=== PATIENT | female | born 1960 | race Caucasian/White ===

== ENCOUNTER → 2016-11-23 | Outpatient (CLI) | payer MEDICARE, OTHER ==
--- NOTE | 2016-11-23 16:55 | XR ---
EXAMINATION TYPE: XR Hip Bilateral Complete DATE OF EXAM: 11/23/2016 4:37 PM CLINICAL HISTORY: Chronic bilateral hip pain TECHNIQUE: AP and frogleg views of the bilateral hips are obtained. COMPARISON: Pelvic and right hip x-ray February 24, 2016. FINDINGS: There is no acute fracture/dislocation evident in either hip. There is advanced joint space loss with joint space sclerosis and geode formation in the right hip. M arginal spurring at head neck junction is redemonstrated. Well-defined ossific formation along superi or lateral acetabulum is again seen. Loss of normal femoral head shape is again identified raising co ncern for avascular necrosis. No significant change from prior study is present. Metallic hardware from left hip arthroplasty is redemonstrated. Lateral screw remains laterally displ aced from bone. Lucency surrounding more medial screws is again seen similar to prior exam. Consider loosening. Femoral shaft component felt within normal limits. Overlying soft tissue shows left-sided pelvic phleboliths similar to prior. 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 Metallic hardware left hip is redemonstrated with lucency along the medial screw sug gesting focal loosening again seen. No significant change from prior study is present.
--- NOTE | 2016-11-24 08:48 | XR ---
EXAMINATION TYPE: XR lumbosacral spine min 4V DATE OF EXAM: 11/23/2016 4:36 PM CLINICAL HISTORY: Low back pain. TECHNIQUE: Frontal, lateral, and oblique images of the lumbar spine are obtained. COMPARISON: CT abdomen pelvis December 04, 2015 FINDINGS: There are 5 lumbar type vertebral bodies identified. The lumbar spine redemonstrated bila teral pars defects L5 level with grade 1 anterolisthesis of L5 on S1. Vertebral body heights are with in normal limits. There is advanced disc space narrowing with endplate sclerosis at L5-S1 level wit h mild to moderate spurring redemonstrated. Remainder disc spaces are maintained. The oblique images appear within normal limits cholecystectomy clips are seen in the overlying soft tissue. There is par tial visualization of bilateral renal calculi redemonstrated. There is partial visualization of surgi frank hardware left hip level. There is mild atherosclerotic change of distal abdominal aorta redemonst rated. IMPRESSION: Bilateral pars defects L5 level with spondylolisthesis and advanced degenerative changes lumbosacral junction redemonstrated.
== END | disposition home or self-care (01) ==
LOC: RADXRMAIN 15:59
PROVIDERS: ATTEND Family Medicine
DX: M43.17 Spondylolisthesis, lumbosacral region (principal); M47.817 Spondylosis without myelopathy or radiculopathy, lumbosacral region; M25.851 Other specified joint disorders, right hip; M25.551 Pain in right hip; M25.552 Pain in left hip
CPT/HCPCS: 72110; 73521

== ENCOUNTER → 2016-12-09 | Outpatient (CLI) | payer MEDICARE, OTHER ==
--- NOTE | 2016-12-09 15:45 | CT ---
EXAMINATION TYPE: CT abdomen pelvis wo con DATE OF EXAM: 12/09/2016 3:31 PM COMPARISON: Previous study dated 12/04/2015. HISTORY: Right-sided abdominal pain. TECHNIQUE: Helical acquisition through the abdomen and pelvis was obtained without oral or intravenou s contrast. The data was reformatted in axial, coronal and sagittal projections. CT DLP: 317.80 mGycm Automated exposure control for dose reduction was used. FINDINGS: There is some dependent atelectasis in the dependent portions of the lungs. There is no ple ural or pericardial fluid. Within the abdomen, the gallbladder has been removed. The liver and spleen appear normal. There is a small hiatal hernia. Both adrenal glands appear normal. There is nephrolithiasis in the lower pole of both kidneys. There is a 9.6 mm calculus on the right a nd 9.1 mm calculus in the left. There is no hydronephrosis. Limited views of the pancreas are unremarkable. The stomach wall appears thickened. CT is notoriously poor assessment of stomach wall thickness. There is no significant retroperitoneal, iliac or inguinal adenopathy. There is minor atheromatous ca lcification of the visualized arterial tree. A left hip prosthesis is causing moderate streak artifact throughout the pelvis. The bladder is unrem arkable. The uterus and ovaries are not visualized. There is no significant diverticular change and there is no radiographic evidence of diverticulitis. The appendix is not visualized. Small bowel loops are normal. There is no free fluid and no free air identified. There is severe degenerative disease at L5-S1. There is a bilateral pars defect at L5 and a grade 1 s pondylolisthesis of L5 on S1. There is hypertrophic spondylosis in the lower dorsal spine. No destruc tive bone lesion is seen. IMPRESSION: 1. SMALL HIATAL HERNIA. 2. BILATERAL NONOBSTRUCTING NEPHROLITHIASIS. 3. QUESTIONABLE THICKENING OF THE STOMACH WALL. 4. DEGENERATIVE CHANGES WITHIN THE SPINE WELL A BILATERAL LYSIS AT L5 AND A GRADE 1 SPONDYLOLIS THESIS OF L5 ON S1.
== END | disposition home or self-care (01) ==
LOC: RADCTMAIN 15:09
PROVIDERS: ATTEND Family Medicine
DX: N20.0 Calculus of kidney (principal); K44.9 Diaphragmatic hernia without obstruction or gangrene
CPT/HCPCS: 74176

== ENCOUNTER 2016-12-10 15:37 | Emergency (ER) | payer MEDICARE, OTHER ==
[2016-12-10 15:43] VITALS: RESP 18
[2016-12-10] MEDS ORDERED: HYDROmorphone 1 MG/ML 1 ML SYRINGE IVP STA ×2 (15:58→17:43)
[2016-12-10] MEDS ORDERED: SODIUM CHLORIDE 0.9% 1,000 ML IV STA ×2 (15:58)
[2016-12-10] MEDS ORDERED: ONDANSETRON 4 MG/2 ML VIAL IVP STA (15:58)
--- NOTE | 2016-12-10 16:03 | ED ---
General Adult HPI - General Chief complaint: Abdominal Pain Stated complaint: hiatal hernia-sent by Time Seen by Provider: 12/10/16 15:45 Source: patient, RN notes reviewed Mode of arrival: ambulatory Limitations: no limitations - History of Present Illness Initial comments: Patient 56-year-old female who presents emergency room today with a chief complaint of abdominal pain on and off over the last 2 weeks. The pains been increasing over the last 4 days. Does admit that she saw her family doctor yesterday was sent here to the hospital for an outpatient CT of the abdomen. States that today she was told by telephone to come back to emergency room for evaluation. She does admit to increased pain in the epigastric area. States she does have increased acid reflux. Patient does admit to feeling nauseated no vomiting. Does admit to diarrhea. Patient denies any other complaints or associated symptoms. Patient denies any recent fever, chills, shortness of breath, chest pain, back pain, numbness or tingling, dysuria or hematuria, constipation or diarrhea, headaches or visual changes, or any other complaints. - Related Data Home Medications Medication Instructions Recorded Confirmed Atorvastatin [Lipitor] 20 mg PO HS 07/29/14 12/10/16 DULoxetine HCL [Cymbalta] 60 mg PO BID 07/29/14 12/10/16 Furosemide [Lasix] 40 mg PO DAILY 07/29/14 12/10/16 LORazepam [Ativan] 1 mg PO TID 07/29/14 12/10/16 Losartan [Cozaar] 50 mg PO DAILY 07/29/14 12/10/16 amLODIPine BESYLATE [Norvasc] 5 mg PO DAILY 07/29/14 12/10/16 Hydrocodone/Acetaminophen [[place] 1 tab PO Q6H PRN 12/04/15 12/10/16 10-325] Omeprazole [PriLOSEC] 20 mg PO AC-BID PRN 12/04/15 12/10/16 Bisacodyl [Dulcolax] 5 mg PO DAILY 07/28/16 12/10/16 Ibuprofen [Motrin] 800 mg PO Q8H PRN 07/28/16 12/10/16 Loratadine 10 mg PO DAILY PRN 07/28/16 12/10/16 [place]-3 Fatty Acids/Fish Oil [Fish 1 cap PO HS 07/28/16 12/10/16 Oil 1,000 mg Softgel] Previous Rx's Medication Instructions Recorded Famotidine [Pepcid] 20 mg PO BID #20 tablet 12/10/16 Ondansetron Odt [Zofran ODT] 4 mg PO Q8HR PRN #15 tab 12/10/16 Allergies Allergy/AdvReac Type Severity Reaction Status Date / Time cyclobenzaprine HCl Allergy Swelling Verified 12/10/16 16:29 [From Flexeril] Iodinated Contrast Media - Allergy Anaphylaxis Verified 12/10/16 16:29 Oral and [Iodinated Contrast Media - IV Dye] lithium [[place]] Allergy Swelling Verified 12/10/16 16:29 Penicillins Allergy Rash/Hives Verified 12/10/16 16:29 morphine AdvReac GETS ANGRY Verified 12/10/16 16:29 Review of Systems ROS Statement: Those systems with pertinent positive or pertinent negative responses have been documented in the HPI. ROS Other: All systems not noted in ROS Statement are negative. Past Medical History Past Medical History: Asthma, Cancer, COPD, CVA/TIA, Fibromyalgia, GERD/Reflux, Hyperlipidemia, Hypertension, Musculoskeletal Disorder, Neurologic Disorder, Osteoarthritis (OA), Skin Disorder, Thyroid Disorder Additional Past Medical History / Comment(s): KIDNEY STONE CURRENT, SEVERE, HX OF SAME. 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 PSORIASIS, cervical Ca.k History of Any Multi-Drug Resistant Organisms: MRSA Date of last positivie culture/infection: 2011 MDRO Source:: Lungs Past Surgical History: Appendectomy, Back Surgery, Cholecystectomy, Hysterectomy , Joint Replacement Additional Past Surgical History / Comment(s): EYE SURG KATERINE; splenectomy, tracheotomy, complete left hip replacement, L4, 5, 6 plates, Past Anesthesia/Blood Transfusion Reactions: No Reported Reaction Past Psychological History: Anxiety, Bipolar, Depression Smoking Status: Current every day smoker Past Alcohol Use History: Occasional Past Drug Use History: Marijuana Additional Drug Use History / Comment(s): IN PAST - Past Family History Sister(s) Family Medical History: COPD, Neurologic Disorder Daughter(s) Family Medical History: Asthma, Cancer Son(s) Family Medical History: Asthma, COPD, Neurologic Disorder Father Family Medical History: No Reported History Additional Family Medical History / Comment(s): Gout, deaf, alcoholism Mother Family Medical History: COPD, Myocardial Infarction (NM) Additional Family Medical History / Comment(s): emphysema General Exam - General Exam Comments Initial Comments: General: The patient is awake and alert, in no distress, and does not appear acutely ill. Eye: Pupils are equal, round and reactive to light, extra-ocular movements are intact. No nystagmus. There is normal conjunctiva bilaterally. No signs of icterus. Ears, nose, mouth and throat: There are moist mucous membranes and no oral lesions. Neck: The neck is supple, there is no tenderness or JVD. Cardiovascular: There is a regular rate and rhythm. No murmur, rub or gallop is appreciated. Respiratory: Lungs are clear to auscultation, respirations are non-labored, breath sounds are equal. No wheezes, stridor, rales, or rhonchi. Gastrointestinal: Normal appearance and. Normal bowel sounds. Abdomen soft on palpation. Patient does have tenderness greatest in epigastric and upper quadrant. No rebound tenderness. No guarding. No CVA tenderness. Musculoskeletal: Normal ROM, no tenderness. Strength 5/5. Sensation intact. Pulses equal bilaterally 2+. Neurological: A&O x 3. CN II-XII intact, There are no obvious motor or sensory deficits. Coordination appears grossly intact. Speech is normal. Skin: Skin is warm and dry and no rashes or lesions are noted. Psychiatric: Cooperative, appropriate mood & affect, normal judgment. Limitations: no limitations Course Vital Signs 12/10/16 15:38 Temperature 97.7 F Pulse Rate 82 Respiratory 18 Rate Blood Pressure 143/82 O2 Sat by Pulse 99 Oximetry Medical Decision Making - Medical Decision Making Case discussed in detail with attending physician Dr. Lopez. Patient's CT does show small renal cortical cyst. No evidence of renal mass or obstruction. Mild gastric wall thickening at the gastric fundus could relate to a hypertrophic gastritis. This is similar to yesterday also older exam of 2013. Mild submental atelectasis of lung base mild atherosclerotic vascular disease. No sign of acute abdomen and pelvis. Patient labs reviewed does show 15,000 white count. Patient's CAT scan from yesterday was also reviewed showing evidence for a hiatal hernia. These results were discussed with the patient. Patient will be discharged home on Pepcid currently taking omeprazole at home. Also given prescription of Zofran. Advised return if any symptoms increase or worsen or for any other concerns. Also advised to follow up with family doctor tomorrow. - Lab Data Result diagrams: 12/10/16 16:13 12/10/16 16:13 Lab Results 12/10/16 12/10/16 12/10/16 Range/Units 16:13 16:13 16:13 WBC 15.3 H (3.8-10.6) k/uL RBC 4.57 (3.80-5.40) m/uL Hgb 14.7 (11.4-16.0) gm/dL Hct 41.8 (34.0-46.0) % MCV 91.6 (80.0-100.0) fL MCH 32.3 (25.0-35.0) pg MCHC 35.3 (31.0-37.0) g/dL RDW 13.4 (11.5-15.5) % Plt Count 490 H (150-450) k/uL Neutrophils % 59 % Lymphocytes % 31 % Monocytes % 5 % Eosinophils % 1 % Basophils % 2 % Neutrophils # 9.1 H (1.3-7.7) k/uL Lymphocytes # 4.8 (1.0-4.8) k/uL Monocytes # 0.8 (0-1.0) k/uL Eosinophils # 0.1 (0-0.7) k/uL Basophils # 0.3 H (0-0.2) k/uL Sodium 143 (137-145) mmol/L Potassium 3.7 (3.5-5.1) mmol/L Chloride 110 H (98-107) mmol/L Carbon Dioxide 22 (22-30) mmol/L Anion Gap 11 mmol/L BUN 13 (7-17) mg/dL Creatinine 0.56 (0.52-1.04) mg/dL Est GFR (MDRD) Af Amer >60 (>60 ml/min/1.73 sqM) Est GFR (MDRD) Non-Af >60 (>60 ml/min/1.73 sqM) Glucose 93 (74-99) mg/dL Plasma Lactic Acid Alvaro 1.5 (0.7-2.0) mmol/L Calcium 9.6 (8.4-10.2) mg/dL Total Bilirubin 0.7 (0.2-1.3) mg/dL AST 13 L (14-36) U/L ALT 21 (9-52) U/L Alkaline Phosphatase 75 (38-126) U/L Total Protein 7.1 (6.3-8.2) g/dL Albumin 4.2 (3.5-5.0) g/dL Amylase 64 (30-110) U/L Lipase 197 (23-300) U/L Urine Color Urine Appearance (Clear) Urine pH (5.0-8.0) Ur Specific [place] (1.001-1.035) Urine Protein (Negative) Urine Glucose (UA) (Negative) Urine Ketones (Negative) Urine Blood (Negative) Urine Nitrate (Negative) Urine Bilirubin (Negative) Urine Urobilinogen (<2.0) mg/dL Ur Leukocyte Esterase (Negative) 12/10/16 Range/Units 16:13 WBC (3.8-10.6) k/uL RBC (3.80-5.40) m/uL Hgb (11.4-16.0) gm/dL Hct (34.0-46.0) % MCV (80.0-100.0) fL MCH (25.0-35.0) pg MCHC (31.0-37.0) g/dL RDW (11.5-15.5) % Plt Count (150-450) k/uL Neutrophils % % Lymphocytes % % Monocytes % % Eosinophils % % Basophils % % Neutrophils # (1.3-7.7) k/uL Lymphocytes # (1.0-4.8) k/uL Monocytes # (0-1.0) k/uL Eosinophils # (0-0.7) k/uL Basophils # (0-0.2) k/uL Sodium (137-145) mmol/L Potassium (3.5-5.1) mmol/L Chloride (98-107) mmol/L Carbon Dioxide (22-30) mmol/L Anion Gap mmol/L BUN (7-17) mg/dL Creatinine (0.52-1.04) mg/dL Est GFR (MDRD) Af Amer (>60 ml/min/1.73 sqM) Est GFR (MDRD) Non-Af (>60 ml/min/1.73 sqM) Glucose (74-99) mg/dL Plasma Lactic Acid Alvaro (0.7-2.0) mmol/L Calcium (8.4-10.2) mg/dL Total Bilirubin (0.2-1.3) mg/dL AST (14-36) U/L ALT (9-52) U/L Alkaline Phosphatase (38-126) U/L Total Protein (6.3-8.2) g/dL Albumin (3.5-5.0) g/dL Amylase (30-110) U/L Lipase (23-300) U/L Urine Color Yellow Urine Appearance Clear (Clear) Urine pH 6.0 (5.0-8.0) Ur Specific [place] 1.010 (1.001-1.035) Urine Protein Negative (Negative) Urine Glucose (UA) Negative (Negative) Urine Ketones Negative (Negative) Urine Blood Negative (Negative) Urine Nitrate Negative (Negative) Urine Bilirubin Negative (Negative) Urine Urobilinogen <2.0 (<2.0) mg/dL Ur Leukocyte Esterase Negative (Negative) Disposition Clinical Impression: Acute gastritis Disposition: HOME SELF-CARE Condition: Good Instructions: Gastritis (ED) Additional Instructions: Please follow with the Family doctor tomorrow. Please continue omeprazole. Please use Pepcid as prescribed and nausea medication as needed. Please return to emergency room if any symptoms increase or worsen or fail concerns. Prescriptions: Famotidine [Pepcid] 20 mg PO BID #20 tablet Ondansetron Odt [Zofran ODT] 4 mg PO Q8HR PRN #15 tab PRN Reason: Nausea Time of Disposition: 18:57
[2016-12-10 16:39] LABS: Appearance,Urine Clear (Clear); Bilirubin,Urine Negative (Negative); Glucose,Urine (UA) Negative (Negative); Ketones,Urine Negative (Negative); Leukocyte Esterase,Urine Negative (Negative); Nitrite,Urine Negative (Negative); Protein,Urine Negative (Negative); UA Billing (MACRO vs. MICRO) CHEM; Urobilinogen,Urine <2.0 mg/dL (<2.0)
[2016-12-10 16:40] LABS: Basophils # (A) 0.3 k/uL (0-0.2); Basophils % (A) 2 %; CH 31.9; Eosinophils # (A) 0.1 k/uL (0-0.7); Eosinophils % (A) 1 %; HCT 41.8 % (34.0-46.0); HDW 2.81; HGB 14.7 gm/dL (11.4-16.0); Luc # (Auto) 0.25; Luc % (Auto) 2; Lymphocytes # (A) 4.8 k/uL (1.0-4.8); Lymphocytes % (A) 31 %; MCH 32.3 pg (25.0-35.0); MCHC 35.3 g/dL (31.0-37.0); MCV 91.6 fL (80.0-100.0); Mean Platelet Volume 7.2; Monocytes # (A) 0.8 k/uL (0-1.0); Monocytes % (A) 5 %; Neutrophils # (A) 9.1 k/uL (1.3-7.7); Neutrophils % (A) 59 %; RBC 4.57 m/uL (3.80-5.40); RDW 13.4 % (11.5-15.5); WBC 15.3 k/uL (3.8-10.6); WBC (Perox) 14.96
[2016-12-10 16:50] LABS: ALT 21 U/L (9-52); AST 13 U/L (14-36); Alkaline Phosphatase 75 U/L (38-126); Amylase 64 U/L (30-110); Anion Gap 11 mmol/L; Blood Urea Nitrogen 13 mg/dL (7-17); Calcium 9.6 mg/dL (8.4-10.2); Carbon Dioxide 22 mmol/L (22-30); Chloride 110 mmol/L (98-107); Glucose 93 mg/dL (74-99); Non-African American GFR(MDRD) >60 (>60 ml/min/1.73 sqM); Potassium 3.7 mmol/L (3.5-5.1); Sodium 143 mmol/L (137-145); Total Bilirubin 0.7 mg/dL (0.2-1.3); Total Protein 7.1 g/dL (6.3-8.2)
--- NOTE | 2016-12-10 16:58 | XR ---
EXAMINATION TYPE: XR KUB DATE OF EXAM: 12/10/2016 4:53 PM CLINICAL HISTORY: Abdominal pain with bilateral flank pain, history of pancreatitis. TECHNIQUE: Single upright KUB image of the abdomen is obtained. COMPARISON: CT abdomen and pelvis from yesterday. FINDINGS: Scattered gas is seen in non-distended small bowel loops. Gas and fecal material is seen in non-distended colon. Cholecystectomy clips are redemonstrated. Bilateral renal calculi are somewha t obscured by bowel but felt redemonstrated lower pole level. Scattered pelvic phleboliths are seen. Lung bases are clear. Tachycardia from left hip arthroplasty is redemonstrated and stable in position . There is advanced joint space loss with subchondral cystic change and moderate to severe spurring r ight hip joint redemonstrated. IMPRESSION: Overall nonobstructive bowel gas pattern. Bilateral nephrolithiasis redemonstrated.
[2016-12-10] MEDS ORDERED: RX INFO: IV CONTRAST WAS GIVEN 1 EACH MISC MISCELLANE PRN (17:55)
[2016-12-10] MEDS ORDERED: FAMOTIDINE 20 MG/2 ML VIAL IV STA (17:55)
[2016-12-10] MEDS ORDERED: diphenhydrAMINE 50 MG/ML 1 ML VIAL IVP STA (17:55)
[2016-12-10] MEDS ORDERED: methylPREDNISolone SOD SUCCI 125 MG/2 ML VIAL IV STA (17:55)
--- NOTE | 2016-12-10 18:40 | CT ---
EXAMINATION TYPE: CT abdomen pelvis w con DATE OF EXAM: 12/10/2016 6:30 PM COMPARISON: Yesterday HISTORY: Bilateral flank pain and generalized abdominal pain. Nausea, vomiting and diarrhea. CT DLP: 530.30 mGycm Automated exposure control for dose reduction was used. TECHNIQUE: Helical acquisition of images was performed from the lung bases through the pelvis. CONTRAST: Performed without Oral Contrast and with IV Contrast, patient injected with 100 mL of Omnipaque 300. FINDINGS: Lung bases are clear of consolidation. There is no pleural effusion there is mild linear density at t he lung bases consistent with mild subsegmental atelectasis. Heart size is normal. There is no pericardial effusion. Liver has normal size and contour. There is a large left lobe of the liver. These Lien is not identif ied. There is no evidence of a pancreatic mass. There are clips from cholecystectomy. Bile ducts are not dilated. The wall of the gastric fundus is prominent without evidence of a discrete mass. There are small right-sided renal cortical cysts that measure up to 1 cm. There is no hydronephrosis. Ureters are not dilated. There is no retroperitoneal adenopathy. There is no ascites. I see no intes tinal wall thickening. There are no dilated loops. Appendix is not seen. There is no sign of appendic itis. I see no bony destructive process. There is L5 spondylolysis with first-degree L5-S1 spondyloli sthesis. IMPRESSION: SMALL RENAL CORTICAL CYSTS. NO EVIDENCE OF RENAL MASS OR OBSTRUCTION. MILD GASTRIC WALL THICKENING AT THE GASTRIC FUNDUS COULD RELATE TO HYPERTROPHIC GASTRITIS. THIS IS SIMILAR TO YESTERDAY AND ALSO THE OLDER EXAM OF 07/29/2014. MILD SUBSEGMENTAL ATELECTASIS AT THE LUNG BASES. MILD ATHEROSCLEROTIC VASC ULAR DISEASE. NO SIGN OF ACUTE ABDOMEN AND PELVIS.
[2016-12-10 19:04] VITALS: BP 140/76; PULSE 85; TEMP 98.3
== END 2016-12-10 19:04 | disposition home or self-care (01) ==
LOC: EC 15:37
DX: K29.00 Acute gastritis without bleeding (principal); K44.9 Diaphragmatic hernia without obstruction or gangrene; I10 Essential (primary) hypertension; E78.5 Hyperlipidemia, unspecified; Z79.899 Other long term (current) drug therapy; F41.9 Anxiety disorder, unspecified; F32.9 Major depressive disorder, single episode, unspecified; F31.9 Bipolar disorder, unspecified; F17.210 Nicotine dependence, cigarettes, uncomplicated; Z91.041 Radiographic dye allergy status; Z86.73 Personal history of transient ischemic attack (TIA), and cerebral infarction without residual deficits; Z87.442 Personal history of urinary calculi; Z86.14 Personal history of Methicillin resistant Staphylococcus aureus infection; Z85.41 Personal history of malignant neoplasm of cervix uteri; Z88.5 Allergy status to narcotic agent; Z88.0 Allergy status to penicillin; Z88.8 Allergy status to other drugs, medicaments and biological substances
CPT/HCPCS: 36415; 80053; 82150; 83605; 83690; 85025; 81003; 74000; 74177; 99284; 96374; 96375; 96376; 96361; J1200; J2930; J2405; J1170; Q9967

== ENCOUNTER 2017-01-24 14:25 | Emergency (ER) | payer MEDICARE, OTHER ==
[2017-01-24 14:30] VITALS: RESP 20
[2017-01-24] MEDS ORDERED: HYDROmorphone 1 MG/ML 1 ML SYRINGE IVP STA ×2 (15:10→16:36)
[2017-01-24] MEDS ORDERED: ONDANSETRON 4 MG/2 ML VIAL IVP STA (15:10)
[2017-01-24] MEDS ORDERED: SODIUM CHLORIDE 0.9% 1,000 ML IV STA (15:10)
--- NOTE | 2017-01-24 15:15 | ED ---
Abdominal Pain HPI - General Chief Complaint: Abdominal Pain Stated Complaint: Abd Pain Time Seen by Provider: 01/24/17 15:06 Source: patient, RN notes reviewed Mode of arrival: wheelchair Limitations: no limitations - History of Present Illness Initial Comments: 56-year-old female presents to the emergency department with a chief complaint of flank pain and hematuria. Patient states that she's been having hematuria since last night and she has developed increased pain starting today. Patient states that her whole abdomen hurts. Patient states that she tried her home with no improvement to her symptoms. Patient states that she has urinated stones that she's been able to see. Patient states she's just in terrible pain. Patient does admit to some nausea without vomiting with this as well. Patient has had multiple abdominal surgeries in the past. Patient denies any fevers or chills with this. Patient states she was concerned due to her continued pain and the blood in the urine so she thought that she should be evaluated. Patient denies any recent fever, chills, shortness of breath, chest pain, back pain, vomiting, numbness or tingling, dysuria,constipation or diarrhea, headaches or visual changes, or any other current symptoms. - Related Data Home Medications Medication Instructions Recorded Confirmed Atorvastatin [Lipitor] 20 mg PO HS 07/29/14 01/24/17 DULoxetine HCL [Cymbalta] 60 mg PO BID 07/29/14 01/24/17 Furosemide [Lasix] 40 mg PO DAILY 07/29/14 01/24/17 Losartan [Cozaar] 50 mg PO DAILY 07/29/14 01/24/17 amLODIPine BESYLATE [Norvasc] 5 mg PO DAILY 07/29/14 01/24/17 Hydrocodone/Acetaminophen [[place] 1 tab PO QID 12/04/15 01/24/17 10-325] Ibuprofen [Motrin] 800 mg PO Q8H 07/28/16 01/24/17 Loratadine 10 mg PO DAILY 07/28/16 01/24/17 [place]-3 Fatty Acids/Fish Oil [Fish 1 cap PO HS 07/28/16 01/24/17 Oil 1,000 mg Softgel] Ondansetron Odt [Zofran ODT] 4 mg PO Q12H PRN 01/24/17 01/24/17 Previous Rx's Medication Instructions Recorded Hydrocodone/Acetaminophen [[place] 1 each PO Q6HR PRN #20 tab 01/24/17 5-325] Ondansetron Odt [Zofran ODT] 4 mg PO Q8HR PRN #20 tab 01/24/17 Tamsulosin [Flomax] 0.4 mg PO DAILY #5 cap 01/24/17 Allergies Allergy/AdvReac Type Severity Reaction Status Date / Time cyclobenzaprine HCl Allergy Swelling Verified 01/24/17 15:24 [From Flexeril] Iodinated Contrast Media - Allergy Anaphylaxis Verified 01/24/17 15:24 Oral and [Iodinated Contrast Media - IV Dye] lithium [[place]] Allergy Swelling Verified 01/24/17 15:24 Penicillins Allergy Rash/Hives Verified 01/24/17 15:24 morphine AdvReac GETS ANGRY Verified 01/24/17 15:24 Review of Systems ROS Statement: Those systems with pertinent positive or pertinent negative responses have been documented in the HPI. ROS Other: All systems not noted in ROS Statement are negative. Past Medical History Past Medical History: Asthma, Cancer, COPD, CVA/TIA, Fibromyalgia, GERD/Reflux, Hyperlipidemia, Hypertension, Musculoskeletal Disorder, Neurologic Disorder, Osteoarthritis (OA), Skin Disorder, Thyroid Disorder Additional Past Medical History / Comment(s): KIDNEY STONE CURRENT, SEVERE, HX OF SAME. 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 PSORIASIS, cervical Ca.k History of Any Multi-Drug Resistant Organisms: MRSA Date of last positivie culture/infection: 2011 MDRO Source:: Lungs Past Surgical History: Appendectomy, Back Surgery, Cholecystectomy, Hysterectomy , Joint Replacement Additional Past Surgical History / Comment(s): EYE SURG KATERINE; splenectomy, tracheotomy, complete left hip replacement, L4, 5, 6 plates, Past Anesthesia/Blood Transfusion Reactions: No Reported Reaction Past Psychological History: Anxiety, Bipolar, Depression Smoking Status: Current every day smoker Past Alcohol Use History: Occasional Past Drug Use History: Marijuana Additional Drug Use History / Comment(s): IN PAST - Past Family History Sister(s) Family Medical History: COPD, Neurologic Disorder Daughter(s) Family Medical History: Asthma, Cancer Son(s) Family Medical History: Asthma, COPD, Neurologic Disorder Father Family Medical History: No Reported History Additional Family Medical History / Comment(s): Gout, deaf, alcoholism Mother Family Medical History: COPD, Myocardial Infarction ([place]) Additional Family Medical History / Comment(s): emphysema General Exam - General Exam Comments Initial Comments: General: The patient is awake and alert, in no distress, and does not appear acutely ill. Eye: Pupils are equal, round. Ears, nose, mouth and throat: There are moist mucous membranes. Neck: The neck is supple, there is no tenderness. Cardiovascular: There is a regular rate and rhythm. No murmur, rub or gallop is appreciated. Respiratory: Lungs are clear to auscultation, respirations are non-labored, breath sounds are equal. No wheezes, stridor, rales, or rhonchi. Gastrointestinal: Soft, non-distended, diffuse tenderness of the abdomen without masses or organomegaly noted. There is no rebound or guarding present. No CVA tenderness. Bowel sounds are unremarkable. Back: There is no tenderness to palpation in the midline. There is no obvious deformity. No rashes noted. Musculoskeletal: Normal ROM, no tenderness, There is no pedal edema. There is no calf tenderness or swelling. Sensation intact. Pulses equal bilaterally 2+. Neurological: CN II-XII intact, There are no obvious motor or sensory deficits. Coordination appears grossly intact. Speech is normal. Skin: Skin is warm and dry and no rashes or lesions are noted. Psychiatric: Cooperative, appropriate mood & affect, normal judgment. Limitations: no limitations Course Vital Signs 01/24/17 14:28 Temperature 98.5 F Pulse Rate 74 Respiratory 20 Rate Blood Pressure 127/79 O2 Sat by Pulse 99 Oximetry - Reevaluation(s) Reevaluation #1: 01/24/17 16:36 Patient states she feeling better at this time. Medical Decision Making - Medical Decision Making 56-year-old female presents emergency department with a chief complaint of abdominal pain with history of stones with hematuria. At this time patient does appear to have a renal calculus that is my a minimally obstructing. This time we did discuss this with the patient. We discussed return was and follow- up. Discussed all the patient's questions. He stated that he understood the plan. Will be discharged home. - Lab Data Result diagrams: 01/24/17 15:32 01/24/17 15:32 Lab Results 01/24/17 01/24/1717 Range/Units 15:32 15:32 15:32 WBC 13.2 H (3.8-10.6) k/uL RBC 4.62 (3.80-5.40) m/uL Hgb 15.2 (11.4-16.0) gm/dL Hct 43.5 (34.0-46.0) % MCV 94.1 (80.0-100.0) fL MCH 32.9 (25.0-35.0) pg MCHC 34.9 (31.0-37.0) g/dL RDW 13.0 (11.5-15.5) % Plt Count 610 H (150-450) k/uL Neutrophils % 48 % Lymphocytes % 40 % Monocytes % 7 % Eosinophils % 1 % Basophils % 1 % Neutrophils # 6.4 (1.3-7.7) k/uL Lymphocytes # 5.3 H (1.0-4.8) k/uL Monocytes # 0.9 (0-1.0) k/uL Eosinophils # 0.2 (0-0.7) k/uL Basophils # 0.1 (0-0.2) k/uL Sodium 142 (137-145) mmol/L Potassium 3.8 (3.5-5.1) mmol/L Chloride 109 H (98-107) mmol/L Carbon Dioxide 20 L (22-30) mmol/L Anion Gap 13 mmol/L BUN 11 (7-17) mg/dL Creatinine 0.60 (0.52-1.04) mg/dL Est GFR (MDRD) Af Amer >60 (>60 ml/min/1.73 sqM) Est GFR (MDRD) Non-Af >60 (>60 ml/min/1.73 sqM) Glucose 100 H (74-99) mg/dL Plasma Lactic Acid Alvaro 1.4 (0.7-2.0) mmol/L Calcium 10.2 (8.4-10.2) mg/dL Total Bilirubin 0.8 (0.2-1.3) mg/dL AST 25 (14-36) U/L ALT 36 (9-52) U/L Alkaline Phosphatase 88 (38-126) U/L Total Protein 7.3 (6.3-8.2) g/dL Albumin 4.5 (3.5-5.0) g/dL Amylase 57 (30-110) U/L Lipase 124 (23-300) U/L Urine Color Urine Appearance (Clear) Urine pH (5.0-8.0) Ur Specific [place] (1.001-1.035) Urine Protein (Negative) Urine Glucose (UA) (Negative) Urine Ketones (Negative) Urine Blood (Negative) Urine Nitrite (Negative) Urine Bilirubin (Negative) Urine Urobilinogen (<2.0) mg/dL Ur Leukocyte Esterase (Negative) Urine RBC (0-5) /hpf Urine WBC (0-5) /hpf Ur Squamous Epith Cells (0-4) /hpf Amorphous Sediment (None) /hpf Hyaline Casts (0-2) /lpf Urine Mucus (None) /hpf 01/24/17 Range/Units 15:32 WBC (3.8-10.6) k/uL RBC (3.80-5.40) m/uL Hgb (11.4-16.0) gm/dL Hct (34.0-46.0) % MCV (80.0-100.0) fL MCH (25.0-35.0) pg MCHC (31.0-37.0) g/dL RDW (11.5-15.5) % Plt Count (150-450) k/uL Neutrophils % % Lymphocytes % % Monocytes % % Eosinophils % % Basophils % % Neutrophils # (1.3-7.7) k/uL Lymphocytes # (1.0-4.8) k/uL Monocytes # (0-1.0) k/uL Eosinophils # (0-0.7) k/uL Basophils # (0-0.2) k/uL Sodium (137-145) mmol/L Potassium (3.5-5.1) mmol/L Chloride (98-107) mmol/L Carbon Dioxide (22-30) mmol/L Anion Gap mmol/L BUN (7-17) mg/dL Creatinine (0.52-1.04) mg/dL Est GFR (MDRD) Af Amer (>60 ml/min/1.73 sqM) Est GFR (MDRD) Non-Af (>60 ml/min/1.73 sqM) Glucose (74-99) mg/dL Plasma Lactic Acid Alvaro (0.7-2.0) mmol/L Calcium (8.4-10.2) mg/dL Total Bilirubin (0.2-1.3) mg/dL AST (14-36) U/L ALT (9-52) U/L Alkaline Phosphatase (38-126) U/L Total Protein (6.3-8.2) g/dL Albumin (3.5-5.0) g/dL Amylase (30-110) U/L Lipase (23-300) U/L Urine Color Yellow Urine Appearance Clear (Clear) Urine pH 6.5 (5.0-8.0) Ur Specific [place] 1.011 (1.001-1.035) Urine Protein 1+ H (Negative) Urine Glucose (UA) Negative (Negative) Urine Ketones Negative (Negative) Urine Blood Large H (Negative) Urine Nitrite Negative (Negative) Urine Bilirubin Negative (Negative) Urine Urobilinogen <2.0 (<2.0) mg/dL Ur Leukocyte Esterase Small H (Negative) Urine RBC >182 H (0-5) /hpf Urine WBC 12 H (0-5) /hpf Ur Squamous Epith Cells 1 (0-4) /hpf Amorphous Sediment Occasional H (None) /hpf Hyaline Casts 14 H (0-2) /lpf Urine Mucus Few H (None) /hpf - Radiology Data Radiology results: report reviewed, image reviewed Disposition Clinical Impression: Nephrolithiasis Disposition: HOME SELF-CARE Condition: Stable Instructions: Kidney Stones (ED) Additional Instructions: Please use medication as discussed. Please follow up with family doctor if symptoms have not improved over the next two days. Please return to the emergency room if your symptoms increase or worsen or for any other concerns. Prescriptions: Hydrocodone/Acetaminophen [[place] 5-325] 1 each PO Q6HR PRN #20 tab PRN Reason: Pain Ondansetron Odt [Zofran ODT] 4 mg PO Q8HR PRN #20 tab PRN Reason: Nausea Tamsulosin [Flomax] 0.4 mg PO DAILY #5 cap Referrals: Torsten Melissa DO [Primary Care Provider] - 1-2 days Daniel Gaming MD [STAFF PHYSICIAN] - 1-2 days Time of Disposition: 16:36
[2017-01-24 15:42] LABS: Basophils # (A) 0.1 k/uL (0-0.2); Basophils % (A) 1 %; CH 32.7; CHCM 34.9; Eosinophils # (A) 0.2 k/uL (0-0.7); Eosinophils % (A) 1 %; HCT 43.5 % (34.0-46.0); HDW 2.94; HGB 15.2 gm/dL (11.4-16.0); Luc # (Auto) 0.33; Luc % (Auto) 3; Lymphocytes # (A) 5.3 k/uL (1.0-4.8); Lymphocytes % (A) 40 %; MCH 32.9 pg (25.0-35.0); MCHC 34.9 g/dL (31.0-37.0); MCV 94.1 fL (80.0-100.0); Mean Platelet Volume 6.8; Monocytes # (A) 0.9 k/uL (0-1.0); Monocytes % (A) 7 %; Neutrophils # (A) 6.4 k/uL (1.3-7.7); Neutrophils % (A) 48 %; RBC 4.62 m/uL (3.80-5.40); WBC 13.2 k/uL (3.8-10.6); WBC (Perox) 13.11
[2017-01-24 15:52] LABS: ALT 36 U/L (9-52); AST 25 U/L (14-36); Alkaline Phosphatase 88 U/L (38-126); Amylase 57 U/L (30-110); Anion Gap 13 mmol/L; Blood Urea Nitrogen 11 mg/dL (7-17); Calcium 10.2 mg/dL (8.4-10.2); Carbon Dioxide 20 mmol/L (22-30); Chloride 109 mmol/L (98-107); Glucose 100 mg/dL (74-99); Non-African American GFR(MDRD) >60 (>60 ml/min/1.73 sqM); Potassium 3.8 mmol/L (3.5-5.1); Sodium 142 mmol/L (137-145); Total Bilirubin 0.8 mg/dL (0.2-1.3); Total Protein 7.3 g/dL (6.3-8.2)
[2017-01-24 15:53] LABS: Amorphous Sediment,Urine Occasional /hpf; Appearance,Urine Clear (Clear); Bilirubin,Urine Negative (Negative); Glucose,Urine (UA) Negative (Negative); Ketones,Urine Negative (Negative); Leukocyte Esterase,Urine Small (Negative); Mucus,Urine Few /hpf; Nitrite,Urine Negative (Negative); PH, Urine 6.5 (5.0-8.0); Particle Count 6586; Protein,Urine 1+ (Negative); RBC,Urine >182 /hpf (0-5); Specific Gravity,Urine 1.011 (1.001-1.035); Squamous Epithelial Cell,Urine 1 /hpf (0-4); UA Billing (MACRO vs. MICRO) MICRO; Urobilinogen,Urine <2.0 mg/dL (<2.0); WBC,Urine 12 /hpf (0-5)
--- NOTE | 2017-01-24 16:23 | CT ---
EXAMINATION TYPE: CT abdomen pelvis wo con DATE OF EXAM: 01/24/2017 3:57 PM COMPARISON: 12/10/2016 INDICATION: Upper Abdomen pain with nausea and hematuria DLP: 1030 mGycm, Automated exposure control for dose reduction was used. CONTRAST: 0 mL of Omnipaque 300. Study performed without Oral Contrast TECHNIQUE: Axial images were obtained from above the diaphragm to the pubic rami in the axial plane a t 5 mm thick sections. Reconstructed images are reviewed on the computer in the coronal plane. FINDINGS: Limited CT sections are obtained the lung bases. Minimal compressive atelectasis at the lung bases b ilaterally.. CT ABDOMEN: Liver: Normal Spleen: Normal Pancreas: Normal Adrenal glands: The adrenal glands are normal. Gallbladder: Normal Kidneys: There is a 0.5 cm transverse dimension stone at the left renal pelvis. Minimal prominence of the left renal collecting system is present. The ureters appear normal bilaterally. There is a 0.6 c m calcification within the inferior pole right kidney.. No hydronephrosis is present. No cysts are present. Delayed images were obtained through the kidneys, which remain unremarkable. Aorta: Normal Inferior vena cava: Normal. CT PELVIS: Loops of bowel without oral contrast appear unremarkable. Some fluid-filled small bowel loops are pre sent. Mild ileus is not excluded. Appendix: Not identified Urinary bladder: Decompressed with limited evaluation. Genitourinary structures: The uterus and ovaries are not identified. No free fluid is within the pelv is. Beam hardening artifact back is present at the low pelvis from a left hip prosthesis. Osseous structures: No suspicious lytic or sclerotic lesions. IMPRESSIONS: 1. Minimally obstructing 0.5 cm renal stone at the left renal pelvis. A nonobstructing right renal s tone is also present.
[2017-01-24 17:08] VITALS: BP 116/78; PULSE 86; TEMP 98.2
== END 2017-01-24 17:07 | disposition home or self-care (01) ==
LOC: EC 14:25
DX: N20.0 Calculus of kidney (principal); E78.5 Hyperlipidemia, unspecified; I10 Essential (primary) hypertension; M79.7 Fibromyalgia; F41.9 Anxiety disorder, unspecified; F32.9 Major depressive disorder, single episode, unspecified; M19.90 Unspecified osteoarthritis, unspecified site; F17.200 Nicotine dependence, unspecified, uncomplicated; Z79.1 Long term (current) use of non-steroidal anti-inflammatories (NSAID); Z79.891 Long term (current) use of opiate analgesic; Z79.899 Other long term (current) drug therapy; Z88.0 Allergy status to penicillin; Z88.5 Allergy status to narcotic agent; Z88.8 Allergy status to other drugs, medicaments and biological substances; Z91.041 Radiographic dye allergy status; Z85.41 Personal history of malignant neoplasm of cervix uteri; Z90.49 Acquired absence of other specified parts of digestive tract; Z90.710 Acquired absence of both cervix and uterus
CPT/HCPCS: 99284; 96374; 96375; 96376; 96361; 36415; 80053; 82150; 83605; 83690; 85025; 81001; 87040; 87086; 74176; J2405; J1170

== ENCOUNTER → 2017-01-29 | Outpatient (CLI) | payer MEDICARE, OTHER | END | disposition home or self-care (01) | LOC: LABWHC1 13:28 | PROVIDERS: ATTEND Urology | DX: N20.0 Calculus of kidney (principal) | CPT/HCPCS: 36415; 93005 ==

== ENCOUNTER 2017-02-01 10:16 | Day surgery (SDC) | payer MEDICARE, OTHER ==
[2017-01-29 11:44] VITALS: BMI 27.3
[~2017-02-01 10:16] MED LIST: LACTATED RINGERS 1,000 ML IV SCH; LIDOCAINE 1% 20 ML VIAL (10MG/ML) FOR IV START INTRADERMA PRN; Pre Op ABX Message 1 EACH MISC MISCELLANE ONE
[2017-02-01 10:34] VITALS: RESP 16; TEMP 97
--- NOTE | 2017-02-01 10:36 | XR ---
EXAMINATION TYPE: XR KUB DATE OF EXAM: 02/01/2017 10:11 AM CLINICAL DATA: 56-year-old female presurgical for left-sided lithotripsy, kidney stone COMPARISON: 12/10/2016 FINDINGS: Nonobstructive bowel gas pattern. Cholecystectomy clips are present. 8 mm ovoid calcification in the right abdomen and 8mm rounded calcification in the left abdomen. Phleboliths in the pelvis. Degenerative changes at L5-S1. Partially visualized left hip total articular plasty. End-stage degene rative change of the right hip. IMPRESSION: Bilateral renal calculus measuring up to 8 mm, larger on the left.
[2017-02-01] MEDS ORDERED: ONDANSETRON 4 MG/2 ML VIAL IVP ONE (10:48)
[2017-02-01] MEDS ORDERED: PROPOFOL 10 MG/ML 20 ML VIAL IV ONE (11:04)
[2017-02-01] MEDS ORDERED: MIDAZOLAM 2 MG/2 ML VIAL ONE (11:04)
[2017-02-01] MEDS ORDERED: fentaNYL (PF) 50 MCG/ML 2 ML AMP ONE (11:04)
--- NOTE | 2017-02-01 11:49 | P.OP ---
Date of Procedure: 02/01/17 Preoperative Diagnosis: Left Renal Calculus Postoperative Diagnosis: Same Procedure(s) Performed: Left Extracorporeal Shockwave Lithotripsy (ESWL) Anesthesia: MAC Surgeon: Daniel Gaming Estimated Blood Loss (ml): 0 IV fluids (ml): 650 Pathology: none sent Condition: stable Disposition: PACU Indications for Procedure: The patient has bilateral flank and abdominal pain and a CT scan showed bilateral renal calculi. There is a 6 mm calculus in a lower pole calyx of the right kidney and a 5 or 6 mm calculus at the left ureteropelvic junction. The calculus in the left kidney is more likely to be causing intermittent obstruction. I discussed ESWL versus ureteroscopy for treatment of each calculi. The patient has done well with ESWL in the past I told her that the calculus at the left ureteropelvic junction could be treated with ESWL. She is currently taking Bactrim for a Provid[place] UTI. The preoperative KUB x-ray showed the left renal calculus located within a lower pole calyx. Operative Findings: The calculus fragmented well. Description of Procedure: The patient was taken to the operating room and placed on the Dornier Compact Delta II lithotripter in the supine position. The calculus was seen on biplanar fluoroscopy. Once the patient was properly positioned and sedated, lithotripsy was performed. The energy level was gradually increased per protocol, to an energy level of 5. After 200 shocks were administered, a 2 minute pause was instituted per protocol. A total of 2500 shocks were given at a rate of 80 shocks per minute. Fluoroscopy was utilized at a minimum to ensure proper positioning and determine the treatment status. The calculus changed in appearance, consistent with fragmentation. The patient tolerated the procedure well was taken to the recovery room in stable condition. Instructions were given to strain the urine, and the patient will follow-up within one week.
[2017-02-01] MEDS ORDERED: HYDROmorphone 1 MG/ML 1 ML SYRINGE IVP ONE ×2 (12:00→13:35)
[2017-02-01] MEDS ORDERED: LACTATED RINGERS 1,000 ML IV ONE (12:29)
[2017-02-01 13:41] VITALS: BP 108/74; PULSE 88
== END 2017-02-01 14:05 | disposition home or self-care (01) ==
LOC: ORWHC2ENDO 10:16
PROVIDERS: ATTEND Urology
DX: N20.0 Calculus of kidney (principal); G89.4 Chronic pain syndrome; I10 Essential (primary) hypertension; M10.9 Gout, unspecified; E78.5 Hyperlipidemia, unspecified; K21.9 Gastro-esophageal reflux disease without esophagitis; K58.9 Irritable bowel syndrome, unspecified; H40.9 Unspecified glaucoma; M19.90 Unspecified osteoarthritis, unspecified site; F41.9 Anxiety disorder, unspecified; F31.9 Bipolar disorder, unspecified; M79.7 Fibromyalgia; G43.909 Migraine, unspecified, not intractable, without status migrainosus; J45.909 Unspecified asthma, uncomplicated; J44.9 Chronic obstructive pulmonary disease, unspecified; E07.9 Disorder of thyroid, unspecified; Z85.41 Personal history of malignant neoplasm of cervix uteri; Z96.642 Presence of left artificial hip joint; Z86.73 Personal history of transient ischemic attack (TIA), and cerebral infarction without residual deficits; Z86.14 Personal history of Methicillin resistant Staphylococcus aureus infection; F17.200 Nicotine dependence, unspecified, uncomplicated; Z79.2 Long term (current) use of antibiotics; Z79.1 Long term (current) use of non-steroidal anti-inflammatories (NSAID); Z79.899 Other long term (current) drug therapy; Z91.030 Bee allergy status; Z88.5 Allergy status to narcotic agent; Z88.0 Allergy status to penicillin; Z88.8 Allergy status to other drugs, medicaments and biological substances; Z91.041 Radiographic dye allergy status
CPT/HCPCS: 74000; 50590; J2250; J2405; J3010; J1170; J2704

== ENCOUNTER → 2017-02-08 | Outpatient (CLI) | payer MEDICARE, OTHER ==
--- NOTE | 2017-02-08 13:19 | XR ---
EXAMINATION TYPE: XR KUB DATE OF EXAM: 02/08/2017 1:03 PM CLINICAL HISTORY: Left-sided renal calculus, recent lithotripsy. TECHNIQUE: 2 supine KUB images of the abdomen are obtained. COMPARISON: Abdominal x-ray February 01, 2017. CT abdomen and pelvis January 24, 2017. FINDINGS: There is persistent 7 mm calculus projecting over left 12th rib on current study may reflec t lower pole calyceal calculus on CT which may have progressed into renal pelvis. The 1 cm calculus a t UPJ on CT is not definitively seen. There is persistent 8 mm calculus lower pole level right kidney . Small renal calculi on CT right kidney lower pole level are less well seen on plain films. There ar e left-sided pelvic phleboliths redemonstrated. Cholecystectomy are redemonstrated. Metallic hardware from left hip surgery is again seen with stable position. There is overall nonobstructive bowel gas pattern. Dystrophic calcifications right lower q uadrant posterior soft tissue are redemonstrated. IMPRESSION: Bilateral nephrolithiasis redemonstrated, the 7 mm calculus lower pole level left kidney is slightly more superior in position on today's radiograph versus most recent prior suggesting may have progress ed into pelvis in the interval.
== END | disposition home or self-care (01) ==
LOC: RADXRMAIN 12:48
PROVIDERS: ATTEND Urology
DX: N20.0 Calculus of kidney (principal)
CPT/HCPCS: 74000

== ENCOUNTER → 2017-02-17 | Outpatient (CLI) | payer MEDICARE, OTHER ==
--- NOTE | 2017-02-17 16:40 | XR ---
EXAMINATION TYPE: XR KUB DATE OF EXAM: 02/17/2017 3:36 PM CLINICAL DATA: 56-year-old female follow-up kidney stones, [facility] COMPARISON: 02/08/2017 FINDINGS: Nonobstructive bowel gas pattern. No significant stool burden. Chronic gaseous bowel loops. Cholecyst ectomy clips. Suggestion of bilateral nephrolithiasis measuring 1 cm on the right and left sides, each. Bowel yang nt does obscure much of the renal shadows. Bilateral pelvic phleboliths are noted. End-stage degenerative change of the right hip. Partially visualized left hip thoracoplasty. IMPRESSION: Redemonstrated bilateral nephrolithiasis measuring up to 1 cm on either side. There is prominent deo l content which obscures much of the renal shadows.
== END ==
LOC: RADXRMAIN 15:24
PROVIDERS: ATTEND Urology
DX: N20.0 Calculus of kidney (principal)
CPT/HCPCS: 74000

== ENCOUNTER → 2017-02-18 | Outpatient (CLI) | payer MEDICARE, OTHER ==
--- NOTE | 2017-02-18 10:00 | CT ---
EXAMINATION TYPE: CT abdomen pelvis wo con DATE OF EXAM: 02/18/2017 8:27 AM COMPARISON: Prior CT abdomen pelvis 24 January 2017 HISTORY: bilateral flank pain, hx of stones CT DLP: 782 mGycm Automated exposure control for dose reduction was used. TECHNIQUE: Helical acquisition of images from the lung bases through the pelvis. FINDINGS: LUNG BASES: Minimal basilar atelectatic changes or scarring noted. There are coronary artery calcific ations. AORTA: No significant abnormality is appreciated. LIVER/GB: Patient is post cholecystectomy. Liver within normal limits for noncontrast exam PANCREAS: No significant abnormality is seen. SPLEEN: Spleen is not seen ADRENALS: No significant abnormality is seen. KIDNEYS: Bilateral kidney stones are again noted, lower pole calcification on the left measures appro ximately 7 mm, lower pole calcification on the right measures approximately 9 mm in greatest dimensio n, smaller calcification at the lower pole calyx measures 4 mm. REPRODUCTIVE ORGANS: Uterus and adnexal structures are not seen URINARY BLADDER: No significant abnormality is seen. BOWEL: No significant abnormality is seen. FREE AIR: No Free Air is visible. ASCITES: None visible. PELVIC ADENOPATHY: None visualized. RETROPERITONEAL ADENOPATHY: No Retroperitoneal Adenopathy visible. OSSEOUS STRUCTURES: Extensive osteoarthritic change noted in the right hip with changes of synovial osteochondromatosis, postop change status post hip arthroplasty in the left hip causes some streak ar tifact. Bilateral spondylolysis at L5. There is an anterolisthesis grade 1. Degenerative disc changes are also noted. IMPRESSION: BILATERAL NEPHROLITHIASIS IS NONOBSTRUCTIVE. NONCONTRAST EXAM. ADDITIONAL FINDINGS ABOVE, POSTOP HIGHTOWER GES. 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 Splenectomy
== END | disposition home or self-care (01) ==
LOC: RADCTMAIN 08:08
PROVIDERS: ATTEND Physician Assistant
DX: N20.0 Calculus of kidney (principal); Z90.81 Acquired absence of spleen
CPT/HCPCS: 74176

== ENCOUNTER → 2017-02-22 | Outpatient (CLI) | payer MEDICARE, OTHER ==
[2017-02-22 10:35] LABS: Anion Gap 13 mmol/L; Blood Urea Nitrogen 15 mg/dL (7-17); Carbon Dioxide 23 mmol/L (22-30); Chloride 108 mmol/L (98-107); Glucose 100 mg/dL (74-99); Non-African American GFR(MDRD) >60 (>60 ml/min/1.73 sqM); Potassium 3.9 mmol/L (3.5-5.1); Sodium 144 mmol/L (137-145)
[2017-02-22 10:44] LABS: CHCM 33.4; HCT 45.2 % (34.0-46.0); HDW 2.74; MCHC 33.2 g/dL (31.0-37.0); MCV 96.3 fL (80.0-100.0); Mean Platelet Volume 6.7; RBC 4.69 m/uL (3.80-5.40); RDW 12.8 % (11.5-15.5); WBC 17.5 k/uL (3.8-10.6); WBC (Perox) 17.21
[2017-02-22 11:45] LABS: Add Differential Manual Differential
[2017-02-22 11:46] LABS: Nucleated Red Blood Cells 0 /100 WBC (0-0); Total Cells Counted 100
[2017-02-22 11:50] LABS: Howell-Jolly Bodies Present
== END | disposition home or self-care (01) ==
LOC: LABPAT 09:53
PROVIDERS: ATTEND Physician Assistant
DX: Z01.818 Encounter for other preprocedural examination (principal); N20.0 Calculus of kidney; E78.5 Hyperlipidemia, unspecified
CPT/HCPCS: 80048; 85025

== ENCOUNTER 2017-03-01 08:33 | Day surgery (SDC) | payer MEDICARE, OTHER ==
[2017-02-26 10:13] VITALS: BMI 27.3
[~2017-03-01 08:33] MED LIST changes: +DEXAMETHASONE SOD PHOSPHATE 10 MG/ML 1 ML VIAL IV ONE; -LIDOCAINE 1% 20 ML VIAL (10MG/ML) FOR IV START INTRADERMA PRN; +ONDANSETRON 4 MG/2 ML VIAL IVP ONE
--- NOTE | 2017-03-01 08:49 | XR ---
EXAMINATION TYPE: XR KUB DATE OF EXAM: 03/01/2017 8:26 AM CLINICAL DATA: 56-year-old female left-sided kidney stones COMPARISON: 02/17/2017 FINDINGS: Cholecystectomy clips. An 8 mm calcification in the right midabdomen and 1 cm calcification in the le ft mid abdomen are redemonstrated. Nonobstructive bowel gas pattern with mild stool burden. Multiple pelvic phleboliths are noted. End-stage degenerative change at the right hip and partially visualized left hip total arthroplasty. Degenerative changes lower lumbar spine. IMPRESSION: Bilateral nephrolithiasis measuring up to 8 mm on the right and 1 cm on the left.
[2017-03-01] MEDS ORDERED: LIDOCAINE 1% 20 ML VIAL (10MG/ML) FOR IV START INTRADERMA ONE (09:45)
[2017-03-01] MEDS ORDERED: fentaNYL (PF) 50 MCG/ML 2 ML AMP IV ONE ×2 (10:55→12:39)
[2017-03-01] MEDS ORDERED: fentaNYL (PF) 50 MCG/ML 2 ML AMP ONE (10:59)
[2017-03-01] MEDS ORDERED: PROPOFOL 10 MG/ML 20 ML VIAL IV ONE (10:59)
[2017-03-01] MEDS ORDERED: KETAMINE 10 MG/ML 20 ML VIAL ONE (10:59)
[2017-03-01] MEDS ORDERED: GLYCOPYRROLATE 0.2 MG/ML 2 ML VIAL ONE (10:59)
[2017-03-01] MEDS ORDERED: MIDAZOLAM 2 MG/2 ML VIAL ONE (10:59)
[2017-03-01] MEDS: HYDROmorphone 1 MG/ML 1 ML SYRINGE IVP PRN ×4 (12:15→12:30)
[2017-03-01 12:24] VITALS: TEMP 97.2
[2017-03-01 12:48] VITALS: RESP 16
[2017-03-01] MEDS ORDERED: ONDANSETRON 4 MG/2 ML VIAL IVP ONE (12:50)
[2017-03-01] MEDS ORDERED: HYDROcodone/APAP 10-325MG 1 EACH TAB PO ONE ×2 (12:57→12:58)
[2017-03-01 13:31] VITALS: BP 100/60; PULSE 68
--- NOTE | 2017-03-02 09:13 | OP ---
DATE OF SERVICE: 03/01/2017 SURGEON: GHAZALA OLIVER MD PREOPERATIVE DIAGNOSIS: Left renal calculus. POSTOPERATIVE DIAGNOSIS: Left renal calculus. OPERATION: Extracorporeal shockwave lithotripsy of left renal calculus. ANESTHESIA: General. Patient is a 56-year-old female with a history of urolithiasis and chronic back pain. The patient recently underwent successful treatment of a 7 or 8 mm calculus in the left renal pelvis or proximal ureter. She continues to have a 4 x 7 mm calculus in the lower pole of the kidney, which was not treated initially. Left ESWL is planned. DESCRIPTION OF PROCEDURE: Patient was taken to the operating suite where intravenous sedation was initially given. Patient was placed in the supine position. The calculus in the lower pole of the left kidney was localized using biplanar fluoroscopy. Unfortunately, the patient could not be kept from moving easily under intravenous sedation and so it was elected to proceed with general anesthesia via LMA. Lithotripsy was performed using a Dornier compact delta unit. Patient received 2500 shocks at level 4 at a rate of 6 per minute. A 2 minute pause occurred after 200 shocks. There appeared to be fragmentation of the calculus. Anesthesia was reversed and the patient was returned to the recovery room, awake and in satisfactory condition. The patient will be seen back on 03/10 at which time a KUB will be obtained. KATIE
== END 2017-03-01 14:10 | disposition home or self-care (01) ==
LOC: ORWHC2ENDO 08:33
PROVIDERS: ATTEND Urology
DX: N20.0 Calculus of kidney (principal); E78.5 Hyperlipidemia, unspecified; I10 Essential (primary) hypertension; M10.9 Gout, unspecified; L40.9 Psoriasis, unspecified; K21.9 Gastro-esophageal reflux disease without esophagitis; K58.9 Irritable bowel syndrome, unspecified; M19.90 Unspecified osteoarthritis, unspecified site; F41.9 Anxiety disorder, unspecified; F31.9 Bipolar disorder, unspecified; G43.909 Migraine, unspecified, not intractable, without status migrainosus; J44.9 Chronic obstructive pulmonary disease, unspecified; G89.4 Chronic pain syndrome; M79.7 Fibromyalgia; Z79.891 Long term (current) use of opiate analgesic; Z79.51 Long term (current) use of inhaled steroids; Z79.899 Other long term (current) drug therapy; Z86.73 Personal history of transient ischemic attack (TIA), and cerebral infarction without residual deficits; Z86.14 Personal history of Methicillin resistant Staphylococcus aureus infection; Z87.11 Personal history of peptic ulcer disease; Z85.41 Personal history of malignant neoplasm of cervix uteri; F17.200 Nicotine dependence, unspecified, uncomplicated; Z91.030 Bee allergy status; Z88.5 Allergy status to narcotic agent; Z88.0 Allergy status to penicillin; Z88.8 Allergy status to other drugs, medicaments and biological substances; Z91.048 Other nonmedicinal substance allergy status
CPT/HCPCS: 74000; 50590; J2250; J2405; J3010; J1170; J2704

== ENCOUNTER → 2017-03-05 | Outpatient (CLI) | payer MEDICARE, OTHER ==
--- NOTE | 2017-03-05 15:39 | US ---
EXAMINATION TYPE: US kidneys/renal and bladder DATE OF EXAM: 03/05/2017 3:28 PM COMPARISON: CT & XRAY CLINICAL HISTORY: R10.9 RT FLANK PAIN,N20.0 CALCULUS OF KIDNEY. lithotripsy on left kidney on 03/01/20 17. EXAM MEASUREMENTS: Right Kidney: 11.5 x 5.0 x 5.6 cm Left Kidney: 11.9 x 5.9 x 6.1 cm Right Kidney: stone with shadowing lower pole measuring 1.1 x 1.0 cm, no hydro seen Left Kidney: No hydronephrosis or masses seen Bladder: wnl Bilateral Jets seen: Yes Posterior shadowing within the right renal stone is evident. IMPRESSION: 1. Right renal stone without obstruction.
== END ==
LOC: RADUSWWP 14:48
PROVIDERS: ATTEND Urology
DX: N20.0 Calculus of kidney (principal)
CPT/HCPCS: 74000; 76770

== ENCOUNTER → 2017-03-05 | Outpatient (CLI) | payer MEDICARE, OTHER ==
--- NOTE | 2017-03-05 14:16 | XR ---
EXAMINATION TYPE: XR abdomen 1V DATE OF EXAM: 03/05/2017 1:39 PM COMPARISON: 03/01/2017 INDICATION: Renal calculus TECHNIQUE: Single view abdomen FINDINGS: There is a normal bowel gas pattern. Psoas margins are normal. No organomegaly is present. There is a 1.0 cm calcification at the inferior pole right kidney. A 0.6 similar calcifications at th e inferior pole left kidney IMPRESSION: 1. Inferior pole renal stones.
== END ==
LOC: RADXRMAIN 13:26
PROVIDERS: ATTEND Urology
DX: N20.0 Calculus of kidney (principal)
CPT/HCPCS: 74000

== ENCOUNTER 2017-06-01 10:16 | Emergency (ER) | payer MEDICARE, OTHER ==
[2017-06-01] MEDS ORDERED: FAMOTIDINE 20 MG/2 ML VIAL IV STA (10:45)
[2017-06-01] MEDS ORDERED: ONDANSETRON 4 MG/2 ML VIAL IVP STA (10:45)
[2017-06-01] MEDS ORDERED: DICYCLOMINE 10 MG/ML 2 ML AMP IM STA (10:45)
[2017-06-01] MEDS ORDERED: SODIUM CHLORIDE 0.9% 1,000 ML IV STA ×2 (10:45→13:53)
--- NOTE | 2017-06-01 10:48 | ED ---
General Adult HPI - General Chief complaint: Nausea/Vomiting/Diarrhea Stated complaint: abdominal pain Time Seen by Provider: 06/01/17 10:41 Source: patient, family, RN notes reviewed Mode of arrival: wheelchair Limitations: no limitations - History of Present Illness Initial comments: 57-year-old female presents to the emergency department with a chief complaint of abdominal pain bloating nausea vomiting diarrhea. Patient states she has been sick since Wednesday. Patient states it has progressively got worse. Patient denies any blood in the vomit or diarrhea. Patient states that she has had her appendix and gallbladder out. Patient denies any eating or drinking fluids. Patient denies any fever or chills. Patient states just seems to be getting worse so she thought that she should be evaluated. Patient states that she is not currently having any other symptoms at this time. Patient denies any recent fever, chills, shortness of breath, chest pain, back pain, numbness or tingling, dysuria or hematuria, constipation, headaches or visual changes, or any other current symptoms. - Related Data Home Medications Medication Instructions Recorded Confirmed Atorvastatin [Lipitor] 20 mg PO DAILY 07/29/14 06/01/17 DULoxetine HCL [Cymbalta] 60 mg PO BID 07/29/14 06/01/17 Furosemide [Lasix] 40 mg PO DAILY 07/29/14 06/01/17 Losartan [Cozaar] 50 mg PO DAILY 07/29/14 06/01/17 amLODIPine BESYLATE [Norvasc] 5 mg PO HS 07/29/14 06/01/17 Ibuprofen [Motrin] 800 mg PO Q8H PRN 07/28/16 06/01/17 Loratadine 10 mg PO DAILY PRN 07/28/16 06/01/17 [place]-3 Fatty Acids/Fish Oil [Fish 1 cap PO HS 07/28/16 06/01/17 Oil 1,000 mg Softgel] Albuterol Nebulized [Ventolin 2.5 mg INHALATION RT-Q4H PRN 01/29/17 06/01/17 Nebulized] Beclomethasone Dipropionate [Qvar 2 puff INHALATION RT-BID PRN 01/29/17 06/01/17 80 mcg] LORazepam [Ativan] 1 mg PO TID PRN 02/01/17 06/01/17 Docusate [Colace] 100 mg PO HS PRN 02/26/17 06/01/17 HYDROcodone/APAP 10-325MG [[place] 1 tab PO Q6H PRN 02/26/17 06/01/17 10-325] Omeprazole [PriLOSEC] 20 mg PO AC-BID 02/26/17 06/01/17 prednisoLONE ACETATE 1% OPHTH 1 drops RIGHT EYE QID 02/26/17 06/01/17 [Pred Forte 1%] Atropine Ophth Soln 1% 5Ml [Isopto 1 drops RIGHT EYE BID 06/01/17 06/01/17 Atropine 1% 5Ml] Previous Rx's Medication Instructions Recorded Ondansetron Odt [Zofran ODT] 4 mg PO Q8HR PRN #20 tab 01/24/17 Ciprofloxacin HCl [Cipro] 500 mg PO Q12HR #14 tablet 06/01/17 Dicyclomine [Bentyl] 10 mg PO TID #20 capsule 06/01/17 Ondansetron Odt [Zofran ODT] 4 mg PO Q8HR PRN #20 tab 06/01/17 metroNIDAZOLE [Flagyl] 500 mg PO TID #21 tab 06/01/17 Allergies Allergy/AdvReac Type Severity Reaction Status Date / Time cyclobenzaprine HCl Allergy Swelling Verified 06/01/17 13:37 [From Flexeril] Iodinated Contrast- Oral and Allergy Anaphylaxis Verified 06/01/17 13:37 IV Dye [Iodinated Contrast Media - IV Dye] lithium [Guion] Allergy Swelling Verified 06/01/17 13:37 Penicillins Allergy Rash/Hives Verified 06/01/17 13:37 bee pollen AdvReac Swelling Verified 06/01/17 13:37 morphine AdvReac GETS ANGRY Verified 06/01/17 13:37 Review of Systems ROS Statement: Those systems with pertinent positive or pertinent negative responses have been documented in the HPI. ROS Other: All systems not noted in ROS Statement are negative. Past Medical History Past Medical History: Asthma, Cancer, COPD, CVA/TIA, Fibromyalgia, GERD/Reflux, Hyperlipidemia, Hypertension, Musculoskeletal Disorder, Neurologic Disorder, Osteoarthritis (OA), Skin Disorder, Thyroid Disorder Additional Past Medical History / Comment(s): KIDNEY STONES, MULT TIA'S, migraines, glaucoma right eye/BLIND, chronic BACK, NECK, LEG pain. PSORIASIS, HX cervical Ca History of Any Multi-Drug Resistant Organisms: MRSA Date of last positivie culture/infection: 2011 MDRO Source:: Lungs Past Surgical History: Appendectomy, Back Surgery, Cholecystectomy, Hysterectomy , Joint Replacement Additional Past Surgical History / Comment(s): EYE SURG KATERINE; splenectomy, tracheotomy, complete left hip replacement, L4, 5, 6 plates, LITHOTRIPSY Past Anesthesia/Blood Transfusion Reactions: No Reported Reaction Past Psychological History: Anxiety, Bipolar, Depression Smoking Status: Current every day smoker Past Alcohol Use History: None Reported Past Drug Use History: Marijuana - Past Family History Sister(s) Family Medical History: COPD, Neurologic Disorder Daughter(s) Family Medical History: Asthma, Cancer Son(s) Family Medical History: Asthma, COPD, Neurologic Disorder Father Family Medical History: No Reported History Additional Family Medical History / Comment(s): Gout, deaf, alcoholism Mother Family Medical History: COPD, Myocardial Infarction (MA) Additional Family Medical History / Comment(s): emphysema General Exam - General Exam Comments Initial Comments: General: The patient is awake and alert, in no distress, and does not appear acutely ill. Ears, nose, mouth and throat: There are moist mucous membranes and no oral lesions. Neck: The neck is supple, there is no tenderness. Cardiovascular: There is a regular rate and rhythm. No murmur, rub or gallop is appreciated. Respiratory: Lungs are clear to auscultation, respirations are non-labored, breath sounds are equal. No wheezes, stridor, rales, or rhonchi. Gastrointestinal: Soft, distended and diffusely tender abdomen without masses or organomegaly noted. There is no rebound or guarding present. No CVA tenderness. Bowel sounds are unremarkable. Back: There is no tenderness to palpation in the midline. There is no obvious deformity. No rashes noted. Musculoskeletal: Normal ROM, no tenderness, There is no pedal edema. There is no calf tenderness or swelling. Sensation intact. Pulses equal bilaterally 2+. Neurological: CN II-XII intact, There are no obvious motor or sensory deficits. Coordination appears grossly intact. Speech is normal. Skin: Skin is warm and dry and no rashes or lesions are noted. Psychiatric: Cooperative, appropriate mood & affect, normal judgment. Limitations: no limitations Course Vital Signs 06/01/17 06/01/17 10:36 15:56 Temperature 98.0 F 98.6 F Pulse Rate 84 74 Respiratory 22 18 Rate Blood Pressure 109/71 136/95 O2 Sat by Pulse 97 97 Oximetry Medical Decision Making - Medical Decision Making 57-year-old female presents emergency Department chief complaint of nausea vomiting and diarrhea. This time patient has been reviewed. Patient's evaluate for occult with a CAT scan showing a colitis. Patient has tolerated a by mouth diet. Flagyl for home for the colitis. We discussed close follow-up with her doctor return parameters. We did hydrate the patient replace her potassium. Patient is negative plan all questions have been answered. She'll be discharged. - Lab Data Result diagrams: 06/01/17 13:50 06/01/17 13:50 Lab Results 06/01/17 06/01/17 06/01/17 Range/Units 12:39 13:50 13:50 WBC 21.2 H (3.8-10.6) k/uL RBC 4.68 (3.80-5.40) m/uL Hgb 15.1 (11.4-16.0) gm/dL Hct 42.5 (34.0-46.0) % MCV 90.9 (80.0-100.0) fL MCH 32.4 (25.0-35.0) pg MCHC 35.6 (31.0-37.0) g/dL RDW 12.9 (11.5-15.5) % Plt Count 412 (150-450) k/uL Neutrophils % (Manual) 82 % Lymphocytes % (Manual) 9 % Monocytes % (Manual) 9 % Neutrophils # (Manual) 17.38 H (1.3-7.7) k/uL Lymphocytes # (Manual) 1.91 (1.0-4.8) k/uL Monocytes # (Manual) 1.91 H (0-1.0) k/uL Nucleated RBCs 0 (0-0) /100 WBC Manual Slide Review Performed Sodium 139 (137-145) mmol/L Potassium 3.1 L (3.5-5.1) mmol/L Chloride 109 H (98-107) mmol/L Carbon Dioxide 20 L (22-30) mmol/L Anion Gap 10 mmol/L BUN 10 (7-17) mg/dL Creatinine 0.50 L (0.52-1.04) mg/dL Est GFR (MDRD) Af Amer >60 (>60 ml/min/1.73 sqM) Est GFR (MDRD) Non-Af >60 (>60 ml/min/1.73 sqM) Glucose 94 (74-99) mg/dL Plasma Lactic Acid Alvaro (0.7-2.0) mmol/L Calcium 9.4 (8.4-10.2) mg/dL Total Bilirubin 0.5 (0.2-1.3) mg/dL AST 29 (14-36) U/L ALT 16 (9-52) U/L Alkaline Phosphatase 97 (38-126) U/L Total Protein 6.2 L (6.3-8.2) g/dL Albumin 3.7 (3.5-5.0) g/dL Amylase <30 L (30-110) U/L Lipase 59 (23-300) U/L Urine Color Yellow Urine Appearance Cloudy H (Clear) Urine pH 6.5 (5.0-8.0) Ur Specific [place] 1.013 (1.001-1.035) Urine Protein 2+ H (Negative) Urine Glucose (UA) Negative (Negative) Urine Ketones Negative (Negative) Urine Blood Negative (Negative) Urine Nitrite Negative (Negative) Urine Bilirubin Negative (Negative) Urine Urobilinogen <2.0 (<2.0) mg/dL Ur Leukocyte Esterase Negative (Negative) Urine RBC 2 (0-5) /hpf Urine WBC 8 H (0-5) /hpf Ur Squamous Epith Cells 17 H (0-4) /hpf Urine Bacteria Rare H (None) /hpf Hyaline Casts 6 H (0-2) /lpf Granular Casts 1 (0) /lpf Urine Mucus Occasional H (None) /hpf C. difficile (EIA) Intrp (Negative) 06/01/17 06/01/17 Range/Units 16:25 16:45 WBC (3.8-10.6) k/uL RBC (3.80-5.40) m/uL Hgb (11.4-16.0) gm/dL Hct (34.0-46.0) % MCV (80.0-100.0) fL MCH (25.0-35.0) pg MCHC (31.0-37.0) g/dL RDW (11.5-15.5) % Plt Count (150-450) k/uL Neutrophils % (Manual) % Lymphocytes % (Manual) % Monocytes % (Manual) % Neutrophils # (Manual) (1.3-7.7) k/uL Lymphocytes # (Manual) (1.0-4.8) k/uL Monocytes # (Manual) (0-1.0) k/uL Nucleated RBCs (0-0) /100 WBC Manual Slide Review Sodium (137-145) mmol/L Potassium (3.5-5.1) mmol/L Chloride (98-107) mmol/L Carbon Dioxide (22-30) mmol/L Anion Gap mmol/L BUN (7-17) mg/dL Creatinine (0.52-1.04) mg/dL Est GFR (MDRD) Af Amer (>60 ml/min/1.73 sqM) Est GFR (MDRD) Non-Af (>60 ml/min/1.73 sqM) Glucose (74-99) mg/dL Plasma Lactic Acid Alvaro 0.9 (0.7-2.0) mmol/L Calcium (8.4-10.2) mg/dL Total Bilirubin (0.2-1.3) mg/dL AST (14-36) U/L ALT (9-52) U/L Alkaline Phosphatase (38-126) U/L Total Protein (6.3-8.2) g/dL Albumin (3.5-5.0) g/dL Amylase (30-110) U/L Lipase (23-300) U/L Urine Color Urine Appearance (Clear) Urine pH (5.0-8.0) Ur Specific [place] (1.001-1.035) Urine Protein (Negative) Urine Glucose (UA) (Negative) Urine Ketones (Negative) Urine Blood (Negative) Urine Nitrite (Negative) Urine Bilirubin (Negative) Urine Urobilinogen (<2.0) mg/dL Ur Leukocyte Esterase (Negative) Urine RBC (0-5) /hpf Urine WBC (0-5) /hpf Ur Squamous Epith Cells (0-4) /hpf Urine Bacteria (None) /hpf Hyaline Casts (0-2) /lpf Granular Casts (0) /lpf Urine Mucus (None) /hpf C. difficile (EIA) Intrp Negative (Negative) - Radiology Data Radiology results: report reviewed, image reviewed Disposition Clinical Impression: Colitis, Hypokalemia, Dehydration Disposition: HOME SELF-CARE Condition: Stable Instructions: Acute Nausea and Vomiting (ED) Additional Instructions: Please use medication as discussed. Please follow up with family doctor if symptoms have not improved over the next two days. Please return to the emergency room if your symptoms increase or worsen or for any other concerns. Prescriptions: Ciprofloxacin HCl [Cipro] 500 mg PO Q12HR #14 tablet Dicyclomine [Bentyl] 10 mg PO TID #20 capsule metroNIDAZOLE [Flagyl] 500 mg PO TID #21 tab Ondansetron Odt [Zofran ODT] 4 mg PO Q8HR PRN #20 tab PRN Reason: Nausea Referrals: Torsten Melissa DO [Primary Care Provider] - 1-2 days Time of Disposition: 18:04
[2017-06-01] MEDS ORDERED: HYDROmorphone 1 MG/ML 1 ML SYRINGE IM STA (11:53)
--- NOTE | 2017-06-01 12:25 | XR ---
EXAMINATION TYPE: XR abdomen 2V DATE OF EXAM: 06/01/2017 HISTORY: Pain. Technique: 2 views of the abdomen are submitted. Comparison: 03/05/2017 Findings: There is no convincing evidence of pneumoperitoneum. Mild distention of the jejunal loops measuring up to 3.5 cm with wall thickening. This may reflect en teritis. Correlate clinically. No sizable air-fluid levels are seen. No mass effects are noted. No renal calcifications are identified. IMPRESSION: 1. Correlate for small bowel enteritis.
[2017-06-01 13:01] LABS: Appearance,Urine Cloudy (Clear); Bacteria,Urine Rare /hpf; Bilirubin,Urine Negative (Negative); Glucose,Urine (UA) Negative (Negative); Granular Casts,Urine 1 /lpf (0); Ketones,Urine Negative (Negative); Leukocyte Esterase,Urine Negative (Negative); Mucus,Urine Occasional /hpf; Nitrite,Urine Negative (Negative); PH, Urine 6.5 (5.0-8.0); Particle Count 10429; Protein,Urine 2+ (Negative); RBC,Urine 2 /hpf (0-5); Specific Gravity,Urine 1.013 (1.001-1.035); Squamous Epithelial Cell,Urine 17 /hpf (0-4); UA Billing (MACRO vs. MICRO) MICRO; Urobilinogen,Urine <2.0 mg/dL (<2.0); WBC,Urine 8 /hpf (0-5)
[2017-06-01] MEDS ORDERED: HYDROmorphone 1 MG/ML 1 ML SYRINGE IVP STA (13:39)
[2017-06-01 14:27] LABS: CH 31.9; CHCM 35.2; HCT 42.5 % (34.0-46.0); HDW 2.81; HGB 15.1 gm/dL (11.4-16.0); MCH 32.4 pg (25.0-35.0); MCHC 35.6 g/dL (31.0-37.0); MCV 90.9 fL (80.0-100.0); Mean Platelet Volume 8.1; RBC 4.68 m/uL (3.80-5.40); RDW 12.9 % (11.5-15.5); WBC 21.2 k/uL (3.8-10.6); WBC (Perox) 21.34
[2017-06-01 14:43] LABS: ALT 16 U/L (9-52); AST 29 U/L (14-36); Alkaline Phosphatase 97 U/L (38-126); Amylase <30 U/L (30-110); Anion Gap 10 mmol/L; Blood Urea Nitrogen 10 mg/dL (7-17); Calcium 9.4 mg/dL (8.4-10.2); Carbon Dioxide 20 mmol/L (22-30); Chloride 109 mmol/L (98-107); Glucose 94 mg/dL (74-99); Non-African American GFR(MDRD) >60 (>60 ml/min/1.73 sqM); Potassium 3.1 mmol/L (3.5-5.1); Sodium 139 mmol/L (137-145); Total Bilirubin 0.5 mg/dL (0.2-1.3); Total Protein 6.2 g/dL (6.3-8.2)
[2017-06-01 15:22] LABS: Add Differential Manual Differential
--- NOTE | 2017-06-01 15:22 | CT ---
EXAMINATION TYPE: CT abdomen pelvis wo con DATE OF EXAM: 06/01/2017 COMPARISON: 02/18/2017 HISTORY: 57-year-old female Right sided pain with nausea CT DLP: 390.8 mGycm. Automated exposure control for dose reduction was used. TECHNIQUE: Contiguous axial scanning of the abdomen and pelvis without IV contrast. Coronal and sagit yaneth reconstructions performed. FINDINGS: The heart is normal size without pericardial effusion. Strandy atelectasis in the lower lungs without pleural effusion. Noncontrast appearance of the liver, adrenal glands, and pancreas show no gross abnormality. Spleen i s absent. Cholecystectomy clips are present. There are 2 nonobstructive calculi in the right kidney measuring up to 5 mm. Punctate 2 mm nonobstructive calculus upper pole left kidney. There is mild bilateral pelvicaliectasis, probably transient, without suspicious calcification seen a long the course of either ureter. No dilated small bowel, free fluid, or free air. There is some fat stranding centered along the ascending colon, for example on axial image 78 possibl e mild wall thickening. Liquid stool is also present in the right hemicolon. The appendix is not discretely visualized. Some mildly prominent fluid-filled small bowel loops in the lower abdomen. Bladder is urine distended. Uterus appears surgically absent. There is streak and beam hardening eboni fact from the patient's left hip total arthroplasty limiting visualization of the pelvic structures. Bones: End-stage degenerative change at the right hip. There are bilateral L5 pars defects with grade 2 anterolisthesis at L5-S1 and associated severe degenerative disc disease. No osseous destructive p rocess. IMPRESSION: 1. Mild inflammation along the ascending colon. There may be some mild colonic wall thickening here. Given liquid stool in the right hemicolon, correlate for a nonspecific colitis. 2. The appendix is not discretely visualized. 3. Nonobstructive nephrolithiasis measuring up to 5 mm on the right. No suspicious calcifications see n along the course of either ureter. 4. End-stage right hip OA and bilateral L5 pars defects with grade 2 anterolisthesis at L5-S1. Associ ated severe disc/endplate degenerative change at this level.
[2017-06-01 15:33] LABS: Manual Review Performed; Nucleated Red Blood Cells 0 /100 WBC (0-0); Total Cells Counted 100
[2017-06-01] MEDS: POTASSIUM CHLORIDE 10 MEQ, LIDOCAINE 2% INJ 10 MG in SODIUM CHLORIDE 0.9% 100 ML IVPB SCH ×2 (15:51→16:56)
[2017-06-01 15:57] VITALS: RESP 18; TEMP 98.6
[2017-06-01] MEDS ORDERED: METOCLOPRAMIDE 5 MG/ML 2 ML VIAL IVP STA (16:45)
[2017-06-01] MEDS ORDERED: KETOROLAC 30 MG/ML 1 ML VIAL IVP STA (16:45)
[2017-06-01] MEDS ORDERED: LORazepam 2 MG/ML SYRINGE IV STA (16:45)
[2017-06-01 18:13] VITALS: BP 137/80; PULSE 81
== END 2017-06-01 18:14 | disposition home or self-care (01) ==
LOC: EC 10:16
DX: K52.9 Noninfective gastroenteritis and colitis, unspecified (principal); E87.6 Hypokalemia; E86.0 Dehydration; J45.909 Unspecified asthma, uncomplicated; M79.7 Fibromyalgia; K21.9 Gastro-esophageal reflux disease without esophagitis; E78.5 Hyperlipidemia, unspecified; I10 Essential (primary) hypertension; F41.9 Anxiety disorder, unspecified; F31.9 Bipolar disorder, unspecified; F17.200 Nicotine dependence, unspecified, uncomplicated; Z86.73 Personal history of transient ischemic attack (TIA), and cerebral infarction without residual deficits; Z86.14 Personal history of Methicillin resistant Staphylococcus aureus infection; Z90.49 Acquired absence of other specified parts of digestive tract; Z79.899 Other long term (current) drug therapy; Z88.0 Allergy status to penicillin; Z88.5 Allergy status to narcotic agent; Z88.8 Allergy status to other drugs, medicaments and biological substances; Z91.030 Bee allergy status; Z91.041 Radiographic dye allergy status
CPT/HCPCS: 36415; 80053; 82150; 83605; 83690; 85025; 81001; 87040; 87324; 87086; 87045; 89055; 87046; 74020; 74176; 99284; 96365; 96366; 96375 ×6; 96361 ×2; 96372 ×2; J2001; J2060; J0500; J2765; J2405; J3480; J1885; J1170

== ENCOUNTER 2017-11-09 10:41 | Emergency (ER) | payer MEDICARE, OTHER ==
[2017-11-09] MEDS ORDERED: KETOROLAC 30 MG/ML 1 ML VIAL IVP STA (11:32)
[2017-11-09] MEDS ORDERED: SODIUM CHLORIDE 0.9% 1,000 ML IV STA ×2 (11:32)
[2017-11-09] MEDS ORDERED: LORazepam 2 MG/ML INJ IV STA (11:34)
[2017-11-09] MEDS ORDERED: IPRATROPIUM-ALBUTEROL 3 ML NEB INHALATION STA (11:35)
[2017-11-09] MEDS ORDERED: PROMETHAZINE INJ 25 MG in SODIUM CHLORIDE 0.9% 50 ML IVPB STA (11:38)
--- NOTE | 2017-11-09 12:01 | ED ---
Abdominal Pain HPI - General Chief Complaint: Abdominal Pain Stated Complaint: Abd.pain Time Seen by Provider: 11/09/17 11:25 Source: patient Mode of arrival: ambulatory Limitations: no limitations - History of Present Illness Initial Comments: This 57-year-old white female presents with a complaint of some abdominal pain. She also states that she has had multiple episodes of nausea and vomiting. She states that the symptoms have been present for approximately one week but worse over the last 1 day. The abdominal pain is diffuse in nature. It seems worse with food or fluid intake. She has had some minimal diarrhea. She denies any fevers or chills. She denies any urinary symptoms. She states that she has had this multiple times previously but is unsure of the cause. She tried her home pain medication this morning without relief. She did not take any of her home nausea medication as of yet. She does relate a chronic cough as well as utilizing tobacco regularly. She does have a history of COPD as well. No other complaints or modifying factors. - Related Data Home Medications Medication Instructions Recorded Confirmed Atorvastatin [Lipitor] 20 mg PO DAILY 07/29/14 11/09/17 DULoxetine HCL [Cymbalta] 60 mg PO BID 07/29/14 11/09/17 Furosemide [Lasix] 40 mg PO DAILY 07/29/14 11/09/17 Losartan [Cozaar] 50 mg PO DAILY 07/29/14 11/09/17 amLODIPine BESYLATE [Norvasc] 5 mg PO HS 07/29/14 11/09/17 Ibuprofen [Motrin] 800 mg PO Q8H PRN 07/28/16 11/09/17 Loratadine 10 mg PO DAILY PRN 07/28/16 11/09/17 [place]-3 Fatty Acids/Fish Oil [Fish 1 cap PO HS 07/28/16 11/09/17 Oil 1,000 mg Softgel] Albuterol Nebulized [Ventolin 2.5 mg INHALATION RT-Q4H PRN 01/29/17 11/09/17 Nebulized] Beclomethasone Dipropionate [Qvar 2 puff INHALATION RT-BID PRN 01/29/17 11/09/17 80 mcg] LORazepam [Ativan] 1 mg PO TID PRN 02/01/17 11/09/17 Docusate [Colace] 100 mg PO HS PRN 02/26/17 11/09/17 HYDROcodone/APAP 10-325MG [[place] 1 tab PO Q6H PRN 02/26/17 11/09/17 10-325] Omeprazole [PriLOSEC] 20 mg PO AC-BID 02/26/17 11/09/17 prednisoLONE ACETATE 1% OPHTH 1 drops RIGHT EYE QID 02/26/17 11/09/17 [Pred Forte 1%] Atropine Ophth Soln 1% 5Ml [Isopto 1 drops RIGHT EYE BID 06/01/17 11/09/17 Atropine 1% 5Ml] Previous Rx's Medication Instructions Recorded Dicyclomine [Bentyl] 20 mg PO QID PRN #20 tablet 11/09/17 Ondansetron [Zofran ODT] 8 mg PO Q8HR PRN #12 tab 11/09/17 Allergies Allergy/AdvReac Type Severity Reaction Status Date / Time cyclobenzaprine HCl Allergy Swelling Verified 11/09/17 11:50 [From Flexeril] Iodinated Contrast- Oral and Allergy Anaphylaxis Verified 11/09/17 11:50 IV Dye [Iodinated Contrast Media - IV Dye] lithium [[place]] Allergy Swelling Verified 11/09/17 11:50 Penicillins Allergy Rash/Hives Verified 11/09/17 11:50 bee pollen AdvReac Swelling Verified 11/09/17 11:50 morphine AdvReac GETS ANGRY Verified 11/09/17 11:50 Review of Systems ROS Statement: Those systems with pertinent positive or pertinent negative responses have been documented in the HPI. ROS Other: All systems not noted in ROS Statement are negative. Past Medical History Past Medical History: Asthma, Cancer, COPD, CVA/TIA, Fibromyalgia, GERD/Reflux, Hyperlipidemia, Hypertension, Musculoskeletal Disorder, Neurologic Disorder, Osteoarthritis (OA), Skin Disorder, Thyroid Disorder Additional Past Medical History / Comment(s): KIDNEY STONES, MULT TIA'S, migraines, glaucoma right eye/BLIND, chronic BACK, NECK, LEG pain. PSORIASIS, HX cervical Ca History of Any Multi-Drug Resistant Organisms: MRSA Date of last positivie culture/infection: 2011 MDRO Source:: Lungs Past Surgical History: Appendectomy, Back Surgery, Cholecystectomy, Hysterectomy , Joint Replacement Additional Past Surgical History / Comment(s): EYE SURG KATERINE; splenectomy, tracheotomy, complete left hip replacement, L4, 5, 6 plates, LITHOTRIPSY Past Anesthesia/Blood Transfusion Reactions: No Reported Reaction Past Psychological History: Anxiety, Bipolar, Depression Smoking Status: Current every day smoker Past Alcohol Use History: None Reported Past Drug Use History: Marijuana - Past Family History Sister(s) Family Medical History: COPD, Neurologic Disorder Daughter(s) Family Medical History: Asthma, Cancer Son(s) Family Medical History: Asthma, COPD, Neurologic Disorder Father Family Medical History: No Reported History Additional Family Medical History / Comment(s): Gout, deaf, alcoholism Mother Family Medical History: COPD, Myocardial Infarction ([place]) Additional Family Medical History / Comment(s): emphysema General Exam - General Exam Comments Initial Comments: GENERAL: The patient is well nourished and well hydrated. VITAL SIGNS: Heart rate, blood pressure, respiratory rate reviewed as recorded in nurse's notes. EYES: Pupils are round and reactive. Extraocular movements are intact. No conjunctival / lid redness or swelling. ENT: No external evidence of injury, swelling, or ecchymosis. Airway is patent. Throat is clear. NECK: Nontender. No swelling or evidence of injury. No subcutaneous emphysema. Trachea is midline. No thyroid mass. HEART: Regular rate and rhythm. Good peripheral pulses. LUNGS/CHEST: There is mild bilateral wheezing noted. No ecchymosis, subcutaneous emphysema, or tenderness. ABDOMEN: There is mild diffuse abdominal pain. No palpable masses or organomegaly. No peritoneal signs. No abdominal wall swelling or ecchymosis. EXTREMITIES: No extremity tenderness. Normal muscle tone and function. No thoracolumbar tenderness. NEUROLOGIC: Sensation is grossly intact. Cranial nerve exam reveals face is symmetrical, tongue is midline, speech is clear. SKIN: No abrasions or ecchymosis is noted. No induration or masses noted. PSYCHIATRIC: Alert and oriented. The patient is hyperventilating on exam and appears anxious. Limitations: no limitations Course Vital Signs 11/09/17 11/09/17 11/09/17 11:06 12:06 12:16 Temperature 98.6 F Pulse Rate 86 72 78 Respiratory 20 Rate Blood Pressure 139/87 O2 Sat by Pulse 97 Oximetry Medical Decision Making - Medical Decision Making The patient was seen and examined. All diagnostics were reviewed. She does receive some IV Toradol, Phenergan, and Ativan. She receives ample fluid hydration. She later receives Dilaudid for pain. The laboratory and urinalysis is unremarkable. The computed tomography scan of the abdomen and pelvis shows evidence of bilateral nonobstructing renal stones. There is no acute process identified. The exact cause of her abdominal pain is not definitively determined. The possibility of a gastroenteritis certainly is possible as is been epidemic recently. Overall, it is felt as though she is stable for discharge. She does receive additional Zofran prior to discharge. - Lab Data Result diagrams: 11/09/17 11:50 11/09/17 11:50 Lab Results 11/09/17 11/09/17 11/09/17 Range/Units 11:50 11:50 11:50 WBC 12.2 H (3.8-10.6) k/uL RBC 5.08 (3.80-5.40) m/uL Hgb 15.8 (11.4-16.0) gm/dL Hct 46.2 H (34.0-46.0) % MCV 91.0 (80.0-100.0) fL MCH 31.1 (25.0-35.0) pg MCHC 34.2 (31.0-37.0) g/dL RDW 12.4 (11.5-15.5) % Plt Count 650 H (150-450) k/uL Neutrophils % Not Reportable Neutrophils % (Manual) 48 % Lymphocytes % Not Reportable Lymphocytes % (Manual) 48 % Monocytes % Not Reportable Monocytes % (Manual) 3 % Eosinophils % Not Reportable Eosinophils % (Manual) 1 % Basophils % Not Reportable Neutrophils # Not Reportable Neutrophils # (Manual) 5.86 (1.3-7.7) k/uL Lymphocytes # Not Reportable Lymphocytes # (Manual) 5.86 H (1.0-4.8) k/uL Monocytes # Not Reportable Monocytes # (Manual) 0.37 (0-1.0) k/uL Eosinophils # Not Reportable Eosinophils # (Manual) 0.12 (0-0.7) k/uL Basophils # Not Reportable Nucleated RBCs 0 (0-0) /100 WBC Manual Slide Review Performed Poikilocytosis (manual Present PT 9.5 (9.0-12.0) sec INR 1.0 (<1.2) APTT 26.2 (22.0-30.0) sec Sodium 143 (137-145) mmol/L Potassium 4.1 (3.5-5.1) mmol/L Chloride 106 (98-107) mmol/L Carbon Dioxide 23 (22-30) mmol/L Anion Gap 14 mmol/L BUN 12 (7-17) mg/dL Creatinine 0.60 (0.52-1.04) mg/dL Est GFR (MDRD) Af Amer >60 (>60 ml/min/1.73 sqM) Est GFR (MDRD) Non-Af >60 (>60 ml/min/1.73 sqM) Glucose 101 H (74-99) mg/dL Calcium 9.9 (8.4-10.2) mg/dL Total Bilirubin 0.5 (0.2-1.3) mg/dL AST 19 (14-36) U/L ALT 35 (9-52) U/L Alkaline Phosphatase 113 (38-126) U/L Total Protein 7.3 (6.3-8.2) g/dL Albumin 4.4 (3.5-5.0) g/dL Amylase 80 (30-110) U/L Lipase 226 (23-300) U/L Urine Color Urine Appearance (Clear) Urine pH (5.0-8.0) Ur Specific [place] (1.001-1.035) Urine Protein (Negative) Urine Glucose (UA) (Negative) Urine Ketones (Negative) Urine Blood (Negative) Urine Nitrite (Negative) Urine Bilirubin (Negative) Urine Urobilinogen (<2.0) mg/dL Ur Leukocyte Esterase (Negative) Influenza Type A RNA (Not Detectd) Influenza Type B (PCR) (Not Detectd) 11/09/17 11/09/17 Range/Units 13:05 13:29 WBC (3.8-10.6) k/uL RBC (3.80-5.40) m/uL Hgb (11.4-16.0) gm/dL Hct (34.0-46.0) % MCV (80.0-100.0) fL MCH (25.0-35.0) pg MCHC (31.0-37.0) g/dL RDW (11.5-15.5) % Plt Count (150-450) k/uL Neutrophils % Neutrophils % (Manual) % Lymphocytes % Lymphocytes % (Manual) % Monocytes % Monocytes % (Manual) % Eosinophils % Eosinophils % (Manual) % Basophils % Neutrophils # Neutrophils # (Manual) (1.3-7.7) k/uL Lymphocytes # Lymphocytes # (Manual) (1.0-4.8) k/uL Monocytes # Monocytes # (Manual) (0-1.0) k/uL Eosinophils # Eosinophils # (Manual) (0-0.7) k/uL Basophils # Nucleated RBCs (0-0) /100 WBC Manual Slide Review Poikilocytosis (manual PT (9.0-12.0) sec INR (<1.2) APTT (22.0-30.0) sec Sodium (137-145) mmol/L Potassium (3.5-5.1) mmol/L Chloride (98-107) mmol/L Carbon Dioxide (22-30) mmol/L Anion Gap mmol/L BUN (7-17) mg/dL Creatinine (0.52-1.04) mg/dL Est GFR (MDRD) Af Amer (>60 ml/min/1.73 sqM) Est GFR (MDRD) Non-Af (>60 ml/min/1.73 sqM) Glucose (74-99) mg/dL Calcium (8.4-10.2) mg/dL Total Bilirubin (0.2-1.3) mg/dL AST (14-36) U/L ALT (9-52) U/L Alkaline Phosphatase (38-126) U/L Total Protein (6.3-8.2) g/dL Albumin (3.5-5.0) g/dL Amylase (30-110) U/L Lipase (23-300) U/L Urine Color Light Yellow Urine Appearance Clear (Clear) Urine pH 6.5 (5.0-8.0) Ur Specific [place] 1.004 (1.001-1.035) Urine Protein Negative (Negative) Urine Glucose (UA) Negative (Negative) Urine Ketones Negative (Negative) Urine Blood Negative (Negative) Urine Nitrite Negative (Negative) Urine Bilirubin Negative (Negative) Urine Urobilinogen <2.0 (<2.0) mg/dL Ur Leukocyte Esterase Negative (Negative) Influenza Type A RNA Not Detected (Not Detectd) Influenza Type B (PCR) Not Detected (Not Detectd) Disposition Clinical Impression: Abdominal pain, Nausea and vomiting, Anxiety, Chronic pain, COPD (chronic obstructive pulmonary disease), Tobacco abuse, Gastroenteritis Disposition: HOME SELF-CARE Condition: Good Instructions: Abdominal Pain (ED), Dehydration (ED), Gastroenteritis (ED), Acute Nausea and Vomiting (ED) Prescriptions: Dicyclomine [Bentyl] 20 mg PO QID PRN #20 tablet PRN Reason: Pain Ondansetron [Zofran ODT] 8 mg PO Q8HR PRN #12 tab PRN Reason: Nausea Referrals: Torsten Melissa DO [Primary Care Provider] - 1-2 days Time of Disposition: 14:39
[2017-11-09 12:04] LABS: HCT 46.2 % (34.0-46.0); HGB 15.8 gm/dL (11.4-16.0); MCH 31.1 pg (25.0-35.0); MCHC 34.2 g/dL (31.0-37.0); Mean Platelet Volume 7.2; Platelet Count 650 k/uL (150-450); RBC 5.08 m/uL (3.80-5.40); RDW 12.4 % (11.5-15.5); WBC 12.2 k/uL (3.8-10.6)
[2017-11-09 12:15] LABS: ALT 35 U/L (9-52); AST 19 U/L (14-36); Albumin 4.4 g/dL (3.5-5.0); Alkaline Phosphatase 113 U/L (38-126); Amylase 80 U/L (30-110); Anion Gap 14 mmol/L; Blood Urea Nitrogen 12 mg/dL (7-17); Calcium 9.9 mg/dL (8.4-10.2); Carbon Dioxide 23 mmol/L (22-30); Chloride 106 mmol/L (98-107); Glucose 101 mg/dL (74-99); Lipase 226 U/L (23-300); Potassium 4.1 mmol/L (3.5-5.1); Sodium 143 mmol/L (137-145); Total Bilirubin 0.5 mg/dL (0.2-1.3); Total Protein 7.3 g/dL (6.3-8.2)
[2017-11-09 12:18] LABS: Partial Thromboplastin Time 26.2 sec (22.0-30.0); Prothrombin Time 9.5 sec (9.0-12.0)
[2017-11-09 12:29] LABS: Lymphocytes # (M) 5.86 k/uL (1.0-4.8); Neutrophils # (M) 5.86 k/uL (1.3-7.7); Neutrophils % (M) 48 %
[2017-11-09 12:30] LABS: Eosinophils # (M) 0.12 k/uL (0-0.7); Monocytes # (M) 0.37 k/uL (0-1.0); Nucleated Red Blood Cells 0 /100 WBC (0-0); Total Cells Counted 100
[2017-11-09 12:31] LABS: Poikilocytosis (M) Present
--- NOTE | 2017-11-09 13:06 | XR ---
EXAMINATION TYPE: XR chest 2V DATE OF EXAM: 11/09/2017 COMPARISON: 07/29/2014 HISTORY: Shortness of breath TECHNIQUE: Frontal and lateral views of the chest are obtained. FINDINGS: Scattered senescent parenchymal changes noted. Hyperinflation compatible with COPD. No evidence for infiltrate. No evidence for atelectasis. Heart size is stable. Mediastinal structures are stable and grossly unremarkable. No evidence for hilar prominence. Degenerative changes dorsal spine. IMPRESSION: 1. No evidence for acute pulmonary disease.
--- NOTE | 2017-11-09 13:14 | CT ---
EXAMINATION TYPE: CT abdomen pelvis wo con DATE OF EXAM: 11/09/2017 COMPARISON: 06/01/2017 HISTORY: Bilateral flank pain CT DLP: 310.8 mGycm Automated exposure control for dose reduction was used. TECHNIQUE: Helical acquisition of images was performed from the lung bases through the pelvis. FINDINGS: Evaluation of both the hollow and solid viscera are limited without the utilization of intr avenous or oral contrast. LUNG BASES: Again there is minimal subsegmental atelectasis. No cardiomegaly. LIVER/GB: The liver is elongated extending into the left upper quadrant. Gallbladder surgically absen t. PANCREAS: No ductal dilatation. SPLEEN: No spinal megaly anterior splenic contour abuts the elongated liver surface. ADRENALS: Unremarkable unenhanced morphology. KIDNEYS: The previously seen 2 right lower pole renal calculi are redemonstrated although the most po sterior is less conspicuous than on the prior exam. The largest again measures up to 5 mm. Mild bilat eral pelvic caliectasis is unchanged from the prior exam with extrarenal pelvises sees. No hydronephr osis. Punctate 1 to 2 mm nonobstructing left lower pole renal calculus is also identified on today's examination on series 3 image 40. No ureteral calculus or obstructive uropathy. FREE AIR: No free air is visualized ADENOPATHY: No greater than 1 cm short axis nodes are seen within the abdomen or pelvis although ev aluation is somewhat limited without contrast. URINARY BLADDER: No significant abnormality is seen. OSSEOUS STRUCTURES: Extensive degenerative changes of the right femoral acetabular joint are redemon strated as well as a left-sided hip arthroplasty creating spray artifact and partially obscuring dire ct surrounding visualization. Grade 2 anterolisthesis of L5 on S1 is again noted, with pars interarti cularis defects bilaterally at L5 multilevel degenerative changes of the thoracolumbar and lumbosacra l spine are redemonstrated. BOWEL: Diverticulum is seen posteriorly from the gastric fundus on series 3 image 20. No evidence of bowel obstruction. The previously seen fat stranding around the ascending colon has resolved in the interim. Again the appendix is not definitely visualized, however no right lower quadrant fat strandi ng is seen. OTHER: Injection granulomas are noted within the right gluteal subcutaneous tissues. IMPRESSION: 1. NO EVIDENCE OF OBSTRUCTIVE UROPATHY OR HYDRONEPHROSIS. 2. NONOBSTRUCTING BILATERAL RENAL CALCULI. EVALUATION FOR PYELONEPHRITIS IN THIS PATIENT WITH BILATER AL FLANK PAIN CANNOT BE PERFORMED WITHOUT INTRAVENOUS CONTRAST. NO PERIRENAL FAT STRANDING OR STRANDI NG FLUID COLLECTION TO SUGGEST ABSCESS IS SEEN. 3. RESOLUTION OF THE PREVIOUSLY SEEN MILD FAT STRANDING AROUND THE ASCENDING COLON IN COMPARISON TO T HE PRIOR EXAM.
[2017-11-09 13:26] LABS: Appearance,Urine Clear (Clear); Bilirubin,Urine Negative (Negative); Blood,Urine Negative (Negative); Color,Urine Light Yellow; Glucose,Urine (UA) Negative (Negative); Ketones,Urine Negative (Negative); Leukocyte Esterase,Urine Negative (Negative); Nitrite,Urine Negative (Negative); PH, Urine 6.5 (5.0-8.0); Protein,Urine Negative (Negative); Specific Gravity,Urine 1.004 (1.001-1.035); Urobilinogen,Urine <2.0 mg/dL (<2.0)
[2017-11-09] MEDS ORDERED: HYDROmorphone 0.5 MG/0.5 ML SYRINGE IVP STA (13:34)
[2017-11-09] MEDS ORDERED: ONDANSETRON 4 MG/2 ML VIAL IVP STA (14:37)
[2017-11-09 14:54] VITALS: BP 136/65; PULSE 82; RESP 16; TEMP 97.7
== END 2017-11-09 14:54 | disposition home or self-care (01) ==
LOC: EC 10:41
DX: K52.9 Noninfective gastroenteritis and colitis, unspecified (principal); J44.9 Chronic obstructive pulmonary disease, unspecified; G89.29 Other chronic pain; F41.9 Anxiety disorder, unspecified; F17.200 Nicotine dependence, unspecified, uncomplicated; K21.9 Gastro-esophageal reflux disease without esophagitis; E78.5 Hyperlipidemia, unspecified; I10 Essential (primary) hypertension; F32.9 Major depressive disorder, single episode, unspecified; Z86.14 Personal history of Methicillin resistant Staphylococcus aureus infection; Z86.73 Personal history of transient ischemic attack (TIA), and cerebral infarction without residual deficits; Z86.69 Personal history of other diseases of the nervous system and sense organs; Z90.49 Acquired absence of other specified parts of digestive tract; Z79.52 Long term (current) use of systemic steroids; Z79.899 Other long term (current) drug therapy; Z88.8 Allergy status to other drugs, medicaments and biological substances; Z91.041 Radiographic dye allergy status; Z88.0 Allergy status to penicillin; Z88.5 Allergy status to narcotic agent; Z91.048 Other nonmedicinal substance allergy status
CPT/HCPCS: 36415; 94640; 80053; 82150; 83690; 85025; 85610; 85730; 81003; 87502; 71046; 74176; 99284; 96365; 96375 ×4; 96361 ×2; J2060; J2550; J2405; J1885; J1170

== ENCOUNTER 2018-04-01 21:02 | Inpatient (IN) | payer MEDICARE, OTHER ==
[2018-04-01] MEDS ORDERED: ONDANSETRON 4 MG/2 ML VIAL IVP STA (21:27)
[2018-04-01] MEDS ORDERED: SODIUM CHLORIDE 0.9% 500 ML IV ONE (21:27)
[2018-04-01] MEDS ORDERED: MORPHINE SULFATE 2 MG/ML SYRINGE IVP STA (21:28)
--- NOTE | 2018-04-01 21:30 | ED ---
General Adult HPI - General Chief complaint: Nausea/Vomiting/Diarrhea Stated complaint: Vomiting Time Seen by Provider: 04/01/18 21:05 Source: patient, RN notes reviewed Mode of arrival: ambulatory Limitations: no limitations - History of Present Illness Initial comments: This is a 57-year-old female who presents emergency Department with multiple abdominal surgeries including a splenectomy and cholecystectomy. Patient comes in today stating her abdomen is becoming more and more distended over the last week and more painful. Patient states the last 3 days or wrist gotten considerably bigger and she is nauseated and vomiting. Patient denies any diarrhea. Patient denies any fever chills. Patient denies any chest pain difficulty breathing shortness of breath. Patient denies any cough. Patient denies being lightheaded or dizzy. Patient states she has not had any history of a bowel obstruction. - Related Data Home Medications Medication Instructions Recorded Confirmed Atorvastatin [Lipitor] 20 mg PO DAILY 07/29/14 11/09/17 DULoxetine HCL [Cymbalta] 60 mg PO BID 07/29/14 11/09/17 Furosemide [Lasix] 40 mg PO DAILY 07/29/14 11/09/17 Losartan [Cozaar] 50 mg PO DAILY 07/29/14 11/09/17 amLODIPine BESYLATE [Norvasc] 5 mg PO HS 07/29/14 11/09/17 Ibuprofen [Motrin] 800 mg PO Q8H PRN 07/28/16 11/09/17 Loratadine 10 mg PO DAILY PRN 07/28/16 11/09/17 [place]-3 Fatty Acids/Fish Oil [Fish 1 cap PO HS 07/28/16 11/09/17 Oil 1,000 mg Softgel] Albuterol Nebulized [Ventolin 2.5 mg INHALATION RT-Q4H PRN 01/29/17 11/09/17 Nebulized] Beclomethasone Dipropionate [Qvar 2 puff INHALATION RT-BID PRN 01/29/17 11/09/17 80 mcg] LORazepam [Ativan] 1 mg PO TID PRN 02/01/17 11/09/17 Docusate [Colace] 100 mg PO HS PRN 02/26/17 11/09/17 HYDROcodone/APAP 10-325MG [[place] 1 tab PO Q6H PRN 02/26/17 11/09/17 10-325] Omeprazole [PriLOSEC] 20 mg PO AC-BID 02/26/17 11/09/17 prednisoLONE ACETATE 1% OPHTH 1 drops RIGHT EYE QID 02/26/17 11/09/17 [Pred Forte 1%] Atropine Ophth Soln 1% 5Ml [Isopto 1 drops RIGHT EYE BID 06/01/17 11/09/17 Atropine 1% 5Ml] Previous Rx's Medication Instructions Recorded Dicyclomine [Bentyl] 20 mg PO QID PRN #20 tablet 11/09/17 Ondansetron [Zofran ODT] 8 mg PO Q8HR PRN #12 tab 11/09/17 Allergies Allergy/AdvReac Type Severity Reaction Status Date / Time cyclobenzaprine HCl Allergy Swelling Verified 04/01/18 21:18 [From Flexeril] Iodinated Contrast- Oral and Allergy Anaphylaxis Verified 04/01/18 21:18 IV Dye [Iodinated Contrast Media - IV Dye] lithium [[place]] Allergy Swelling Verified 04/01/18 21:18 Penicillins Allergy Rash/Hives Verified 04/01/18 21:18 bee pollen AdvReac Swelling Verified 04/01/18 21:18 morphine AdvReac GETS ANGRY Verified 04/01/18 21:18 Review of Systems ROS Statement: Those systems with pertinent positive or pertinent negative responses have been documented in the HPI. ROS Other: All systems not noted in ROS Statement are negative. Past Medical History Past Medical History: Asthma, Cancer, COPD, CVA/TIA, Fibromyalgia, GERD/Reflux, Hyperlipidemia, Hypertension, Musculoskeletal Disorder, Neurologic Disorder, Osteoarthritis (OA), Skin Disorder, Thyroid Disorder Additional Past Medical History / Comment(s): KIDNEY STONES, MULT TIA'S, migraines, glaucoma right eye/BLIND, chronic BACK, NECK, LEG pain. PSORIASIS, HX cervical Ca History of Any Multi-Drug Resistant Organisms: MRSA Date of last positivie culture/infection: 2011 MDRO Source:: Lungs Past Surgical History: Appendectomy, Back Surgery, Cholecystectomy, Hysterectomy , Joint Replacement Additional Past Surgical History / Comment(s): EYE SURG KATERINE; splenectomy, tracheotomy, complete left hip replacement, L4, 5, 6 plates, LITHOTRIPSY Past Anesthesia/Blood Transfusion Reactions: No Reported Reaction Past Psychological History: Anxiety, Bipolar, Depression Smoking Status: Current every day smoker Past Alcohol Use History: None Reported Past Drug Use History: Marijuana - Past Family History Sister(s) Family Medical History: COPD, Neurologic Disorder Daughter(s) Family Medical History: Asthma, Cancer Son(s) Family Medical History: Asthma, COPD, Neurologic Disorder Father Family Medical History: No Reported History Additional Family Medical History / Comment(s): Gout, deaf, alcoholism Mother Family Medical History: COPD, Myocardial Infarction ([place]) Additional Family Medical History / Comment(s): emphysema General Exam - General Exam Comments Initial Comments: GENERAL: Patient is well-developed and well-nourished. Patient is nontoxic and well- hydrated and is in moderate distress. ENT: Neck is soft and supple. No significant lymphadenopathy is noted. Oropharynx is clear. Moist mucous membranes. Neck has full range of motion without eliciting any pain. EYES: The sclera were anicteric and conjunctiva were pink and moist. Extraocular movements were intact and pupils were equal round and reactive to light. Eyelids were unremarkable. PULMONARY: Unlabored respirations. Good breath sounds bilaterally. No audible rales rhonchi or wheezing was noted. CARDIOVASCULAR: There is a regular rate and rhythm without any murmurs gallops or rubs. ABDOMEN: Abdomen is distended diffusely tender and slightly hyperactive bowel sounds. No palpable organomegaly was noted. There is no palpable pulsatile mass. SKIN: Skin is clear with no lesions or rashes and otherwise unremarkable. NEUROLOGIC: Patient is alert and oriented x3. Cranial nerves II through XII are grossly intact. Motor and sensory are also intact. Normal speech, volume and content. Symmetrical smile. MUSCULOSKELETAL: Normal extremities with adequate strength and full range of motion. No lower extremity swelling or edema. No calf tenderness. LYMPHATICS: No significant lymphadenopathy is noted PSYCHIATRIC: Normal psychiatric evaluation. Limitations: no limitations Course Vital Signs 04/01/18 21:15 Temperature 98.3 F Pulse Rate 91 Respiratory 22 Rate Blood Pressure 160/89 O2 Sat by Pulse 96 Oximetry Medical Decision Making - Medical Decision Making Patient's CAT scan showed no obvious cause for the patient's pain. I went back into reevaluate the patient she was still having significant abdominal pain mostly centrally located just above the umbilicus. Patient had a high white count and a splenectomy so started the patient antibiotics prophylactically and I consult to surgery and admitted to Dr. Rivas - Lab Data Result diagrams: 04/01/18 21:37 04/01/18 21:37 Lab Results 04/01/18 04/01/18 04/01/18 Range/Units 21:37 21:37 21:37 WBC 16.8 H (3.8-10.6) k/uL RBC 5.32 (3.80-5.40) m/uL Hgb 15.9 (11.4-16.0) gm/dL Hct 47.5 H (34.0-46.0) % MCV 89.3 (80.0-100.0) fL MCH 29.9 (25.0-35.0) pg MCHC 33.4 (31.0-37.0) g/dL RDW 13.2 (11.5-15.5) % Plt Count 652 H (150-450) k/uL Neutrophils % 42 % Lymphocytes % 45 % Monocytes % 9 % Eosinophils % 2 % Basophils % 1 % Neutrophils # 7.0 (1.3-7.7) k/uL Lymphocytes # 7.6 H (1.0-4.8) k/uL Monocytes # 1.5 H (0-1.0) k/uL Eosinophils # 0.3 (0-0.7) k/uL Basophils # 0.1 (0-0.2) k/uL Manual Slide Review Performed RBC Morphology Normal Sodium 142 (137-145) mmol/L Potassium 4.1 (3.5-5.1) mmol/L Chloride 104 (98-107) mmol/L Carbon Dioxide 22 (22-30) mmol/L Anion Gap 16 mmol/L BUN 23 H (7-17) mg/dL Creatinine 0.60 (0.52-1.04) mg/dL Est GFR (CKD-EPI)AfAm >90 (>60 ml/min/1.73 sqM) Est GFR (CKD-EPI)NonAf >90 (>60 ml/min/1.73 sqM) Glucose 95 (74-99) mg/dL Plasma Lactic Acid Alvaro 1.5 (0.7-2.0) mmol/L Calcium 10.7 H (8.4-10.2) mg/dL Total Bilirubin 0.4 (0.2-1.3) mg/dL AST 22 (14-36) U/L ALT 26 (9-52) U/L Alkaline Phosphatase 100 (38-126) U/L Total Protein 7.8 (6.3-8.2) g/dL Albumin 4.9 (3.5-5.0) g/dL Amylase 87 (30-110) U/L Lipase 227 (23-300) U/L Urine Color Urine Appearance (Clear) Urine pH (5.0-8.0) Ur Specific [place] (1.001-1.035) Urine Protein (Negative) Urine Glucose (UA) (Negative) Urine Ketones (Negative) Urine Blood (Negative) Urine Nitrite (Negative) Urine Bilirubin (Negative) Urine Urobilinogen (<2.0) mg/dL Ur Leukocyte Esterase (Negative) Urine RBC (0-5) /hpf Calcium Oxalate Crystal (None) /hpf Hyaline Casts (0-2) /lpf Urine Mucus (None) /hpf 04/01/18 Range/Units 22:32 WBC (3.8-10.6) k/uL RBC (3.80-5.40) m/uL Hgb (11.4-16.0) gm/dL Hct (34.0-46.0) % MCV (80.0-100.0) fL MCH (25.0-35.0) pg MCHC (31.0-37.0) g/dL RDW (11.5-15.5) % Plt Count (150-450) k/uL Neutrophils % % Lymphocytes % % Monocytes % % Eosinophils % % Basophils % % Neutrophils # (1.3-7.7) k/uL Lymphocytes # (1.0-4.8) k/uL Monocytes # (0-1.0) k/uL Eosinophils # (0-0.7) k/uL Basophils # (0-0.2) k/uL Manual Slide Review RBC Morphology Sodium (137-145) mmol/L Potassium (3.5-5.1) mmol/L Chloride (98-107) mmol/L Carbon Dioxide (22-30) mmol/L Anion Gap mmol/L BUN (7-17) mg/dL Creatinine (0.52-1.04) mg/dL Est GFR (CKD-EPI)AfAm (>60 ml/min/1.73 sqM) Est GFR (CKD-EPI)NonAf (>60 ml/min/1.73 sqM) Glucose (74-99) mg/dL Plasma Lactic Acid Alvaro (0.7-2.0) mmol/L Calcium (8.4-10.2) mg/dL Total Bilirubin (0.2-1.3) mg/dL AST (14-36) U/L ALT (9-52) U/L Alkaline Phosphatase (38-126) U/L Total Protein (6.3-8.2) g/dL Albumin (3.5-5.0) g/dL Amylase (30-110) U/L Lipase (23-300) U/L Urine Color Yellow Urine Appearance Cloudy H (Clear) Urine pH 6.0 (5.0-8.0) Ur Specific [place] 1.013 (1.001-1.035) Urine Protein Trace H (Negative) Urine Glucose (UA) Negative (Negative) Urine Ketones Negative (Negative) Urine Blood Moderate H (Negative) Urine Nitrite Negative (Negative) Urine Bilirubin Negative (Negative) Urine Urobilinogen <2.0 (<2.0) mg/dL Ur Leukocyte Esterase Negative (Negative) Urine RBC 23 H (0-5) /hpf Calcium Oxalate Crystal Few H (None) /hpf Hyaline Casts 3 H (0-2) /lpf Urine Mucus Rare H (None) /hpf Disposition Clinical Impression: Abdominal pain, History of splenectomy Disposition: ADMITTED IP TO THIS HOSP Referrals: Torsten Melissa DO [Primary Care Provider] - 1-2 days Time of Disposition: 23:16
[2018-04-01 21:54] LABS: Basophils # (A) 0.1 k/uL (0-0.2); Basophils % (A) 1 %; Eosinophils # (A) 0.3 k/uL (0-0.7); Eosinophils % (A) 2 %; HCT 47.5 % (34.0-46.0); HGB 15.9 gm/dL (11.4-16.0); Lymphocytes % (A) 45 %; MCH 29.9 pg (25.0-35.0); MCHC 33.4 g/dL (31.0-37.0); MCV 89.3 fL (80.0-100.0); Mean Platelet Volume 6.5; Monocytes # (A) 1.5 k/uL (0-1.0); Monocytes % (A) 9 %; Neutrophils % (A) 42 %; Platelet Count 652 k/uL (150-450); RBC 5.32 m/uL (3.80-5.40); RDW 13.2 % (11.5-15.5); WBC 16.8 k/uL (3.8-10.6)
[2018-04-01 21:57] LABS: Lymphocytes # (A) 7.6 k/uL (1.0-4.8)
[2018-04-01 22:08] LABS: Albumin 4.9 g/dL (3.5-5.0); Amylase 87 U/L (30-110); Anion Gap 16 mmol/L; Calcium 10.7 mg/dL (8.4-10.2); Carbon Dioxide 22 mmol/L (22-30); Chloride 104 mmol/L (98-107); Glucose 95 mg/dL (74-99); Lipase 227 U/L (23-300); Sodium 142 mmol/L (137-145); Total Bilirubin 0.4 mg/dL (0.2-1.3); Total Protein 7.8 g/dL (6.3-8.2)
[2018-04-01 22:16] LABS: Potassium 4.1 mmol/L (3.5-5.1)
[2018-04-01 22:17] LABS: ALT 26 U/L (9-52); AST 22 U/L (14-36); Alkaline Phosphatase 100 U/L (38-126); Blood Urea Nitrogen 23 mg/dL (7-17)
[2018-04-01] MEDS ORDERED: HYDROmorphone 0.5 MG/0.5 ML SYRINGE IVP STA (22:35)
[2018-04-01 22:47] LABS: Appearance,Urine Cloudy (Clear); Bilirubin,Urine Negative (Negative); Blood,Urine Moderate (Negative); Calcium Oxalate Crystals,Urine Few /hpf; Color,Urine Yellow; Glucose,Urine (UA) Negative (Negative); Hyaline Casts,Urine 3 /lpf (0-2); Ketones,Urine Negative (Negative); Leukocyte Esterase,Urine Negative (Negative); Mucus,Urine Rare /hpf; Nitrite,Urine Negative (Negative); Protein,Urine Trace (Negative); RBC,Urine 23 /hpf (0-5); Specific Gravity,Urine 1.013 (1.001-1.035); Urobilinogen,Urine <2.0 mg/dL (<2.0)
--- NOTE | 2018-04-01 23:08 | CT ---
EXAMINATION TYPE: CT abdomen pelvis wo con DATE OF EXAM: 04/01/2018 COMPARISON: 11/09/2017 HISTORY: Right side flank pain and vomiting x1 week CT DLP: 343.5 mGycm Automated exposure control for dose reduction was used. TECHNIQUE: Helical acquisition of images was performed from the lung bases through the pelvis. FINDINGS: Lung bases are clear. There is no pleural effusion. Heart size is normal. Liver spleen pancreas appear normal. There are clips from cholecystectomy. Bile ducts are not dilated . There is no adrenal mass. Kidneys have normal size. There are multiple bilateral renal calcificatio ns that measure up to 7 mm. There is slight fullness of the right ureter but no calculus is identifie d. Abdominal aorta is atheromatous. I see no retroperitoneal adenopathy. There is no ascites. There i s no intestinal wall thickening. There are no dilated loops. There are is no sign of appendicitis. Ap pendix is not definitely seen. There is a first-degree L5-S1 spondylolisthesis. There is L5 spondylol ysis. There is metal artifact from the left hip surgery that obscures the floor the pelvis. Bladder a ppears to distends smoothly. IMPRESSION: LEFT HIP SURGERY. MODERATE SPONDYLOSIS AND DEGENERATIVE CHANGE IN THE LOWER LUMBAR SPINE. FIRST DEGRE E L5-S1 SPONDYLOLISTHESIS. MULTIPLE BILATERAL RENAL CALCULI WITHOUT EVIDENCE OF URETERAL OBSTRUCTION. I DO NOT SEE A RIGHT URETERAL CALCULUS. THERE IS A NEW CALCULUS IN THE LEFT KIDNEY COMPARED TO LAST EXAM..
[2018-04-01] MEDS ORDERED: SODIUM CHLORIDE 0.9% 1,000 ML IV ONE (23:17)
[2018-04-01] MEDS ORDERED: LEVOFLOXACIN 750MG-D5W PMX 750 MG in DEXTROSE/WATER 1 150ML.BAG IVPB STA (23:19)
[2018-04-01] MEDS ORDERED: LORazepam 2 MG/ML INJ IV STA (23:34)
[2018-04-02] MEDS: MORPHINE SULFATE 2 MG/ML SYRINGE IVP PRN ×5 (00:20→20:09)
[2018-04-02] MEDS: LEVOFLOXACIN 750MG-D5W PMX 750 MG in DEXTROSE/WATER 1 150ML.BAG IVPB SCH ×2 (00:51→21:24)
[2018-04-02] MEDS: ONDANSETRON 4 MG/2 ML VIAL IVP PRN ×4 (00:54→18:28)
[2018-04-02] MEDS ORDERED: ALBUTEROL NEBULIZED 2.5 MG/3 ML INHALATION PRN (01:37)
[2018-04-02] MEDS ORDERED: BUDESONIDE 1 MG/2 ML NEBU INHALATION PRN (01:37)
[2018-04-02] MEDS ORDERED: DOCUSATE 100 MG CAP PO PRN (01:37)
[2018-04-02] MEDS: DULoxetine HCL 60 MG CAPSULE.DR PO SCH ×2 (09:15→21:23)
[2018-04-02] MEDS: PANTOPRAZOLE 40 MG TABLET PO SCH ×2 (09:15→17:18)
[2018-04-02] MEDS: FUROSEMIDE 40 MG TAB PO SCH (09:15)
[2018-04-02] MEDS: amLODIPine 5 MG TAB PO SCH (09:15)
[2018-04-02] MEDS: LOSARTAN 50 MG TAB PO SCH (09:15)
[2018-04-02] MEDS: HYDROcodone/APAP 10-325MG 1 EACH TAB PO SCH ×4 (09:15→21:23)
--- NOTE | 2018-04-02 09:45 | P.GSCN ---
History of Present Illness Consult date: 04/02/18 Reason for Consult: Abdominal pain History of present illness: This a 57-year-old female well-known to myself. Patient has history of chronic abdominal pain. Patient states that she developed severe abdominal pain last night. Her son brought her to the emergency room. Patient's had multiple exploratory laparotomies and lysis of adhesions performed the past. The patient was noted to have a elevated white count was 16,000 on admission. Past Medical History Past Medical History: Asthma, Cancer, COPD, CVA/TIA, Fibromyalgia, GERD/Reflux, Hyperlipidemia, Hypertension, Musculoskeletal Disorder, Neurologic Disorder, Osteoarthritis (OA), Skin Disorder, Thyroid Disorder Additional Past Medical History / Comment(s): KIDNEY STONES, MULT TIA'S, migraines, glaucoma right eye/BLIND, chronic BACK, NECK, LEG pain. PSORIASIS, HX cervical Ca History of Any Multi-Drug Resistant Organisms: MRSA Year Discovered:: 2011 MDRO Source:: Lungs Past Surgical History: Appendectomy, Back Surgery, Cholecystectomy, Hysterectomy , Joint Replacement Additional Past Surgical History / Comment(s): EYE SURG KATERINE; splenectomy, tracheotomy, complete left hip replacement, L4, 5, 6 plates, LITHOTRIPSY Past Anesthesia/Blood Transfusion Reactions: No Reported Reaction, Postoperative Nausea & Vomiting (PONV) Past Psychological History: Anxiety, Bipolar, Depression Smoking Status: Current every day smoker Past Alcohol Use History: None Reported Additional Past Alcohol Use History / Comment(s): 1/2 TO 1 PPD SINCE AGE 16 Past Drug Use History: Marijuana Additional Drug Use History / Comment(s): OCCASIONAL USE, INSTRUCTED NOT TO USE 24 HRS PRIOR TO PROCEDURE - Past Family History Sister(s) Family Medical History: COPD, Neurologic Disorder Daughter(s) Family Medical History: Asthma, Cancer Son(s) Family Medical History: Asthma, COPD, Neurologic Disorder Father Family Medical History: No Reported History Additional Family Medical History / Comment(s): Gout, deaf, alcoholism Mother Family Medical History: COPD, Myocardial Infarction ([place]) Additional Family Medical History / Comment(s): emphysema Medications and Allergies Home Medications Medication Instructions Recorded Confirmed Type Atorvastatin [Lipitor] 20 mg PO HS 07/29/14 04/01/18 History DULoxetine HCL [Cymbalta] 60 mg PO BID 07/29/14 04/01/18 History Furosemide [Lasix] 40 mg PO DAILY 07/29/14 04/01/18 History Losartan [Cozaar] 50 mg PO DAILY 07/29/14 04/01/18 History amLODIPine BESYLATE [Norvasc] 5 mg PO DAILY 07/29/14 04/01/18 History Ibuprofen [Motrin] 800 mg PO Q8H PRN 07/28/16 04/01/18 History [place]-3 Fatty Acids/Fish Oil [Fish 1 cap PO HS 07/28/16 04/01/18 History Oil 1,000 mg Softgel] Albuterol Nebulized [Ventolin 2.5 mg INHALATION RT-Q4H PRN 01/29/17 04/01/18 History Nebulized] Beclomethasone Dipropionate [Qvar 2 puff INHALATION RT-BID PRN 01/29/17 History 80 mcg] LORazepam [Ativan] 1 mg PO TID PRN 02/01/17 04/01/18 History Docusate [Colace] 100 mg PO HS PRN 02/26/17 04/01/18 History HYDROcodone/APAP 10-325MG [[place] 1 tab PO QID 02/26/17 04/01/18 History 10-325] Omeprazole [PriLOSEC] 20 mg PO AC-BID 02/26/17 04/01/18 History Ondansetron [Zofran] 4 mg PO Q8HR PRN 04/01/18 04/01/18 History Allergies Allergy/AdvReac Type Severity Reaction Status Date / Time cyclobenzaprine HCl Allergy Swelling Verified 04/01/18 23:32 [From Flexeril] Iodinated Contrast- Oral and Allergy Anaphylaxis Verified 04/01/18 23:32 IV Dye [Iodinated Contrast Media - IV Dye] lithium [[place]] Allergy Swelling Verified 04/01/18 23:32 Penicillins Allergy Rash/Hives Verified 04/01/18 23:32 bee pollen AdvReac Swelling Verified 04/01/18 23:32 morphine AdvReac GETS ANGRY Verified 04/01/18 23:32 Surgical - Exam Vital Signs Temp Pulse Resp BP Pulse Ox 98.3 F 91 22 160/89 96 04/01/18 21:15 04/01/18 21:15 04/01/18 21:15 04/01/18 21:15 04/01/18 21:15 - General well developed, well nourished, no distress - Eyes PERRL - ENT normal pinna - Respiratory normal expansion - Cardiovascular Rhythm: regular - Abdomen I'll epigastric tenderness there is no rebound or guarding. There are several well-healed laparoscopy scars. Abdomen: soft Results - Labs 04/01/18 21:37 04/01/18 21:37 Abnormal Lab Results - Last 24 Hours (Table) 04/01/18 04/01/18 04/01/18 Range/Units 21:37 21:37 22:32 WBC 16.8 H (3.8-10.6) k/uL Hct 47.5 H (34.0-46.0) % Plt Count 652 H (150-450) k/uL Lymphocytes # 7.6 H (1.0-4.8) k/uL Monocytes # 1.5 H (0-1.0) k/uL BUN 23 H (7-17) mg/dL Calcium 10.7 H (8.4-10.2) mg/dL Urine Appearance Cloudy H (Clear) Urine Protein Trace H (Negative) Urine Blood Moderate H (Negative) Urine RBC 23 H (0-5) /hpf Calcium Oxalate Crystal Few H (None) /hpf Hyaline Casts 3 H (0-2) /lpf Urine Mucus Rare H (None) /hpf Diabetes panel 04/01/18 Range/Units 21:37 Sodium 142 (137-145) mmol/L Potassium 4.1 (3.5-5.1) mmol/L Chloride 104 (98-107) mmol/L Carbon Dioxide 22 (22-30) mmol/L BUN 23 H (7-17) mg/dL Creatinine 0.60 (0.52-1.04) mg/dL Glucose 95 (74-99) mg/dL Calcium 10.7 H (8.4-10.2) mg/dL AST 22 (14-36) U/L ALT 26 (9-52) U/L Alkaline Phosphatase 100 (38-126) U/L Total Protein 7.8 (6.3-8.2) g/dL Albumin 4.9 (3.5-5.0) g/dL Calcium panel 04/01/18 Range/Units 21:37 Calcium 10.7 H (8.4-10.2) mg/dL Albumin 4.9 (3.5-5.0) g/dL Pituitary panel 04/01/18 Range/Units 21:37 Sodium 142 (137-145) mmol/L Potassium 4.1 (3.5-5.1) mmol/L Chloride 104 (98-107) mmol/L Carbon Dioxide 22 (22-30) mmol/L BUN 23 H (7-17) mg/dL Creatinine 0.60 (0.52-1.04) mg/dL Glucose 95 (74-99) mg/dL Calcium 10.7 H (8.4-10.2) mg/dL Adrenal panel 04/01/18 Range/Units 21:37 Sodium 142 (137-145) mmol/L Potassium 4.1 (3.5-5.1) mmol/L Chloride 104 (98-107) mmol/L Carbon Dioxide 22 (22-30) mmol/L BUN 23 H (7-17) mg/dL Creatinine 0.60 (0.52-1.04) mg/dL Glucose 95 (74-99) mg/dL Calcium 10.7 H (8.4-10.2) mg/dL Total Bilirubin 0.4 (0.2-1.3) mg/dL AST 22 (14-36) U/L ALT 26 (9-52) U/L Alkaline Phosphatase 100 (38-126) U/L Total Protein 7.8 (6.3-8.2) g/dL Albumin 4.9 (3.5-5.0) g/dL Assessment and Plan Assessment: Chronic abdominal pain Leukocytosis The etiology of her abdominal pain is unclear at this time. Patient received fluid hydration and IV antibiotic. We will follow with you. No surgical intervention is planned at this point.
[2018-04-02] MEDS ORDERED: HYDROmorphone 1 MG/ML 1 ML SYRINGE IVP PRN (09:57)
--- NOTE | 2018-04-02 12:03 | P.HPIM ---
History of Present Illness H&P Date: 04/02/18 Chief Complaint: Vomiting, abdominal pain This is a 57-year-old female patient of Dr. Melissa with a past history of COPD, hypertension, generalized osteoarthritis, bipolar disorder, tobacco use and dependence. Patient presented with complaints of pain that started in her right flank along with abdominal bloating and gas. She thought she was constipated and not taking his medications and this was resolved. She has not had a bowel movement today but did have one yesterday. She states the pain is so bad she doubles over. The last few days she has hardly been eating or drinking anything and has also had nausea and vomiting. She thought it was related to urinary tract infection but is more concern for kidney stones which she has had in the past. She does state that she ate some Jell-O this morning and had emesis after that. She came into [facility] emergency center for evaluation. She has been afebrile. White count is 16.8, hemoglobin 15.9, creatinine 0.60 and BUN 23. Amylase 87 and lipase 227. Urinalysis was cloudy, blood moderate, RBCs 23, no WBCs, calcium oxalate crystals few, hyaline casts 3. Patient was started on Levaquin and IV fluids as well as IV pain medication and Zofran and [facility]. She has been seen in consultation by Dr. Grubbs. Review of Systems All systems: negative Constitutional: Reports anorexia, Reports poor appetite, Denies chills, Denies fever Eyes: denies blurred vision, denies pain Ears, nose, mouth and throat: Denies headache, Denies sore throat, Denies vertigo Cardiovascular: Denies chest pain, Denies decreased exercise tolerance, Denies dyspnea on exertion, Denies leg edema, Denies lightheadedness, Denies shortness of breath, Denies syncope Respiratory: Denies cough, Denies cough with sputum, Denies dyspnea, Denies excessive sputum, Denies hemoptysis, Denies home oxygen, Denies wheezing Gastrointestinal: Reports abdominal pain, Reports bloating, Reports loss of appetite, Reports nausea, Reports vomiting, Denies diarrhea Genitourinary: Reports flank pain, Denies dysuria, Denies hematuria Musculoskeletal: Denies myalgias Integumentary: Denies pruritus, Denies rash Neurological: Denies numbness, Denies weakness Psychiatric: Denies anxiety, Denies depression Endocrine: Denies fatigue, Denies weight change Past Medical History Past Medical History: Asthma, Cancer, COPD, CVA/TIA, Fibromyalgia, GERD/Reflux, Hyperlipidemia, Hypertension, Musculoskeletal Disorder, Neurologic Disorder, Osteoarthritis (OA), Skin Disorder, Thyroid Disorder Additional Past Medical History / Comment(s): KIDNEY STONES, MULT TIA'S, migraines, glaucoma right eye/BLIND, chronic BACK, NECK, LEG pain. PSORIASIS, HX cervical Ca History of Any Multi-Drug Resistant Organisms: MRSA Date of last positivie culture/infection: 2011 MDRO Source:: Lungs Past Surgical History: Appendectomy, Back Surgery, Cholecystectomy, Hysterectomy , Joint Replacement Additional Past Surgical History / Comment(s): EYE SURG KATERINE; splenectomy, tracheotomy, complete left hip replacement, L4, 5, 6 plates, LITHOTRIPSY Past Anesthesia/Blood Transfusion Reactions: No Reported Reaction, Postoperative Nausea & Vomiting (PONV) Past Psychological History: Anxiety, Bipolar, Depression Smoking Status: Current every day smoker Past Alcohol Use History: None Reported Additional Past Alcohol Use History / Comment(s): 1/2 TO 1 PPD SINCE AGE 16 Past Drug Use History: Marijuana Additional Drug Use History / Comment(s): OCCASIONAL USE, INSTRUCTED NOT TO USE 24 HRS PRIOR TO PROCEDURE - Past Family History Sister(s) Family Medical History: COPD Additional Family Medical History / Comment(s): Bipolar disorder Daughter(s) Family Medical History: Asthma, Cancer Additional Family Medical History / Comment(s): Cervical cancer Son(s) Family Medical History: Asthma, COPD Additional Family Medical History / Comment(s): Bipolar disorder Father Family Medical History: No Reported History Additional Family Medical History / Comment(s): Gout, deaf, alcoholism. Kill by a drunk straight truck driver. Mother Family Medical History: COPD, Myocardial Infarction ([place]) Additional Family Medical History / Comment(s): emphysema Medications and Allergies Home Medications Medication Instructions Recorded Confirmed Type Atorvastatin [Lipitor] 20 mg PO HS 07/29/14 04/01/18 History DULoxetine HCL [Cymbalta] 60 mg PO BID 07/29/14 04/01/18 History Furosemide [Lasix] 40 mg PO DAILY 07/29/14 04/01/18 History Losartan [Cozaar] 50 mg PO DAILY 07/29/14 04/01/18 History amLODIPine BESYLATE [Norvasc] 5 mg PO DAILY 07/29/14 04/01/18 History Ibuprofen [Motrin] 800 mg PO Q8H PRN 07/28/16 04/01/18 History [place]-3 Fatty Acids/Fish Oil [Fish 1 cap PO HS 07/28/16 04/01/18 History Oil 1,000 mg Softgel] Albuterol Nebulized [Ventolin 2.5 mg INHALATION RT-Q4H PRN 01/29/17 04/01/18 History Nebulized] Beclomethasone Dipropionate [Qvar 2 puff INHALATION RT-BID PRN 01/29/17 History 80 mcg] LORazepam [Ativan] 1 mg PO TID PRN 02/01/17 04/01/18 History Docusate [Colace] 100 mg PO HS PRN 02/26/17 04/01/18 History HYDROcodone/APAP 10-325MG [[place] 1 tab PO QID 02/26/17 04/01/18 History 10-325] Omeprazole [PriLOSEC] 20 mg PO AC-BID 02/26/17 04/01/18 History Ondansetron [Zofran] 4 mg PO Q8HR PRN 04/01/18 04/01/18 History Ondansetron [Zofran ODT] 8 mg PO Q8HR #60 tab 04/02/18 Rx Allergies Allergy/AdvReac Type Severity Reaction Status Date / Time cyclobenzaprine HCl Allergy Swelling Verified 04/01/18 23:32 [From Flexeril] Iodinated Contrast- Oral and Allergy Anaphylaxis Verified 04/01/18 23:32 IV Dye [Iodinated Contrast Media - IV Dye] lithium [[place]] Allergy Swelling Verified 04/01/18 23:32 Penicillins Allergy Rash/Hives Verified 04/01/18 23:32 bee pollen AdvReac Swelling Verified 04/01/18 23:32 morphine AdvReac GETS ANGRY Verified 04/01/18 23:32 Physical Exam Vitals: Vital Signs Temp Pulse Pulse Resp BP BP Pulse Ox 04/02/18 06:37 98.3 F 84 18 121/56 91 L 04/02/18 00:30 18 04/02/18 00:00 98.1 F 81 18 123/82 95 04/01/18 23:22 77 20 143/82 97 04/01/18 21:15 98.3 F 91 22 160/89 96 Intake and Output 04/01/18 04/02/18 04/02/18 22:59 06:59 14:59 Intake Total 650 Balance 650 Intake: Amount of Fluid Infused ( 650 ml) Oral 0 Other: Voiding Method Toilet # Voids 1 Weight 63.503 kg Gen: This is a 57-year-old female. She is sitting up at the bedside and appears to be quite uncomfortable.. HEENT: Head is atraumatic, normocephalic. Blind in right eye. Sclerae is anicteric. NECK: Supple. No JVD. No lymphadenopathy. No thyromegaly. LUNGS: Clear to auscultation. No wheezes or rhonchi. No intercostal retractions. HEART: Regular rate and rhythm. No murmur. ABDOMEN: Soft. Bowel sounds are present. No masses. +tenderness to the right abdomen and right flank. EXTREMITIES: No pedal edema. No calf tenderness. NEUROLOGICAL: Patient is awake, alert and oriented x3. Cranial nerves 2 through 12 are grossly intact. Results CBC & Chem 7: 04/01/18 21:37 04/01/18 21:37 Labs: Abnormal Lab Results - Last 24 Hours (Table) 04/01/18 04/01/18 04/01/18 Range/Units 21:37 21:37 22:32 WBC 16.8 H (3.8-10.6) k/uL Hct 47.5 H (34.0-46.0) % Plt Count 652 H (150-450) k/uL Lymphocytes # 7.6 H (1.0-4.8) k/uL Monocytes # 1.5 H (0-1.0) k/uL BUN 23 H (7-17) mg/dL Calcium 10.7 H (8.4-10.2) mg/dL Urine Appearance Cloudy H (Clear) Urine Protein Trace H (Negative) Urine Blood Moderate H (Negative) Urine RBC 23 H (0-5) /hpf Calcium Oxalate Crystal Few H (None) /hpf Hyaline Casts 3 H (0-2) /lpf Urine Mucus Rare H (None) /hpf Thrombosis Risk Factor Assmnt - DVT/VTE Prophylaxis DVT/VTE Prophylaxis: Pharmacologic Prophylaxis ordered - Choose All That Apply Any of the Below Risk Factors Present?: Yes Each Factor Represents 1 point: Abnormal pulmonary function (COPD), Age 41-60 years, Obesity (BMI >25), Swollen legs (current) Other Risk Factors: Yes Each Risk Factor Represents 3 Points: Family history of DVT/PE Thrombosis Risk Factor Assessment Total Risk Factor Score: 7 Thrombosis Risk Factor Assessment Level: High Risk Assessment and Plan Plan: 1. Abdominal pain secondary to renal stones. Patient will be continued on IV morphine and [place]. Continue Zofran. Strain urine for stone. Patient is currently on Levaquin. Continue Motrin as well. Patient is on a clear liquid diet. Consult with Dr. Jonatan oviedo. 2. Hypertension. Continue Norvasc 5 mg daily, Lasix 40 mg daily and losartan 50 mg daily. 3. Hyperlipidemia. Atorvastatin 20 mg at bedtime. 4. COPD, stable. Continue albuterol nebulizer as needed, Pulmicort 1 mg twice daily. 5. Generalized anxiety disorder. Continue Ativan 1 mg 3 times daily as needed and Cymbalta 60 mg twice daily. 6. Gastroesophageal reflux disease and GI prophylaxis. Protonix. 7. DVT prophylaxis. Lovenox. 8. Tobacco use and dependence. Patient declines need for nicotine patch Patient will be admitted to the hospital for a minimum of 2 night stay. Discharge plan: Discharge home tomorrow Impression and plan of care have been directed as dictated by the signing physician. Isa Gatica nurse practitioner acting as scribe for signing physician.
[2018-04-02] MEDS: ATORVASTATIN 20 MG TAB PO SCH (21:23)
[2018-04-02] MEDS: LORazepam 1 MG TAB PO PRN (21:23)
[2018-04-02] MEDS: NON-FORMULARY DRUG (Omega-3 Fatty Acids/Fish Oil [Fish Oil 1,000 Mg Softgel] 1 CAP) PO SCH (21:24)
[2018-04-03] MEDS: MORPHINE SULFATE 2 MG/ML SYRINGE IVP PRN ×3 (00:04→08:40)
[2018-04-03] MEDS: ONDANSETRON 4 MG/2 ML VIAL IVP PRN ×4 (00:04→18:31)
[2018-04-03 08:37] LABS: HGB 14.6 gm/dL (11.4-16.0); MCH 31.3 pg (25.0-35.0); MCHC 33.9 g/dL (31.0-37.0); MCV 92.1 fL (80.0-100.0); Mean Platelet Volume 6.1; Platelet Count 546 k/uL (150-450); RBC 4.67 m/uL (3.80-5.40); RDW 13.4 % (11.5-15.5); WBC 7.7 k/uL (3.8-10.6)
[2018-04-03] MEDS: FUROSEMIDE 40 MG TAB PO SCH (08:41)
[2018-04-03] MEDS: HYDROcodone/APAP 10-325MG 1 EACH TAB PO SCH (08:41)
[2018-04-03] MEDS: DULoxetine HCL 60 MG CAPSULE.DR PO SCH ×2 (08:41→21:16)
[2018-04-03] MEDS: amLODIPine 5 MG TAB PO SCH (08:41)
[2018-04-03] MEDS: LOSARTAN 50 MG TAB PO SCH (08:41)
[2018-04-03] MEDS: ENOXAPARIN 40 MG/0.4 ML SYRINGE SQ SCH (08:41)
[2018-04-03] MEDS: PANTOPRAZOLE 40 MG TABLET PO SCH ×2 (08:41→19:34)
[2018-04-03 08:59] LABS: ALT 568 U/L (9-52); AST 719 U/L (14-36); Albumin 3.7 g/dL (3.5-5.0); Alkaline Phosphatase 153 U/L (38-126); Anion Gap 8 mmol/L; Blood Urea Nitrogen 8 mg/dL (7-17); Calcium 9.6 mg/dL (8.4-10.2); Carbon Dioxide 27 mmol/L (22-30); Chloride 109 mmol/L (98-107); Glucose 101 mg/dL (74-99); Sodium 144 mmol/L (137-145); Total Bilirubin 0.8 mg/dL (0.2-1.3); Total Protein 6.1 g/dL (6.3-8.2)
[2018-04-03] MEDS: LORazepam 1 MG TAB PO PRN ×2 (11:08→19:37)
[2018-04-03] MEDS: DOCUSATE 100 MG CAP PO SCH (11:08)
[2018-04-03 11:09] LABS: Acetaminophen <10.0 ug/mL; Salicylate <1.0 mg/dL
--- NOTE | 2018-04-03 12:10 | P.PN ---
Progress Note - Text Progress Note Date: 04/03/18 The patient states she feels better today. She still has some mild epigastric right quadrant pain. It was noted that her LFTs have increased today. On exam her vital signs are stable. Her abdomen soft. She is tolerating clear liquids. Improving abdominal pain. I'm unsure of the etiology of her elevated liver function tests. Patient's had a previous cholecystectomy many years ago. We will have GI consultation Dr. Russell performed. We will keep her on clear liquid diet for now.
--- NOTE | 2018-04-03 12:11 | P.PN ---
Subjective Progress Note Date: 04/03/18 This is a 57-year-old female patient of Dr. Melissa with a past history of COPD, hypertension, generalized osteoarthritis, bipolar disorder, tobacco use and dependence. Patient presented with complaints of pain that started in her right flank along with abdominal bloating and gas. She thought she was constipated and not taking his medications and this was resolved. She has not had a bowel movement today but did have one yesterday. She states the pain is so bad she doubles over. The last few days she has hardly been eating or drinking anything and has also had nausea and vomiting. She thought it was related to urinary tract infection but is more concern for kidney stones which she has had in the past. She does state that she ate some Jell-O this morning and had emesis after that. She came into [facility] emergency center for evaluation. She has been afebrile. White count is 16.8, hemoglobin 15.9, creatinine 0.60 and BUN 23. Amylase 87 and lipase 227. Urinalysis was cloudy, blood moderate, RBCs 23, no WBCs, calcium oxalate crystals few, hyaline casts 3. Patient was started on Levaquin and IV fluids as well as IV pain medication and Zofran and admitted to the [facility] floor. She has been seen in consultation by Dr. Grubbs. 04/03: Platelet count is 546. Liver function tests are elevated with AST 719, ALT 568, alkaline phosphatase 153. In further questioning, patient states that she was taking her [place] and ibuprofen as well as taking 2-3 aspirins in between [place]. We are discontinuing her [place] and placing her on tramadol. Acetaminophen, salicylate level and acute hepatitis panel will be ordered. Patient does complain of nausea. She denies any diarrhea. She states she's not had a bowel movement since arrival. Colace scheduled. Diet will be advanced to full liquids. Dr. Romie Omalley and consults with GI. Objective - Vital Signs Vital signs: Vital Signs Temp 98.5 F 04/03/18 06:20 Pulse 74 04/03/18 06:20 Resp 18 04/03/18 06:20 BP 116/69 04/03/18 06:20 Pulse Ox 95 04/03/18 06:20 Intake & Output 04/02/18 04/03/1804/03/18 18:59 06:59 18:59 Intake Total 1100 240 Output Total 650 2400 Balance -650 -1300 240 Intake: Oral 1100 240 Output: Urine 650 2400 Other: Voiding Method Toilet Toilet - Exam Gen: This is a 57-year-old female. She is sitting up at the bedside and appears to be quite uncomfortable.. HEENT: Head is atraumatic, normocephalic. Blind in right eye. Sclerae is anicteric. NECK: Supple. No JVD. No lymphadenopathy. No thyromegaly. LUNGS: Clear to auscultation. No wheezes or rhonchi. No intercostal retractions. HEART: Regular rate and rhythm. No murmur. ABDOMEN: Soft. Bowel sounds are present. No masses. +tenderness to the right abdomen and right flank. EXTREMITIES: No pedal edema. No calf tenderness. NEUROLOGICAL: Patient is awake, alert and oriented x3. Cranial nerves 2 through 12 are grossly intact. - Labs CBC & Chem 7: 04/03/18 08:22 04/03/18 08:22 Labs: Abnormal Lab Results - Last 24 Hours (Table) 04/03/18 04/03/18 Range/Units 08:22 08:22 Plt Count 546 H (150-450) k/uL Chloride 109 H (98-107) mmol/L Glucose 101 H (74-99) mg/dL AST 719 H (14-36) U/L ALT 568 H (9-52) U/L Alkaline Phosphatase 153 H (38-126) U/L Total Protein 6.1 L (6.3-8.2) g/dL Assessment and Plan Plan: 1. Abdominal pain secondary to renal stones. Patient will be continued on IV morphine and [place]. Continue Zofran. Strain urine for stone. Patient is currently on Levaquin. Continue Motrin as well. Patient is on a clear liquid diet. Consult with Dr. Grubbs appreciated. 2. Elevated liver function tests most likely secondary to Tylenol use. Acetaminophen, salicylate and acute hepatitis panel ordered. GI on consult. 3. Hypertension. Continue Norvasc 5 mg daily, Lasix 40 mg daily and losartan 50 mg daily. 4. Hyperlipidemia. Atorvastatin 20 mg at bedtime. 5. COPD, stable. Continue albuterol nebulizer as needed, Pulmicort 1 mg twice daily. 6. Generalized anxiety disorder. Continue Ativan 1 mg 3 times daily as needed and Cymbalta 60 mg twice daily. 7. Gastroesophageal reflux disease and GI prophylaxis. Protonix. 8. DVT prophylaxis. Lovenox. 9. Tobacco use and dependence. Patient declines need for nicotine patch Discharge plan: home Impression and plan of care have been directed as dictated by the signing physician. Isa Gatica nurse practitioner acting as scribe for signing physician.
[2018-04-03] MEDS: traMADol 50 MG TAB PO PRN ×2 (12:27→18:30)
[2018-04-03] MEDS: IBUPROFEN 800 MG TAB PO PRN (19:37)
[2018-04-03] MEDS: NON-FORMULARY DRUG (Omega-3 Fatty Acids/Fish Oil [Fish Oil 1,000 Mg Softgel] 1 CAP) PO SCH (21:07)
[2018-04-03] MEDS: LEVOFLOXACIN 750MG-D5W PMX 750 MG in DEXTROSE/WATER 1 150ML.BAG IVPB SCH (21:16)
[2018-04-03] MEDS: ATORVASTATIN 20 MG TAB PO SCH (21:16)
[2018-04-04] MEDS: FUROSEMIDE 40 MG TAB PO SCH (08:06)
[2018-04-04] MEDS: PANTOPRAZOLE 40 MG TABLET PO SCH ×2 (08:06→18:14)
[2018-04-04] MEDS: ENOXAPARIN 40 MG/0.4 ML SYRINGE SQ SCH (08:06)
[2018-04-04] MEDS: amLODIPine 5 MG TAB PO SCH (08:06)
[2018-04-04] MEDS: LOSARTAN 50 MG TAB PO SCH (08:06)
[2018-04-04] MEDS: DULoxetine HCL 60 MG CAPSULE.DR PO SCH ×2 (08:06→20:35)
[2018-04-04] MEDS: DOCUSATE 100 MG CAP PO SCH (08:06)
[2018-04-04] MEDS: traMADol 50 MG TAB PO PRN ×3 (08:12→20:34)
[2018-04-04] MEDS: ONDANSETRON 4 MG/2 ML VIAL IVP PRN ×3 (08:31→20:34)
[2018-04-04 09:20] LABS: HCT 43.5 % (34.0-46.0); HGB 14.3 gm/dL (11.4-16.0); MCH 30.4 pg (25.0-35.0); MCHC 32.9 g/dL (31.0-37.0); MCV 92.4 fL (80.0-100.0); Mean Platelet Volume 6.7; Platelet Count 537 k/uL (150-450); RBC 4.71 m/uL (3.80-5.40); RDW 13.6 % (11.5-15.5); WBC 10.4 k/uL (3.8-10.6)
[2018-04-04 09:41] LABS: ALT 319 U/L (9-52); AST 143 U/L (14-36); Albumin 3.7 g/dL (3.5-5.0); Alkaline Phosphatase 155 U/L (38-126); Anion Gap 12 mmol/L; Blood Urea Nitrogen 8 mg/dL (7-17); Calcium 9.5 mg/dL (8.4-10.2); Carbon Dioxide 23 mmol/L (22-30); Chloride 106 mmol/L (98-107); Glucose 153 mg/dL (74-99); Sodium 141 mmol/L (137-145); Total Bilirubin 0.5 mg/dL (0.2-1.3); Total Protein 6.1 g/dL (6.3-8.2)
[2018-04-04] MEDS: IBUPROFEN 800 MG TAB PO PRN (11:34)
--- NOTE | 2018-04-04 12:11 | P.PN ---
<Nubia Vyas - Last Filed: 04/04/18 12:01> Subjective Progress Note Date: 04/04/18 57 show female resting in bed seen and examined at the bedside. Patient reports she continues to have right lower quadrant abdominal pain radiates around the back. States had a small bowel movement this morning and passing gas GI consult pending for eval of elevated liver enzymes. Patient has been seen in the past by urology January 2017 treated for a left renal calculus. Patient states the pain feels similar to that last incident. She gives a history of having a splenectomy appendectomy and a cholecystectomy is a vague on the timing of the procedures Objective - Vital Signs Vital signs: Vital Signs Temp 97.9 F 04/04/18 07:00 Pulse 74 04/04/18 07:00 Resp 18 04/04/18 07:00 BP 129/79 04/04/18 07:00 Pulse Ox 94 L 04/04/18 07:00 Intake & Output 04/03/18 04/04/18 04/04/18 18:59 06:59 18:59 Intake Total 480 850 Output Total 900 2700 900 Balance -420 -1850 -900 Intake: Oral 480 850 Output: Urine 900 2700 900 Other: Voiding Method Toilet Toilet # Voids 3 0 2 # Bowel Movements 0 - Exam Physical exam 57-year-old female lying in the right eye sitting up in bed talkative Lungs adequate air movement bilaterally Heart S1-S2 audible regular Abdomen reports having right lower quadrant abdominal discomfort no stool passing gas bowel tones present nondistended mild tenderness urinating no difficulty Extremities no edema - Labs CBC & Chem 7: 04/04/18 08:35 04/04/18 08:35 Labs: Abnormal Lab Results - Last 24 Hours (Table) 04/04/18 04/04/18 Range/Units 08:35 08:35 Plt Count 537 H (150-450) k/uL Glucose 153 H (74-99) mg/dL AST 143 H (14-36) U/L ALT 319 H (9-52) U/L Alkaline Phosphatase 155 H (38-126) U/L Total Protein 6.1 L (6.3-8.2) g/dL Assessment and Plan Assessment: Impression Present on admission elevated liver enzymes suspect due to [place] Tylenol Present on admission right lower quadrant abdominal pain suspect due to renal stone Tobacco use dependency Esophageal reflux disease Anxiety disorder Plan Await GIs eval pending Did note the liver enzymes today are trending down we'll repeat the labs in the morning No evidence of an acute surgical abdomen Continue clear liquid diet advance as tolerated Will follow with you Progress note dictated for Dr. Hendrickson roundguillermina on behalf of Dr. diaz The above impression and plan of care have been discussed and directed by signing physician. Nubia Vyas nurse practitioner acting as scribe for signing physician. <Cary Hendrickson N - Last Filed: 04/04/18 21:32> Objective - Vital Signs Vital signs: Vital Signs Temp 98.4 F 04/04/18 14:56 Pulse 85 04/04/18 14:56 Resp 20 04/04/18 14:56 BP 136/86 04/04/18 14:56 Pulse Ox 97 04/04/18 14:56 Intake & Output 04/04/18 04/04/18 04/05/18 06:59 18:59 06:59 Intake Total 850 Output Total 2700 1800 Balance -1850 -1800 Intake: Oral 850 Output: Urine 2700 1800 Other: Voiding Method Toilet # Voids 0 2 - Labs CBC & Chem 7: 04/04/18 08:35 04/04/18 08:35 Labs: Abnormal Lab Results - Last 24 Hours (Table) 04/04/18 04/04/18 Range/Units 08:35 08:35 Plt Count 537 H (150-450) k/uL Glucose 153 H (74-99) mg/dL AST 143 H (14-36) U/L ALT 319 H (9-52) U/L Alkaline Phosphatase 155 H (38-126) U/L Total Protein 6.1 L (6.3-8.2) g/dL
--- NOTE | 2018-04-04 13:06 | P.PN ---
Subjective Progress Note Date: 04/04/18 This is a 57-year-old female patient of Dr. Melissa with a past history of COPD, hypertension, generalized osteoarthritis, bipolar disorder, tobacco use and dependence. Patient presented with complaints of pain that started in her right flank along with abdominal bloating and gas. She thought she was constipated and not taking his medications and this was resolved. She has not had a bowel movement today but did have one yesterday. She states the pain is so bad she doubles over. The last few days she has hardly been eating or drinking anything and has also had nausea and vomiting. She thought it was related to urinary tract infection but is more concern for kidney stones which she has had in the past. She does state that she ate some Jell-O this morning and had emesis after that. She came into [facility] emergency center for evaluation. She has been afebrile. White count is 16.8, hemoglobin 15.9, creatinine 0.60 and BUN 23. Amylase 87 and lipase 227. Urinalysis was cloudy, blood moderate, RBCs 23, no WBCs, calcium oxalate crystals few, hyaline casts 3. Patient was started on Levaquin and IV fluids as well as IV pain medication and Zofran and admitted to the [facility] floor. She has been seen in consultation by Dr. Grubbs. 04/03: Platelet count is 546. Liver function tests are elevated with AST 719, ALT 568, alkaline phosphatase 153. In further questioning, patient states that she was taking her [place] and ibuprofen as well as taking 2-3 aspirins in between [place]. We are discontinuing her [place] and placing her on tramadol. Acetaminophen, salicylate level and acute hepatitis panel will be ordered. Patient does complain of nausea. She denies any diarrhea. She states she's not had a bowel movement since arrival. Colace scheduled. Diet will be advanced to full liquids. Dr. Romie Omalley and consults with GI. 04/04: Repeat liver enzymes are improved with AST 143, ALT 319, alkaline phosphatase 155. The salicylate less than 1 and acetaminophen level less than 10. GI consult is still pending. Hepatitis panel is pending. Diet is to be advanced as tolerated. Abdominal pain appears to be improved from yesterday.. Objective - Vital Signs Vital signs: Vital Signs Temp 97.9 F 06/18/18 07:00 Pulse 74 04/04/18 07:00 Resp 18 04/04/18 07:00 BP 129/79 04/04/18 07:00 Pulse Ox 94 L 04/04/18 07:00 Intake & Output 04/03/18 04/04/18 04/04/18 18:59 06:59 18:59 Intake Total 480 850 Output Total 900 2700 900 Balance -420 -1850 -900 Intake: Oral 480 850 Output: Urine 900 2700 900 Other: Voiding Method Toilet Toilet # Voids 3 0 2 # Bowel Movements 0 - Exam Gen: This is a 57-year-old female. She is sitting up at the bedside and appears to be quite uncomfortable.. HEENT: Head is atraumatic, normocephalic. Blind in right eye. Sclerae is anicteric. NECK: Supple. No JVD. No lymphadenopathy. No thyromegaly. LUNGS: Clear to auscultation. No wheezes or rhonchi. No intercostal retractions. HEART: Regular rate and rhythm. No murmur. ABDOMEN: Soft. Bowel sounds are present. No masses. +tenderness minimal, generalized. EXTREMITIES: No pedal edema. No calf tenderness. NEUROLOGICAL: Patient is awake, alert and oriented x3. Cranial nerves 2 through 12 are grossly intact. - Labs CBC & Chem 7: 04/04/18 08:35 04/04/18 08:35 Labs: Abnormal Lab Results - Last 24 Hours (Table) 04/04/18 04/04/18 Range/Units 08:35 08:35 Plt Count 537 H (150-450) k/uL Glucose 153 H (74-99) mg/dL AST 143 H (14-36) U/L ALT 319 H (9-52) U/L Alkaline Phosphatase 155 H (38-126) U/L Total Protein 6.1 L (6.3-8.2) g/dL Assessment and Plan Plan: 1. Abdominal pain secondary to renal stones. Patient will be continued on tramadol. Continue Zofran. Strain urine for stone. Patient is currently on Levaquin. Continue Motrin as well. Patient is on a clear liquid diet. Consult with Dr. Grubbs appreciated. 2. Elevated liver function tests of unclear etiology.. Acetaminophen, salicylate levels normal and acute hepatitis panel pending. GI on consult. 3. Hypertension. Continue Norvasc 5 mg daily, Lasix 40 mg daily and losartan 50 mg daily. 4. Hyperlipidemia. Atorvastatin 20 mg at bedtime. 5. COPD, stable. Continue albuterol nebulizer as needed, Pulmicort 1 mg twice daily. 6. Generalized anxiety disorder. Continue Ativan 1 mg 3 times daily as needed and Cymbalta 60 mg twice daily. 7. Gastroesophageal reflux disease and GI prophylaxis. Protonix. 8. DVT prophylaxis. Lovenox. 9. Tobacco use and dependence. Patient declines need for nicotine patch Discharge plan: home Impression and plan of care have been directed as dictated by the signing physician. Isa Gatica nurse practitioner acting as scribe for signing physician.
[2018-04-04 13:28] LABS: Hepatitis B Core IgM Non-Reactive (Non-Reactive)
[2018-04-04 15:04] LABS: Hepatitis A Antibody IgM Non-Reactive (Non-Reactive)
[2018-04-04] MEDS: ATORVASTATIN 20 MG TAB PO SCH (20:35)
--- NOTE | 2018-04-04 22:21 | P.PN ---
Progress Note - Text Progress Note Date: 04/04/18 Reports abdominal pain has improved. No surgical intervention required at this time.
[2018-04-04] MEDS: NON-FORMULARY DRUG (Omega-3 Fatty Acids/Fish Oil [Fish Oil 1,000 Mg Softgel] 1 CAP) PO SCH (23:53)
[2018-04-05 05:43] VITALS: BP 129/76; PULSE 73; RESP 17; TEMP 98.1
--- NOTE | 2018-04-05 07:41 | P.CONS ---
History of Present Illness - Reason for Consult Consult date: 04/04/18 Abdominal pain and abnormal liver chemistries. - History of Present Illness The patient is a 57-year-old female who was brought by her son to the emergency room because of abdominal pain, abdominal distention, nausea and vomiting of 2- 3 days duration. The patient had left ureter stone in January. She had prior splenectomy and cholecystectomy. CT of the abdomen did not show dilated common bile duct. Her transaminases were initially normal, yesterday her AST 719, AST 568 and alkaline phosphatase 155, today, they are down to 143, 319 and 155 respectively. Her hepatitis serology is negative. The patient was evaluated by surgery and no surgical problem identified or any surgical intervention planned. She has been straining on her urine for possible stones. Review of Systems Constitutional: Denies fever, chills, sweats, weight gain, or loss. HEENT: Negative for migraines, blurred vision or loss, earaches, drainage, tinnitus, oral mucosal lesions, dysphagia, or odynophagia. CARDIAC: Negative for chest pain, arrhythmias, or palpitation. RESPIRATORY: Negative for shortness of breath, hemoptysis, cough, or sputum production. GI: See HPI for pertinent findings. : Negative for hematuria, urgency, frequency, polyuria, or dysuria. GYNc: Negative vaginal discharge. MUSCULOSKELETAL: Negative for muscle aches, swelling, arthritis, and arthralgias. NEUROLOGIC: Negative for stroke or TIA. ENDOCRINE: Negative for thyroid problems. SKIN: Negative for rash or itching. PSYCHIATRIC: Negative history for depression and anxiety Past Medical History Past Medical History: Asthma, Cancer, COPD, CVA/TIA, Fibromyalgia, GERD/Reflux, Hyperlipidemia, Hypertension, Musculoskeletal Disorder, Neurologic Disorder, Osteoarthritis (OA), Skin Disorder, Thyroid Disorder Additional Past Medical History / Comment(s): KIDNEY STONES, MULT TIA'S, migraines, glaucoma right eye/BLIND, chronic BACK, NECK, LEG pain. PSORIASIS, HX cervical Ca History of Any Multi-Drug Resistant Organisms: MRSA Year Discovered:: 2011 MDRO Source:: Lungs Past Surgical History: Appendectomy, Back Surgery, Cholecystectomy, Hysterectomy , Joint Replacement Additional Past Surgical History / Comment(s): EYE SURG KATERINE; splenectomy, tracheotomy, complete left hip replacement, L4, 5, 6 plates, LITHOTRIPSY Past Anesthesia/Blood Transfusion Reactions: No Reported Reaction, Postoperative Nausea & Vomiting (PONV) Past Psychological History: Anxiety, Bipolar, Depression Smoking Status: Current every day smoker Past Alcohol Use History: None Reported Additional Past Alcohol Use History / Comment(s): 1/2 TO 1 PPD SINCE AGE 16 Past Drug Use History: Marijuana Additional Drug Use History / Comment(s): OCCASIONAL USE, INSTRUCTED NOT TO USE 24 HRS PRIOR TO PROCEDURE - Past Family History Sister(s) Family Medical History: COPD Additional Family Medical History / Comment(s): Bipolar disorder Daughter(s) Family Medical History: Asthma, Cancer Additional Family Medical History / Comment(s): Cervical cancer Son(s) Family Medical History: Asthma, COPD Additional Family Medical History / Comment(s): Bipolar disorder Father Family Medical History: No Reported History Additional Family Medical History / Comment(s): Gout, deaf, alcoholism. Kill by a drunk trailer truck driver. Mother Family Medical History: COPD, Myocardial Infarction ([place]) Additional Family Medical History / Comment(s): emphysema Medications and Allergies Home Medications Medication Instructions Recorded Confirmed Type Atorvastatin [Lipitor] 20 mg PO HS 07/29/14 04/01/18 History DULoxetine HCL [Cymbalta] 60 mg PO BID 07/29/14 04/01/18 History Furosemide [Lasix] 40 mg PO DAILY 07/29/14 04/01/18 History Losartan [Cozaar] 50 mg PO DAILY 07/29/14 04/01/18 History amLODIPine BESYLATE [Norvasc] 5 mg PO DAILY 07/29/14 04/01/18 History Ibuprofen [Motrin] 800 mg PO Q8H PRN 07/28/16 04/01/18 History [place]-3 Fatty Acids/Fish Oil [Fish 1 cap PO HS 07/28/16 04/01/18 History Oil 1,000 mg Softgel] Albuterol Nebulized [Ventolin 2.5 mg INHALATION RT-Q4H PRN 01/29/17 04/01/18 History Nebulized] Beclomethasone Dipropionate [Qvar 2 puff INHALATION RT-BID PRN 01/29/17 History 80 mcg] LORazepam [Ativan] 1 mg PO TID PRN 02/01/17 04/01/18 History Docusate [Colace] 100 mg PO HS PRN 02/26/17 04/01/18 History HYDROcodone/APAP 10-325MG [[place] 1 tab PO QID 02/26/17 04/01/18 History 10-325] Omeprazole [PriLOSEC] 20 mg PO AC-BID 02/26/17 04/01/18 History Ondansetron [Zofran] 4 mg PO Q8HR PRN 04/01/18 04/01/18 History Ondansetron [Zofran ODT] 8 mg PO Q8HR #60 tab 04/02/18 Rx Allergies Allergy/AdvReac Type Severity Reaction Status Date / Time cyclobenzaprine HCl Allergy Swelling Verified 04/01/18 23:32 [From Flexeril] Iodinated Contrast- Oral and Allergy Anaphylaxis Verified 04/01/18 23:32 IV Dye [Iodinated Contrast Media - IV Dye] lithium [[place]] Allergy Swelling Verified 04/01/18 23:32 Penicillins Allergy Rash/Hives Verified 04/01/18 23:32 bee pollen AdvReac Swelling Verified 04/01/18 23:32 morphine AdvReac GETS ANGRY Verified 04/01/18 23:32 Physical Exam Vitals: Vital Signs Temp Pulse Resp BP Pulse Ox 04/04/18 07:00 97.9 F 74 18 129/79 94 L 04/03/18 23:00 97.7 F 90 18 156/83 96 04/03/18 14:27 97.8 F 89 16 123/80 96 Intake and Output 04/03/18 04/04/18 04/04/18 22:59 06:59 14:59 Intake Total 600 250 Output Total 3600 900 Balance -3000 250 -900 Intake: Oral 600 250 Output: Urine 3600 900 Other: Voiding Method Toilet # Voids 0 2 General appearance: The patient is alert, oriented, in no acute distress. HET: Head is normocephalic and atraumatic. Pupils are equal and reactive. Oropharynx is clear without lesions. Neck: Supple without lymphadenopathy. Trachea midline. Heart: S1 S2. Regular rate and rhythm. Lungs: No crackles or wheezes are heard. Abdomen: Soft, very mild soreness in the midepigastrium, nondistended with bowel sounds. No peritoneal signs. No palpable organomegaly or masses. Extremities: Normal skin color and turgor. No cyanosis, rash, ulceration, clubbing, or edema. Radial and pedal pulses are 2/4 bilaterally. Neurological: No focal deficits. Strength and sensation are grossly intact. Results CBC & Chem 7: 04/04/18 08:35 04/04/18 08:35 Labs: Abnormal Lab Results - Last 24 Hours (Table) 04/04/18 04/04/18 Range/Units 08:35 08:35 Plt Count 537 H (150-450) k/uL Glucose 153 H (74-99) mg/dL AST 143 H (14-36) U/L ALT 319 H (9-52) U/L Alkaline Phosphatase 155 H (38-126) U/L Total Protein 6.1 L (6.3-8.2) g/dL Assessment and Plan Assessment: Abdominal pain and acute change in her liver chemistries could be on the basis of inflammatory or infectious etiology. I doubt common bile duct stone or cholangitis. If her liver enzymes improve completely in short order of time the possibility of medication effects or transient hypotension should be kept in mind. Plan: Agree with your current management. Will follow her course closely and repeat her liver enzymes. I did not schedule any endoscopic intervention or liver biopsy at this point. I will discuss with you and continue to follow with you with interest.
[2018-04-05] MEDS: traMADol 50 MG TAB PO PRN (08:24)
[2018-04-05] MEDS: amLODIPine 5 MG TAB PO SCH (08:27)
[2018-04-05] MEDS: PANTOPRAZOLE 40 MG TABLET PO SCH (08:27)
[2018-04-05] MEDS: DULoxetine HCL 60 MG CAPSULE.DR PO SCH (08:27)
[2018-04-05] MEDS: DOCUSATE 100 MG CAP PO SCH (08:27)
[2018-04-05] MEDS: FUROSEMIDE 40 MG TAB PO SCH (08:28)
[2018-04-05] MEDS: LOSARTAN 50 MG TAB PO SCH (08:28)
[2018-04-05] MEDS: ENOXAPARIN 40 MG/0.4 ML SYRINGE SQ SCH (08:28)
--- NOTE | 2018-04-05 08:28 | US ---
EXAMINATION TYPE: US abdomen limited DATE OF EXAM: 04/05/2018 COMPARISON: CT abdomen and pelvis 04/01/2018 CLINICAL HISTORY: elevated liver enzymes. RUQ pain EXAM MEASUREMENTS: Liver Length: 12.4 cm Gallbladder Wall: Surgically absent cm CBD: 0.5 cm Right Kidney: 12.1 x 4.8 x 5.3 cm Pancreas: Obscured by bowel gas Liver: Slightly heterogeneous echotexture. No masses visualized Gallbladder: Surgically absent Evidence for sonographic Mcconnell's sign: No CBD: wnl as visualized, distal portions is obscured by bowel gas Right Kidney: No hydronephrosis. Echogenic foci lower pole measuring 0.5 cm IMPRESSION: No worrisome intrahepatic mass or intrahepatic ductal dilatation is seen. Findings correl ate with recent CT. Nonobstructing lower pole right renal calculi redemonstrated.
--- NOTE | 2018-04-05 08:51 | P.PN ---
Subjective Progress Note Date: 04/05/18 Principal diagnosis: Retroperitoneal abdominal pain with elevated liver enzymes Reports right CVA tenderness. No dysuria hematuria. Liver enzymes improving yesterday repeat enzymes this morning are pending. Ultrasound abdomen no worrisome hepatic mass or intrahepatic extra hepatic ductal dilatation. Nonobstructing right renal calculi redemonstrated. Objective - Vital Signs Vital signs: Vital Signs Temp 98.1 F 04/05/18 05:42 Pulse 73 04/05/18 05:42 Resp 17 04/05/18 05:42 BP 129/76 04/05/18 05:42 Pulse Ox 95 04/05/18 05:42 Intake & Output 04/04/18 04/05/18 04/05/18 18:59 06:59 18:59 Output Total 1800 Balance -1800 Output: Urine 1800 Other: # Voids 2 1 1 - Exam General appearance: The patient is alert, oriented, in no acute distress. HET: Head is normocephalic and atraumatic. Pupils are equal and reactive. Oropharynx is clear without lesions. Neck: Supple without lymphadenopathy. Trachea midline. Heart: S1 S2. Regular rate and rhythm. Lungs: No crackles or wheezes are heard. Abdomen: Soft, right CVA tenderness, nondistended with bowel sounds. No peritoneal signs. No palpable organomegaly or masses. Extremities: Normal skin color and turgor. No cyanosis, rash, ulceration, clubbing, or edema. Radial and pedal pulses are 2/4 bilaterally. Neurological: No focal deficits. Strength and sensation are grossly intact. - Labs CBC & Chem 7: 04/04/18 08:35 04/04/18 08:35 Labs: Abnormal Lab Results - Last 24 Hours (Table) 04/04/18 04/04/18 Range/Units 08:35 08:35 Plt Count 537 H (150-450) k/uL Glucose 153 H (74-99) mg/dL AST 143 H (14-36) U/L ALT 319 H (9-52) U/L Alkaline Phosphatase 155 H (38-126) U/L Total Protein 6.1 L (6.3-8.2) g/dL Assessment and Plan (1) Elevated liver enzymes Current Visit: Yes Status: Acute Code(s): R74.8 - ABNORMAL LEVELS OF OTHER SERUM ENZYMES SNOMED Code(s): 302062376 (2) Abdominal pain Current Visit: Yes Status: Acute Code(s): R10.9 - UNSPECIFIED ABDOMINAL PAIN SNOMED Code(s): 76089942 (3) Nephrolithiasis Current Visit: Yes Status: Acute Code(s): N20.0 - CALCULUS OF KIDNEY SNOMED Code(s): 65605766 Plan: 1. Await morning chemistries will review. Will continue to follow. Supportive measures. Assessment and plan of care discussed with Dr. Lee
[2018-04-05] MEDS ORDERED: LEVOFLOXACIN 750MG-D5W PMX 750 MG in DEXTROSE/WATER 1 150ML.BAG IVPB SCH (09:00)
[2018-04-05] MEDS: IBUPROFEN 800 MG TAB PO PRN (09:14)
[2018-04-05] MEDS: ONDANSETRON 4 MG/2 ML VIAL IVP PRN (09:15)
--- NOTE | 2018-04-05 09:44 | CDI ---
Last Revision, September 2017 Documentation Clarification Form Date: 04/05/18 From: Ines Hoyos Admit Date: 04/04/2018 6:22:00 PM Patient Name: Marsha Dorsey Visit Number: [id number] ATTENTION: The Clinical Documentation Specialists (CDI) and [facility] Coding Staff appreciate your assistance in clarifying documentation. Please respond to the clarification below the line at the bottom and electronically sign. The CDI & [facility] Coding staff will review the response and follow-up if needed. Please note: Queries are made part of the Legal Health Record. If you have any questions, please contact the author of this message via ITS. Dr. Bharti Rivas, Documentation of COPD is located in the H&P, and the notes dated 04/01 - 04/04. Patient presented with: Abdominal pain History/Risk Factors:COPD, HTN, OA, bipolar disorder , smoker, asthma, CVA/TIA, fibromyalgia, GERD, hyperlipidemia, Musculoskeletal disorder, skin disorder, thyroid disorder, MRSA, kidney stones, migraines, psoriasis, cervical ca. Significant history of respiratory disorders/disease: COPD, Asthma (also needs clarification) Present smoker Clinical Indicators: Vital Signs/Pulse Oximetry: T 98.3, P 91, R 22, 160/89, 96% RA Lung and Respiratory Assessment: ED, unlabored, good breath sounds, no rhonchi or wheezing Treatment: Nebulizers: Pulmicort, Ventolin Antibiotics: Levofloxacin IVPB In your professional opinion, can you please clarify if the above findings and treatment signify any of the following? Acute Exacerbation of Chronic Obstructive Pulmonary Disease (COPD) Acute on Chronic Obstructive Asthma Acute on chronic bronchitis Other condition, please specify Unable to determine Please continue to document in your progress notes, under the line below and/or in the discharge summary in order to capture severity of illness and risk of mortality. Include clinical findings that support your diagnosis. ____other condition, COPD , no exacerbation, stable, mentioned in note please read carefully MTDD
[2018-04-05 11:36] LABS: Anion Gap 12 mmol/L; Blood Urea Nitrogen 7 mg/dL (7-17); Calcium 9.7 mg/dL (8.4-10.2); Carbon Dioxide 22 mmol/L (22-30); Chloride 107 mmol/L (98-107); Glucose 158 mg/dL (74-99); Potassium 3.9 mmol/L (3.5-5.1); Sodium 141 mmol/L (137-145)
--- NOTE | 2018-04-05 16:18 | P.DS ---
Providers Date of admission: 04/04/18 18:22 Expected date of discharge: 04/05/18 Attending physician: Bharti Rivas MD Consults: 04/01/18 23:17 Consult Physician Urgent Consulting Provider: Uziel Grubbs Consult Reason/Comments: Abdominal pain Do you want consulting provider notified?: Yes 04/03/18 10:25 Consult Physician Routine Consulting Provider: Eduar Lee Consult Reason/Comments: elevated liver enzymes Do you want consulting provider notified?: Yes Primary care physician: Torsten Melissa [facility] Course: This is a 57-year-old female patient of Dr. Melissa with a past history of COPD, hypertension, generalized osteoarthritis, bipolar disorder, tobacco use and dependence. Patient presented with complaints of pain that started in her right flank along with abdominal bloating and gas. She thought she was constipated and not taking his medications and this was resolved. She has not had a bowel movement today but did have one yesterday. She states the pain is so bad she doubles over. The last few days she has hardly been eating or drinking anything and has also had nausea and vomiting. She thought it was related to urinary tract infection but is more concern for kidney stones which she has had in the past. She does state that she ate some Jell-O this morning and had emesis after that. She came into [facility] emergency center for evaluation. She has been afebrile. White count is 16.8, hemoglobin 15.9, creatinine 0.60 and BUN 23. Amylase 87 and lipase 227. Urinalysis was cloudy, blood moderate, RBCs 23, no WBCs, calcium oxalate crystals few, hyaline casts 3. Patient was started on Levaquin and IV fluids as well as IV pain medication and Zofran and admitted to the [facility] floor. She has been seen in consultation by Dr. Grubbs. 04/03: Platelet count is 546. Liver function tests are elevated with AST 719, ALT 568, alkaline phosphatase 153. In further questioning, patient states that she was taking her [place] and ibuprofen as well as taking 2-3 aspirins in between [place]. We are discontinuing her [place] and placing her on tramadol. Acetaminophen, salicylate level and acute hepatitis panel will be ordered. Patient does complain of nausea. She denies any diarrhea. She states she's not had a bowel movement since arrival. Colace scheduled. Diet will be advanced to full liquids. Dr. Romie Omalley and consults with GI. 04/04: Repeat liver enzymes are improved with AST 143, ALT 319, alkaline phosphatase 155. The salicylate less than 1 and acetaminophen level less than 10. GI consult is still pending. Hepatitis panel is pending. Diet is to be advanced as tolerated. Abdominal pain appears to be improved from yesterday.. 04/05: Patient's abdominal pain is improving. She has been seen by GI with thought that this is a possible medication effect or transit hypotension. This could be on the basis of inflammation or infectious etiology. Patient states she is nauseated but denies having any vomiting. Plan is for patient to be discharged home today in follow-up with Dr. Melissa for repeat lab work within the week. Discharge diagnoses: 1. Abdominal pain secondary to renal stones. 2. Elevated liver function tests of unclear etiology. 3. Hypertension. 4. Hyperlipidemia. 5. COPD, stable. --- No exacerbation 6. Generalized anxiety disorder. 7. Gastroesophageal reflux disease 8. Tobacco use and dependence. Discharge plan: home Impression and plan of care have been directed as dictated by the signing physician. Isa Gatica nurse practitioner acting as scribe for signing physician. Patient Condition at Discharge: Good Plan - Discharge Summary New Discharge Prescriptions: New Ondansetron [Zofran ODT] 8 mg PO Q8HR #60 tab Continue Furosemide [Lasix] 40 mg PO DAILY Atorvastatin [Lipitor] 20 mg PO HS amLODIPine BESYLATE [Norvasc] 5 mg PO DAILY Losartan [Cozaar] 50 mg PO DAILY DULoxetine HCL [Cymbalta] 60 mg PO BID [place]-3 Fatty Acids/Fish Oil [Fish Oil 1,000 mg Softgel] 1 cap PO HS Ibuprofen [Motrin] 800 mg PO Q8H PRN PRN Reason: Pain Albuterol Nebulized [Ventolin Nebulized] 2.5 mg INHALATION RT-Q4H PRN PRN Reason: Shortness Of Breath Beclomethasone Dipropionate [Qvar 80 mcg] 2 puff INHALATION RT-BID PRN PRN Reason: Shortness Of Breath LORazepam [Ativan] 1 mg PO TID PRN PRN Reason: Anxiety Omeprazole [PriLOSEC] 20 mg PO AC-BID HYDROcodone/APAP 10-325MG [[place] 10-325] 1 tab PO QID Docusate [Colace] 100 mg PO HS PRN PRN Reason: Constipation Ondansetron [Zofran] 4 mg PO Q8HR PRN PRN Reason: Nausea Discharge Medication List Atorvastatin [Lipitor] 20 mg PO HS 07/29/14 [History] DULoxetine HCL [Cymbalta] 60 mg PO BID 07/29/14 [History] Furosemide [Lasix] 40 mg PO DAILY 07/29/14 [History] Losartan [Cozaar] 50 mg PO DAILY 07/29/14 [History] amLODIPine BESYLATE [Norvasc] 5 mg PO DAILY 07/29/14 [History] Ibuprofen [Motrin] 800 mg PO Q8H PRN 07/28/16 [History] [place]-3 Fatty Acids/Fish Oil [Fish Oil 1,000 mg Softgel] 1 cap PO HS 07/28/16 [ History] Albuterol Nebulized [Ventolin Nebulized] 2.5 mg INHALATION RT-Q4H PRN 01/29/17 [ History] Beclomethasone Dipropionate [Qvar 80 mcg] 2 puff INHALATION RT-BID PRN 01/29/17 [History] LORazepam [Ativan] 1 mg PO TID PRN 02/01/17 [History] Docusate [Colace] 100 mg PO HS PRN 02/26/17 [History] HYDROcodone/APAP 10-325MG [[place] 10-325] 1 tab PO QID 02/26/17 [History] Omeprazole [PriLOSEC] 20 mg PO AC-BID 02/26/17 [History] Ondansetron [Zofran] 4 mg PO Q8HR PRN 04/01/18 [History] Ondansetron [Zofran ODT] 8 mg PO Q8HR #60 tab 04/02/18 [Rx] Follow up Appointment(s)/Referral(s): Torsten Melissa DO [Primary Care Provider] - 1 Week (Repeat lab work with Dr. Melissa. Office unavailable at this time, please call to schedule. ) Uziel Grubbs MD [STAFF PHYSICIAN] - 1 Week Patient Instructions/Handouts: Kidney Stones (DC) Activity/Diet/Wound Care/Special Instructions: [place] pain pill 2-3 pills max per day.No driving while on meds. Regular diet. Drink plenty of water. Activity as toelrated. Discharge Disposition: HOME SELF-CARE
== END 2018-04-05 10:47 | disposition home or self-care (01) | DRG 694 ==
LOC: EC 21:02 → 4MS4W 23:17 → OBSVTOIN 04-04 18:22
PROVIDERS: ADMIT Internal Medicine; ATTEND Internal Medicine
DX: N20.0 Calculus of kidney (principal); I95.9 Hypotension, unspecified; D72.829 Elevated white blood cell count, unspecified; R74.8 Abnormal levels of other serum enzymes; E78.5 Hyperlipidemia, unspecified; J44.9 Chronic obstructive pulmonary disease, unspecified; M79.7 Fibromyalgia; K21.9 Gastro-esophageal reflux disease without esophagitis; I10 Essential (primary) hypertension; M19.91 Primary osteoarthritis, unspecified site; L40.9 Psoriasis, unspecified; G43.909 Migraine, unspecified, not intractable, without status migrainosus; H40.9 Unspecified glaucoma; F31.9 Bipolar disorder, unspecified; F41.1 Generalized anxiety disorder; E07.9 Disorder of thyroid, unspecified; M79.606 Pain in leg, unspecified; H54.61 Unqualified visual loss, right eye, normal vision left eye; G89.29 Other chronic pain; M54.9 Dorsalgia, unspecified; M54.2 Cervicalgia; F17.210 Nicotine dependence, cigarettes, uncomplicated; Z71.6 Tobacco abuse counseling; Z79.891 Long term (current) use of opiate analgesic; Z79.51 Long term (current) use of inhaled steroids; Z79.899 Other long term (current) drug therapy; Z87.442 Personal history of urinary calculi; Z90.81 Acquired absence of spleen; Z90.49 Acquired absence of other specified parts of digestive tract; Z85.41 Personal history of malignant neoplasm of cervix uteri; Z86.14 Personal history of Methicillin resistant Staphylococcus aureus infection; Z96.642 Presence of left artificial hip joint; Z90.710 Acquired absence of both cervix and uterus; Z86.73 Personal history of transient ischemic attack (TIA), and cerebral infarction without residual deficits; Z88.5 Allergy status to narcotic agent; Z88.0 Allergy status to penicillin; Z88.8 Allergy status to other drugs, medicaments and biological substances; Z91.030 Bee allergy status; Z91.041 Radiographic dye allergy status; Z82.5 Family history of asthma and other chronic lower respiratory diseases; Z80.49 Family history of malignant neoplasm of other genital organs; Z82.49 Family history of ischemic heart disease and other diseases of the circulatory system; Z83.49 Family history of other endocrine, nutritional and metabolic diseases; Z82.2 Family history of deafness and hearing loss; Z81.1 Family history of alcohol abuse and dependence
CPT/HCPCS: 36415; 74176; 76705; 80048; 80053; 80074; 81001; 82150; 83520; 83605; 83690; 85025; 85027; 96361; 96365; 96375; 99285

== ENCOUNTER → 2018-11-02 | Outpatient (CLI) | payer MEDICARE, OTHER ==
[2018-11-02 18:15] LABS: HCT 43.3 % (34.0-46.0); HGB 14.2 gm/dL (11.4-16.0); MCH 30.7 pg (25.0-35.0); MCHC 32.7 g/dL (31.0-37.0); MCV 93.8 fL (80.0-100.0); Mean Platelet Volume 7.3; Platelet Count 489 k/uL (150-450); RBC 4.62 m/uL (3.80-5.40); RDW 12.9 % (11.5-15.5); WBC 12.3 k/uL (3.8-10.6)
[2018-11-02 18:19] LABS: Appearance,Urine Clear (Clear); Bilirubin,Urine Negative (Negative); Blood,Urine Negative (Negative); Color,Urine Yellow; Glucose,Urine (UA) Negative (Negative); Ketones,Urine Negative (Negative); Leukocyte Esterase,Urine Negative (Negative); Nitrite,Urine Negative (Negative); Protein,Urine Trace (Negative); Specific Gravity,Urine 1.015 (1.001-1.035)
[2018-11-02 18:24] LABS: INR 0.9 (<1.2); Partial Thromboplastin Time 22.6 sec (22.0-30.0)
[2018-11-02 18:27] LABS: Anion Gap 10 mmol/L; Blood Urea Nitrogen 8 mg/dL (7-17); Carbon Dioxide 27 mmol/L (22-30); Chloride 105 mmol/L (98-107); Potassium 3.1 mmol/L (3.5-5.1); Sodium 142 mmol/L (137-145)
== END ==
LOC: LABPAT 16:06
PROVIDERS: ATTEND Orthopaedic Surgery
DX: Z01.818 Encounter for other preprocedural examination (principal); Z01.812 Encounter for preprocedural laboratory examination
CPT/HCPCS: 36415; 80051; 81003; 82565; 84520; 85027; 85610; 85730; 86850; 86900; 86901; 87070; 93005

== ENCOUNTER 2019-03-19 15:42 | Emergency (ER) | payer MEDICARE, OTHER ==
[2019-03-19 15:49] VITALS: RESP 18
[2019-03-19] MEDS ORDERED: HYDROcodone/APAP 10-325MG 1 EACH TAB PO ONE (16:22)
--- NOTE | 2019-03-19 16:24 | XR ---
EXAMINATION TYPE: XR forearm LT, XR humerus LT DATE OF EXAM: 03/19/2019 CLINICAL HISTORY: Left arm pain after fall 2 days ago TECHNIQUE: Two views of the left humerus and forearm are obtained. 2 views of the left humerus were o btained. COMPARISON: None. FINDINGS: There is no acute fracture or dislocation seen in the left radius or ulna. The left elbow and wrist joints appear within normal limits. The overlying soft tissue appears within normal limit s. Tiny osteophyte projects towards the ulnar styloid on the frontal view from the distal radius. Mil d acromioclavicular arthropathy is seen. No acute fracture of the left humerus is noted IMPRESSION: There is no acute fracture or dislocation seen in the left radius, ulna or humerus.
--- NOTE | 2019-03-19 16:30 | ED ---
Fall HPI - General Chief Complaint: Fall Stated Complaint: Arm injury Time Seen by Provider: 03/19/19 15:50 Source: patient Mode of arrival: ambulatory Limitations: no limitations - History of Present Illness Initial Comments: 58-year-old female presents emergency department chief complaint of left arm pain. Patient states that she tripped and fell on Wednesday. Patient states that she has pain is worse in her left wrist and upper arm region. Patient states it's worse movement better at rest. She did have a small abrasion to her left forearm up-to-date on her tetanus. Patient denies any known fevers or chills denies any URI symptoms denies any other complaints at this time. - Related Data Home Medications Medication Instructions Recorded Confirmed Atorvastatin [Lipitor] 20 mg PO DAILY 07/29/14 11/08/18 DULoxetine HCL [Cymbalta] 60 mg PO BID 07/29/14 11/08/18 Furosemide [Lasix] 40 mg PO DAILY 07/29/14 11/08/18 Losartan [Cozaar] 50 mg PO DAILY 07/29/14 11/08/18 amLODIPine BESYLATE [Norvasc] 5 mg PO HS 07/29/14 11/08/18 Ibuprofen [Motrin] 800 mg PO Q8H PRN 07/28/16 11/08/18 [place]-3 Fatty Acids/Fish Oil [Fish 1 cap PO HS 07/28/16 11/08/18 Oil 1,000 mg Softgel] Albuterol Nebulized [Ventolin 2.5 mg INHALATION RT-Q4H PRN 01/29/17 11/08/18 Nebulized] Beclomethasone Dipropionate [Qvar 2 puff INHALATION RT-BID PRN 01/29/17 11/08/18 80 mcg] LORazepam [Ativan] 1 mg PO TID PRN 02/01/17 11/08/18 Docusate [Colace] 100 mg PO HS PRN 02/26/17 11/08/18 HYDROcodone/APAP 10-325MG [[place] 1 tab PO QID 02/26/17 11/08/18 10-325] Omeprazole [PriLOSEC] 20 mg PO AC-BID 02/26/17 11/08/18 Ondansetron [Zofran] 4 mg PO Q8HR PRN 04/01/18 11/08/18 Albuterol Nebulized [Ventolin 2.5 mg INHALATION RT-DAILY PRN 11/01/18 11/08/18 Nebulized] Atropine Ophth Soln 1% 5Ml [Isopto 1 drops RIGHT EYE BID 11/01/18 11/08/18 Atropine 1% 5Ml] Loratadine [Claritin] 10 mg PO HS 11/01/18 11/08/18 Prednisolone Acetate/Pf 1 drop RIGHT EYE Q6H PRN 11/01/18 11/08/18 [Prednisolone Acet 1% Eye Drop] Ranitidine HCl [Zantac] 150 mg PO BID PRN 11/01/18 11/08/18 Previous Rx's Medication Instructions Recorded Aspirin 325 mg PO BID #60 tab 11/09/18 Doxycycline Hyclate 100 mg PO BID #14 tab 11/09/18 Ferrous Sulfate [Feosol] 325 mg PO DAILY #30 tab 11/09/18 Sennosides [Senokot] 1 tab PO BID #60 tablet 11/09/18 Allergies Allergy/AdvReac Type Severity Reaction Status Date / Time cyclobenzaprine HCl Allergy Swelling Verified 11/08/18 16:08 [From Flexeril] Iodinated Contrast- Oral and Allergy Anaphylaxis Verified 11/08/18 16:08 IV Dye [Iodinated Contrast Media - IV Dye] lithium [[place]] Allergy Swelling Verified 11/08/18 16:08 Penicillins Allergy Rash/Hives Verified 11/08/18 16:08 bee pollen AdvReac Swelling Verified 11/08/18 16:08 morphine AdvReac GETS ANGRY Verified 11/08/18 16:08 Review of Systems ROS Statement: Those systems with pertinent positive or pertinent negative responses have been documented in the HPI. ROS Other: All systems not noted in ROS Statement are negative. Past Medical History Past Medical History: Asthma, Cancer, COPD, CVA/TIA, Fibromyalgia, GERD/Reflux, Hyperlipidemia, Hypertension, Musculoskeletal Disorder, Neurologic Disorder, Osteoarthritis (OA), Skin Disorder, Thyroid Disorder Additional Past Medical History / Comment(s): KIDNEY STONES, MULT TIA'S, migraines, glaucoma right eye/BLIND, chronic BACK, NECK, LEG pain. PSORIASIS, HX cervical Ca, arthritis feet, hand, wrist and ankles, hypoglycemia, hx leaky heart valve History of Any Multi-Drug Resistant Organisms: MRSA Date of last positivie culture/infection: 2012 MDRO Source:: Lungs Past Surgical History: Appendectomy, Back Surgery, Cholecystectomy, Hysterectomy, Joint Replacement Additional Past Surgical History / Comment(s): EYE SURG KATERINE; splenectomy, tracheotomy, complete left hip replacement, L4, 5, 6 plates, LITHOTRIPSY, TRH Past Anesthesia/Blood Transfusion Reactions: Postoperative Nausea & Vomiting (PONV) Additional Past Anesthesia/Blood Transfusion Reaction / Comment(s): after gallbladder surgery had NG tube inserted "belly remained asleep after anesthesia" Past Psychological History: Anxiety, Bipolar, Depression Smoking Status: Current every day smoker Past Alcohol Use History: None Reported Past Drug Use History: Marijuana - Past Family History Sister(s) Family Medical History: COPD Additional Family Medical History / Comment(s): Bipolar disorder Daughter(s) Family Medical History: Asthma, Cancer Additional Family Medical History / Comment(s): Cervical cancer Son(s) Family Medical History: Asthma, COPD Additional Family Medical History / Comment(s): Bipolar disorder Father Family Medical History: No Reported History Additional Family Medical History / Comment(s): Gout, deaf, alcoholism. Killed by a drunk garbage collector driver. Mother Family Medical History: COPD, Myocardial Infarction ([place]) Additional Family Medical History / Comment(s): emphysema General Exam Limitations: no limitations General appearance: alert, in no apparent distress Head exam: Present: atraumatic, normocephalic, normal inspection Eye exam: Present: normal appearance, PERRL, EOMI. Absent: scleral icterus, conjunctival injection, periorbital swelling ENT exam: Present: normal exam, normal oropharynx, mucous membranes moist Respiratory exam: Present: normal lung sounds bilaterally. Absent: respiratory distress, wheezes, rales, rhonchi, stridor Cardiovascular Exam: Present: regular rate, normal rhythm, normal heart sounds. Absent: systolic murmur, diastolic murmur, rubs, gallop, clicks Extremities exam: Present: other (Left arm there is tenderness diffusely of the humerus and forearm. There is an abrasion that is healed over no signs of infection or erythema.) Neurological exam: Present: alert, oriented X3, CN II-XII intact Skin exam: Present: warm, dry, intact, normal color. Absent: rash Course Vital Signs 03/19/19 15:47 Temperature 100.3 F H Pulse Rate 108 H Respiratory 18 Rate Blood Pressure 152/85 O2 Sat by Pulse 98 Oximetry Medical Decision Making - Medical Decision Making 58-year-old female presented for left arm pain after a fall. X-rays obtained no acute fracture. Patient did have a temp of 100.3 though there is no clinical signs of infection and patient has no other complaints. Patient will be discharged at this time. Return parameters were discussed. Disposition Clinical Impression: Fall, Contusion of left arm Disposition: HOME SELF-CARE Condition: Stable Instructions (If sedation given, give patient instructions): Arm Pain (ED) Additional Instructions: Please return to the Emergency Department if symptoms worsen or any other concerns. Is patient prescribed a controlled substance at d/c from ED?: No Referrals: Torsten Melissa DO [Primary Care Provider] - 1-2 days Time of Disposition: 16:30
[2019-03-19 16:51] VITALS: BP 127/80; PULSE 92; TEMP 99
== END 2019-03-19 17:06 | disposition home or self-care (01) ==
LOC: EC 15:42
DX: S40.022A Contusion of left upper arm, initial encounter (principal); J44.9 Chronic obstructive pulmonary disease, unspecified; M79.7 Fibromyalgia; K21.9 Gastro-esophageal reflux disease without esophagitis; E78.5 Hyperlipidemia, unspecified; I10 Essential (primary) hypertension; G43.909 Migraine, unspecified, not intractable, without status migrainosus; H40.9 Unspecified glaucoma; M19.072 Primary osteoarthritis, left ankle and foot; M19.071 Primary osteoarthritis, right ankle and foot; M19.049 Primary osteoarthritis, unspecified hand; M19.039 Primary osteoarthritis, unspecified wrist; F41.9 Anxiety disorder, unspecified; F32.9 Major depressive disorder, single episode, unspecified; F17.200 Nicotine dependence, unspecified, uncomplicated; Z96.642 Presence of left artificial hip joint; Z86.73 Personal history of transient ischemic attack (TIA), and cerebral infarction without residual deficits; Z85.41 Personal history of malignant neoplasm of cervix uteri; Z86.14 Personal history of Methicillin resistant Staphylococcus aureus infection; Z79.891 Long term (current) use of opiate analgesic; Z79.899 Other long term (current) drug therapy; Z88.8 Allergy status to other drugs, medicaments and biological substances; Z91.041 Radiographic dye allergy status; Z88.0 Allergy status to penicillin; Z91.048 Other nonmedicinal substance allergy status; Z88.5 Allergy status to narcotic agent; W01.0XXA Fall on same level from slipping, tripping and stumbling without subsequent striking against object, initial encounter
CPT/HCPCS: 99283

== ENCOUNTER → 2019-04-03 | Outpatient (CLI) | payer MEDICARE, OTHER ==
--- NOTE | 2019-04-03 15:53 | NM ---
EXAMINATION TYPE: NM bone/joint limited DATE OF EXAM: 04/03/2019 COMPARISON: None available HISTORY: 58-year-old female left hip pain. Patient with all in September, October, and January. TECHNIQUE: After the intravenous administration of 25.9 mCi Tc 99m MDP. Images acquired 3.5 hours p ost injection. Multiple views of pelvis are submitted. FINDINGS: Photopenic defects relating to bilateral total hip or blastic disease. The right hip shows focal incr eased uptake about the acetabular cup component and at the femoral stem tip. Bandlike increased uptak e at L5-S1 suggesting disc/endplate degenerative change. On the left, the lateral view shows increased uptake along the femoral stem component. IMPRESSION: 1. Bilateral total hip arthroplasties. 2. Right hip shows increased activity at the femoral stem tip and about the acetabular cup component. Radiographic and clinical correlation to exclude loosening. 3. Left hip shows increased activity along the femoral stem component. Again, radiographic correlatio n to ensure stability and exclude loosening. 4. Disc/endplate degenerative change at L5-S1.
== END | disposition home or self-care (01) ==
LOC: RADNMMAIN 10:06
PROVIDERS: ATTEND Orthopaedic Surgery
DX: R93.7 Abnormal findings on diagnostic imaging of other parts of musculoskeletal system (principal); M25.551 Pain in right hip; M25.552 Pain in left hip; I10 Essential (primary) hypertension; E78.5 Hyperlipidemia, unspecified; F17.210 Nicotine dependence, cigarettes, uncomplicated; Z96.643 Presence of artificial hip joint, bilateral
CPT/HCPCS: 78300; A9503

== ENCOUNTER → 2019-12-05 | Outpatient (CLI) | payer MEDICARE, OTHER ==
--- NOTE | 2019-12-05 16:06 | CT ---
EXAMINATION TYPE: CT brain wo con DATE OF EXAM: 12/05/2019 COMPARISON: Prior head CT 02/01/2014 HISTORY: Short term memory loss CT DLP: 959.6 mGycm Automated exposure control for dose reduction was used. Head CT performed utilizing departmental prot ocol. FINDINGS: There is no hemorrhage or hydrocephalus. Brain density is normal. Calvarium is intact. Paranasal sinu ses and mastoid air cells are well aerated. IMPRESSION: NORMAL NONCONTRAST HEAD CT.
--- NOTE | 2019-12-05 16:21 | US ---
EXAMINATION TYPE: US carotid duplex BILAT DATE OF EXAM: 12/05/2019 COMPARISON: NONE CLINICAL HISTORY: 59-year-old female R41.3 short term memory loss. TIA TECHNIQUE: Carotid duplex ultrasound examination. In direct Doppler criteria was utilized. FINDINGS: EXAM MEASUREMENTS: RIGHT: Peak Systolic Velocity (PSV) cm/sec ----- Right CCA: 73.5 ----- Right ICA: 89.5 ----- Right ECA: 149.0 ICA/CCA ratio: 1.2 RIGHT: End Diastole cm/sec ----- Right CCA: 21.2 ----- Right ICA: 31.4 ----- Right ECA: 24.8 LEFT: Peak Systolic Velocity (PSV) cm/sec ----- Left CCA: 97.7 ----- Left ICA: 89.8 ----- Left ECA: 105.6 ICA/CCA ratio: 0.9 LEFT: End Diastole cm/sec ----- Left CCA: 28.8 ----- Left ICA: 24.8 ----- Left ECA: 22.9 VERTEBRALS (direction of flow): Right Vertebral: Antegrade Left Vertebral: Antegrade Rhythm: Normal Production Tester notes: Bilateral plaque visualized. No significant stenosis seen IMPRESSION: No hemodynamically significant ICA stenosis on either side. Moderate prostatic change at the carotid bifurcations. Criteria for Assigning % of Stenosis / Diameter reduction (Estimation based on the indirect measurements of the internal carotid artery velocities (ICA PSV). 1. Normal (no stenosis)=ICA PSV < 125 cm/s: ratio < 2.0: ICA EDV<40 cm/s. 2. Less than 50% stenosis=ICA PSV < 125 cm/s: ratio < 2.0: ICA EDV<40 cm/s. 3. 50 to 69% stenosis=ICA PSV of 125 to 230 cm/s: ration 2.0 ? 4.0: ICA EDV 40-100 cm/s. 4. Greater than 70% stenosis to near occlusion= ICA PSV > 230 cm/s: ratio > 4.0: ICA EDV > 100 cm/s. 5. Near occlusion= ICA PSV velocities may be low or undetectable: variable ratio and ICA EDV. 6. Total occlusion=unable to detect flow.
== END | disposition home or self-care (01) ==
LOC: RADCTMAIN 14:23
PROVIDERS: ATTEND Family Medicine
DX: R41.3 Other amnesia (principal)
CPT/HCPCS: 70450; 93880

== ENCOUNTER → 2019-12-25 | Outpatient (CLI) | payer MEDICARE, OTHER ==
[2019-12-25 13:24] VITALS: BP 117/74; PULSE 73; RESP 16
--- NOTE | 2019-12-25 14:45 | P.PAINCN ---
History of Present Illness - Reason for Consult Consult date: 12/25/19 - History of Present Illness 51-year-old female who presents to us as a new patient with a chief complaint of occipital headaches. She was referred by her neurologist for bilateral occipital nerve blocks. She has a history of anterior cervical disc fusion from C3 to C6. 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 Patient states she develops headaches in the occipital aspect of her head and radiate to her eyes mostly on the right. Issue occurs multiple times a month. It occurs at random. Otherwise she has complaints of neck pain since her surgery several years ago. Overall she's recovered well having adequate muscle preservation in the upper extremities bilaterally. She does have some left arm weakness. It has improved since her surgery however. She denies any gait abnormalities. VAS ranges from 3-8 out of 10 in severity depending on activity and weather. She describes her pain as a throbbing, aching pain across her posterior aspect of her neck sometimes into her shoulders. Worse with activity and improved with rest. She denies any bowel or bladder incontinence. She has never had epidural injections in the past, she's never been to a chiropractor, she completed multiple sessions of physical therapy with special attention of her left upper and lower extremity weakness that has improved. Review of Systems Constitutional: Denies chills, Denies fever Ears, nose, mouth and throat: Reports dysphagia, Reports headache, Denies sore throat Cardiovascular: Denies chest pain, Denies shortness of breath Respiratory: Denies cough, Denies dyspnea, Denies pain Gastrointestinal: Denies abdominal pain, Denies diarrhea, Denies nausea, Denies vomiting Genitourinary: Denies dysuria, Denies hematuria Musculoskeletal: Reports myalgias, Reports neck pain, Reports neck stiffness, Denies gait dysfunction Integumentary: Denies pruritus, Denies rash Neurological: Reports as per HPI Psychiatric: Reports anxiety, Reports depression Endocrine: Reports fatigue, Denies thyroid mass, Denies weight change Hematologic/Lymphatic: Reports as per HPI, Denies easy bleeding, Denies easy bruising Allergic/Immunologic: Denies allergic rhinitis, Denies anaphylaxis, Denies urticaria Past Medical History Past Medical History: Asthma, Cancer, COPD, CVA/TIA, Fibromyalgia, GERD/Reflux, Hyperlipidemia, Hypertension, Musculoskeletal Disorder, Neurologic Disorder, Osteoarthritis (OA), Skin Disorder, Thyroid Disorder Additional Past Medical History / Comment(s): KIDNEY STONES, MULT TIA'S, migraines, glaucoma right eye/BLIND, chronic BACK, NECK, LEG pain. PSORIASIS, HX cervical Ca, arthritis feet, hand, wrist and ankles, hypoglycemia, hx leaky heart valve, thyroid nodules History of Any Multi-Drug Resistant Organisms: MRSA Year Discovered:: 2011 MDRO Source:: Lungs Past Surgical History: Appendectomy, Back Surgery, Cholecystectomy, Hysterectomy, Joint Replacement Additional Past Surgical History / Comment(s): EYE SURG KATERINE; splenectomy, tracheotomy, complete left hip replacement, L4, 5, 6 plates, LITHOTRIPSY, RT SONNY, PAIN CLINIC PROCEDURES, complete right hip replacement Past Anesthesia/Blood Transfusion Reactions: Postoperative Nausea & Vomiting (PONV) Additional Past Anesthesia/Blood Transfusion Reaction / Comm: after gallbladder surgery had NG tube inserted "belly remained asleep after anesthesia" Past Psychological History: Anxiety, Bipolar, Depression Smoking Status: Current every day smoker Past Alcohol Use History: None Reported Additional Past Alcohol Use History / Comment(s): 1/2 TO 1 PPD SINCE AGE 16 Past Drug Use History: Marijuana Additional Drug Use History / Comment(s): OCCASIONAL USE, INSTRUCTED NOT TO USE 24 HRS PRIOR TO PROCEDURE - Past Family History Sister(s) Family Medical History: COPD Additional Family Medical History / Comment(s): Bipolar disorder Daughter(s) Family Medical History: Asthma, Cancer Additional Family Medical History / Comment(s): Cervical cancer Son(s) Family Medical History: Asthma, COPD Additional Family Medical History / Comment(s): Bipolar disorder Father Family Medical History: No Reported History Additional Family Medical History / Comment(s): Gout, deaf, alcoholism. Killed by a drunk courtesy driver. Mother Family Medical History: COPD, Myocardial Infarction ([place]) Additional Family Medical History / Comment(s): emphysema Medications and Allergies Home Medications Medication Instructions Recorded Confirmed Type Atorvastatin [Lipitor] 20 mg PO DAILY 07/29/14 12/20/19 History DULoxetine HCL [Cymbalta] 60 mg PO BID 07/29/14 12/20/19 History Furosemide [Lasix] 40 mg PO DAILY 07/29/14 12/20/19 History Losartan [Cozaar] 50 mg PO DAILY 07/29/14 12/20/19 History amLODIPine BESYLATE [Norvasc] 5 mg PO HS 07/29/14 12/20/19 History Ibuprofen [Motrin] 800 mg PO Q8H PRN 07/28/16 12/20/19 History [place]-3 Fatty Acids/Fish Oil [Fish 1 cap PO HS 07/28/16 12/20/19 History Oil 1,000 mg Softgel] Albuterol Nebulized [Ventolin 2.5 mg INHALATION RT-Q4H PRN 01/29/17 12/20/19 History Nebulized] Beclomethasone Dipropionate [Qvar 2 puff INHALATION RT-BID PRN 01/29/17 12/20/19 History 80 mcg] Docusate [Colace] 100 mg PO HS PRN 02/26/17 12/20/19 History HYDROcodone/APAP 10-325MG [[place] 1 tab PO QID 02/26/17 12/20/19 History 10-325] Omeprazole [PriLOSEC] 20 mg PO AC-BID 02/26/17 12/20/19 History Ondansetron [Zofran] 4 mg PO Q8HR PRN 04/01/18 12/20/19 History Atropine Ophth Soln 1% 5Ml [Isopto 1 drops RIGHT EYE BID 11/01/18 12/20/19 History Atropine 1% 5Ml] Loratadine [Claritin] 10 mg PO HS 11/01/18 12/20/19 History Prednisolone Acetate/Pf 1 drop RIGHT EYE Q6H PRN 11/01/18 12/20/19 History [Prednisolone Acet 1% Eye Drop] Ranitidine HCl [Zantac] 150 mg PO BID PRN 11/01/18 12/20/19 History Doxycycline Hyclate 100 mg PO BID #14 tab 11/09/18 12/20/19 Rx Aspirin [Adult Low Dose Aspirin EC] 81 mg PO DAILY 12/20/19 12/20/19 History LORazepam [Ativan] 2 mg PO TID 12/20/19 12/20/19 History Allergies Allergy/AdvReac Type Severity Reaction Status Date / Time cyclobenzaprine HCl Allergy Swelling Verified 12/20/19 14:38 [From Flexeril] Iodinated Contrast Media Allergy Anaphylaxis Verified 12/20/19 14:38 [Iodinated Contrast Media - IV Dye] lithium [[place]] Allergy Swelling Verified 12/20/19 14:38 Penicillins Allergy Rash/Hives Verified 12/20/19 14:38 bee pollen AdvReac Swelling Verified 12/20/19 14:38 morphine AdvReac GETS ANGRY Verified 12/20/19 14:38 Physical Exam Vitals: Vital Signs Pulse Resp BP Pulse Ox 12/25/19 13:04 73 16 117/74 95 General: Awake and alert oriented 3 no distress Respiratory exam: No audible wheezing no accessory muscle usage Cardiovascular exam: regular rate, palpable bilateral pulses, no lower extremity edema Integumentary: Tracheostomy site is visible but healed over. Anterior cervical incision looks clean dry and intact. Cervical spine: Normal alignment, Spurling's negative, facet loading + bilateral, Psychologist [employer] strength is 4/5 on left, 4-5 strength in biceps and triceps on left. snow negative Lumbar spine: Loss of lumbar lordosis, normal alignment, tender to palpation over bilateral paraspinal muscles, facet loading is positive on the right. Straight leg raise is negative. Limited range of motion due to pain with flexion, extension and side bending. Sacroiliac joints: Nontender to palpation, [place] is negative, [place] negative Neuro exam: Normal sensation in bilateral upper extremities, deep tendon reflexes are 1 left brachial radialis and biceps in upper extremities. Normal sensation in bilateral lower extremities. Deep tendon reflexes are 2+ in lower extremities, gait unremarkable. Psych exam: Cooperative, appropriate mood Assessment and Plan Assessment: Assessment: 1. Occipital neuralgia 2. Cervical spondylosis 3. Cervical postlaminectomy syndrome Plan: 1. Explanation: Opioid and psychological risk scores were reviewed. Diagnoses, prognoses, and multiple treatment options including but not limited to physical therapy, interventional therapies, adjuvant medical therapies, narcotic medication therapies, and surgery were discussed with the patient and all questions were answered to the patient's satisfaction. 2. Opioid agreement: No opiates prescribed. 3. Counseling: The patient was counseled extensively on SMOKING CESSATION, BODY MASS INDEX, EXERCISE. Specifically, the patient was instructed regarding the importance of smoking cessation, obesity, and exercise in the context of both chronic pain and overall health. 4. Procedures: We'll perform bilateral occipital nerve blocks. 5. Consultations: None 6. Investigations: None 7. Medications: None 8. Disposition: We'll schedule patient for bilateral occipital nerve blocks. The patient does not obtain significant relief we'll consider C2-C3 direct facet joint injections. I discussed the risks and benefits of the procedure which include but are not limited to infection, bleeding/hematoma, rare nerve injury. Time with Patient: Greater than 30 PQRS Measure Charge Sheet PQRS Narrative: Smoking Status Current every day smoker Blood Pressure 117/74 Pain Intensity [Lower Neck] 7 Scale Used Numeric (1 - 10) Hx Alcohol Use (MH) No Home Medications: Ambulatory Orders Atorvastatin [Lipitor] 20 mg PO DAILY 07/29/14 DULoxetine HCL [Cymbalta] 60 mg PO BID 07/29/14 Furosemide [Lasix] 40 mg PO DAILY 07/29/14 Losartan [Cozaar] 50 mg PO DAILY 07/29/14 amLODIPine BESYLATE [Norvasc] 5 mg PO HS 07/29/14 Ibuprofen [Motrin] 800 mg PO Q8H PRN 07/28/16 [place]-3 Fatty Acids/Fish Oil [Fish Oil 1,000 mg Softgel] 1 cap PO HS 07/28/16 Albuterol Nebulized [Ventolin Nebulized] 2.5 mg INHALATION RT-Q4H PRN 01/29/17 Beclomethasone Dipropionate [Qvar 80 mcg] 2 puff INHALATION RT-BID PRN 01/29/17 Docusate [Colace] 100 mg PO HS PRN 02/26/17 HYDROcodone/APAP 10-325MG [[place] 10-325] 1 tab PO QID 02/26/17 Omeprazole [PriLOSEC] 20 mg PO AC-BID 02/26/17 Ondansetron [Zofran] 4 mg PO Q8HR PRN 04/01/18 Atropine Ophth Soln 1% 5Ml [Isopto Atropine 1% 5Ml] 1 drops RIGHT EYE BID 11/01/18 Loratadine [Claritin] 10 mg PO HS 11/01/18 Prednisolone Acetate/Pf [Prednisolone Acet 1% Eye Drop] 1 drop RIGHT EYE Q6H PRN 11/01/18 Ranitidine HCl [Zantac] 150 mg PO BID PRN 11/01/18 Doxycycline Hyclate 100 mg PO BID #14 tab 11/09/18 Aspirin [Adult Low Dose Aspirin EC] 81 mg PO DAILY 12/20/19 LORazepam [Ativan] 2 mg PO TID 12/20/19
== END | disposition home or self-care (01) ==
LOC: PNWHC3 12:50
PROVIDERS: ATTEND Anesthesiology
DX: M47.812 Spondylosis without myelopathy or radiculopathy, cervical region (principal); M96.1 Postlaminectomy syndrome, not elsewhere classified; M54.81 Occipital neuralgia; F31.9 Bipolar disorder, unspecified; E78.5 Hyperlipidemia, unspecified; I10 Essential (primary) hypertension; M19.079 Primary osteoarthritis, unspecified ankle and foot; J44.9 Chronic obstructive pulmonary disease, unspecified; F17.200 Nicotine dependence, unspecified, uncomplicated; Z79.1 Long term (current) use of non-steroidal anti-inflammatories (NSAID); Z79.51 Long term (current) use of inhaled steroids; Z79.891 Long term (current) use of opiate analgesic; Z79.52 Long term (current) use of systemic steroids; Z79.2 Long term (current) use of antibiotics; Z79.82 Long term (current) use of aspirin; Z79.899 Other long term (current) drug therapy; Z91.041 Radiographic dye allergy status; Z88.0 Allergy status to penicillin; Z91.030 Bee allergy status; Z88.5 Allergy status to narcotic agent; Z88.8 Allergy status to other drugs, medicaments and biological substances
CPT/HCPCS: 99211

== ENCOUNTER 2020-02-27 10:46 | Observation (INO) | payer MEDICARE, OTHER ==
[2020-02-27] MEDS ORDERED: SODIUM CHLORIDE 0.9% 1,000 ML IV STA ×3 (11:08→11:09)
[2020-02-27] MEDS ORDERED: MECLIZINE 12.5 MG TAB PO STA (11:41)
[2020-02-27] MEDS ORDERED: LORazepam 1 MG TAB PO STA (11:41)
--- NOTE | 2020-02-27 12:30 | ED ---
Dizziness HPI - General Chief Complaint: Dizziness Stated Complaint: High BP Time Seen by Provider: 02/27/20 10:52 Source: patient, RN notes reviewed, old records reviewed Mode of arrival: ambulatory Limitations: no limitations - History of Present Illness Initial Comments: This Patient is a 59-year-old female who presents emergency department today wit h chief complaint of lightheadedness, near syncope, and elevated blood pressures for the past 2 days also complaining of some intermittent chest discomfort. She also states that she is feeling lightheaded with sitting standing. Patient's blood pressures have been elevated of 200/100 at her at[facility] blood pressure cough. Patient reports that she's had no recent fevers or chills. She denies any cough or hemoptysis. She denies any lower extremity swelling. Patient reports that she is a smoker. She states that she has had some nausea symptoms as well. Patient relates that she has no significant room spinning symptoms, denies any sinus congestion or ear pain. She denies headache at this time. She has appropriate history of chronic pain. - Related Data Home Medications Medication Instructions Recorded Confirmed Atorvastatin [Lipitor] 20 mg PO DAILY 07/29/14 02/27/20 DULoxetine HCL [Cymbalta] 60 mg PO BID 07/29/14 02/27/20 Furosemide [Lasix] 40 mg PO DAILY 07/29/14 02/27/20 Losartan [Cozaar] 50 mg PO DAILY 07/29/14 02/27/20 amLODIPine BESYLATE [Norvasc] 5 mg PO HS 07/29/14 02/27/20 Docusate [Colace] 100 mg PO HS PRN 02/26/17 02/27/20 HYDROcodone/APAP 10-325MG [[place] 1 tab PO QID 02/26/17 02/27/20 10-325] Ondansetron [Zofran] 4 mg PO Q8HR PRN 04/01/18 02/27/20 Atropine Ophth Soln 1% 5Ml [Isopto 1 drops RIGHT EYE BID 11/01/18 02/27/20 Atropine 1% 5Ml] Loratadine [Claritin] 10 mg PO HS 11/01/18 02/27/20 Prednisolone Acetate/Pf 1 drop RIGHT EYE Q6H PRN 11/01/18 02/27/20 [Prednisolone Acet 1% Eye Drop] Aspirin [Adult Low Dose Aspirin EC] 81 mg PO DAILY 12/20/19 02/27/20 LORazepam [Ativan] 2 mg PO TID 12/20/19 02/27/20 Albuterol Sulfate [Ventolin HFA] 2 puff INHALATION RT-QID PRN 02/27/20 02/27/20 Fish Oil 300mg 300 mg PO DAILY 02/27/20 02/27/20 Allergies Allergy/AdvReac Type Severity Reaction Status Date / Time cyclobenzaprine HCl Allergy Swelling Verified 02/27/20 13:59 [From Flexeril] Iodinated Contrast Media Allergy Anaphylaxis Verified 02/27/20 13:59 [Iodinated Contrast Media - IV Dye] lithium [[place]] Allergy Swelling Verified 02/27/20 13:59 Penicillins Allergy Rash/Hives Verified 02/27/20 13:59 bee pollen AdvReac Swelling Verified 02/27/20 13:59 morphine AdvReac GETS ANGRY Verified 02/27/20 13:59 Review of Systems ROS Statement: Those systems with pertinent positive or pertinent negative responses have been documented in the HPI. ROS Other: All systems not noted in ROS Statement are negative. Past Medical History Past Medical History: Asthma, Cancer, COPD, CVA/TIA, Fibromyalgia, GERD/Reflux, Hyperlipidemia, Hypertension, Musculoskeletal Disorder, Neurologic Disorder, Osteoarthritis (OA), Skin Disorder, Thyroid Disorder Additional Past Medical History / Comment(s): KIDNEY STONES, MULT TIA'S, migraines, glaucoma right eye/BLIND, chronic BACK, NECK, LEG pain. PSORIASIS, HX cervical Ca, arthritis feet, hand, wrist and ankles, hypoglycemia, hx leaky heart valve, thyroid nodules History of Any Multi-Drug Resistant Organisms: MRSA Date of last positivie culture/infection: 2011 MDRO Source:: Lungs Past Surgical History: Appendectomy, Back Surgery, Cholecystectomy, H ysterectomy, Joint Replacement Additional Past Surgical History / Comment(s): EYE SURG KATERINE; splenectomy, tracheotomy, complete left hip replacement, L4, 5, 6 plates, LITHOTRIPSY, RT SONNY, PAIN CLINIC PROCEDURES, complete right hip replacement Past Anesthesia/Blood Transfusion Reactions: Postoperative Nausea & Vomiting (PONV) Additional Past Anesthesia/Blood Transfusion Reaction / Comment(s): after gallbladder surgery had NG tube inserted "belly remained asleep after anesthesia" Past Psychological History: Anxiety, Bipolar, Depression Smoking Status: Current every day smoker Past Alcohol Use History: None Reported Past Drug Use History: Marijuana - Past Family History Sister(s) Family Medical History: COPD Additional Family Medical History / Comment(s): Bipolar disorder Daughter(s) Family Medical History: Asthma, Cancer Additional Family Medical History / Comment(s): Cervical cancer Son(s) Family Medical History: Asthma, COPD Additional Family Medical History / Comment(s): Bipolar disorder Father Family Medical History: No Reported History Additional Family Medical History / Comment(s): Gout, deaf, alcoholism. Killed by a drunk warehouse driver. Mother Family Medical History: COPD, Myocardial Infarction ([place]) Additional Family Medical History / Comment(s): emphysema General Exam - General Exam Comments Initial Comments: Alert and oriented [id number] female. Patient is somewhat anxious. Limitations: no limitations General appearance: alert, in no apparent distress Head exam: Present: atraumatic, normocephalic, normal inspection Eye exam: Present: normal appearance, PERRL, EOMI. Absent: scleral icterus, conjunctival injection, periorbital swelling ENT exam: Present: normal exam, mucous membranes moist Neck exam: Present: normal inspection. Absent: tenderness, meningismus, lymphad enopathy Respiratory exam: Present: other (minimal wheezing, hx smoker). Absent: normal lung sounds bilaterally, respiratory distress, wheezes, rales, rhonchi, stridor Cardiovascular Exam: Present: regular rate, normal rhythm, normal heart sounds. Absent: systolic murmur, diastolic murmur, rubs, gallop, clicks GI/Abdominal exam: Present: soft, normal bowel sounds. Absent: distended, tenderness, guarding, rebound, rigid Extremities exam: Present: normal inspection, full ROM, normal capillary refill. Absent: tenderness, pedal edema, joint swelling, calf tenderness Back exam: Present: normal inspection Neurological exam: Present: alert, oriented X3, CN II-XII intact Psychiatric exam: Present: normal affect, normal mood Skin exam: Present: warm, dry, intact, normal color. Absent: rash Course Vital Signs 02/27/20 02/27/20 02/27/20 10:49 12:45 13:00 Temperature 98.1 F Pulse Rate 91 87 Pulse Rate [ 87 Sitting Senior Commissions Analyst] Pulse Rate [ 84 Standing Senior Commissions Analyst ] Pulse Rate [ 86 Supine Senior Commissions Analyst] Respiratory 18 16 Rate Blood Pressure 149/95 132/89 Blood Pressure 140/92 [Left Arm Sitting] Blood Pressure 139/87 [Left Arm Supine] Blood Pressure 134/90 [Standing] O2 Sat by Pulse 98 99 Oximetry 02/27/20 13:54 Temperature Pulse Rate 73 Pulse Rate [ Sitting Senior Commissions Analyst] Pulse Rate [ Standing Senior Commissions Analyst ] Pulse Rate [ Supine Senior Commissions Analyst] Respiratory 18 Rate Blood Pressure 151/93 Blood Pressure [Left Arm Sitting] Blood Pressure [Left Arm Supine] Blood Pressure [Standing] O2 Sat by Pulse 98 Oximetry Medical Decision Making - Medical Decision Making His is a 59-year-old female presents emergency department today for evaluation frequent lightheadedness, some dyspnea on exertion. Platelets of some near syncopal episodes. Patient is a smoker. Patient's initial EKG shows no significant change. Troponin is negative. Symptoms worse over Past few days. She denies description of vertigo like dizziness at this time. No acute headache. She also complained that she's had elevated blood pressures at home high as 200/100. Patient at this time is no acute neurological deficits. Discussed the concern for lightheadedness and dyspnea on exertion and would benefit from cardiology consult. Patient's have a difficult time with starting IVs and a midline was placed by cardiac cath team. Patient is agreeable to admission. - Lab Data Result diagrams: 02/27/20 12:42 02/27/20 12:42 Lab Results 02/27/20 02/27/20 02/27/20 Range/Units 12:25 12:42 12:42 WBC 14.7 H (3.8-10.6) k/uL RBC 5.38 (3.80-5.40) m/uL Hgb 15.7 (11.4-16.0) gm/dL Hct 50.1 H (34.0-46.0) % MCV 93.1 (80.0-100.0) fL MCH 29.1 (25.0-35.0) pg MCHC 31.3 (31.0-37.0) g/dL RDW 15.6 H (11.5-15.5) % Plt Count 504 H (150-450) k/uL Neutrophils % 62 % Lymphocytes % 28 % Monocytes % 7 % Eosinophils % 1 % Basophils % 0 % Neutrophils # 9.2 H (1.3-7.7) k/uL Lymphocytes # 4.1 (1.0-4.8) k/uL Monocytes # 1.1 H (0-1.0) k/uL Eosinophils # 0.1 (0-0.7) k/uL Basophils # 0.0 (0-0.2) k/uL Hypochromasia Slight PT (9.0-12.0) sec INR (<1.2) APTT (22.0-30.0) sec Sodium 139 (137-145) mmol/L Potassium 3.6 (3.5-5.1) mmol/L Chloride 108 H (98-107) mmol/L Carbon Dioxide 23 (22-30) mmol/L Anion Gap 8 mmol/L BUN 11 (7-17) mg/dL Creatinine 0.56 (0.52-1.04) mg/dL Est GFR (CKD-EPI)AfAm >90 (>60 ml/min/1.73 sqM) Est GFR (CKD-EPI)NonAf >90 (>60 ml/min/1.73 sqM) Glucose 100 H (74-99) mg/dL Calcium 9.7 (8.4-10.2) mg/dL Magnesium 1.8 (1.6-2.3) mg/dL Total Bilirubin 0.6 (0.2-1.3) mg/dL AST 23 (14-36) U/L ALT 23 (4-34) U/L Alkaline Phosphatase 92 (38-126) U/L Troponin I (0.000-0.034) ng/mL NT-Pro-B Natriuret Pep pg/mL Total Protein 7.6 (6.3-8.2) g/dL Albumin 4.7 (3.5-5.0) g/dL Lipase 144 (23-300) U/L Urine Color Colorless Urine Appearance Clear (Clear) Urine pH 6.0 (5.0-8.0) Ur Specific [place] 1.001 (1.001-1.035) Urine Protein Negative (Negative) Urine Glucose (UA) Negative (Negative) Urine Ketones Negative (Negative) Urine Blood Negative (Negative) Urine Nitrite Negative (Negative) Urine Bilirubin Negative (Negative) Urine Urobilinogen <2.0 (<2.0) mg/dL Ur Leukocyte Esterase Negative (Negative) 0502/27/20 02/27/20 Range/Units 12:42 12:42 12:42 WBC (3.8-10.6) k/uL RBC (3.80-5.40) m/uL Hgb (11.4-16.0) gm/dL Hct (34.0-46.0) % MCV (80.0-100.0) fL MCH (25.0-35.0) pg MCHC (31.0-37.0) g/dL RDW (11.5-15.5) % Plt Count (150-450) k/uL Neutrophils % % Lymphocytes % % Monocytes % % Eosinophils % % Basophils % % Neutrophils # (1.3-7.7) k/uL Lymphocytes # (1.0-4.8) k/uL Monocytes # (0-1.0) k/uL Eosinophils # (0-0.7) k/uL Basophils # (0-0.2) k/uL Hypochromasia PT 10.1 (9.0-12.0) sec INR 1.0 (<1.2) APTT 21.5 L (22.0-30.0) sec Sodium (137-145) mmol/L Potassium (3.5-5.1) mmol/L Chloride (98-107) mmol/L Carbon Dioxide (22-30) mmol/L Anion Gap mmol/L BUN (7-17) mg/dL Creatinine (0.52-1.04) mg/dL Est GFR (CKD-EPI)AfAm (>60 ml/min/1.73 sqM) Est GFR (CKD-EPI)NonAf (>60 ml/min/1.73 sqM) Glucose (74-99) mg/dL Calcium (8.4-10.2) mg/dL Magnesium (1.6-2.3) mg/dL Total Bilirubin (0.2-1.3) mg/dL AST (14-36) U/L ALT (4-34) U/L Alkaline Phosphatase (38-126) U/L Troponin I <0.012 (0.000-0.034) ng/mL NT-Pro-B Natriuret Pep 38 pg/mL Total Protein (6.3-8.2) g/dL Albumin (3.5-5.0) g/dL Lipase (23-300) U/L Urine Color Urine Appearance (Clear) Urine pH (5.0-8.0) Ur Specific [place] (1.001-1.035) Urine Protein (Negative) Urine Glucose (UA) (Negative) Urine Ketones (Negative) Urine Blood (Negative) Urine Nitrite (Negative) Urine Bilirubin (Negative) Urine Urobilinogen (<2.0) mg/dL Ur Leukocyte Esterase (Negative) 02/27/20 13:38 EKG performed at 1138 shows normal sinus rhythm with possible left atrial enlargement. Borderline EKG. Ventricular rate is 72 bpm. Interval is 140 ms. QRS duration is 84 ms. QT QTc is 400/[address] elevation. - Radiology Data Radiology results: report reviewed Plan increase in appearance of interstitial relatively prior to exam. This could be related to a reduced inspiration vs interstitial pneumonitis correlate clinically. Disposition Clinical Impression: Lightheadedness, Near syncope, Exertional chest pain Disposition: ADMITTED IP TO THIS [facility] Condition: Stable Is patient prescribed a controlled substance at d/c from ED?: No Referrals: Torsten Melissa DO [Primary Care Provider] - 1-2 days Time of Disposition: 14:38
--- NOTE | 2020-02-27 12:30 | XR ---
EXAMINATION TYPE: XR chest 2V DATE OF EXAM: 02/27/2020 COMPARISON: 11/09/2017 TECHNIQUE: PA and lateral views submitted. HISTORY: Pain FINDINGS: The lungs are clear and there is no pneumothorax, pleural effusion, or focal pneumonia. Postsurgical change overlying cervical spine. Arthropathy of the shoulders once diffuse osteopenia. Heart size no rmal. Hypertrophic and degenerative change of the spine. Hyperinflation suggests COPD. Interstitium s lightly increased from prior exam. IMPRESSION: 1. Slight increase in the appearance of the interstitium relative to the prior exam. This could be re lated to reduced inspiration rather than interstitial pneumonitis correlate clinically..
[2020-02-27 12:33] LABS: Appearance,Urine Clear (Clear); Bilirubin,Urine Negative (Negative); Blood,Urine Negative (Negative); Color,Urine Colorless; Glucose,Urine (UA) Negative (Negative); Ketones,Urine Negative (Negative); Leukocyte Esterase,Urine Negative (Negative); Nitrite,Urine Negative (Negative); Protein,Urine Negative (Negative); Specific Gravity,Urine 1.001 (1.001-1.035); Urobilinogen,Urine <2.0 mg/dL (<2.0)
[2020-02-27 13:02] LABS: Basophils % (A) 0 %; Eosinophils # (A) 0.1 k/uL (0-0.7); Eosinophils % (A) 1 %; HCT 50.1 % (34.0-46.0); HGB 15.7 gm/dL (11.4-16.0); Hypochromasia Slight; Lymphocytes # (A) 4.1 k/uL (1.0-4.8); Lymphocytes % (A) 28 %; MCH 29.1 pg (25.0-35.0); MCHC 31.3 g/dL (31.0-37.0); MCV 93.1 fL (80.0-100.0); Mean Platelet Volume 6.9; Monocytes # (A) 1.1 k/uL (0-1.0); Monocytes % (A) 7 %; Neutrophils # (A) 9.2 k/uL (1.3-7.7); Neutrophils % (A) 62 %; Platelet Count 504 k/uL (150-450); RBC 5.38 m/uL (3.80-5.40); RDW 15.6 % (11.5-15.5); WBC 14.7 k/uL (3.8-10.6)
[2020-02-27 13:20] LABS: ALT 23 U/L (4-34); AST 23 U/L (14-36); African American GFR (CKD) >90 (>60 ml/min/1.73 sqM); Albumin 4.7 g/dL (3.5-5.0); Alkaline Phosphatase 92 U/L (38-126); Anion Gap 8 mmol/L; Blood Urea Nitrogen 11 mg/dL (7-17); Calcium 9.7 mg/dL (8.4-10.2); Carbon Dioxide 23 mmol/L (22-30); Chloride 108 mmol/L (98-107); Glucose 100 mg/dL (74-99); Magnesium 1.8 mg/dL (1.6-2.3); Non-African American GFR(CKD) >90 (>60 ml/min/1.73 sqM); Potassium 3.6 mmol/L (3.5-5.1); Sodium 139 mmol/L (137-145); Total Bilirubin 0.6 mg/dL (0.2-1.3); Total Protein 7.6 g/dL (6.3-8.2)
[2020-02-27 13:21] LABS: Prothrombin Time 10.1 sec (9.0-12.0)
[2020-02-27 13:28] LABS: Partial Thromboplastin Time 21.5 sec (22.0-30.0)
[2020-02-27] MEDS ORDERED: ONDANSETRON 4 MG/2 ML VIAL IVP STA (13:41)
[2020-02-27] MEDS ORDERED: HYDROcodone/APAP 5-325MG 1 EACH TAB PO STA (13:42)
[2020-02-27] MEDS ORDERED: NITROGLYCERIN SL TABS 0.4 MG TAB SUBLINGUAL PRN (14:39)
[2020-02-27] MEDS ORDERED: MORPHINE SULFATE 4 MG/ML SYRINGE IV PRN (14:39)
[2020-02-27] MEDS ORDERED: FAMOTIDINE 20 MG/2 ML VIAL IV STA (15:08)
[2020-02-27] MEDS ORDERED: methylPREDNISolone SOD SUCCI 125 MG/2 ML VIAL IV STA (15:08)
[2020-02-27] MEDS ORDERED: diphenhydrAMINE 50 MG/ML 1 ML VIAL IVP STA (15:08)
--- NOTE | 2020-02-27 16:21 | CT ---
EXAMINATION TYPE: CT chest angio for PE DATE OF EXAM: 02/27/2020 COMPARISON: none HISTORY: Shortness of breath CT DLP: 304.4 mGycm CONTRAST: CT chest with contrast and 3D reconstruction with MIP imaging is performed with IV Contrast, patient injected with 100 mL of Isovue 370. Contrast-enhanced CT of the chest was performed through the course of the pulmonary arteries with umang g and mediastinal window settings submitted. 3D reconstruction with MIP imaging was also performed. PULMONARY ARTERIES: The pulmonary arteries and their major tributaries are patent. I do not see dayan dence for sizable filling defect to suggest pulmonary embolic process. LUNGS: The lungs are clear and free of infiltrate. No evidence for atelectasis. No pulmonary nodule or mass is detected. No pleural effusion. MEDIASTINUM: Thoracic aorta is of normal caliber,however, evaluation is limited given timing of the contrast bolus. If there is concern for thoracic aortic pathology consider VIOLETA. Correlate clinicall y . The heart is not enlarged. No evidence for mediastinal mass. No mediastinal lymph nodes greater than 1cm. HILAR STRUCTURES: No evidence for mass. No hilar lymph nodes greater than 1 cm. UPPER ABDOMEN: No significant abnormality is seen. IMPRESSION: 1. No evidence for Pulmonary embolism at this time.
[2020-02-27] MEDS ORDERED: ALBUTEROL NEBULIZED 2.5 MG/3 ML INHALATION PRN (20:32)
[2020-02-27] MEDS: LORazepam 1 MG TAB PO PRN (20:57)
[2020-02-27] MEDS: DULoxetine HCL 60 MG CAPSULE.DR PO SCH (20:57)
[2020-02-27] MEDS ORDERED: prednisoLONE ACETATE 1% OPHTH DROPS 5 ML BTL RIGHT EYE PRN (21:00)
[2020-02-27] MEDS ORDERED: amLODIPine 5 MG TAB PO SCH (21:00)
[2020-02-27] MEDS ORDERED: hydrALAZINE HCL 25 MG TAB PO PRN (21:00)
[2020-02-27] MEDS ORDERED: DOCUSATE 100 MG CAP PO PRN (21:00)
[2020-02-27] MEDS ORDERED: LORATADINE 10 MG TAB PO SCH (21:00)
[2020-02-27] MEDS: ONDANSETRON 4 MG/2 ML VIAL IVP PRN (22:30)
[2020-02-27] MEDS: HYDROcodone/APAP 10-325MG 1 EACH TAB PO PRN (22:31)
[2020-02-28] MEDS: ATROPINE OPHTH SOLN 1% 5ML BTL RIGHT EYE SCH ×2 (00:10→09:18)
[2020-02-28] MEDS: HYDROcodone/APAP 10-325MG 1 EACH TAB PO PRN ×2 (04:59→09:17)
[2020-02-28] MEDS: ONDANSETRON 4 MG/2 ML VIAL IVP PRN (05:00)
[2020-02-28 06:21] LABS: HCT 42.9 % (34.0-46.0); HGB 13.3 gm/dL (11.4-16.0); MCH 28.9 pg (25.0-35.0); MCHC 31.1 g/dL (31.0-37.0); MCV 92.8 fL (80.0-100.0); Mean Platelet Volume 7.7; Platelet Count 468 k/uL (150-450); RBC 4.62 m/uL (3.80-5.40); RDW 15.6 % (11.5-15.5); WBC 10.2 k/uL (3.8-10.6)
[2020-02-28 06:42] LABS: Cholesterol 131 mg/dL (<200); HDL Cholesterol 51 mg/dL (40-60); LDL Cholesterol,Calculated 62 mg/dL (0-99); Triglycerides 91 mg/dL (<150)
[2020-02-28 06:43] LABS: African American GFR (CKD) >90 (>60 ml/min/1.73 sqM); Anion Gap 7 mmol/L; Blood Urea Nitrogen 15 mg/dL (7-17); Calcium 9.2 mg/dL (8.4-10.2); Carbon Dioxide 21 mmol/L (22-30); Chloride 107 mmol/L (98-107); Glucose 110 mg/dL (74-99); Non-African American GFR(CKD) >90 (>60 ml/min/1.73 sqM); Potassium 4.1 mmol/L (3.5-5.1); Sodium 135 mmol/L (137-145)
[2020-02-28] MEDS ORDERED: MECLIZINE 25 MG TAB PO PRN (08:56)
[2020-02-28] MEDS ORDERED: amLODIPine 5 MG TAB PO SCH (08:56)
[2020-02-28] MEDS ORDERED: FUROSEMIDE 40 MG TAB PO SCH (09:00)
[2020-02-28] MEDS ORDERED: ASPIRIN 81 MG PO SCH (09:00)
[2020-02-28] MEDS ORDERED: LOSARTAN 50 MG TAB PO SCH (09:00)
[2020-02-28] MEDS ORDERED: ASPIRIN 325 MG TAB PO SCH (09:00)
[2020-02-28] MEDS ORDERED: ATORVASTATIN 20 MG TAB PO SCH (09:00)
[2020-02-28 09:11] VITALS: BP 137/77; PULSE 78; RESP 18; TEMP 98.1
[2020-02-28] MEDS: DULoxetine HCL 60 MG CAPSULE.DR PO SCH (09:17)
[2020-02-28] MEDS: LORazepam 1 MG TAB PO PRN (09:18)
--- NOTE | 2020-02-28 09:55 | CONS ---
CONSULTATION CHIEF COMPLAINT: Dizziness and uncontrolled blood pressure. Marsha is a 59-year-old lady with history of hypertension, dyslipidemia, COPD, and prior history of dizziness who presented to hospital complaining of dizziness and lightheadedness. She has had these symptoms for about 2 days, also had vague chest tightness. The predominant symptoms was that her blood pressures were elevated and she was feeling lightheaded. When she came to the emergency room, her blood pressures are somewhat elevated. She did not have any orthostatic changes. Her EKG showed sinus rhythm with left atrial enlargement. A CT scan of the chest was negative for pulmonary embolism. She has had 3 sets of troponins that were all negative. Her lipid profile showed an LDL cholesterol of 62. The patient appears comfortable at rest. Her dizziness is improved. Blood pressures are still somewhat poorly controlled this morning. Patient was on Norvasc 5 mg daily on her admission. This will be increased to 10 mg daily, and she will continue rest of her medications. Patient underwent an echocardiogram. I will follow the results and if the echo appears normal, she can be discharged home. She is on Cozaar 50 mg daily. Will increase the dose to 100 mg if necessary. PAST MEDICAL HISTORY: Significant for COPD, hypertension, and dyslipidemia. CURRENT MEDICATIONS: Include Lipitor 20 daily, aspirin, Cozaar 50 daily, Claritin, Ativan, [place], Lasix, Ventolin, Cymbalta, and Colace. Patient is allergic to FLEXERIL, IV DYE, LITHIUM, PENICILLIN, MORPHINE, and POLLEN. FAMILY HISTORY: Negative for premature coronary artery disease. SOCIAL HISTORY: Significant for current smoking. There is no history of EtOH abuse or drug abuse. REVIEW OF SYSTEMS: HEENT: Significant for dizziness. CARDIAC: As described above. RESPIRATORY: Negative. GI: Negative. GENITOURINARY: Negative. ALLERGY: None. SKIN: Negative. MUSCULOSKELETAL: Negative. ENDOCRINE: Negative. ONCOLOGICAL: Negative. DERMATOLOGICAL: Negative. CONSTITUTIONAL: Negative. EVENT MARKETING SPECIALIST: Negative. Rest of the system review is not relevant. PHYSICAL EXAMINATION: On exam, patient is afebrile, O2 saturation is 98% on room air. Heart rate is 81 beats per minute. Blood pressure is 168/77. There is no jugular venous distention. Carotid upstroke is normal. There is no bruit. Chest exam reveals good air entry bilaterally. Heart exam reveals first and second heart sounds and S4 is heard. Abdomen is soft. Exam of the extremities did not reveal any edema. Peripheral pulses are felt. LABS: Show that the hemoglobin is normal. Potassium is 4.1, creatinine is negative. Tropes are negative. EKG does not reveal acute ischemic changes. ASSESSMENT: 1. Uncontrolled hypertension. 2. Dizziness. 3. Dyslipidemia. PLAN: Increase the dose of Norvasc for better blood pressure control. If necessary, will increase the dose of losartan. I will review the echocardiogram. Patient may be discharged home later today with an outpatient followup through my office. She will have an outpatient stress test. The patient had elevated D-dimer and had a CT chest that was negative for pulmonary embolism. MMODL / IJN: [id number] /
--- NOTE | 2020-02-28 11:31 | P.HPIM ---
History of Present Illness H&P Date: 02/28/20 Chief Complaint: Headache dizziness HISTORY AND PHYSICAL AND DISCHARGE SUMMARY: This is a 59-year-old female patient of Dr. Melissa with past medical history of COPD, hypertension, hyperlipidemia, generalized osteoarthritis, bipolar disorder, tobacco use and dependence, multiple TIAs, history of cervical cancer, glaucoma. Also history of chronic pain chronic back and neck pain under the care of Dr. Wolff. Patient states that for about one week she has not been feeling well. She came into the hospital because her blood pressure was high 200/100 and she was experiencing headache and dizziness with fainting sensation. She denies having any loss of consciousness, known him and a tingling. She states when she bends over to put on her shoes she did feel that she was going to fall. She denies any weakness in her arms. When she moves her head she does have some dizziness. She states she had similar symptoms a long time ago when she was initially diagnosed with hypertension. She states she has been taking all of her medications as prescribed. She denies any chest pain, palpitations. She states her heart feels like it's racing sometimes but not recently. She is currently complaining of a headache. No tinnitus. Patient does have slight left lower extremity weakness which she said has been chronic. She has a history of TIAs and follows with Dr. Mack. She is currently smoking 1 pack per day since she was 16 years old and does not plan to quit. At the time of this evaluation, patient continues to have headache but all other symptoms are improved. She states she is much better but not quite 100%. Blood pressure this morning 137/77. Patient came into [facility] ER with the above concerns. Blood pressure 149/95, heart rate 91, afebrile, pulse ox 98% on room air. WBC 14.7, hemoglobin 15.7, platelet count 504. Sodium 139, potassium 3.6, chloride 108, CO2 23, BUN 11, creatinine 0.56, blood sugar 100. Liver function tests, lipase normal. Urinalysis negative for infection. Troponin negative, proBNP 38. EKG was in normal sinus rhythm with left atrial enlargement. Chest x-ray reveals slight increase in the appearance of interstitium relative to prior exam. Could relate to reduced inspiration rather than interstitial pneumonitis. D-dimer 4.04 and CTA of the chest was negative for pulmonary embolism. Patient was placed on the cardiac stepdown unit. She has been seen by cardiology and Cozaar increased to 100 mg if necessary and we have already increased Norvasc from 5 mg to 10 mg. Patient has been cleared by cardiology for discharge home with plan for follow-up in the office for outpatient stress test with Dr Torres. We have also added and meclizine as needed. Echocardiogram reveals Carotid ultrasound reveals no hemodynamically significant stenosis. The patient will be discharged home today in stable condition. Review of Systems Constitutional: Denies anorexia, Denies chills, Denies fatigue, Denies fever, Denies lethargy, Denies malaise, Denies poor appetite, Denies weakness Eyes: denies blurred vision, denies pain Ears: deny: tinnitus Ears, nose, mouth and throat: Reports headache, Reports vertigo, Denies d ysphagia, Denies nasal congestion, Denies nasal discharge Cardiovascular: Reports lightheadedness, Denies chest pain, Denies decreased exercise tolerance, Denies dyspnea on exertion, Denies leg edema, Denies palpitations, Denies shortness of breath, Denies syncope Respiratory: Denies cough, Denies cough with sputum, Denies dyspnea, Denies excessive sputum, Denies hemoptysis, Denies home oxygen, Denies wheezing Gastrointestinal: Denies abdominal pain, Denies BRBPR, Denies diarrhea, Denies loss of appetite, Denies nausea, Denies vomiting Genitourinary: Denies dysuria, Denies hematuria, Denies urgency, Denies urinary frequency Musculoskeletal: Denies frequent falls, Denies gait dysfunction, Denies muscle weakness, Denies myalgias Integumentary: Denies pruritus, Denies rash, Denies wounds Neurological: Reports vertigo, Denies change in mentation, Denies change in speech, Denies numbness, Denies syncope, Denies weakness Psychiatric: Denies anxiety, Denies depression Past Medical History Past Medical History: Asthma, Cancer, COPD, CVA/TIA, Fibromyalgia, GERD/Reflux, Hyperlipidemia, Hypertension, Musculoskeletal Disorder, Neurologic Disorder, Osteoarthritis (OA), Skin Disorder, Thyroid Disorder Additional Past Medical History / Comment(s): KIDNEY STONES, MULT TIA'S, migraines, glaucoma right eye/BLIND, chronic BACK, NECK, LEG pain. PSORIASIS, HX cervical Ca, arthritis feet, hand, wrist and ankles, hypoglycemia, hx leaky heart valve, thyroid nodules History of Any Multi-Drug Resistant Organisms: MRSA Date of last positivie culture/infection: 2011 MDRO Source:: Lungs Past Surgical History: Appendectomy, Back Surgery, Cholecystectomy, Hysterectomy, Joint Replacement Additional Past Surgical History / Comment(s): EYE SURG KATERINE; splenectomy, tracheotomy, complete left hip replacement, L4, 5, 6 plates, LITHOTRIPSY, RT SONNY, PAIN CLINIC PROCEDURES, complete right hip replacement Past Anesthesia/Blood Transfusion Reactions: Postoperative Nausea & Vomiting (PONV) Additional Past Anesthesia/Blood Transfusion Reaction / Comment(s): after gallb ladder surgery had NG tube inserted "belly remained asleep after anesthesia" Past Psychological History: Anxiety, Bipolar, Depression Smoking Status: Current every day smoker Past Alcohol Use History: None Reported Additional Past Alcohol Use History / Comment(s): 1 PPD SINCE AGE 16 Past Drug Use History: Marijuana Additional Drug Use History / Comment(s): OCCASIONAL USE, INSTRUCTED NOT TO USE 24 HRS PRIOR TO PROCEDURE - Past Family History Sister(s) Family Medical History: COPD Additional Family Medical History / Comment(s): Bipolar disorder Daughter(s) Family Medical History: Asthma, Cancer Additional Family Medical History / Comment(s): Cervical cancer Son(s) Family Medical History: Asthma, COPD Additional Family Medical History / Comment(s): Bipolar disorder Father Family Medical History: No Reported History Additional Family Medical History / Comment(s): Gout, deaf, alcoholism. Killed by a drunk minibus driver. Mother Family Medical History: COPD, Myocardial Infarction (HI) Additional Family Medical History / Comment(s): emphysema Medications and Allergies Home Medications Medication Instructions Recorded Confirmed Type Atorvastatin [Lipitor] 20 mg PO DAILY 07/29/14 02/27/20 History DULoxetine HCL [Cymbalta] 60 mg PO BID 07/29/14 02/27/20 History Furosemide [Lasix] 40 mg PO DAILY 07/29/14 02/27/20 History Losartan [Cozaar] 50 mg PO DAILY 07/29/14 02/27/20 History Docusate [Colace] 100 mg PO HS PRN 02/26/17 02/27/20 History HYDROcodone/APAP 10-325MG [[place] 1 tab PO QID 02/26/17 02/27/20 History 10-325] Ondansetron [Zofran] 4 mg PO Q8HR PRN 04/01/18 02/27/20 History Atropine Ophth Soln 1% 5Ml [Isopto 1 drops RIGHT EYE BID 11/01/18 02/27/20 History Atropine 1% 5Ml] Loratadine [Claritin] 10 mg PO HS 11/01/18 02/27/20 History Prednisolone Acetate/Pf 1 drop RIGHT EYE Q6H PRN 11/01/18 02/27/20 History [Prednisolone Acet 1% Eye Drop] Aspirin [Adult Low Dose Aspirin EC] 81 mg PO DAILY 12/20/19 02/27/20 History LORazepam [Ativan] 2 mg PO TID 12/20/19 02/27/20 History Albuterol Sulfate [Ventolin HFA] 2 puff INHALATION RT-QID PRN 02/27/20 02/27/20 History Fish Oil 300mg 300 mg PO DAILY 02/27/20 02/27/20 History Meclizine [Antivert] 25 mg PO TID PRN #60 tab 02/28/20 Rx amLODIPine [Norvasc] 10 mg PO HS #30 tablet 02/28/20 Rx Allergies Allergy/AdvReac Type Severity Reaction Status Date / Time cyclobenzaprine HCl Allergy Swelling Verified 02/27/20 13:59 [From Flexeril] Iodinated Contrast Media Allergy Anaphylaxis Verified 02/27/20 13:59 [Iodinated Contrast Media - IV Dye] lithium [Triplett] Allergy Swelling Verified 02/27/20 13:59 Penicillins Allergy Rash/Hives Verified 02/27/20 13:59 bee pollen AdvReac Swelling Verified 02/27/20 13:59 morphine AdvReac GETS ANGRY Verified 02/27/20 13:59 Physical Exam Vitals: Vital Signs Temp Pulse Pulse Pulse Pulse Pulse Resp 02/28/20 04:00 81 16 02/28/20 00:00 98.5 F 84 16 02/27/20 20:00 98.5 F 83 17 02/27/20 19:29 98.7 F 81 16 02/27/20 17:08 98.7 F 81 16 02/27/20 15:25 73 16 02/27/20 13:54 73 18 02/27/20 13:00 87 16 02/27/20 12:45 87 84 86 02/27/20 10:49 98.1 F 91 18 BP BP BP BP BP Pulse Ox 02/28/20 04:00 168/77 98 02/28/20 00:00 150/79 98 02/27/20 20:00 169/87 98 02/27/20 19:29 134/73 99 02/27/20 17:08 134/73 99 02/27/20 15:25 157/93 98 02/27/20 13:54 151/93 98 02/27/20 13:00 132/89 99 02/27/20 12:45 140/92 139/87 134/90 02/27/20 10:49 149/95 98 Intake and Output 02/27/20 02/28/20 02/28/20 22:59 06:59 14:59 Other: # Voids 1 Weight 68.039 kg 67.9 kg Gen: This is a 59-year-old female. She is sitting up at the bedside and appears to be in no acute distress.. HEENT: Head is atraumatic, normocephalic. Blind in right eye. Sclerae is anicteric. NECK: Supple. No JVD. No lymphadenopathy. No thyromegaly. LUNGS: Clear to auscultation. No wheezes or rhonchi. No intercostal retractions. HEART: Regular rate and rhythm. No murmur. ABDOMEN: Soft. Bowel sounds are present. No masses. No tenderness. EXTREMITIES: No pedal edema. No calf tenderness. Dorsalis pedis +2 bilaterally NEUROLOGICAL: Patient is awake, alert and oriented x3. Cranial nerves 2 through 12 are grossly intact. Sensation equal bilaterally. Slight weakness of the left lower extremity which is been chronic. Results CBC & Chem 7: 02/28/20 05:18 02/28/20 05:18 Labs: Abnormal Lab Results - Last 24 Hours (Table) 02/27/20 02/27/20 02/27/20 Range/Units 12:42 12:42 12:42 WBC 14.7 H (3.8-10.6) k/uL Hct 50.1 H (34.0-46.0) % RDW 15.6 H (11.5-15.5) % Plt Count 504 H (150-450) k/uL Neutrophils # 9.2 H (1.3-7.7) k/uL Monocytes # 1.1 H (0-1.0) k/uL APTT 21.5 L (22.0-30.0) sec D-Dimer (<0.60) mg/L FEU Sodium (137-145) mmol/L Chloride 108 H (98-107) mmol/L Carbon Dioxide (22-30) mmol/L Glucose 100 H (74-99) mg/dL 02/27/20 02/28/20 02/28/20 Range/Units 12:42 05:18 05:18 WBC (3.8-10.6) k/uL Hct (34.0-46.0) % RDW 15.6 H (11.5-15.5) % Plt Count 468 H (150-450) k/uL Neutrophils # (1.3-7.7) k/uL Monocytes # (0-1.0) k/uL APTT (22.0-30.0) sec D-Dimer 4.04 H (<0.60) mg/L FEU Sodium 135 L (137-145) mmol/L Chloride (98-107) mmol/L Carbon Dioxide 21 L (22-30) mmol/L Glucose 110 H (74-99) mg/dL Thrombosis Risk Factor Assmnt - Choose All That Apply Any of the Below Risk Factors Present?: Yes Each Factor Represents 1 point: Abnormal pulmonary function (COPD), Age 41-60 years Other Risk Factors: No Other congenital or acquired thrombophilia - If yes, enter type in comment: No Thrombosis Risk Factor Assessment Total Risk Factor Score: 2 Thrombosis Risk Factor Assessment Level: Low Risk Assessment and Plan Plan: 1. Hypertensive urgency. Amlodipine increased to 10 mg daily. Continue losartan 50 mg daily. Cardiology consult appreciated. 2. Dizziness, headache secondary to hypertension. 3. Dizziness with history of TIAs. Follow-up with Dr. Mack. 4. Hyperlipidemia. Atorvastatin 20 mg at bedtime. 5. COPD, stable. Continue albuterol inhaler. 6. Generalized anxiety disorder. Continue home medication. 7. Tobacco use and dependence. Patient declines smoking cessation 8. Chronic pain under the management of Dr. Wolff. Continue home pain medications. 9. Covid 19 infection not present. Patient placed in observation status. Discharge plan: home. Discharge Medication List Atorvastatin [Lipitor] 20 mg PO DAILY 07/29/14 [History] DULoxetine HCL [Cymbalta] 60 mg PO BID 07/29/14 [History] Furosemide [Lasix] 40 mg PO DAILY 07/29/14 [History] Losartan [Cozaar] 50 mg PO DAILY 07/29/14 [History] Docusate [Colace] 100 mg PO HS PRN 02/26/17 [History] HYDROcodone/APAP 10-325MG [[place] 10-325] 1 tab PO QID 02/26/17 [History] Ondansetron [Zofran] 4 mg PO Q8HR PRN 04/01/18 [History] Atropine Ophth Soln 1% 5Ml [Isopto Atropine 1% 5Ml] 1 drops RIGHT EYE BID 11/01/18 [History] Loratadine [Claritin] 10 mg PO HS 11/01/18 [History] Prednisolone Acetate/Pf [Prednisolone Acet 1% Eye Drop] 1 drop RIGHT EYE Q6H PRN 11/01/18 [History] Aspirin [Adult Low Dose Aspirin EC] 81 mg PO DAILY 12/20/19 [History] LORazepam [Ativan] 2 mg PO TID 12/20/19 [History] Albuterol Sulfate [Ventolin HFA] 2 puff INHALATION RT-QID PRN 02/27/20 [History] Fish Oil 300mg 300 mg PO DAILY 02/27/20 [History] Meclizine [Antivert] 25 mg PO TID PRN #60 tab 02/28/20 [Rx] amLODIPine [Norvasc] 10 mg PO HS #30 tablet 02/28/20 [Rx] Impression and plan of care have been directed as dictated by the signing physician. Isa Gatica nurse practitioner acting as scribe for signing physician.
--- NOTE | 2020-02-28 11:45 | US ---
EXAMINATION TYPE: US carotid duplex BILAT DATE OF EXAM: 02/28/2020 COMPARISON: CLINICAL HISTORY: dizziness. hx tia. HTN yesterday. EXAM MEASUREMENTS: RIGHT: Peak Systolic Velocity (PSV) cm/sec ----- Right CCA: 80.1 ----- Right ICA: 73.5 ----- Right ECA: 137.7 ICA/CCA ratio: 0.9 RIGHT: End Diastole cm/sec ----- Right CCA: 16.4 ----- Right ICA: 23.0 ----- Right ECA: 15.6 LEFT: Peak Systolic Velocity (PSV) cm/sec ----- Left CCA: 93.5 ----- Left ICA: 72.3 ----- Left ECA: 85.4 ICA/CCA ratio: 0.8 LEFT: End Diastole cm/sec ----- Left CCA: 17.6 ----- Left ICA: 19.3 ----- Left ECA: 11.1 VERTEBRALS (direction of flow): Right Vertebral: Antegrade Left Vertebral: Antegrade Rhythm: Normal IMPRESSION: Bilateral plaque seen. Right elevated ECA velocities. Wall thickening. No significant stenosis. Criteria for Assigning % of Stenosis / Diameter reduction (Estimation based on the indirect measurements of the internal carotid artery velocities (ICA PSV). 1. Normal (no stenosis)=ICA PSV < 125 cm/s: ratio < 2.0: ICA EDV<40 cm/s. 2. Less than 50% stenosis=ICA PSV < 125 cm/s: ratio < 2.0: ICA EDV<40 cm/s. 3. 50 to 69% stenosis=ICA PSV of 125 to 230 cm/s: ration 2.0 ? 4.0: ICA EDV 40-100 cm/s. 4. Greater than 70% stenosis to near occlusion= ICA PSV > 230 cm/s: ratio > 4.0: ICA EDV > 100 cm/s. 5. Near occlusion= ICA PSV velocities may be low or undetectable: variable ratio and ICA EDV. 6. Total occlusion=unable to detect flow.
[2020-02-28] MEDS ORDERED: amLODIPine 10 MG TAB PO SCH (21:00)
--- NOTE | 2020-03-01 10:56 | ECHOF ---
Referral Reason:dizziness MEASUREMENTS -------- HEIGHT: 152.4 cm WEIGHT: 68.0 kg BP: RVIDd: 2.4 cm (< 3.3) IVSd: 1.1 cm (0.6 - 1.1) LVIDd: 4.1 cm (3.9 - 5.3) LVPWd: 1.1 cm (0.6 - 1.1) IVSs: 1.8 cm LVIDs: 1.6 cm LVPWs: 1.9 cm LAESV Index (A-L): 22.81 ml/m Ao Diam: 3.2 cm (2.0 - 3.7) AV Cusp: 2.0 cm (1.5 - 2.6) LA Diam: 2.7 cm (2.7 - 3.8) MV EXCURSION: 13.189 mm (> 18.000) MV EF SLOPE: 141 mm/s (70 - 150) EPSS: 1.1 cm MV E Vinicio: 0.85 m/s MV DecT: 170 ms MV A Vinicio: 0.89 m/s MV E/A Ratio: 0.96 RAP: 5.00 mmHg RVSP: 22.92 mmHg FINDINGS -------- Sinus rhythm. This was a technically good study. The left ventricular size is normal. Left ventricular wall thickness is normal. Overall left vent ricular systolic function is normal with, an EF between 55 - 60 %. The diastolic filling pattern is normal for the age of the patient 10.80. The right ventricle is normal in size. The left atrial size is normal. Normal LA size by volume 22+/-6 ml/m2. The right atrial size is normal. Interatrial and interventricular septum intact. The aortic valve is trileaflet and appears structurally normal. The mitral valve is normal. There is trace mitral regurgitation. The tricuspid valve appears structurally normal. Trace tricuspid regurgitation present. Right yaneth tricular systolic pressure is normal at < 35 mmHg. There is no pulmonic regurgitation present. The aortic root size is normal. Normal inferior vena cava with normal inspiratory collapse consistent with estimated right atrial pre ssure of 5 mmHg. There is no pericardial effusion. CONCLUSIONS -------- 1. Sinus rhythm. 2. This was a technically good study. 3. The left ventricular size is normal. 4. Left ventricular wall thickness is normal. 5. Overall left ventricular systolic function is normal with, an EF between 55 - 60 %. 6. The diastolic filling pattern is normal for the age of the patient 10.80 7. The right ventricle is normal in size. 8. The left atrial size is normal. 9. Normal LA size by volume 22+/-6 ml/m2. 10. The right atrial size is normal. 11. Interatrial and interventricular septum intact. 12. The aortic valve is trileaflet and appears structurally normal. 13. The mitral valve is normal. 14. There is trace mitral regurgitation. 15. The tricuspid valve appears structurally normal. 16. Trace tricuspid regurgitation present. 17. Right ventricular systolic pressure is normal at < 35 mmHg. 18. There is no pulmonic regurgitation present. 19. The aortic root size is normal. 20. Normal inferior vena cava with normal inspiratory collapse consistent with estimated right atrial pressure of 5 mmHg. 21. There is no pericardial effusion. RESEARCH INSTRUCTOR: Belkis Rodriguez RDCS
== END 2020-02-28 11:36 | disposition home or self-care (01) ==
LOC: EC 10:46 → 3SCARD 17:35
PROVIDERS: ADMIT Internal Medicine; ATTEND Internal Medicine
DX: I16.0 Hypertensive urgency (principal); I11.9 Hypertensive heart disease without heart failure; E78.5 Hyperlipidemia, unspecified; J44.9 Chronic obstructive pulmonary disease, unspecified; F41.1 Generalized anxiety disorder; R53.1 Weakness; M79.7 Fibromyalgia; K21.9 Gastro-esophageal reflux disease without esophagitis; E04.1 Nontoxic single thyroid nodule; G43.909 Migraine, unspecified, not intractable, without status migrainosus; H40.9 Unspecified glaucoma; H54.61 Unqualified visual loss, right eye, normal vision left eye; G89.29 Other chronic pain; M54.9 Dorsalgia, unspecified; M54.2 Cervicalgia; M79.606 Pain in leg, unspecified; L40.9 Psoriasis, unspecified; M19.072 Primary osteoarthritis, left ankle and foot; M19.071 Primary osteoarthritis, right ankle and foot; M19.049 Primary osteoarthritis, unspecified hand; M19.039 Primary osteoarthritis, unspecified wrist; I38 Endocarditis, valve unspecified; F41.9 Anxiety disorder, unspecified; F17.210 Nicotine dependence, cigarettes, uncomplicated; F31.9 Bipolar disorder, unspecified; Z11.59 Encounter for screening for other viral diseases; Z79.899 Other long term (current) drug therapy; Z79.891 Long term (current) use of opiate analgesic; Z79.52 Long term (current) use of systemic steroids; Z79.82 Long term (current) use of aspirin; Z88.8 Allergy status to other drugs, medicaments and biological substances; Z91.041 Radiographic dye allergy status; Z88.0 Allergy status to penicillin; Z91.030 Bee allergy status; Z88.5 Allergy status to narcotic agent; Z91.09 Other allergy status, other than to drugs and biological substances; Z85.41 Personal history of malignant neoplasm of cervix uteri; Z86.73 Personal history of transient ischemic attack (TIA), and cerebral infarction without residual deficits; Z86.69 Personal history of other diseases of the nervous system and sense organs; Z87.442 Personal history of urinary calculi; Z86.14 Personal history of Methicillin resistant Staphylococcus aureus infection; Z90.49 Acquired absence of other specified parts of digestive tract; Z98.890 Other specified postprocedural states; Z90.710 Acquired absence of both cervix and uterus; Z96.643 Presence of artificial hip joint, bilateral; Z90.81 Acquired absence of spleen; Z98.1 Arthrodesis status; Z91.89 Other specified personal risk factors, not elsewhere classified; Z82.5 Family history of asthma and other chronic lower respiratory diseases; Z81.8 Family history of other mental and behavioral disorders; Z80.49 Family history of malignant neoplasm of other genital organs; Z82.69 Family history of other diseases of the musculoskeletal system and connective tissue; Z82.2 Family history of deafness and hearing loss; Z81.1 Family history of alcohol abuse and dependence; Z82.49 Family history of ischemic heart disease and other diseases of the circulatory system
CPT/HCPCS: 96376 ×2; 93005 ×2; 96361; 96374; 96375; 99285; 36415; 93306; 36410; 76937; 85379; 83880; 80061; 80053; 80048; 83690; 83735; 84484 ×2; 85025; 85027; 85610; 85730; 81003; 87635; 71046; 93880; 71275; G0378 ×2; J2270; J1200; J2930; J2405 ×2; Q9967

== ENCOUNTER → 2020-07-01 | Outpatient (CLI) | payer MEDICARE, OTHER ==
--- NOTE | 2020-07-02 07:54 | XR ---
EXAMINATION TYPE: XR chest 2V DATE OF EXAM: 07/01/2020 COMPARISON: 02/27/2020 HISTORY: 60 year-old female chronic bronchitis TECHNIQUE: Frontal and lateral views FINDINGS: Heart normal size. Aorta and pulmonary vasculature are within normal limits. Mild prominence is uncha nged. ACDF hardware. No consolidation or pleural effusion. Small focal density projecting at the righ t upper lung may correspond to prominent second anterior rib end but is more pronounced from prior. IMPRESSION: 1. Nodular density projecting at the right upper lung could be summation artifact. Recommend contrast -enhanced CT chest in order to compare to the patient's 02/27/2020 exam and to exclude a new pulmonary nodule/early lung cancer. 2. Similar diffuse interstitial density suggesting bronchitis or chronic asthma. Otherwise, no acute process seen.
== END | disposition home or self-care (01) ==
LOC: RAD 15:50
PROVIDERS: ATTEND Family Medicine
DX: R91.1 Solitary pulmonary nodule (principal); J42 Unspecified chronic bronchitis
CPT/HCPCS: 71046

== ENCOUNTER → 2020-07-03 | Outpatient (CLI) | payer MEDICARE, OTHER | END | disposition home or self-care (01) | LOC: LABWHC1 10:02 | PROVIDERS: ATTEND Family Medicine | DX: Z03.818 Encounter for observation for suspected exposure to other biological agents ruled out (principal) | CPT/HCPCS: U0003; C9803 ==

== ENCOUNTER → 2020-08-06 | Outpatient (CLI) | payer MEDICARE, OTHER ==
--- NOTE | 2020-08-06 14:04 | CT ---
EXAMINATION TYPE: CT chest wo con DATE OF EXAM: 08/06/2020 COMPARISON: Chest x-ray July 01, 2020. CTA chest February 27, 2020. HISTORY: Cough, bronchitis CT DLP: 242.2 mGycm. Automated Exposure Control for Dose Reduction was Utilized. TECHNIQUE: CT scan of the thorax is performed without IV contrast. FINDINGS: LUNGS: Mild underlying emphysematous change. Improved breath-hold on current study. Suspicious 10 x 8 mm right upper lobe nodule image 13 in retrospect increased in size from prior study. No new suspici ous consolidation. No pleural effusion or pneumothorax. MEDIASTINUM: Lack of IV contrast is noted to limit evaluation for mediastinal and especially hilar ad enopathy. There there is no suspicious right paratracheal lymph node measuring 2.3 x 1.4 cm axial norm ge 17. Prominent 1.5 x 1.2 cm right tracheobronchial lymph node on image 21. No cardiomegaly or jaky cardial effusion is seen. Moderate coronary artery calcification redemonstrated. OTHER: Cholecystectomy clips noted. Moderate multilevel spurring in the mid to lower thoracic spine. Anterior fusion plate lower cervical spine partially imaged. IMPRESSION: Mild emphysematous change without acute pulmonary process. Enlarging 10 x 8 mm right uppe r lobe nodule with new thoracic adenopathy. Underlying neoplasm suspected. Follow-up advised. PET/CT recommended. A Yellow level critical message alert has been initiated for Torsten Melissa DO via the [employer] Critical Results System on 08/06/2020 2:01 PM. This message alert has been sent to Torsten salcedo DO via the preferences provided by the clinician for the receipt of Radiology Critical Findings . Message ID [id number].
== END | disposition home or self-care (01) ==
LOC: RADCTMAIN 07-24 13:29
PROVIDERS: ATTEND Family Medicine
DX: J43.9 Emphysema, unspecified (principal); R59.0 Localized enlarged lymph nodes; R91.1 Solitary pulmonary nodule; J20.9 Acute bronchitis, unspecified
CPT/HCPCS: 71250

== ENCOUNTER 2020-08-08 09:23 | Day surgery (SDC) | payer MEDICARE, OTHER ==
[2020-06-25 17:06] VITALS: BMI 29.2
[~2020-08-08 09:23] MED LIST changes: -DEXAMETHASONE SOD PHOSPHATE 10 MG/ML 1 ML VIAL IV ONE; -ONDANSETRON 4 MG/2 ML VIAL IVP ONE; -Pre Op ABX Message 1 EACH MISC MISCELLANE ONE
[2020-08-08] MEDS ORDERED: ONDANSETRON 4 MG/2 ML VIAL ONE (10:27)
[2020-08-08 10:29] VITALS: RESP 16; TEMP 97.6
[2020-08-08] MEDS ORDERED: ONDANSETRON 4 MG/2 ML VIAL IVP ONE ×2 (10:32)
[2020-08-08 10:38] LABS: Glucose,Whole Blood 108 mg/dL (75-99)
[2020-08-08] MEDS ORDERED: MIDAZOLAM 2 MG/2 ML VIAL IV ONE (10:40)
[2020-08-08] MEDS ORDERED: LIDOCAINE 1% INJ 10MG/ML (20 ML MDV) ONE (10:57)
[2020-08-08] MEDS ORDERED: PROPOFOL 10 MG/ML 50 ML VIAL IV ONE (10:57)
--- NOTE | 2020-08-08 11:00 | P.GSHP ---
History of Present Illness H&P Date: 08/08/20 Chief Complaint: GI bleed, GERD This a 60-year-old female who is today for EGD and colonoscopy. She this GERD GI bleed. Past Medical History Past Medical History: Asthma, Cancer, Chest Pain / Angina, COPD, CVA/TIA, Fibromyalgia, GERD/Reflux, Hyperlipidemia, Hypertension, Osteoarthritis (OA), Pneumonia, Skin Disorder, Thyroid Disorder Additional Past Medical History / Comment(s): KIDNEY STONES, MULT TIA'S, migraines, glaucoma right eye/BLIND, chronic BACK, NECK, LEG pain. PSORIASTIC arthritis, HX cervical Ca, hypoglycemia, hx leaky heart valve, thyroid nodules, recently finished Rx for pneumonia-resolved, hx ulcer, IBS, bloatiing. diarrhea/constipation/ gas, nausea and vomiting, hx pancreatitis, hx gout, frequent UTI's, takes daily low dose aspirin for "thick blood". States pnemonia resolved. History of Any Multi-Drug Resistant Organisms: MRSA Date of last positivie culture/infection: 2011 MDRO Source:: Lungs Past Surgical History: Appendectomy, Back Surgery, Cholecystectomy, Heart Catheterization, Hysterectomy, Joint Replacement Additional Past Surgical History / Comment(s): cryotherapy, splenectomy, tracheotomy, juan alberto hip replacement, cervical fustion(3-4-5-6) /titanium jareth , LITHOTRIPSY, PAIN CLINIC PROCEDURES, laser sugery rt eye for glaucoma, left cataract surgery Past Anesthesia/Blood Transfusion Reactions: Previous Problems w/ Anesthesia, Motion Sickness, Postoperative Nausea & Vomiting (PONV) Additional Past Anesthesia/Blood Transfusion Reaction / Comment(s): after gallbladder surgery had NG tube inserted "belly remained asleep after anesthesia" Smoking Status: Current every day smoker - Past Family History Sister(s) Family Medical History: COPD Additional Family Medical History / Comment(s): Bipolar disorder Daughter(s) Family Medical History: Cancer Additional Family Medical History / Comment(s): Cervical cancer Son(s) Family Medical History: Asthma, COPD Additional Family Medical History / Comment(s): Bipolar disorder Father Family Medical History: No Reported History Additional Family Medical History / Comment(s): Gout, deaf, alcoholism. Killed by a drunk motorcoach driver. Mother Family Medical History: COPD, Myocardial Infarction ([place]) Additional Family Medical History / Comment(s): emphysema Medications and Allergies Home Medications Medication Instructions Recorded Confirmed Type Atorvastatin [Lipitor] 20 mg PO HS 07/29/14 08/08/20 History DULoxetine HCL [Cymbalta] 60 mg PO BID 07/29/14 08/08/20 History Furosemide [Lasix] 40 mg PO DAILY 07/29/14 08/08/20 History Docusate [Colace] 100 mg PO HS PRN 02/26/17 08/08/20 History HYDROcodone/APAP 10-325MG [[place] 1 tab PO QID 02/26/17 08/08/20 History 10-325] Ondansetron [Zofran] 4 mg PO Q8HR PRN 04/01/18 08/08/20 History Atropine Ophth Soln 1% 5Ml [Isopto 1 drops RIGHT EYE BID 11/01/18 08/08/20 History Atropine 1% 5Ml] Loratadine [Claritin] 10 mg PO DIRECTED PRN 11/01/18 08/08/20 History Aspirin [Adult Low Dose Aspirin EC] 81 mg PO DAILY 12/20/19 08/08/20 History LORazepam [Ativan] 2 mg PO TID PRN 12/20/19 08/08/20 History Albuterol Sulfate [Ventolin HFA] 2 puff INHALATION RT-QID PRN 02/27/20 08/08/20 History Meclizine [Antivert] 25 mg PO TID PRN #60 tab 02/28/20 08/08/20 Rx Losartan Potassium 100 mg PO QAM 06/25/20 08/08/20 History [place]-3 Fatty Acids [[place]-3] 1,000 mg PO HS 06/25/20 08/08/20 History Omeprazole [PriLOSEC] 20 mg PO AC-BID 06/25/20 08/08/20 History Prednisone Acelate Ophthalmic 1 drop RIGHT EYE BID 06/25/20 08/08/20 History amLODIPine BESYLATE 5 mg PO HS 06/25/20 08/08/20 History Ibuprofen [Motrin] 400 mg PO Q8HR PRN 07/17/20 08/08/20 History Allergies Allergy/AdvReac Type Severity Reaction Status Date / Time cyclobenzaprine HCl Allergy Swelling Verified 08/06/20 14:48 [From Flexeril] Iodinated Contrast Media Allergy Anaphylaxis Verified 08/06/20 14:48 [Iodinated Contrast Media - IV Dye] lithium [[place]] Allergy Swelling Verified 08/06/20 14:48 Penicillins Allergy Rash/Hives Verified 08/06/20 14:48 adhesive tape AdvReac Rash/Hives Verified 08/06/20 14:48 bee pollen AdvReac Swelling Verified 08/06/20 14:48 morphine AdvReac GETS ANGRY Verified 08/06/20 14:48 Surgical - Exam Vital Signs Temp Pulse Resp BP Pulse Ox 97.6 F 89 16 156/92 97 08/08/20 10:24 08/08/20 10:24 08/08/20 10:24 08/08/20 10:24 08/08/20 10:24 - General well developed, well nourished, no distress - Eyes PERRL - ENT normal pinna - Neck no masses - Respiratory normal expansion - Cardiovascular Rhythm: regular - Abdomen Abdomen: soft, non tender Results - Labs Abnormal Lab Results - Last 24 Hours (Table) 08/08/20 Range/Units 10:36 POC Glucose (mg/dL) 108 H (75-99) mg/dL Assessment and Plan Assessment: GERD, GI bleed. Will perform EGD and colonoscopy
--- NOTE | 2020-08-08 11:23 | P.OP ---
Date of Procedure: 08/08/20 Preoperative Diagnosis: GERD GI bleed Postoperative Diagnosis: Antral gastritis Esophagitis Internal hemorrhoids Procedure(s) Performed: EGD Colonoscopy Anesthesia: MAC Surgeon: Uziel Grubbs Pathology: other (Antrum, esophagus) Condition: stable Disposition: PACU Description of Procedure: The patient's placed on the endoscopy table in the lateral position. She received IV sedation. The gastroscope placed oropharynx and passed in the esophagus and the stomach. Scope was then placed through the pylorus. The first and second portion of the duodenum appeared normal. Scope was then brought back the antrum and this appeared mildly inflamed. A biopsies performed. Scope was retroflexed and remainder of the stomach appeared normal. There was no significant hiatal hernia. The GE junction was at 40 cm the distal esophagus appeared inflamed and a biopsies performed. The proximal esophagus appeared normal. Scope was withdrawn for patient. Next digital rectal exam was performed which revealed no abnormalities. The flexible colonoscope was then placed patient anus passed with the colon. The colon was very tortuous. The colon colonoscope was then withdrawn. The ascending colon transverse colon descending colon appeared normal. There a few scattered diverticula. Descending and sigmoid colon was quite tortuous. Scope was withdrawn back the rectum this appeared normal. Scope withdrawn for patient. There were a few internal hemorrhoids noted. There is no unsteady GI bleed. His resume the patient may have had rectal bleeding from internal hemorrhoids.
[2020-08-08 11:49] VITALS: BP 138/86; PULSE 79
== END 2020-08-08 12:29 | disposition home or self-care (01) ==
LOC: ORWHC2ENDO 09:23
PROVIDERS: ATTEND Surgery
DX: K29.50 Unspecified chronic gastritis without bleeding (principal); K21.00 Gastro-esophageal reflux disease with esophagitis, without bleeding; K64.8 Other hemorrhoids; Q43.8 Other specified congenital malformations of intestine; K92.2 Gastrointestinal hemorrhage, unspecified; I10 Essential (primary) hypertension; E78.5 Hyperlipidemia, unspecified; J44.9 Chronic obstructive pulmonary disease, unspecified; Z86.73 Personal history of transient ischemic attack (TIA), and cerebral infarction without residual deficits; M79.7 Fibromyalgia; M19.90 Unspecified osteoarthritis, unspecified site; Z87.01 Personal history of pneumonia (recurrent); Z87.442 Personal history of urinary calculi; G43.909 Migraine, unspecified, not intractable, without status migrainosus; H40.9 Unspecified glaucoma; H54.61 Unqualified visual loss, right eye, normal vision left eye; G89.29 Other chronic pain; M54.9 Dorsalgia, unspecified; M54.2 Cervicalgia; M79.606 Pain in leg, unspecified; L40.50 Arthropathic psoriasis, unspecified; Z85.41 Personal history of malignant neoplasm of cervix uteri; E04.1 Nontoxic single thyroid nodule; E16.2 Hypoglycemia, unspecified; I38 Endocarditis, valve unspecified; K58.9 Irritable bowel syndrome, unspecified; Z87.19 Personal history of other diseases of the digestive system; Z87.39 Personal history of other diseases of the musculoskeletal system and connective tissue; Z87.440 Personal history of urinary (tract) infections; Z79.82 Long term (current) use of aspirin; Z86.14 Personal history of Methicillin resistant Staphylococcus aureus infection; Z90.49 Acquired absence of other specified parts of digestive tract; Z90.710 Acquired absence of both cervix and uterus; Z98.890 Other specified postprocedural states; Z90.81 Acquired absence of spleen; Z96.643 Presence of artificial hip joint, bilateral; Z98.42 Cataract extraction status, left eye; Z82.5 Family history of asthma and other chronic lower respiratory diseases; Z81.8 Family history of other mental and behavioral disorders; Z82.69 Family history of other diseases of the musculoskeletal system and connective tissue; Z83.52 Family history of ear disorders; Z81.1 Family history of alcohol abuse and dependence; Z82.49 Family history of ischemic heart disease and other diseases of the circulatory system; Z79.1 Long term (current) use of non-steroidal anti-inflammatories (NSAID); Z79.891 Long term (current) use of opiate analgesic; Z79.899 Other long term (current) drug therapy; Z91.030 Bee allergy status; Z91.041 Radiographic dye allergy status; Z88.5 Allergy status to narcotic agent; Z88.0 Allergy status to penicillin; Z88.8 Allergy status to other drugs, medicaments and biological substances; Z91.09 Other allergy status, other than to drugs and biological substances; F17.210 Nicotine dependence, cigarettes, uncomplicated
CPT/HCPCS: 36410; 76937; 88305; 45378; 43239; J2250; J2405; J2001; J2704

== ENCOUNTER → 2020-08-09 | Outpatient (CLI) | payer MEDICARE, OTHER ==
--- NOTE | 2020-08-13 11:06 | PE ---
EXAMINATION TYPE: PET CT fusion skull to thigh DATE OF EXAM: 08/09/2020 COMPARISON: CT chest 08/06/2020 Prior PET/CT: None HISTORY: History of cervical cancer. Solitary pulmonary nodule. TECHNIQUE: Following the intravenous administration of 10.63 mCi of F-18 FDG, whole body images are performed from the skull base to the midthigh. Images are reviewed on the computer in the coronal, a xial, and sagittal planes. Reconstructed rotating images are created on independent workstation and reviewed on the computer. A localization and attenuation correction CT is performed in conjunction with the PET scan. SCAN: Initial Scan Blood glucose: 120 mg/dL FINDINGS: NECK: No hypermetabolic activity. THORAX: The 1.0 cm right upper lobe pulmonary nodule demonstrates marked hypermetabolic activity (norm ge 22). There is mediastinal adenopathy demonstrating marked hypermetabolic activity, measuring up to 1.9 x 2.4 cm pretracheal (series 3 image 75), 1.5 x 1.2 cm right precarinal (series 3 image 79), and 1.6 x 1.7 cm (series 3 image 84). There is no hilar or axillary hypermetabolic lymphadenopathy bilat erally. ABDOMEN/PELVIS: No hypermetabolic activity. OSSEOUS STRUCTURES: No hypermetabolic activity. LOCALIZATION CT: Calcified coronary artery disease. No pericardial or pleural effusion. Status post c holecystectomy. There are bilateral nonobstructing renal calculi, largest measuring up to 7 mm bilate rally. No hydronephrosis. The pelvis and lower abdomen is obscured by streak artifact from the bilate ral hip prostheses. There is colonic diverticulosis. No ascites is seen. No abdominopelvic lymphadeno daisy. Mild infrarenal abdominal aortic ectasia measures up to 1.9 cm. Cervical spine fixation hardwa re. Degenerative changes of the spine. No aggressive osseous destructive lesions. IMPRESSION: 1. 1.0 cm right upper lobe pulmonary nodule demonstrates marked hypermetabolic activity most likely r epresenting malignancy, either of lung primary or metastatic disease. 2. Markedly hypermetabolic mediastinal lymphadenopathy most likely represents metastatic disease. 3. No evidence of metastatic disease within the neck, abdomen, or pelvis.
== END | disposition home or self-care (01) ==
LOC: RADPETMAIN 07:46
PROVIDERS: ATTEND Family Medicine
DX: R91.1 Solitary pulmonary nodule (principal); R59.0 Localized enlarged lymph nodes
CPT/HCPCS: 78815; A9552

== ENCOUNTER 2020-08-22 10:42 | Day surgery (SDC) | payer MEDICARE, OTHER ==
[2020-08-20 15:24] VITALS: BMI 28.7
[~2020-08-22 10:42] MED LIST changes: +ALBUTEROL NEB (CONC) 2.5 MG/0.5 ML INHALATION ONE; +LIDOCAINE 1% (10MG/ML) FOR IV START INTRADERMA PRN; +LIDOCAINE 2% (PF) 20 MG/ML 5 ML VIAL INHALATION ONE; +LIDOCAINE VISCOUS 300 MG/15 ML CUP MUCOUS MEM ONE; +SODIUM CHLORIDE 0.9% 1,000 ML IV SCH
[2020-08-22] MEDS: ONDANSETRON 4 MG/2 ML VIAL ONE ×2 (11:50→14:21)
[2020-08-22] MEDS ORDERED: SUCCINYLCHOLINE CHLORIDE 100 MG/5 ML SYR IV ONE (12:39)
[2020-08-22] MEDS ORDERED: LIDOCAINE 1% INJ 10MG/ML (20 ML MDV) ONE (12:39)
[2020-08-22] MEDS ORDERED: PROPOFOL 10 MG/ML 20 ML VIAL IV ONE (12:39)
[2020-08-22 13:53] VITALS: TEMP 97
--- NOTE | 2020-08-22 14:25 | XR ---
EXAMINATION TYPE: XR chest 1V DATE OF EXAM: 08/22/2020 COMPARISON: Prior chest x-ray 07/01/2020 HISTORY: Status post bronchoscopy TECHNIQUE: Single frontal view of the chest is obtained. FINDINGS: Right upper lobe nodule is only vaguely seen. There is no focal air space opacity, pleural effusion, or pneumothorax seen. Strand-like densities are present at the lung bases possibly reflect ing subsegmental atelectatic change or scarring. The cardiac silhouette size is within normal limits. The osseous structures are intact. IMPRESSION: No evident comp occasions status post bronchoscopy.
[2020-08-22 14:46] VITALS: RESP 20
[2020-08-22 15:00] VITALS: BP 127/79; PULSE 79
--- NOTE | 2020-08-22 17:32 | P.PCN ---
Date of Procedure: 08/22/20 Preoperative Diagnosis: mediastinal lymphadenopathy Postoperative Diagnosis: mediastinal lymphadenopathy Procedure(s) Performed: rhonchi auscultated, transbronchial needle aspirate of the mediastinal lymph node Anesthesia: MARIA ELENAA Surgeon: Dewayne Krishnamurthy Estimated Blood Loss (ml): 5 Pathology: other Condition: stable Disposition: same day Operative Findings: the patient was brought in the endoscopy suite. the procedure including the potential complications with [place] the patient at length in the office. A timeout was done. Following that, I was informed that the procedure had to be done under general anesthesia was the patient being intubated due to concerns of coronavirus covenant infection. As such, the patient was inducedand then the patient was intubated by the anesthesia team and a #8 orotracheal tube was inserted to secure the airway. The procedure was done as the patient was being adequately oxygenated a mechanical ventilated.a adapter wasn't tested orotracheal tube and following that the flexible bronchoscope was inserted into the lower trachea and examination tracheal bronchus he was on. There was loose respiratory secretions encountered throughout the patient's airway. Secretions were suctioned out. The visualized airways including the distal trachea, bilateral mainstem bronchi, right upper lobe bronchus, right middle lobe bronchus and right lower lobe bronchus in addition to the left upper lobe bronchus and left lower bronchus. I also visualized the various segments and subsegments. There was a component of tracheal bronchomalacia throughout the patient's airways. No foreign bodies. No blood. No polyps. No lesions. At this point, chest needle aspirate of the anterior tracheal lymph node was done using a 19-gauge on the needle and a 21-gauge ALTAMIRANO needle. Both cytologic samples and histologic samples were obtained as several passes was done using various needles. No bleeding was encountered and the patient tolerated the procedure well. Following extubation, patient remained a bit restless and anxious and she did thrash for a few minutes and subsequently she did calm down and became more cooperative. Breath sounds are equal and bilateral. Patient was transferred to recovery in stable condition. Chest x-rays to follow. The patient was discharged home once cleared by anesthesia to be followed up with me in the office.
== END 2020-08-22 15:25 | disposition home or self-care (01) ==
LOC: ORWHC2ENDO 10:42
PROVIDERS: ATTEND Internal Medicine Critical Care Medicine
DX: C77.1 Secondary and unspecified malignant neoplasm of intrathoracic lymph nodes (principal); R91.1 Solitary pulmonary nodule; J98.09 Other diseases of bronchus, not elsewhere classified; H40.9 Unspecified glaucoma; K21.9 Gastro-esophageal reflux disease without esophagitis; I10 Essential (primary) hypertension; F41.9 Anxiety disorder, unspecified; F31.9 Bipolar disorder, unspecified; J43.9 Emphysema, unspecified; F17.210 Nicotine dependence, cigarettes, uncomplicated; K08.89 Other specified disorders of teeth and supporting structures; E78.5 Hyperlipidemia, unspecified; Z88.8 Allergy status to other drugs, medicaments and biological substances; Z88.5 Allergy status to narcotic agent; Z88.0 Allergy status to penicillin; Z91.041 Radiographic dye allergy status; Z79.899 Other long term (current) drug therapy; Z79.82 Long term (current) use of aspirin; Z79.891 Long term (current) use of opiate analgesic; Z79.52 Long term (current) use of systemic steroids; Z90.710 Acquired absence of both cervix and uterus; Z90.81 Acquired absence of spleen; Z90.49 Acquired absence of other specified parts of digestive tract; Z98.890 Other specified postprocedural states; Z92.89 Personal history of other medical treatment; Z31.9 Encounter for procreative management, unspecified; Z85.41 Personal history of malignant neoplasm of cervix uteri; Z82.5 Family history of asthma and other chronic lower respiratory diseases
CPT/HCPCS: 88305; 88173; 88342; 88341; 71045; 31629; J2405; J2001; J0330; J2704

== ENCOUNTER → 2020-08-27 | Outpatient (CLI) | payer MEDICARE, OTHER ==
--- NOTE | 2020-08-27 15:05 | MR ---
MR brain without contrast HISTORY: Lung carcinoma, C 34.91 Multiplanar multisequence imaging through the brain Correlation to CT brain dated 12/05/2019 Technologist was unable to obtain intravenous access. Scattered hyperintensities are present on inversion recovery T2-weighted sequences within the subcort ical, periventricular white matter, there are approximately 20 lesions present. There is no hemorrhag e or hydrocephalus. There is asymmetric signal within the globes. There are normal vascular flow void s. There is no restricted diffusion. Corpus callosum, pituitary, cervical measuring junction, cerebellop ontine angles are unremarkable, there is a partially empty sella. IMPRESSION: Nonspecific white matter demyelination. Lack of intravenous contrast could compromise sen sitivity to evaluate for metastasis, no metastasis evident however. Contrast-enhanced study could be performed if intravenous access can be obtained. Asymmetric globe signal.
== END | disposition home or self-care (01) ==
LOC: RADMRIMAIN 13:29
PROVIDERS: ATTEND Internal Medicine Hematology & Oncology
DX: G37.8 Other specified demyelinating diseases of central nervous system (principal); C34.91 Malignant neoplasm of unspecified part of right bronchus or lung
CPT/HCPCS: 70551

== ENCOUNTER 2020-09-02 06:02 | Day surgery (SDC) | payer MEDICARE, OTHER ==
[2020-08-30 10:07] VITALS: BMI 28.9
[~2020-09-02 06:02] MED LIST changes: -ALBUTEROL NEB (CONC) 2.5 MG/0.5 ML INHALATION ONE; +DEXAMETHASONE SOD PHOSPHATE 4 MG/ML 1 ML VIAL IV ONE; +HEPARIN SODIUM,PORCINE 5,000 UNIT/ML 1 ML VIAL SQ ONE; +HYDROmorphone 0.5 MG/0.5 ML SYRINGE IVP PRN; -LIDOCAINE 2% (PF) 20 MG/ML 5 ML VIAL INHALATION ONE; -LIDOCAINE VISCOUS 300 MG/15 ML CUP MUCOUS MEM ONE; +ONDANSETRON 4 MG/2 ML VIAL IVP ONE; +Pre Op ABX Message 1 EACH MISC MISCELLANE ONE; -SODIUM CHLORIDE 0.9% 1,000 ML IV SCH
[2020-09-02 06:39] VITALS: RESP 18; TEMP 97.5
[2020-09-02 06:43] LABS: Glucose,Whole Blood 112 mg/dL (75-99)
[2020-09-02] MEDS ORDERED: ACETAMINOPHEN TAB 500 MG TAB ONE (06:46)
[2020-09-02] MEDS ORDERED: MIDAZOLAM 2 MG/2 ML VIAL IVP ONE (07:08)
[2020-09-02] MEDS ORDERED: MIDAZOLAM 2 MG/2 ML VIAL ONE ×2 (07:40)
[2020-09-02] MEDS ORDERED: fentaNYL (PF) 50 MCG/ML 2 ML AMP ONE (07:40)
[2020-09-02] MEDS ORDERED: PROPOFOL 10 MG/ML 20 ML VIAL IV ONE (07:40)
[2020-09-02] MEDS ORDERED: LIDOCAINE 1%-EPI 1:100,000 20 ML VIAL SQ ONE ×2 (07:59)
--- NOTE | 2020-09-02 08:24 | P.GSHP ---
History of Present Illness H&P Date: 09/02/20 Chief Complaint: History of lung cancer This 60-year-old female recently diagnosed with lung cancer. Patient is presents today for Port-A-Cath insertion. Past Medical History Past Medical History: Asthma, Cancer, Chest Pain / Angina, COPD, CVA/TIA, Fibromyalgia, GERD/Reflux, Hyperlipidemia, Hypertension, Osteoarthritis (OA), Pneumonia, Skin Disorder, Thyroid Disorder Additional Past Medical History / Comment(s): KIDNEY STONES, MULT TIA'S, migraines, glaucoma right eye/BLIND, chronic BACK, NECK, LEG pain. PSORIASTIC arthritis, HX cervical Ca, hypoglycemia, hx leaky heart valve, thyroid nodules, hx ulcer, IBS, bloatiing. diarrhea/constipation/ gas, nausea and vomiting, hx pancreatitis, hx gout, frequent UTI's, takes daikly low dose aspirin for "thick blood" NEW DX OF LUNG CANCER, sob and dry cough History of Any Multi-Drug Resistant Organisms: MRSA Date of last positivie culture/infection: 2011 MDRO Source:: Lungs Past Surgical History: Appendectomy, Back Surgery, Cholecystectomy, Heart Catheterization, Hysterectomy, Joint Replacement Additional Past Surgical History / Comment(s): cryotherapy, splenectomy, tracheotomy, juan alberto hip replacement, cervical fustion(3-4-5-6) /titanium jareth , LITHOTRIPSY, PAIN CLINIC PROCEDURES, laser sugery rt eye for glaucoma, left cataract surgery, COLONOSCOPY/EGD, bronchoscopy 08/22/20 Past Anesthesia/Blood Transfusion Reactions: Previous Problems w/ Anesthesia, Motion Sickness, Postoperative Nausea & Vomiting (PONV) Additional Past Anesthesia/Blood Transfusion Reaction / Comment(s): after gallbladder surgery had NG tube inserted "belly remained asleep after anesthesia". diff IV starts Smoking Status: Current every day smoker - Past Family History Daughter(s) Family Medical History: Cancer Additional Family Medical History / Comment(s): Cervical cancer Son(s) Family Medical History: Asthma, COPD Additional Family Medical History / Comment(s): Bipolar disorder Medications and Allergies Home Medications Medication Instructions Recorded Confirmed Type Atorvastatin [Lipitor] 20 mg PO HS 07/29/14 09/02/20 History DULoxetine HCL [Cymbalta] 60 mg PO BID 07/29/14 09/02/20 History Furosemide [Lasix] 40 mg PO DAILY 07/29/14 09/02/20 History Docusate [Colace] 100 mg PO HS PRN 02/26/17 09/02/20 History HYDROcodone/APAP 10-325MG [[place] 1 tab PO QID 02/26/17 09/02/20 History 10-325] Ondansetron [Zofran] 4 mg PO Q8HR PRN 04/01/18 09/02/20 History Atropine Ophth Soln 1% 5Ml [Isopto 1 drops RIGHT EYE BID 11/01/18 09/02/20 History Atropine 1% 5Ml] Loratadine [Claritin] 10 mg PO DIRECTED PRN 11/01/18 09/02/20 History Aspirin [Adult Low Dose Aspirin EC] 81 mg PO DAILY 12/20/19 09/02/20 History LORazepam [Ativan] 2 mg PO TID PRN 12/20/19 09/02/20 History Albuterol Sulfate [Ventolin HFA] 2 puff INHALATION TID 02/27/20 09/02/20 History Meclizine [Antivert] 25 mg PO TID PRN #60 tab 02/28/20 09/02/20 Rx Losartan Potassium 50 mg PO QAM 06/25/20 09/02/20 History [place]-3 Fatty Acids [[place]-3] 1,000 mg PO HS 06/25/20 09/02/20 History Omeprazole [PriLOSEC] 20 mg PO AC-BID 06/25/20 09/02/20 History Prednisone Acelate Ophthalmic 1 drop RIGHT EYE BID 06/25/20 09/02/20 History amLODIPine BESYLATE 5 mg PO HS 06/25/20 09/02/20 History Ibuprofen [Motrin] 400 mg PO Q8HR PRN 07/17/20 09/02/20 History Albuterol Nebulized [Ventolin 2.5 mg INHALATION TID 08/30/20 09/02/20 History Nebulized] Allergies Allergy/AdvReac Type Severity Reaction Status Date / Time cyclobenzaprine HCl Allergy Swelling Verified 09/02/20 06:23 [From Flexeril] Iodinated Contrast Media Allergy Anaphylaxis Verified 09/02/20 06:23 [Iodinated Contrast Media - IV Dye] lithium [[place]] Allergy Swelling Verified 09/02/20 06:23 Penicillins Allergy Rash/Hives Verified 09/02/20 06:23 adhesive tape AdvReac Rash/Hives Verified 09/02/20 06:23 bee pollen AdvReac Swelling Verified 09/02/20 06:23 morphine AdvReac GETS ANGRY Verified 09/02/20 06:23 Surgical - Exam Vital Signs Temp Pulse Resp BP Pulse Ox 97.5 F L 69 18 136/71 93 L 09/02/20 06:23 09/02/20 06:23 09/02/20 06:23 09/02/20 06:23 09/02/20 06:23 - General well developed, well nourished, no distress - Eyes PERRL - ENT normal pinna - Neck no masses - Respiratory normal expansion - Cardiovascular Rhythm: regular - Abdomen Abdomen: soft, non tender Results - Labs Abnormal Lab Results - Last 24 Hours (Table) 09/02/20 Range/Units 06:36 POC Glucose (mg/dL) 112 H (75-99) mg/dL Assessment and Plan Assessment: History of lung cancer. We'll perform Port-A-Cath insertion.
--- NOTE | 2020-09-02 08:25 | P.OP ---
Date of Procedure: 09/02/20 Preoperative Diagnosis: Lung cancer Postoperative Diagnosis: Lung cancer Procedure(s) Performed: Insertion of right subclavian Port-A-Cath Anesthesia: MAC Surgeon: Uziel Grubbs Estimated Blood Loss (ml): 10 Pathology: none sent Condition: stable Disposition: PACU Description of Procedure: MyPROCEDURE: The patient was placed on the operating table in the supine position. She received MAC anesthetic. The right chest was prepped and draped in the usual sterile fashion. The skin underneath the right clavicle was anesthetized with 1% Xylocaine and using Seldinger technique, the right subclavian vein was cannulized. The wire was placed through the needle and positioned under fluoroscopy. Next, the needle was removed and the port site was anesthetized with 1% Xylocaine. Skin was incised with #15 blade and port pocket was made using blunt and sharp dissection. Following this the catheter was attached to the sport and the port was flushed. The port was positioned into the pocket site and was secured with 3-0 Vicryl suture. The catheter was then brought out through the wire site and then the dilator sheath was placed over the wire and the dilator and the wire were removed. The catheter was placed through the sheath and the sheath was removed. The port was flushed with hep-lock solution. Skin was closed with interrupted 3-0 Vicryl sutures. Steri- Strips were applied. The patient tolerated the procedure well. The patient was sent to recovery room for chest x-ray after the procedure.
--- NOTE | 2020-09-02 08:28 | FL ---
EXAMINATION TYPE: FL guided central line placemt HISTORY: Fluoroscopy time Impression: 1. Fluoroscopy support of 4 seconds provided to the referring physician.
[2020-09-02 08:44] VITALS: BP 139/82; PULSE 94
--- NOTE | 2020-09-02 08:48 | XR ---
EXAMINATION TYPE: XR chest 1V portable DATE OF EXAM: 09/02/2020 COMPARISON: 08/22/2020 HISTORY: Mediport placement TECHNIQUE: Single frontal view of the chest is obtained. FINDINGS: Postsurgical change overlying the cervical spine are submitted for with the tip of the cat heter overlying the SVC. No sizable pneumothorax. No consolidation. Subsegmental linear changes at th e left lung base most typical of atelectasis nodule in the right upper lobe is not as well-seen on to day's exam. Hyperinflation suggests COPD. Sclerotic change involving the right humeral head could be associated with bone infarct. IMPRESSION: Mediport catheter seen with the tip overlying the SVC. No pneumothorax.
== END 2020-09-02 09:11 | disposition home or self-care (01) ==
LOC: OR 06:02
PROVIDERS: ATTEND Surgery
DX: C34.91 Malignant neoplasm of unspecified part of right bronchus or lung (principal); D72.829 Elevated white blood cell count, unspecified; D47.3 Essential (hemorrhagic) thrombocythemia; J43.9 Emphysema, unspecified; I10 Essential (primary) hypertension; E78.2 Mixed hyperlipidemia; J45.909 Unspecified asthma, uncomplicated; M51.9 Unspecified thoracic, thoracolumbar and lumbosacral intervertebral disc disorder; K21.9 Gastro-esophageal reflux disease without esophagitis; E04.1 Nontoxic single thyroid nodule; H26.221 Cataract secondary to ocular disorders (degenerative) (inflammatory), right eye; F32.9 Major depressive disorder, single episode, unspecified; Z79.82 Long term (current) use of aspirin; Z79.899 Other long term (current) drug therapy; Z90.81 Acquired absence of spleen; Z91.041 Radiographic dye allergy status; Z91.030 Bee allergy status; Z88.0 Allergy status to penicillin; Z88.8 Allergy status to other drugs, medicaments and biological substances; Z90.49 Acquired absence of other specified parts of digestive tract; Z96.643 Presence of artificial hip joint, bilateral; Z86.73 Personal history of transient ischemic attack (TIA), and cerebral infarction without residual deficits; M79.7 Fibromyalgia; M19.90 Unspecified osteoarthritis, unspecified site; K58.9 Irritable bowel syndrome, unspecified; M10.9 Gout, unspecified; Z87.01 Personal history of pneumonia (recurrent); E07.9 Disorder of thyroid, unspecified; G43.909 Migraine, unspecified, not intractable, without status migrainosus; H40.9 Unspecified glaucoma; L40.50 Arthropathic psoriasis, unspecified; Z85.41 Personal history of malignant neoplasm of cervix uteri; Z86.14 Personal history of Methicillin resistant Staphylococcus aureus infection; Z90.710 Acquired absence of both cervix and uterus; Z98.1 Arthrodesis status; Z98.42 Cataract extraction status, left eye; F17.200 Nicotine dependence, unspecified, uncomplicated; H54.61 Unqualified visual loss, right eye, normal vision left eye; G89.29 Other chronic pain; M54.9 Dorsalgia, unspecified; Z80.49 Family history of malignant neoplasm of other genital organs; Z82.5 Family history of asthma and other chronic lower respiratory diseases; Z88.5 Allergy status to narcotic agent; Z91.048 Other nonmedicinal substance allergy status; Z79.1 Long term (current) use of non-steroidal anti-inflammatories (NSAID)
CPT/HCPCS: 77001; 71045; 36561; C1788; J2250; J1644; J1100; J2405; J0690; J3010; J1642; J2704

== ENCOUNTER → 2020-12-03 | Outpatient (CLI) | payer MEDICARE, OTHER ==
--- NOTE | 2020-12-03 13:58 | CT ---
EXAMINATION TYPE: CT chest wo con DATE OF EXAM: 12/03/2020 COMPARISON: 08/06/2020, 08/09/2020 HISTORY: Follow up lung cancer CT DLP: 252.5 mGycm. Automated Exposure Control for Dose Reduction was Utilized. TECHNIQUE: CT scan of the thorax is performed without IV contrast. FINDINGS: LUNGS: Diffuse hyperinflation and emphysematous changes compatible with COPD. The previously noted 1 cm nodule the right upper lobe which are 0.3 cm. No new nodules. Groundglass changes at the lung base s-compatible with the atelectasis. No pleural effusion or pneumothorax.. MEDIASTINUM: Lack of IV contrast is noted to limit evaluation for mediastinal and especially hilar ad enopathy. There are no definitive greater than 1 cm hilar or mediastinal lymph nodes. Heart size is s table. Suggestion of coronary artery calcification. OTHER: Hypertrophic and degenerative change of the spine. Previous surgery involving the cervical spi ne noted. Mediport catheter noted. Surgical clips in the gallbladder fossa compatible with previous c holecystectomy. There is a 5 mm rounded lucency involving the left lateral margin of the L1 vertebral body stable from the prior exam. This is too small to characterize. Early metastases would not be ex cluded. IMPRESSION: 1. Interval near complete resolution of the right upper lobe 1 cm pulmonary nodule now measuring 0.3 cm and previously measuring 1 cm. 2. Interval marked improvement in appearance of the mediastinum with no nodule seen by noncontrast te [place] measuring short axis greater than 1 cm. Correlate for response to therapy. 3. There is a too small to characterize tiny intraosseous lesion L1 stable from prior exam and retro spectively stable dating back to the CT scan of 06/01/2017 suggesting the finding is most likely maikolig n.
== END | disposition home or self-care (01) ==
LOC: RADCTMAIN 12:32
PROVIDERS: ATTEND Internal Medicine Hematology & Oncology
DX: C34.91 Malignant neoplasm of unspecified part of right bronchus or lung (principal); R91.1 Solitary pulmonary nodule; Z88.0 Allergy status to penicillin; Z88.8 Allergy status to other drugs, medicaments and biological substances; Z91.048 Other nonmedicinal substance allergy status
CPT/HCPCS: 71250

== ENCOUNTER → 2020-12-24 | Outpatient (CLI) | payer MEDICARE, OTHER ==
--- NOTE | 2020-12-24 12:55 | MR ---
EXAMINATION TYPE: MR brain wo/w con DATE OF EXAM: 12/24/2020 COMPARISON: Prior MRI brain August 27, 2020. HISTORY: Lung cancer TECHNIQUE: Multiplanar, multisequence images of the brain and brainstem is performed without and with IV contras t, utilizing 7 mL intravenous Gadavist . FINDINGS: Diffusion weighted images demonstrate no evidence of a recent infarct or other diffusion ab normality. There is no worrisome extra-axial fluid collection. The ventricular system and cisternal spaces are normal in size and appearance. The brain volume is age appropriate. Some scattered foci T2 hyperintensity are redemonstrated throughout the white matter bilaterally. Approximately 15-20 sma ll scattered lesions are present. Lesions are nonspecific in appearance and distribution. Midline structures demonstrate normal morphology. The craniocervical junction appears within normal limits. Post contrast images demonstrate no abnormal enhancement. The dural venous sinuses appear pa tent. The visualized sinuses are clear and the globes are intact. IMPRESSION: No suspicious enhancing masses to suggest metastatic disease to the brain.
== END ==
LOC: RADMRIMAIN 11:17
PROVIDERS: ATTEND Radiology Radiation Oncology
DX: C34.90 Malignant neoplasm of unspecified part of unspecified bronchus or lung (principal)
CPT/HCPCS: 70553; J1642; A9585

== ENCOUNTER → 2021-02-17 | Outpatient (CLI) | payer MEDICARE, OTHER ==
--- NOTE | 2021-02-17 14:48 | CT ---
EXAMINATION TYPE: CT ChestAbdPelvis wo con DATE OF EXAM: 02/17/2021 COMPARISON: Prior PET/CT August 09, 2020 and older CTs HISTORY: Lung CA CT DLP: 619.70 mGycm. Automated Exposure Control for Dose Reduction was Utilized. TECHNIQUE: CT scan of the thorax, abdomen and pelvis is performed with oral but without IV contrast. FINDINGS: LUNGS: Mild to moderate underlying emphysematous change is redemonstrated. Improved breath-hold on cu rrent study. Stable 3 mm right upper lobe nodule axial image [address] study. Possible n ew 4 mm anterior right upper lobe subpleural nodule on study axial image 14 this can be followed. No definitive new greater than 5 mm pulmonary nodules No new suspicious consolidation. No pleural effusi on or pneumothorax. MEDIASTINUM: Lack of IV contrast is noted to limit evaluation for mediastinal and especially hilar ad enopathy. There is no recurrent greater than 1 cm thoracic adenopathy with particular attention to th e peritracheal and subcarinal regions. No cardiomegaly. Tiny Pericardial effusion is new from prior studies. Moderate coronary artery calcification redemonstrated. OTHER: Stable right subclavian Mediport catheter. LIVER/GB: Cholecystectomy clips are redemonstrated. PANCREAS: No significant abnormality is seen. SPLEEN: No significant abnormality is seen. ADRENALS: No significant abnormality is seen. KIDNEYS: Bilateral nonobstructing renal calculi for reference there is 3 mm lower pole right renal ca lculus coronal image 59 and 7 mm lower pole left renal calculus image 58. There is also 2 to 3 mm lef t renal calculus upper midpole level coronal image 62. No hydronephrosis seen bilaterally BOWEL: Oral contrast reaches level of rectum. No suspicious small or large bowel dilatation GENITAL ORGANS: Uterus is surgically absent or markedly atrophic. LYMPH NODES: No greater than 1cm abdominal or pelvic lymph nodes are appreciated. OSSEOUS STRUCTURES: Metallic hardware from bilateral hip arthroplasty causes streak artifact limiting evaluation of pelvic structures. There a bilateral pars defect L5 level with grade 2 anterolisthesis L5 on S1, advanced disc space narrowing and endplate sclerosis at this level is present. Anterior fu malia plate lower cervical spine is partially imaged . OTHER: [id number] calcified plaque and slightly ectatic abdominal aorta. No greater than 3.0 cm aneurysm.. IMPRESSION: No new or enlarging masses or nodules to suggest active neoplastic progression. Improved right upper lung nodularity and thoracic adenopathy from most recent PET/CT.
[2021-02-18 00:43] LABS: HCT 39.3 % (34.0-46.0); HGB 12.7 gm/dL (11.4-16.0); Hypochromasia Marked; MCH 33.2 pg (25.0-35.0); MCHC 32.4 g/dL (31.0-37.0); MCV 102.6 fL (80.0-100.0); Macrocytosis Slight; Mean Platelet Volume 8.2; Platelet Count 404 k/uL (150-450); RBC 3.83 m/uL (3.80-5.40); WBC 7.6 k/uL (3.8-10.6)
[2021-02-18 01:00] LABS: African American GFR (CKD) >90 (>60 ml/min/1.73 sqM); Anion Gap 10 mmol/L; Blood Urea Nitrogen 12 mg/dL (7-17); Calcium 9.5 mg/dL (8.4-10.2); Carbon Dioxide 23 mmol/L (22-30); Chloride 106 mmol/L (98-107); Glucose 94 mg/dL (74-99); Non-African American GFR(CKD) >90 (>60 ml/min/1.73 sqM); Potassium 4.6 mmol/L (3.5-5.1); Sodium 139 mmol/L (137-145)
== END | disposition home or self-care (01) ==
LOC: RADCTMAIN 12:53
PROVIDERS: ATTEND Internal Medicine Hematology & Oncology
DX: C34.90 Malignant neoplasm of unspecified part of unspecified bronchus or lung (principal)
CPT/HCPCS: 71250; 74176; 80048; 85027

== ENCOUNTER → 2021-03-20 | Outpatient (CLI) | payer MEDICARE, OTHER ==
--- NOTE | 2021-03-20 12:15 | MR ---
EXAMINATION TYPE: MR brain wo/w con DATE OF EXAM: 03/20/2021 COMPARISON: Prior MRI brain January 03, 2021 HISTORY: Lung CA history, dizziness follow up scan. TECHNIQUE: Multiplanar, multisequence images of the brain and brainstem is performed without and with IV contras t, utilizing 7 mL intravenous Gadavist . FINDINGS: Diffusion weighted images demonstrate no evidence of a recent infarct or other diffusion ab normality. Some small scattered punctate T2 white matter bilaterally are redemonstrated. Approximatel y 20-30 scattered lesions again seen. Brain volume age-appropriate. No hydrocephalus. Midline structures redemonstrate normal morphology. The craniocervical junction appears within modesto l limits. Post contrast images demonstrate no abnormal enhancement or new enhancing masses. The dura l venous sinuses appear patent. The visualized sinuses are clear and the globes are intact. IMPRESSION: No new enhancing masses to suggest metastatic disease to the brain. No significant change from prior.
== END | disposition home or self-care (01) ==
LOC: RADMRIMAIN 10:33
PROVIDERS: ATTEND Radiology Radiation Oncology
DX: C34.11 Malignant neoplasm of upper lobe, right bronchus or lung (principal); C77.0 Secondary and unspecified malignant neoplasm of lymph nodes of head, face and neck; J44.9 Chronic obstructive pulmonary disease, unspecified
CPT/HCPCS: 70553; J1642; A9585

== ENCOUNTER → 2021-05-12 | Outpatient (CLI) | payer MEDICARE, OTHER ==
--- NOTE | 2021-05-14 16:08 | CT ---
EXAMINATION TYPE: CT ChestAbdPelvis wo con DATE OF EXAM: 05/12/2021 INDICATION: f/u lung ca COMPARISON: 02/17/2021 CT DLP: 506.4 mGycm CONTRAST: Performed with Oral Contrast TECHNIQUE: Axial images at 5 mm thick sections. Reconstructed images in the coronal plane. Delayed images through the kidneys. FINDINGS: CT CHEST: Portion of the thyroid visualized is normal. There is a minimal infiltrate within the periphery of the left lung. Series 4 image 33. Lung stroud o therwise appear clear. No enlarged mediastinal or hilar adenopathy is evident. The ascending aorta diameter at the level of the main pulmonary artery is 3.3 cm. The main pulmonary artery diameter at the bifurcation is 2.3 cm. Mild coronary artery calcification is present. CT ABDOMEN: Liver: Normal Spleen: Not evident. Pancreas: Normal Adrenal glands: The adrenal glands are normal. Gallbladder: Surgically absent. Kidneys: No masses are evident. No hydronephrosis is present. No cysts are present. There is a 0.7 cm nonobstructing renal stone at the inferior pole of the left kidney. Aorta: Vascular calcification is within the aorta. Inferior vena cava: Normal. CT PELVIS: Bilateral hip prosthesis cause beam hardening artifact over the inferior pelvis limiting e valuation. Loops of bowel within the abdomen and pelvis are normal. There are loops of bowel which are incom pletely distended or lack oral contrast limiting their evaluation. Appendix: Not identified. No dilated tubular structure or inflammatory changes are evident. Urinary bladder: Not visualized due to beam hardening artifact from bilateral hip prostheses. Genitourinary structures: Uterus and ovaries are not identified. Osseous structures: No suspicious lytic or sclerotic lesions. Bilateral hip prostheses are present. S pondylolysis of L5 is present. Anterior cervical fusion at the edge of the field of view within the c ervical spine. IMPRESSIONS: 1. No suspicious abnormalities to suggest recurrent or metastatic neoplasm. 2. Small groundglass opacity within the periphery of the left mid lung is a change. Recommend short-t erm follow-up CT chest in 6 months to reevaluate. 3 nonobstructing inferior pole left renal stone
== END | disposition home or self-care (01) ==
LOC: RADCTMAIN 17:21
PROVIDERS: ATTEND Internal Medicine Hematology & Oncology
DX: Z03.89 Encounter for observation for other suspected diseases and conditions ruled out (principal); C34.91 Malignant neoplasm of unspecified part of right bronchus or lung; N20.0 Calculus of kidney; Z88.0 Allergy status to penicillin; Z88.8 Allergy status to other drugs, medicaments and biological substances; Z91.041 Radiographic dye allergy status
CPT/HCPCS: 71250; 74176

== ENCOUNTER → 2021-06-18 | Outpatient (CLI) | payer MEDICARE, OTHER ==
--- NOTE | 2021-06-19 04:52 | MR ---
EXAMINATION TYPE: MR brain wo/w con DATE OF EXAM: 06/18/2021 COMPARISON: 03/20/2021 HISTORY: Lung cancer, Secondary lymph nodes of head, face and neck CONTRAST: Standard multiplanar, multisequence MRI departmental protocol utilizing 7 ml mL intravenous Gadavist gadolinium contrast. Ventricles have normal size. There is no mass effect nor midline shift. The diffusion images show no evidence of an acute infarct. The T2 and FLAIR images show scattered white matter high signal foci at the platt-white matter junction both cerebral hemispheres. Total number is approximately 20 and the l argest measures 5 mm. Brainstem is intact. Corpus callosum is intact. Sella turcica appears normal. T here is no evidence of orbital mass. Optic chiasm appears normal. Pituitary stalk is in the midline. There is no pathologic enhancement. There is normal enhancement of the venous sinuses. IMPRESSION: Numerous small white matter high signal foci on the T2 and FLAIR images likely related to microvascul ar ischemia. Demyelinating disease also possible. No evidence of cortical infarct. No evidence of met astatic disease.
== END | disposition home or self-care (01) ==
LOC: RADMRIMAIN 15:04
PROVIDERS: ATTEND Radiology Radiation Oncology
DX: C34.11 Malignant neoplasm of upper lobe, right bronchus or lung (principal); J44.9 Chronic obstructive pulmonary disease, unspecified; C77.0 Secondary and unspecified malignant neoplasm of lymph nodes of head, face and neck
CPT/HCPCS: 70553; J1642; A9585

== ENCOUNTER → 2021-07-15 | Outpatient (CLI) | payer MEDICARE, OTHER ==
--- NOTE | 2021-07-15 11:34 | XR ---
EXAMINATION TYPE: XR wrist complete LT DATE OF EXAM: 07/15/2021 COMPARISON: NONE HISTORY: 61-year-old female M25.532 TECHNIQUE: 4 views FINDINGS: Mild degenerative change first CMC joint. Mild degenerative spurring at the distal radioulnar joint. Radiocarpal and distal radioulnar joint as well as the midcarpal compartment appear intact. Incidenta l carpal boss along the dorsum of the carpus. Mild generalized soft tissue swelling of the wrist. No acute fracture, subluxation, or dislocation seen. IMPRESSION: Mild OA at the base of the thumb. Mild degenerative spurring distal radioulnar joint. Mild soft tissu e swelling at the wrist. No acute osseous abnormality seen.
== END | disposition home or self-care (01) ==
LOC: RADXRMAIN 10:41
PROVIDERS: ATTEND Family Medicine
DX: M19.032 Primary osteoarthritis, left wrist (principal)

== ENCOUNTER → 2021-08-11 | Outpatient (CLI) | payer MEDICARE, OTHER ==
--- NOTE | 2021-08-12 06:55 | NM ---
EXAMINATION TYPE: NM bone scan whole body DATE OF EXAM: 08/11/2021 COMPARISON: Same day whole body CT HISTORY: Lung cancer. Pain over whole body per patient. Osteoporosis per order. Delayed whole-body scanning was performed following the injection of 23.1 mCi Tc 99m MDP. Images acq uired 3 hours post injection. Whole body images in anterior and posterior projection along with addit ional spot images of the thorax abdomen and pelvis in several projections. FINDINGS: There is lucency from prosthesis at level of the bilateral hips. No abnormal radiotracer uptake ident ified to suggest metastatic disease to the bone or other significant abnormality. No significant foca l uptake to suggest occult acute fracture. Mild uptake bilateral knee joints consistent with product of degenerative change. IMPRESSION: As above.
== END | disposition home or self-care (01) ==
LOC: RADNMMAIN 11:07
PROVIDERS: ATTEND Family Medicine
DX: M81.8 Other osteoporosis without current pathological fracture (principal)
CPT/HCPCS: 78306; A9503

== ENCOUNTER → 2021-08-11 | Outpatient (CLI) | payer MEDICARE, OTHER ==
--- NOTE | 2021-08-11 22:43 | CT ---
EXAMINATION TYPE: CT ChestAbdPelvis wo con DATE OF EXAM: 08/11/2021 INDICATION: Lung cancer. COMPARISON: 05/12/2021 CT DLP: 531.2 mGycm CONTRAST: Performed with Oral Contrast. No intravenous contrast. TECHNIQUE: Axial images at 5 mm thick sections. Reconstructed images in the coronal plane. Delayed images through the kidneys. FINDINGS: CT CHEST: Portion of the thyroid visualized is normal. No suspicious lung nodules or focal infiltrates are present. Previous area of pneumonitis within the left peripheral lung is not present currently. No enlarged mediastinal or hilar adenopathy is evident. The ascending aorta diameter at the level of the main pulmonary artery is 3.6 cm. The main pulmonary artery diameter at the bifurcation is 2.5 cm. Coronary artery calcification is present. CT ABDOMEN: Liver: Normal Spleen: Normal Pancreas: Normal Adrenal glands: The adrenal glands are normal. Gallbladder: Surgically absent Kidneys: No masses are evident. No hydronephrosis is present. No cysts are present. There is a 0.7 cm nonobstructing inferior pole left renal stone Aorta: There is fusiform prominence of the mid abdominal aorta with an AP diameter of 2.7 cm. Inferior vena cava: Normal. CT PELVIS: Lower pelvis has very limited to nondiagnostic information due to bilateral hip prosthesis beam hardening artifact Loops of bowel within the abdomen and pelvis are normal. There are loops of bowel which are incom pletely distended or lack oral contrast limiting their evaluation. Appendix: Not identified. No suspicious dilated tubular structures or inflammatory changes are eviden t. Urinary bladder: Not visualized Genitourinary structures: Uterus and ovaries are not identified Osseous structures: No suspicious lytic or sclerotic lesions. Spondylolysis of L5 is present. There i s a grade 1 to grade 2 spondylolisthesis of L5 anteriorly on S1. IMPRESSIONS: 1. No suspicious changes to suggest recurrent or metastatic colon cancer. 2. Nonobstructing inferior pole left renal stone. 3. Grade 1-2 spondylolisthesis of L5 anteriorly on S1. Spondylolysis of L5 is noted.
== END | disposition home or self-care (01) ==
LOC: RADPROMAIN 11:10
PROVIDERS: ATTEND Internal Medicine Hematology & Oncology
DX: Z03.89 Encounter for observation for other suspected diseases and conditions ruled out (principal); C34.91 Malignant neoplasm of unspecified part of right bronchus or lung
CPT/HCPCS: 71250; 74176; J1642

== ENCOUNTER → 2021-11-06 | Outpatient (CLI) | payer MEDICARE, OTHER ==
--- NOTE | 2021-11-06 16:19 | MR ---
EXAMINATION TYPE: MR brain wo/w con DATE OF EXAM: 11/06/2021 COMPARISON: Prior MRI of brain June 18, 2021 HISTORY: Malignant neoplasm of upper lobe, right bronchus Stage III. Secondary and unspecified malign ant neoplasm of lymph nodes of head, face and neck TECHNIQUE: Multiplanar, multisequence images of the brain and brainstem is performed without and with IV contras t, utilizing 6.5 mL intravenous Gadavist . FINDINGS: Diffusion weighted images demonstrate no evidence of a recent infarct or other diffusion ab normality. Some small scattered punctate T2 hyperintense white matter lesions bilaterally are redemon strated. Approximately 20 scattered lesions again seen. Brain volume age-appropriate. No hydrocephalu s. Midline structures redemonstrate normal morphology. The craniocervical junction remains within modesto l limits. Post contrast images are suboptimal versus prior study with less visualized contrast or platt-white ma tter differentiation. No obvious new enhancing mass to suggest metastatic disease. The dural venous s inuses remaining patent. The visualized sinuses are clear and the globes are intact. IMPRESSION: Suboptimal study with more artifact and less contrast detail on postcontrast images but n o new enhancing masses to suggest metastatic disease to the brain. No significant change from prior.
== END | disposition home or self-care (01) ==
LOC: RADMRIMAIN 14:43
PROVIDERS: ATTEND Radiology Radiation Oncology
DX: C34.11 Malignant neoplasm of upper lobe, right bronchus or lung (principal)
CPT/HCPCS: 70553; J1642; A9585

== ENCOUNTER → 2021-11-10 | Outpatient (CLI) | payer MEDICARE, OTHER ==
--- NOTE | 2021-11-11 08:01 | CT ---
EXAMINATION TYPE: CT ChestAbdPelvis wo con DATE OF EXAM: 11/10/2021 COMPARISON: 08/11/2021 HISTORY: h/o small cell lung CA, obs for mets CT DLP: 569.4mGycm Unenhanced CT of the Chest, Abdomen and Pelvis Unenhanced CT of the chest ,abdomen and pelvis is performed. The lack of intravenous contrast limits evaluation of the solid and hollow viscera. Oral contrast: Yes CT Chest: LUNGS: The lungs are clear and free of infiltrate or atelectasis. No pulmonary nodule or mass is det ected. No pleural effusion or CT evidence of interstitial lung disease. MEDIASTINUM: Thoracic aorta is of normal caliber. The heart is not enlarged. No evidence for media stinal mass or adenopathy. HILAR STRUCTURES: No evidence for mass. No hilar adenopathy is appreciated. OTHER: No significant abnormality. CONTRAST CT ABDOMEN AND PELVIS: LIVER/GB: The gallbladder is surgically absent. No space occupying hepatic lesion. Biliary tree is of normal caliber. PANCREAS: No inflammation. No distinct mass. SPLEEN: No splenic enlargement. No lesion seen. ADRENALS: No nodule. No thickening. KIDNEYS/BLADDER: No hydronephrosis. Stable nonobstructing calculus lower pole left kidney. No discti nct renal mass. BOWEL: Normal appendix. Normal bowel caliber. No inflammation. GENITAL ORGANS: No gross abnormality. LYMPH NODES: No greater than 1cm abdominal or pelvic lymph nodes are appreciated. AORTA: No significant abnormality. OSSEOUS STRUCTURES: Bilateral hip prostheses noted. Grade 2 anterolisthesis L5 on S1. OTHER: No significant additional abnormality is seen. IMPRESSION: 1. No evidence for recurrent lung cancer or metastatic evidence for metastatic disease.
== END | disposition home or self-care (01) ==
LOC: RADCTMAIN 16:58
PROVIDERS: ATTEND Internal Medicine Hematology & Oncology
DX: C34.91 Malignant neoplasm of unspecified part of right bronchus or lung (principal)
CPT/HCPCS: 71250; 74176

== ENCOUNTER → 2022-02-16 | Outpatient (CLI) | payer MEDICARE, OTHER ==
--- NOTE | 2022-02-16 13:13 | CT ---
EXAMINATION TYPE: CT ChestAbdPelvis w con DATE OF EXAM: 02/16/2022 COMPARISON: CT 11/10/2021 HISTORY: Lung cancer, observe for METS CT DLP: 1276 mGycm Automated exposure control for dose reduction was used. CONTRAST: CT scan of the chest, abdomen and pelvis is performed with Oral Contrast and with IV Contrast, patien t injected with 100 mL of Isovue 300. FINDINGS: LUNGS: The lungs show the right upper lobe coronal image #36, axial image #15 a small groundglass are a which is somewhat more conspicuous than on prior exam measuring 1 cm, underlying emphysematous dumont ges are present, there is no concerning parenchymal mass or nodule identified. There is no pleural effusion or pneumothorax seen. The tracheobronchial tree is patent. MEDIASTINUM: There are no greater than 1 cm hilar or mediastinal lymph nodes. No pericardial effusi on is seen. There is coronary artery calcification present, a port is present in the right pectoral r egion courses via a subclavian approach with the tip in the superior vena cava AORTA: No significant abnormality is seen. OTHER: Low dense right-sided thyroid nodules noted.. LIVER/GB: Patient is post cholecystectomy, subcentimeter cystic foci present within the liver statist ically are likely to represent cysts. PANCREAS: No significant abnormality is seen. SPLEEN: Not seen ADRENALS: No significant abnormality is seen. KIDNEYS: Cortical cysts are associated with the kidneys, the lower pole on the left kidney shows a no nobstructive calculus similar to prior exam, measuring approximately 8 mm REPRODUCTIVE ORGANS: Not seen BOWEL: No significant abnormality is seen. Thickening of the stomach is indeterminate, could be due to lack of distention. FREE AIR: No Free Air visible. ASCITES: None seen. RETROPERITONEAL ADENOPATHY: No retroperitoneal adenopathy is seen. LYMPH NODES: No greater than 1 cm abdominal or pelvic lymph nodes are appreciated. Predominantly obscured No significant abnormality is seen. PELVIC ADENOPATHY: None visualized. OSSEOUS STRUCTURES: Streak artifact due to patient's bilateral hip arthroplasties could limit evalua tion. Bilateral spondylolysis present at L5, there is an anterolisthesis grade 1-2 L5-S1. Degenerativ e disc changes are present with vacuum phenomenon present at L3-4, postop changes are noted to the ce rvical spine IMPRESSION: No evident recurrence
== END | disposition home or self-care (01) ==
LOC: RADPROMAIN 11:02
PROVIDERS: ATTEND Internal Medicine Hematology & Oncology
DX: Z03.89 Encounter for observation for other suspected diseases and conditions ruled out (principal); C34.91 Malignant neoplasm of unspecified part of right bronchus or lung
CPT/HCPCS: 71260; 74177; J1642; Q9967

== ENCOUNTER → 2022-03-23 | Outpatient (CLI) | payer MEDICARE, OTHER ==
--- NOTE | 2022-03-24 05:56 | MR ---
EXAMINATION TYPE: MR brain wo/w con DATE OF EXAM: 03/23/2022 COMPARISON: 11/06/2021 HISTORY: Lung cancer CONTRAST: Standard multiplanar, multisequence MRI departmental protocol images were obtained without contrast a nd with 7 mL intravenous Gadavist gadolinium contrast. Diffusion images show no evidence of an acute infarct. There is some mild cerebral atrophy. On the T2 and FLAIR images there are scattered peripheral white matter high signal foci measuring up to 5mm in both cerebral hemispheres. Total numbers approximately 15. Brainstem is intact. Cerebellum is intact . Corpus callosum is intact. There is no evidence of a sellar mass. No evidence of orbital mass. Contrast images show no pathologic enhancement. There is normal enhancement of the venous sinuses. IMPRESSION: Scattered white matter high signal foci likely related to microvascular ischemia no significant change compared to old exam. No evidence of intracranial metastatic disease.
== END | disposition home or self-care (01) ==
LOC: RADMRIMAIN 14:38
PROVIDERS: ATTEND Radiology Radiation Oncology
DX: C34.11 Malignant neoplasm of upper lobe, right bronchus or lung (principal); C77.0 Secondary and unspecified malignant neoplasm of lymph nodes of head, face and neck; J44.9 Chronic obstructive pulmonary disease, unspecified
CPT/HCPCS: 70553; J1642; A9585

== ENCOUNTER → 2022-06-01 | Outpatient (CLI) | payer MEDICARE, OTHER ==
[2022-06-01 14:21] LABS: African American GFR (CKD) >90 (>60 ml/min/1.73 sqM); Blood Urea Nitrogen 18 mg/dL (7-17); Non-African American GFR(CKD) >90 (>60 ml/min/1.73 sqM)
--- NOTE | 2022-06-01 15:03 | CT ---
EXAMINATION TYPE: CT ChestAbdPelvis w con DATE OF EXAM: 06/01/2022 COMPARISON: CT dated 02/16/2022 HISTORY: Follow up for lung cancer. CT DLP: 817.7 mGycm Automated exposure control for dose reduction was used. CONTRAST: CT scan of the chest, abdomen and pelvis is performed with Oral Contrast and with IV Contrast, patien t injected with 100ml mL of Isovue 300. FINDINGS: LUNGS: Interval regression of the previously seen irregular groundglass opacity in the right lung ape x, being linear today. This could represent fibrotic changes or postradiation changes. Newly seen 15 mm pleural-based thickening demonstrated along the right posterolateral aspect of the upper trachea, best appreciated in image #16, series 4, attention on follow-up. Mild pulmonary emphysematous changes . No other new suspicious or progressive lung lesion. Patent trachea and main bronchi. No pleural eff usion. MEDIASTINUM: No cardiomegaly. Scattered arterial atherosclerotic calcifications. Unchanged position o f the Port-A-Cath. No pathologically enlarged or progressive lymph nodes in the chest. No sizable per icardial effusion. OTHER: Thyroid hypodensities, possibly representing thyroid cysts/nodules, appreciated previously. R ecommend correlation with thyroid ultrasound results. Stable sclerotic changes in the right humeral h ead. Unchanged bones with no gross aggressive bone lesion. LIVER/GB: Stable scattered millimetric hepatic hypodensities likely representing hepatic cysts. No ne w hepatic focal lesion. Previous cholecystectomy. PANCREAS: Slightly atrophic. SPLEEN: None visualized. ADRENALS: No significant abnormality is seen. KIDNEYS: Stable right renal cysts. 11 mm nonobstructing stone at the lower pole of the left kidney. BOWEL: No evidence of bowel obstruction. Fecal loading of the colon. REPRODUCTIVE ORGANS: Suboptimally visualized. LYMPH NODES: No pathologically enlarged or progressive lymph nodes in the abdomen or the pelvis. OSSEOUS STRUCTURES: Persistent grade 1 anterolisthesis of L5 over S1 and severe degenerative changes at L3-4 level. No gross aggressive bone lesion. Bilateral total hip arthroplasty. OTHER: Scattered arterial atherosclerotic calcification. Severe stenosis of the origin of the celiac trunk yet patent distally. No sizable ascites. Infrarenal abdominal aortic ectasia measuring up to 2. 3 cm. IMPRESSION: 1. Interval regression of the groundglass opacity in the right lung apex yet with newly seen focal pl eural-based thickening along the right posterolateral aspect of the upper trachea as described above, attention on follow-up. 2. Otherwise grossly stable condition in the chest, abdomen and the pelvis as described above.
== END | disposition home or self-care (01) ==
LOC: RADPROMAIN 13:19
PROVIDERS: ATTEND Internal Medicine Hematology & Oncology
DX: C34.91 Malignant neoplasm of unspecified part of right bronchus or lung (principal); Z03.89 Encounter for observation for other suspected diseases and conditions ruled out
CPT/HCPCS: 82565; 84520; 71260; 74177; 36415; J1642; Q9967

== ENCOUNTER → 2022-07-01 | Outpatient (CLI) | payer MEDICARE, OTHER ==
--- NOTE | 2022-07-01 12:38 | XR ---
EXAMINATION TYPE: XR lumbosacral spine min 4V DATE OF EXAM: 07/01/2022 11:50 AM INDICATION: Patient age:Female; 62 years old; Reason for study: M54.5 Low Back pain; COMPARISON: CT chest abdomen pelvis 06/01/2022 TECHNIQUE: Frontal, lateral , bilateral oblique and coned in L5-S1 lateral views of the spine. FINDINGS: Multilevel disc degeneration changes with osteophyte formation disc space narrowing most pr oximal L3-L4. There is grade 2 anterolisthesis of L5 on S1. Bilateral spondylolysis is noted at this level. Facet joint arthropathy seen throughout the spine worse at L5-S1 Atherosclerosis of the arterial vasculature. Left renal calculus measuring up to 12 mm in the lower p ole. IMPRESSION: 1. Moderate Multilevel disc degeneration changes which are better characterized on CT chest abdomen pelvis 06/01/2022 2. Grade 2 anterolisthesis of L5 on S1 with spondylolysis bilaterally.
== END | disposition home or self-care (01) ==
LOC: RADXRMAIN 11:02
PROVIDERS: ATTEND Family Medicine
DX: M54.50 Low back pain, unspecified (principal)
CPT/HCPCS: 72110

== ENCOUNTER 2022-07-21 12:55 | Emergency (ER) | payer MEDICARE, OTHER ==
[2022-07-21 13:00] VITALS: TEMP 98.3
[2022-07-21] MEDS ORDERED: ONDANSETRON 4 MG/2 ML VIAL IVP STA (13:50)
[2022-07-21] MEDS ORDERED: HYDROmorphone 0.5 MG/0.5 ML SYRINGE IVP STA ×2 (13:51→15:07)
--- NOTE | 2022-07-21 13:54 | ED ---
General Adult HPI - General Chief complaint: Dizziness Stated complaint: dizziness Time Seen by Provider: 07/21/22 13:15 Source: patient Mode of arrival: wheelchair Limitations: no limitations - History of Present Illness Initial comments: This patient is 62-year-old woman presenting with constellation of symptoms that includes congestion, ear fullness, aches and pains, possible fever or chills. Onset/Timin -: days(s) Location: head, back Radiation: non-radiation Quality: aching Consistency: constant Improves with: none Worsens with: none Associated Symptoms: cough, fever/chills Treatments Prior to Arrival: none - Related Data Home Medications Medication Instructions Recorded Confirmed Atorvastatin [Lipitor] 20 mg PO HS 07/29/14 09/02/20 DULoxetine HCL [Cymbalta] 60 mg PO BID 07/29/14 09/02/20 Furosemide [Lasix] 40 mg PO DAILY 07/29/14 09/02/20 Docusate [Colace] 100 mg PO HS PRN 02/26/17 09/02/20 HYDROcodone/APAP 10-325MG [[place] 1 tab PO QID 02/26/17 09/02/20 10-325] Ondansetron [Zofran] 4 mg PO Q8HR PRN 04/01/18 09/02/20 Atropine Ophth Soln 1% 5Ml [Isopto 1 drops RIGHT EYE BID 11/01/18 09/02/20 Atropine 1% 5Ml] Loratadine [Claritin] 10 mg PO DIRECTED PRN 11/01/18 09/02/20 Aspirin [Adult Low Dose Aspirin EC] 81 mg PO DAILY 12/20/19 09/02/20 LORazepam [Ativan] 2 mg PO TID PRN 12/20/19 09/02/20 Albuterol Sulfate [Ventolin HFA] 2 puff INHALATION TID 02/27/20 09/02/20 Losartan Potassium 50 mg PO QAM 06/25/20 09/02/20 [place]-3 Fatty Acids [[place]-3] 1,000 mg PO HS 06/25/20 09/02/20 Omeprazole [PriLOSEC] 20 mg PO AC-BID 06/25/20 09/02/20 Prednisone Acelate Ophthalmic 1 drop RIGHT EYE BID 09/08/20 11/16/20 amLODIPine BESYLATE 5 mg PO HS 06/25/20 09/02/20 Ibuprofen [Motrin] 400 mg PO Q8HR PRN 07/17/20 09/02/20 Albuterol Nebulized [Ventolin 2.5 mg INHALATION TID 08/30/20 09/02/20 Nebulized] Previous Rx's Medication Instructions Recorded Meclizine [Antivert] 25 mg PO TID PRN #60 tab 02/28/20 Allergies Allergy/AdvReac Type Severity Reaction Status Date / Time cyclobenzaprine HCl Allergy Swelling Verified 07/21/22 13:00 [From Flexeril] Iodinated Contrast Media Allergy Anaphylaxis Verified 07/21/22 13:00 [Iodinated Contrast Media - IV Dye] lithium [[place]] Allergy Swelling Verified 07/21/22 13:00 Penicillins Allergy Rash/Hives Verified 07/21/22 13:00 adhesive tape AdvReac Rash/Hives Verified 07/21/22 13:00 bee pollen AdvReac Swelling Verified 07/21/22 13:00 morphine AdvReac GETS ANGRY Verified 07/21/22 13:00 Review of Systems ROS Statement: Those systems with pertinent positive or pertinent negative responses have been documented in the HPI. ROS Other: All systems not noted in ROS Statement are negative. Constitutional: Reports: fever, chills. Denies: weakness ENT: Reports: ear pain, congestion Respiratory: Reports: cough. Denies: dyspnea Cardiovascular: Denies: chest pain, orthopnea Gastrointestinal: Denies: abdominal pain, vomiting, diarrhea Genitourinary: Denies: dysuria, hematuria Musculoskeletal: Reports: back pain, myalgia Skin: Denies: rash Neurological: Reports: headache. Denies: weakness, numbness Past Medical History Past Medical History: Asthma, Cancer, Chest Pain / Angina, COPD, CVA/TIA, Fibromyalgia, GERD/Reflux, Hyperlipidemia, Hypertension, Osteoarthritis (OA), Pneumonia, Skin Disorder, Thyroid Disorder Additional Past Medical History / Comment(s): KIDNEY STONES, MULT TIA'S, migraines, glaucoma right eye/BLIND, chronic BACK, NECK, LEG pain. PSORIASTIC arthritis, HX cervical Ca, hypoglycemia, hx leaky heart valve, thyroid nodules, hx ulcer, IBS, bloatiing. diarrhea/constipation/ gas, nausea and vomiting, hx pancreatitis, hx gout, frequent UTI's, takes daikly low dose aspirin for "thick blood" NEW DX OF LUNG CANCER, sob and dry cough History of Any Multi-Drug Resistant Organisms: MRSA Date of last positivie culture/infection: 2011 MDRO Source:: Lungs Past Surgical History: Appendectomy, Back Surgery, Cholecystectomy, Heart Catheterization, Hysterectomy, Joint Replacement Additional Past Surgical History / Comment(s): cryotherapy, splenectomy, tr acheotomy, juan alberto hip replacement, cervical fustion(3-4-5-6) /titanium jareth , LITHOTRIPSY, PAIN CLINIC PROCEDURES, laser sugery rt eye for glaucoma, left cataract surgery, COLONOSCOPY/EGD, bronchoscopy 08/22/20 Past Anesthesia/Blood Transfusion Reactions: Previous Problems w/ Anesthesia, Motion Sickness, Postoperative Nausea & Vomiting (PONV) Additional Past Anesthesia/Blood Transfusion Reaction / Comment(s): after gallbladder surgery had NG tube inserted "belly remained asleep after anesthesia". diff IV starts Past Psychological History: Anxiety, Bipolar, Depression, Schizophrenia Smoking Status: Current every day smoker Past Alcohol Use History: None Reported Past Drug Use History: Marijuana - Past Family History Daughter(s) Family Medical History: Cancer Additional Family Medical History / Comment(s): Cervical cancer Son(s) Family Medical History: Asthma, COPD Additional Family Medical History / Comment(s): Bipolar disorder General Exam Limitations: no limitations General appearance: alert, in no apparent distress Head exam: Present: atraumatic, normocephalic Eye exam: Present: normal appearance Respiratory exam: Present: normal lung sounds bilaterally. Absent: respiratory distress, wheezes, rales, rhonchi, stridor Cardiovascular Exam: Present: regular rate, normal rhythm, normal heart sounds. Absent: systolic murmur, diastolic murmur, rubs, gallop GI/Abdominal exam: Present: soft. Absent: distended, tenderness, guarding, rebound, rigid, mass Extremities exam: Present: normal inspection, normal capillary refill. Absent: pedal edema, calf tenderness Neurological exam: Present: alert Skin exam: Present: warm, dry, intact, normal color. Absent: rash Course Vital Signs 07/21/22 07/21/22 07/21/22 12:58 14:23 14:41 Temperature 98.3 F Pulse Rate 110 H 105 H 108 H Respiratory 20 22 20 Rate Blood Pressure 128/80 126/91 O2 Sat by Pulse 97 99 97 Oximetry 07/21/22 07/21/22 15:17 15:40 Temperature Pulse Rate 107 H 103 H Respiratory 18 20 Rate Blood Pressure 125/75 136/79 O2 Sat by Pulse 97 97 Oximetry EKG Findings - EKG Results: EKG: interpreted by ERMD, sinus rhythm, normal axis, normal QRS EKG shows: tachycardia (Rate 109 bpm) - Blocks, [place], Hypertrophy, ST Abn: Repolarization changes or abnormalities: nonspecific abnormality, ST segment, and/or T wave Medical Decision Making - Lab Data Result diagrams: 07/21/22 14:08 07/21/22 14:08 Lab Results 07/21/22 07/21/22 07/21/22 Range/Units 14:08 14:08 14:08 WBC 14.5 H (3.8-10.6) k/uL RBC 4.58 (3.80-5.40) m/uL Hgb 13.6 (11.4-16.0) gm/dL Hct 41.2 (34.0-46.0) % MCV 89.9 (80.0-100.0) fL MCH 29.7 (25.0-35.0) pg MCHC 33.0 (31.0-37.0) g/dL RDW 13.7 (11.5-15.5) % Plt Count 445 (150-450) k/uL MPV 7.1 Neutrophils % 80 % Lymphocytes % 2 % Monocytes % 13 % Eosinophils % 1 % Basophils % 2 % Neutrophils # 11.6 H (1.3-7.7) k/uL Lymphocytes # 0.3 L (1.0-4.8) k/uL Monocytes # 1.9 H (0-1.0) k/uL Eosinophils # 0.1 (0-0.7) k/uL Basophils # 0.3 H (0-0.2) k/uL Sodium 133 L (137-145) mmol/L Potassium 3.7 (3.5-5.1) mmol/L Chloride 96 L (98-107) mmol/L Carbon Dioxide 23 (22-30) mmol/L Anion Gap 14 mmol/L BUN 10 (7-17) mg/dL Creatinine 0.57 (0.52-1.04) mg/dL Est GFR (CKD-EPI)AfAm >90 (>60 ml/min/1.73 sqM) Est GFR (CKD-EPI)NonAf >90 (>60 ml/min/1.73 sqM) Glucose 99 (74-99) mg/dL Plasma Lactic Acid Alvaro (0.7-2.0) mmol/L Calcium 9.4 (8.4-10.2) mg/dL Total Bilirubin 0.3 (0.2-1.3) mg/dL AST 24 (14-36) U/L ALT 24 (4-34) U/L Alkaline Phosphatase 79 (38-126) U/L Troponin I (0.000-0.034) ng/mL C-Reactive Protein 1.5 H (<1.0) mg/dL Total Protein 6.8 (6.3-8.2) g/dL Albumin 4.6 (3.5-5.0) g/dL Amylase 51 (30-110) U/L Lipase 88 (23-300) U/L Urine Color Colorless Urine Appearance Clear (Clear) Urine pH 5.0 (5.0-8.0) Ur Specific [place] 1.006 (1.001-1.035) Urine Protein Negative (Negative) Urine Glucose (UA) Negative (Negative) Urine Ketones Negative (Negative) Urine Blood Negative (Negative) Urine Nitrite Negative (Negative) Urine Bilirubin Negative (Negative) Urine Urobilinogen <2.0 (<2.0) mg/dL Ur Leukocyte Esterase Negative (Negative) Coronavirus (PCR) (Not Detectd) 07/21/22 07/21/22 07/21/22 Range/Units 14:08 14:08 14:08 WBC (3.8-10.6) k/uL RBC (3.80-5.40) m/uL Hgb (11.4-16.0) gm/dL Hct (34.0-46.0) % MCV (80.0-100.0) fL MCH (25.0-35.0) pg MCHC (31.0-37.0) g/dL RDW (11.5-15.5) % Plt Count (150-450) k/uL MPV Neutrophils % % Lymphocytes % % Monocytes % % Eosinophils % % Basophils % % Neutrophils # (1.3-7.7) k/uL Lymphocytes # (1.0-4.8) k/uL Monocytes # (0-1.0) k/uL Eosinophils # (0-0.7) k/uL Basophils # (0-0.2) k/uL Sodium (137-145) mmol/L Potassium (3.5-5.1) mmol/L Chloride (98-107) mmol/L Carbon Dioxide (22-30) mmol/L Anion Gap mmol/L BUN (7-17) mg/dL Creatinine (0.52-1.04) mg/dL Est GFR (CKD-EPI)AfAm (>60 ml/min/1.73 sqM) Est GFR (CKD-EPI)NonAf (>60 ml/min/1.73 sqM) Glucose (74-99) mg/dL Plasma Lactic Acid Alvaro 1.7 (0.7-2.0) mmol/L Calcium (8.4-10.2) mg/dL Total Bilirubin (0.2-1.3) mg/dL AST (14-36) U/L ALT (4-34) U/L Alkaline Phosphatase (38-126) U/L Troponin I <0.012 (0.000-0.034) ng/mL C-Reactive Protein (<1.0) mg/dL Total Protein (6.3-8.2) g/dL Albumin (3.5-5.0) g/dL Amylase (30-110) U/L Lipase (23-300) U/L Urine Color Urine Appearance (Clear) Urine pH (5.0-8.0) Ur Specific [place] (1.001-1.035) Urine Protein (Negative) Urine Glucose (UA) (Negative) Urine Ketones (Negative) Urine Blood (Negative) Urine Nitrite (Negative) Urine Bilirubin (Negative) Urine Urobilinogen (<2.0) mg/dL Ur Leukocyte Esterase (Negative) Coronavirus (PCR) Detected A (Not Detectd) Disposition Clinical Impression: COVID-19 Disposition: HOME SELF-CARE Condition: Good Instructions (If sedation given, give patient instructions): COVID-19 (Coronavirus Disease 2019) (ED) Is patient prescribed a controlled substance at d/c from ED?: No Referrals: Torsten Melissa DO [Primary Care Provider] - 1-2 days
[2022-07-21 14:29] LABS: Appearance,Urine Clear (Clear); Bilirubin,Urine Negative (Negative); Blood,Urine Negative (Negative); Color,Urine Colorless; Glucose,Urine (UA) Negative (Negative); Ketones,Urine Negative (Negative); Leukocyte Esterase,Urine Negative (Negative); Nitrite,Urine Negative (Negative); Protein,Urine Negative (Negative); Specific Gravity,Urine 1.006 (1.001-1.035); Urobilinogen,Urine <2.0 mg/dL (<2.0)
[2022-07-21 14:37] LABS: Basophils # (A) 0.3 k/uL (0-0.2); Basophils % (A) 2 %; Eosinophils # (A) 0.1 k/uL (0-0.7); Eosinophils % (A) 1 %; HCT 41.2 % (34.0-46.0); HGB 13.6 gm/dL (11.4-16.0); Lymphocytes # (A) 0.3 k/uL (1.0-4.8); Lymphocytes % (A) 2 %; MCH 29.7 pg (25.0-35.0); MCV 89.9 fL (80.0-100.0); Mean Platelet Volume 7.1; Monocytes # (A) 1.9 k/uL (0-1.0); Monocytes % (A) 13 %; Neutrophils # (A) 11.6 k/uL (1.3-7.7); Neutrophils % (A) 80 %; Platelet Count 445 k/uL (150-450); RBC 4.58 m/uL (3.80-5.40); RDW 13.7 % (11.5-15.5); WBC 14.5 k/uL (3.8-10.6)
[2022-07-21 14:49] LABS: ALT 24 U/L (4-34); AST 24 U/L (14-36); African American GFR (CKD) >90 (>60 ml/min/1.73 sqM); Albumin 4.6 g/dL (3.5-5.0); Alkaline Phosphatase 79 U/L (38-126); Amylase 51 U/L (30-110); Anion Gap 14 mmol/L; Blood Urea Nitrogen 10 mg/dL (7-17); C Reactive Protein 1.5 mg/dL (<1.0); Calcium 9.4 mg/dL (8.4-10.2); Carbon Dioxide 23 mmol/L (22-30); Chloride 96 mmol/L (98-107); Glucose 99 mg/dL (74-99); Lipase 88 U/L (23-300); Non-African American GFR(CKD) >90 (>60 ml/min/1.73 sqM); Potassium 3.7 mmol/L (3.5-5.1); Sodium 133 mmol/L (137-145); Total Bilirubin 0.3 mg/dL (0.2-1.3); Total Protein 6.8 g/dL (6.3-8.2)
--- NOTE | 2022-07-21 15:08 | CT ---
EXAMINATION TYPE: CT brain wo con CT DLP: 1129.4 mGycm, Automated exposure control for dose reduction was used. DATE OF EXAM: 07/21/2022 3:01 PM COMPARISON: MRI brain 03/23/2022 CT brain 12/05/2019. CLINICAL INDICATION:Female, 62 years old with history of headache/dizziness TECHNIQUE: Brain: Multiple axial CT images of the brain were obtained without IV contrast. Coronal and sagittal reformats reviewed. FINDINGS: Brain: Extra-axial spaces: No abnormal extra-axial fluid collections. Ventricular system: Within normal limits Cerebral parenchyma: No acute intraparenchymal hemorrhage or mass effect. The platt-white junction is well differentiated. Scattered hypoattenuating areas are seen within the white matter. Cerebellum: Unremarkable. Mass effect: No evidence of midline shift. Intracranial vasculature: Atherosclerotic calcifications of the intracranial vessels. Soft tissues: Normal. Calvarium/osseous structures: No depressed skull fracture. Paranasal sinuses and mastoid air cells: Clear Visualized orbits: Bilateral aphakia IMPRESSION: 1. No acute intracranial process. 2. Nonspecific white matter changes, likely secondary to chronic small vessel ischemic disease.
--- NOTE | 2022-07-21 15:09 | XR ---
EXAMINATION TYPE: XR KUB DATE OF EXAM: 07/21/2022 3:04 PM CLINICAL HISTORY: Generalized abdominal and lower back pain. History of right-sided kidney stones. TECHNIQUE: Two Upright KUB images of the abdomen are obtained. COMPARISON: Whole body CT June 01, 2022. FINDINGS: Gas seen in nondistended stomach. Scattered gas is seen in non-distended small bowel loops. Gas and fecal material is seen in non-distended colon. Cholecystectomy clips are redemonstrated. Jose g bases remain clear. Stable approximate 12 mm calculus lower pole left kidney. Scoliotic curvature w ith disc space narrowing and endplate sclerosis greatest right L3-L4 level redemonstrated. Metallic a rtifact from bilateral hip surgery partially imaged. No free air. IMPRESSION: Overall nonobstructive bowel gas pattern.
[2022-07-21 15:44] VITALS: BP 136/79; PULSE 103; RESP 20
== END 2022-07-21 15:44 | disposition home or self-care (01) ==
LOC: EC 12:55
DX: U07.1 COVID-19 (principal); J44.9 Chronic obstructive pulmonary disease, unspecified; Z86.73 Personal history of transient ischemic attack (TIA), and cerebral infarction without residual deficits; K21.9 Gastro-esophageal reflux disease without esophagitis; E78.5 Hyperlipidemia, unspecified; I10 Essential (primary) hypertension; M19.90 Unspecified osteoarthritis, unspecified site; E07.9 Disorder of thyroid, unspecified; F41.9 Anxiety disorder, unspecified; F31.9 Bipolar disorder, unspecified; F17.200 Nicotine dependence, unspecified, uncomplicated; F12.90 Cannabis use, unspecified, uncomplicated; Z88.2 Allergy status to sulfonamides; Z91.041 Radiographic dye allergy status; Z91.048 Other nonmedicinal substance allergy status; Z88.0 Allergy status to penicillin; Z88.8 Allergy status to other drugs, medicaments and biological substances; Z91.030 Bee allergy status; Z79.82 Long term (current) use of aspirin; Z79.51 Long term (current) use of inhaled steroids; Z79.899 Other long term (current) drug therapy
CPT/HCPCS: 36415; 93005; 80053; 82150; 83605; 83690; 84484; 85025; 86140; 81003; 87635; 74018; 70450; 99284; 96374; 96375; 96376; J2405; J1170

== ENCOUNTER → 2022-07-30 | Outpatient (CLI) | payer MEDICARE, OTHER ==
--- NOTE | 2022-07-30 19:28 | BD ---
EXAMINATION TYPE: Axial Bone Density DATE OF EXAM: 07/30/2022 CLINICAL HISTORY: 62 year old Female. ICD-10 CODE: OA M19.90 Height: 60 Weight: 145.5 FRAX RISK QUESTIONS: Alcohol (3 or more units per day): no Family History (Parent hip fracture): no Glucocorticoids (More than 3mos): no (Ex: prednisone, prednisolone, methylprednisolone, dexamethasone, and hydrocortisone). History of Fracture in Adulthood: yes Secondary Osteoporosis: 1. Type 1 Diabetes: no 2. Hyperthyroidism: no 3. Menopause before 45: no 4. Malnutrition: no 5. Chronic liver disease: no Rheumatoid Arthritis: yes Current Tobacco Use: yes RISK FACTORS HISTORY OF: Surgery to Spine/Hip(right/left)/Wrist (right/left): BILATERAL HIPS When: Family History of Osteoporosis: yes Active: no Diet low in dairy products/other sources of calcium: yes Postmenopausal woman: yes Lost more than 2 inches in height since high school: yes Poor Health: yes MEDICATIONS: pt has had lung cancer Additional History: EXAM MEASUREMENTS: Bone mineral densitometry was performed using the [employer] System. Bone mineral density as measured about the Lumbar spine is: ----- L1-L4(G/cm2): 1.449 T Score Values are as follows: ----- L1: 0.5 ----- L2: 0.2 ----- L3: 3.2 ----- L4: 4.5 ----- L1-L4: 2.2 Bone mineral density has: increased 18.9 % since study of: 01.14.2011 Bone mineral density about the L Wrist (g/cm2): 0.491 T Score values are as follows: -----Dist. R+U: -3.8 -----Prox. R+U: -2.2 -----Radius total: -3.0 Bone mineral density : baseline IMPRESSION: Osteopenia (T Score between -2.5 and -1) based on Radius 33% measurement. There is slightly increased risk of fracture and the patient may be considered for treatment. Re-Screen 2-5 years. NOTE: T-SCORE=SD OF THE YOUNG ADULT MEAN.
== END | disposition home or self-care (01) ==
LOC: RADBDWWP 10:57
PROVIDERS: ATTEND Family Medicine
DX: M19.90 Unspecified osteoarthritis, unspecified site (principal)
CPT/HCPCS: 77080

== ENCOUNTER → 2022-09-03 | Outpatient (CLI) | payer MEDICARE, OTHER ==
--- NOTE | 2022-09-04 18:34 | MR ---
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 The patient was then given intravenous contrast and multi planar, T1 fat-saturation images wer e obtained. IV Contrast: 7 cc Gadavist FINDINGS: The platt-white junctions, ventricular system, basal cisterns appear unremarkable. Diffusion-weighted imaging shows no evidence of restricted diffusion to suggest acute/subacute infarct. Intracranial art erial flow voids are maintained. Midline structures show no abnormality. Scattered foci of high T2 si gnal intensity are seen within the periventricular white matter. The susceptibility weighted images d o not reveal any evidence for micro-hemorrhage. After administration of gadolinium, no abnormal enhan cement is seen. The bone marrow signal is within normal limits. The paranasal sinuses are unremarkable. Bilateral ap hakia. IMPRESSION: 1. No evidence of intracranial mass, acute/subacute infarct, or abnormal enhancement. No evidence of metastatic disease to the brain. 2. Nonspecific white matter changes, likely related to small vessel ischemic disease
== END | disposition home or self-care (01) ==
LOC: RADMRIMAIN 11:35
PROVIDERS: ATTEND Radiology Radiation Oncology
DX: C34.11 Malignant neoplasm of upper lobe, right bronchus or lung (principal); C77.0 Secondary and unspecified malignant neoplasm of lymph nodes of head, face and neck; J44.9 Chronic obstructive pulmonary disease, unspecified; R90.82 White matter disease, unspecified
CPT/HCPCS: 70553; J1642; A9585

== ENCOUNTER → 2022-10-05 | Outpatient (CLI) | payer MEDICARE, OTHER ==
--- NOTE | 2022-10-05 16:26 | CT ---
EXAMINATION TYPE: CT ChestAbdPelvis w con DATE OF EXAM: 10/05/2022 INDICATION: LUNG CA COMPARISON: 06/01/2022 CT DLP: 784.2 mGycm CONTRAST: Performed with Oral Contrast and with IV Contrast, patient injected with 70ML mL of Isovue 300. TECHNIQUE: Axial images at 5 mm thick sections. Reconstructed images in the coronal plane. Delayed images through the kidneys. FINDINGS: CT CHEST: Portion of the thyroid visualized is normal. Some minimal infiltrate may be at the left lung base, consider atelectasis. No suspicious masses or m etastatic disease radiographically evident. Pericardial recess contains some fluid, stable from prior . No enlarged mediastinal or hilar adenopathy is evident. The ascending aorta diameter at the level of the main pulmonary artery is 3.2 cm. The main pulmonary artery diameter at the bifurcation is 2.6 cm. Coronary artery calcification is present. CT ABDOMEN: Liver: Normal Spleen: Normal Pancreas: Normal Adrenal glands: The adrenal glands are normal. Gallbladder: Surgically absent Kidneys: No masses are evident. No hydronephrosis is present. No cysts are present. There is a 0.8 cm calcification inferior pole left kidney. Couple of punctate calcifications without obstruction or in the mid posterior left kidney. Aorta: Vascular calcification is within the aorta. Inferior vena cava: Normal. CT PELVIS: Loops of bowel within the abdomen and pelvis are normal. There are loops of bowel which are incom pletely distended or lack oral contrast limiting their evaluation. Appendix: Identified. No dilated tubular structure or inflammatory changes are evident. Urinary bladder: Nondiagnostic due to beam hardening artifact bilateral hip prostheses. Genitourinary structures: Uterus and ovaries are not identified. Osseous structures: No suspicious lytic or sclerotic lesions. Spondylolysis of L5 is present. IMPRESSIONS: 1. No suspicious abnormality to suggest recurrent lung cancer.
== END | disposition home or self-care (01) ==
LOC: RADPROMAIN 14:23
PROVIDERS: ATTEND Internal Medicine Hematology & Oncology
DX: C34.91 Malignant neoplasm of unspecified part of right bronchus or lung (principal); Z03.89 Encounter for observation for other suspected diseases and conditions ruled out
CPT/HCPCS: 71260; 74177; J1642; Q9967

== ENCOUNTER 2022-10-11 14:52 | Emergency (ER) | payer MEDICARE, OTHER ==
[2022-10-11] MEDS ORDERED: IPRATROPIUM-ALBUTEROL 3 ML NEB INHALATION STA (15:22)
--- NOTE | 2022-10-11 15:35 | ED ---
General Adult HPI - General Chief complaint: Shortness of Breath Stated complaint: IZA,Cough Time Seen by Provider: 10/11/22 15:14 Source: patient, RN notes reviewed Mode of arrival: ambulatory Limitations: no limitations - History of Present Illness Initial comments: 62 year old female with past medical history of COPD and lung CA presents to the Emergency Department complaining of shortness of breath. She has had worsening symptoms of cough and SOB x 1 week. She notes when she woke up this morning her SOB was worse even at rest. - Related Data Home Medications Medication Instructions Recorded Confirmed Atorvastatin [Lipitor] 20 mg PO HS 07/29/14 09/02/20 DULoxetine HCL [Cymbalta] 60 mg PO BID 07/29/14 09/02/20 Furosemide [Lasix] 40 mg PO DAILY 07/29/14 09/02/20 Docusate [Colace] 100 mg PO HS PRN 02/26/17 09/02/20 HYDROcodone/APAP 10-325MG [[place] 1 tab PO QID 02/26/17 09/02/20 10-325] Ondansetron [Zofran] 4 mg PO Q8HR PRN 04/01/18 09/02/20 Atropine Ophth Soln 1% 5Ml [Isopto 1 drops RIGHT EYE BID 11/01/18 09/02/20 Atropine 1% 5Ml] Loratadine [Claritin] 10 mg PO DIRECTED PRN 11/01/18 09/02/20 Aspirin [Adult Low Dose Aspirin EC] 81 mg PO DAILY 12/20/19 09/02/20 LORazepam [Ativan] 2 mg PO TID PRN 12/20/19 09/02/20 Albuterol Sulfate [Ventolin HFA] 2 puff INHALATION TID 02/27/20 09/02/20 Losartan Potassium 50 mg PO QAM 06/25/20 09/02/20 Welcome-3 Fatty Acids [Welcome-3] 1,000 mg PO HS 06/25/20 09/02/20 Omeprazole [PriLOSEC] 20 mg PO AC-BID 06/25/20 09/02/20 Prednisone Acelate Ophthalmic 1 drop RIGHT EYE BID 06/25/20 09/02/20 amLODIPine BESYLATE 5 mg PO HS 06/25/20 09/02/20 Ibuprofen [Motrin] 400 mg PO Q8HR PRN 07/17/20 09/02/20 Albuterol Nebulized [Ventolin 2.5 mg INHALATION TID 08/30/20 09/02/20 Nebulized] Previous Rx's Medication Instructions Recorded Meclizine [Antivert] 25 mg PO TID PRN #60 tab 02/28/20 Allergies Allergy/AdvReac Type Severity Reaction Status Date / Time cyclobenzaprine HCl Allergy Swelling Verified 10/11/22 15:05 [From Flexeril] Iodinated Contrast Media Allergy Anaphylaxis Verified 10/11/22 15:05 [Iodinated Contrast Media - IV Dye] lithium [[place]] Allergy Swelling Verified 10/11/22 15:05 Penicillins Allergy Rash/Hives Verified 10/11/22 15:05 adhesive tape AdvReac Rash/Hives Verified 10/11/22 15:05 bee pollen AdvReac Swelling Verified 10/11/22 15:05 morphine AdvReac GETS ANGRY Verified 10/11/22 15:05 Review of Systems ROS Statement: Those systems with pertinent positive or pertinent negative responses have been documented in the HPI. ROS Other: All systems not noted in ROS Statement are negative. Past Medical History Past Medical History: Asthma, Cancer, Chest Pain / Angina, COPD, CVA/TIA, Fib romyalgia, GERD/Reflux, Hyperlipidemia, Hypertension, Osteoarthritis (OA), Pneumonia, Skin Disorder, Thyroid Disorder Additional Past Medical History / Comment(s): KIDNEY STONES, MULT TIA'S, migraines, glaucoma right eye/BLIND, chronic BACK, NECK, LEG pain. PSORIASTIC arthritis, HX cervical Ca, hypoglycemia, hx leaky heart valve, thyroid nodules, hx ulcer, IBS, bloatiing. diarrhea/constipation/ gas, nausea and vomiting, hx pancreatitis, hx gout, frequent UTI's, takes daikly low dose aspirin for "thick blood" NEW DX OF LUNG CANCER, sob and dry cough History of Any Multi-Drug Resistant Organisms: MRSA Date of last positivie culture/infection: 2011 MDRO Source:: Lungs Past Surgical History: Appendectomy, Back Surgery, Cholecystectomy, Heart Catheterization, Hysterectomy, Joint Replacement Additional Past Surgical History / Comment(s): cryotherapy, splenectomy, tracheotomy, juan alberto hip replacement, cervical fustion(3-4-5-6) /titanium jareth , L ITHOTRIPSY, PAIN CLINIC PROCEDURES, laser sugery rt eye for glaucoma, left cataract surgery, COLONOSCOPY/EGD, bronchoscopy 08/22/20 Past Anesthesia/Blood Transfusion Reactions: Previous Problems w/ Anesthesia, Motion Sickness, Postoperative Nausea & Vomiting (PONV) Additional Past Anesthesia/Blood Transfusion Reaction / Comment(s): after gallbladder surgery had NG tube inserted "belly remained asleep after anesthesia". diff IV starts Past Psychological History: Anxiety, Bipolar, Depression, Schizophrenia Smoking Status: Current every day smoker Past Alcohol Use History: None Reported Past Drug Use History: Marijuana - Past Family History Daughter(s) Family Medical History: Cancer Additional Family Medical History / Comment(s): Cervical cancer Son(s) Family Medical History: Asthma, COPD Additional Family Medical History / Comment(s): Bipolar disorder General Exam Limitations: no limitations Course Vital Signs 10/11/22 10/11/22 10/11/22 15:01 15:04 15:50 Temperature 98.9 F Pulse Rate 104 H 86 Respiratory 26 H 20 Rate Blood Pressure 105/65 O2 Sat by Pulse 92 L Oximetry 10/11/22 10/11/22 15:58 17:29 Temperature 98.7 F Pulse Rate 90 90 Respiratory 20 Rate Blood Pressure 122/90 O2 Sat by Pulse 92 L Oximetry EKG Findings - EKG Comments: EKG Findings:: I interpreted the following: EKG performed at 15:27. rate 89bpm, IL interval 136, QRS duration 85, QT/QTc 381/427 Medical Decision Making - Medical Decision Making This is 62 a year old female presenting to the emergency department for worsening cough and shortness of breath. Patient was seen and evaluated, physical exam essentially unremarkable. Lab Work and imaging ordered during the course in the ED. I interpreted the following: Lab work essentially unremarkable. Influenza A positiv . Chest x-ray negative for any acute pleural process or evidence of effusion. I discussed the results in detail with the patient and return precautions were discussed. Patient verbalized understanding and is agreeable with plan for discharge. I discussed the case with KAILASH Giang who agrees with plan for discharge - Lab Data Result diagrams: 10/11/22 15:38 10/11/22 15:38 Lab Results 10/11/22 10/11/22 10/11/22 Range/Units 15:38 15:38 15:38 WBC 11.7 H (3.8-10.6) k/uL RBC 4.62 (3.80-5.40) m/uL Hgb 14.1 (11.4-16.0) gm/dL Hct 42.0 (34.0-46.0) % MCV 90.9 (80.0-100.0) fL MCH 30.6 (25.0-35.0) pg MCHC 33.6 (31.0-37.0) g/dL RDW 13.9 (11.5-15.5) % Plt Count 477 H (150-450) k/uL MPV 7.5 Neutrophils % 66 % Lymphocytes % 12 % Monocytes % 15 % Eosinophils % 1 % Basophils % 3 % Neutrophils # 7.7 (1.3-7.7) k/uL Lymphocytes # 1.4 (1.0-4.8) k/uL Monocytes # 1.7 H (0-1.0) k/uL Eosinophils # 0.2 (0-0.7) k/uL Basophils # 0.3 H (0-0.2) k/uL D-Dimer 0.22 (<0.60) mg/L FEU Sodium 137 (137-145) mmol/L Potassium 3.3 L (3.5-5.1) mmol/L Chloride 104 (98-107) mmol/L Carbon Dioxide 26 (22-30) mmol/L Anion Gap 7 mmol/L BUN 16 (7-17) mg/dL Creatinine 0.66 (0.52-1.04) mg/dL Est GFR (CKD-EPI)AfAm >90 (>60 ml/min/1.73 sqM) Est GFR (CKD-EPI)NonAf >90 (>60 ml/min/1.73 sqM) Glucose 108 H (74-99) mg/dL Calcium 8.9 (8.4-10.2) mg/dL Total Bilirubin 0.2 (0.2-1.3) mg/dL AST 23 (14-36) U/L ALT 24 (4-34) U/L Alkaline Phosphatase 79 (38-126) U/L Troponin I (0.000-0.034) ng/mL Total Protein 6.3 (6.3-8.2) g/dL Albumin 4.0 (3.5-5.0) g/dL Influenza Type A (PCR) (Not Detectd) Influenza Type B (PCR) (Not Detectd) RSV (PCR) (Not Detectd) SARS-CoV-2 (PCR) (Not Detectd) 10/11/22 10/11/22 Range/Units 15:38 15:38 WBC (3.8-10.6) k/uL RBC (3.80-5.40) m/uL Hgb (11.4-16.0) gm/dL Hct (34.0-46.0) % MCV (80.0-100.0) fL MCH (25.0-35.0) pg MCHC (31.0-37.0) g/dL RDW (11.5-15.5) % Plt Count (150-450) k/uL MPV Neutrophils % % Lymphocytes % % Monocytes % % Eosinophils % % Basophils % % Neutrophils # (1.3-7.7) k/uL Lymphocytes # (1.0-4.8) k/uL Monocytes # (0-1.0) k/uL Eosinophils # (0-0.7) k/uL Basophils # (0-0.2) k/uL D-Dimer (<0.60) mg/L FEU Sodium (137-145) mmol/L Potassium (3.5-5.1) mmol/L Chloride (98-107) mmol/L Carbon Dioxide (22-30) mmol/L Anion Gap mmol/L BUN (7-17) mg/dL Creatinine (0.52-1.04) mg/dL Est GFR (CKD-EPI)AfAm (>60 ml/min/1.73 sqM) Est GFR (CKD-EPI)NonAf (>60 ml/min/1.73 sqM) Glucose (74-99) mg/dL Calcium (8.4-10.2) mg/dL Total Bilirubin (0.2-1.3) mg/dL AST (14-36) U/L ALT (4-34) U/L Alkaline Phosphatase (38-126) U/L Troponin I <0.012 (0.000-0.034) ng/mL Total Protein (6.3-8.2) g/dL Albumin (3.5-5.0) g/dL Influenza Type A (PCR) Detected A (Not Detectd) Influenza Type B (PCR) Not Detected (Not Detectd) RSV (PCR) Not Detected (Not Detectd) SARS-CoV-2 (PCR) Not Detected (Not Detectd) Disposition Clinical Impression: Influenza A Disposition: HOME SELF-CARE Condition: Stable Instructions (If sedation given, give patient instructions): Upper Respiratory Infection (ED) Additional Instructions: Please return to the nearest ED if worsening symptoms of cough or shortness of breath Is patient prescribed a controlled substance at d/c from ED?: No Referrals: Torsten Melissa DO [Primary Care Provider] - 1-2 days Time of Disposition: 17:08
[2022-10-11 15:52] LABS: Basophils # (A) 0.3 k/uL (0-0.2); Basophils % (A) 3 %; Eosinophils # (A) 0.2 k/uL (0-0.7); Eosinophils % (A) 1 %; HGB 14.1 gm/dL (11.4-16.0); Lymphocytes # (A) 1.4 k/uL (1.0-4.8); Lymphocytes % (A) 12 %; MCH 30.6 pg (25.0-35.0); MCHC 33.6 g/dL (31.0-37.0); MCV 90.9 fL (80.0-100.0); Mean Platelet Volume 7.5; Monocytes # (A) 1.7 k/uL (0-1.0); Monocytes % (A) 15 %; Neutrophils # (A) 7.7 k/uL (1.3-7.7); Neutrophils % (A) 66 %; Platelet Count 477 k/uL (150-450); RBC 4.62 m/uL (3.80-5.40); RDW 13.9 % (11.5-15.5); WBC 11.7 k/uL (3.8-10.6)
--- NOTE | 2022-10-11 15:54 | XR ---
EXAMINATION TYPE: XR chest 2V DATE OF EXAM: 10/11/2022 COMPARISON: 01/20/2022 HISTORY: Cough TECHNIQUE: FINDINGS: Heart is normal. Lungs are clear. Diaphragm is normal. Bony thorax is intact. There is cerv ical spine fusion surgery. There is right central venous catheter with tip in the superior vena cava. IMPRESSION: No active cardiopulmonary disease. No adverse change.
[2022-10-11 16:00] VITALS: PULSE 90
[2022-10-11 16:00] LABS: ALT 24 U/L (4-34); AST 23 U/L (14-36); African American GFR (CKD) >90 (>60 ml/min/1.73 sqM); Alkaline Phosphatase 79 U/L (38-126); Anion Gap 7 mmol/L; Blood Urea Nitrogen 16 mg/dL (7-17); Calcium 8.9 mg/dL (8.4-10.2); Carbon Dioxide 26 mmol/L (22-30); Chloride 104 mmol/L (98-107); Glucose 108 mg/dL (74-99); Non-African American GFR(CKD) >90 (>60 ml/min/1.73 sqM); Potassium 3.3 mmol/L (3.5-5.1); Sodium 137 mmol/L (137-145); Total Bilirubin 0.2 mg/dL (0.2-1.3); Total Protein 6.3 g/dL (6.3-8.2)
[2022-10-11 17:30] VITALS: BP 122/90; RESP 20; TEMP 98.7
== END 2022-10-11 17:30 | disposition home or self-care (01) ==
LOC: EC 14:52
DX: J10.1 Influenza due to other identified influenza virus with other respiratory manifestations (principal); J44.9 Chronic obstructive pulmonary disease, unspecified; Z86.73 Personal history of transient ischemic attack (TIA), and cerebral infarction without residual deficits; K21.9 Gastro-esophageal reflux disease without esophagitis; E78.5 Hyperlipidemia, unspecified; I10 Essential (primary) hypertension; M19.90 Unspecified osteoarthritis, unspecified site; E07.9 Disorder of thyroid, unspecified; F41.9 Anxiety disorder, unspecified; F31.9 Bipolar disorder, unspecified; F17.200 Nicotine dependence, unspecified, uncomplicated; F12.90 Cannabis use, unspecified, uncomplicated; Z88.8 Allergy status to other drugs, medicaments and biological substances; Z88.0 Allergy status to penicillin; Z91.048 Other nonmedicinal substance allergy status; Z91.030 Bee allergy status; Z88.6 Allergy status to analgesic agent; Z79.82 Long term (current) use of aspirin; Z79.899 Other long term (current) drug therapy; Z20.822 Contact with and (suspected) exposure to COVID-19
CPT/HCPCS: 36415; 71046; 80053; 84484; 85025; 85379; 87636; 93005; 94640; 99285

== ENCOUNTER → 2023-02-09 | Outpatient (CLI) | payer MEDICARE, OTHER ==
--- NOTE | 2023-02-09 13:01 | CT ---
EXAMINATION TYPE: CT ChestAbdPelvis w con DATE OF EXAM: 02/09/2023 COMPARISON: 10/05/2022, 06/01/2022 HISTORY: 62-year-old female C34.91, f/u lung ca TECHNIQUE: Contiguous axial scanning of the chest, abdomen, and pelvis performed with IV Contrast, pa tient injected with 100 mL of Isovue 300. Delayed images through the kidneys were obtained. Coronal/s agittal reconstructions performed. CT DLP: 865.1 mGycm Automated exposure control for dose reduction was used. FINDINGS: CHEST: Right anterior chest wall injection port with catheter tip at the mid to lower SVC. Heart normal size with slight increased trace anterior pericardial fluid measuring 4 mm thick. LAD co ronary artery calcifications are present. Aorta normal caliber with mild atherosclerotic arch calcifications. Conventional vessel branching emily marely. A couple lower left pretracheal nodes remain enlarged but have increased now 5 mm compared to p rior exam. No thoracic lymphadenopathy by CT size criteria. Some increasing right perihilar peribronchovascular soft tissue density, axial image 22 to be reasses sed at short interval follow-up. Otherwise, there are new scattered reticular, tree-in-bud, and groundglass changes bilaterally. Mild to moderate bronchial wall thickening mid and lower lungs. No pleural effusion. ABDOMEN: Breathing motion artifact limiting evaluation. No focal liver lesion is apparent. Portal venous syste m is patent. No biliary ductal dilatation. Cholecystectomy clips. Adrenal glands and atrophic pancrea s show no gross abnormality. Spleen not visualized. A few scattered benign renal cortical cysts measuring up to 1.5 cm. Bilateral extra renal pelves are redemonstrated. Nonobstructive 8 mm left renal calculus. No dilated small bowel, free fluid, or free air. No mesenteric or retroperitoneal lymphadenopathy. Oral contrast progressed to the rectum. There is mild overall stool burden. No pericolonic inflammato ry change. PELVIS: Extensive streak and beam hardening artifact related to the patient's bilateral total hip arthroplast ies limits detailed visualization of pelvic structures. Latter partially distended. Numerous pelvic p hleboliths. BONES: Bilateral feet bilateral L5 pars defects with grade 2 anterolisthesis at L5-S1 and associated severe degenerative disc disease. Moderate to severe degenerative disc disease also present at L3-L4 and mil d to moderate degenerative change mid thoracic spine. C5-C7 ACDF partially visualized. No osseous alli tructive process. IMPRESSION: 1. Some increasing right perihilar soft tissue density may reflect progressive scarring from posttre atment change. Short interval follow-up recommended to exclude early recurrence here. 2. New multifocal bilateral groundglass, reticular, and tree-in-bud opacities. Correlate for atypica l/COVID pneumonia, HAT BLOCK BENCH HAND, or aspiration. 3. Incidental: Nonobstructive 8 mm left renal calculus. Bilateral L5 pars defects with grade 2 anter olisthesis L5-S1.
== END | disposition home or self-care (01) ==
LOC: RADPROMAIN 11:05
PROVIDERS: ATTEND Internal Medicine Hematology & Oncology
DX: C34.91 Malignant neoplasm of unspecified part of right bronchus or lung (principal); J43.9 Emphysema, unspecified; I67.89 Other cerebrovascular disease; I10 Essential (primary) hypertension; N20.0 Calculus of kidney; M43.17 Spondylolisthesis, lumbosacral region; R91.8 Other nonspecific abnormal finding of lung field; J98.4 Other disorders of lung
CPT/HCPCS: 71260; 74177; J1642; Q9967

== ENCOUNTER → 2023-04-16 | Outpatient (CLI) | payer MEDICARE, OTHER ==
--- NOTE | 2023-04-16 14:57 | PE ---
EXAMINATION TYPE: PET CT fusion skull to thigh DATE OF EXAM: 04/16/2023 COMPARISON: Most recent CT February 09, 2023 and older studies. HISTORY: Lung cancer progress study. 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 Images are reviewed on the computer in the coronal, axi al, and sagittal planes. Reconstructed rotating images are created on independent workstation and re viewed on the computer. A localization and attenuation correction CT is performed in conjunction wi th the PET scan. Blood glucose level equals 108 SCAN: Subsequent Scan FINDINGS: SKULL BASE AND NECK: No areas of abnormal hypermetabolic uptake CHEST, MEDIASTINUM, AND HILAR REGION: Mild emphysematous change redemonstrated. No new areas of abnor mal hypermetabolic uptake. ABDOMEN AND PELVIS: No hypermetabolic adrenal masses. Normal excretion. No areas of abnormal hypermet abolic uptake. OSSEOUS STRUCTURES: No areas of abnormal hypermetabolic uptake. OTHER CT: Stable right sided subclavian Mediport catheter. Moderate calcified plaque right greater th an left bilateral carotid bulbs is present. Coronary artery calcification again seen. Cholecystectomy clips are redemonstrated. There is a 10 mm calculus lower pole left kidney axial imag e 151. Metallic hardware from bilateral hip arthroplasty is noted. S-shaped scoliosis is seen. Grade 1 anterolisthesis L5 on S1 with advanced disc space narrowing. Advanced disc space narrowing L3-L4 le onelia. IMPRESSION: No areas of abnormal hypermetabolic uptake to suggest recurrent or new neoplasm.
== END | disposition home or self-care (01) ==
LOC: RADPETMAIN 12:27
PROVIDERS: ATTEND Family Medicine
DX: R91.1 Solitary pulmonary nodule (principal)
CPT/HCPCS: 78815; A9552

== ENCOUNTER → 2023-06-08 | Outpatient (CLI) | payer MEDICARE, OTHER ==
--- NOTE | 2023-06-08 13:49 | MR ---
EXAMINATION TYPE: MR brain wo/w con DATE OF EXAM: 06/08/2023 12:49 PM COMPARISON: 09/03/2022 HISTORY: Follow up scan, METS from lung cancer CONTRAST: Patient received 7.5 mL intravenous Gadavist gadolinium contrast. Multiplanar and multispin-echo imaging of the brain was performed . Pre and post contrast enhanced i mages are obtained. The ventricles, basal cisterns and sulci overlying the cerebral convexities are mildly enlarged. There is evidence of mild periventricular white matter ischemic demyelination. Remote deep white matter insults are also noted. No acute edema is seen on diffusion weighted imaging. There is no evidence for midline shift or mass effect. Acute intracranial hemorrhage or extra-axial collection is not evident. No enhancing lesions are seen. The paranasal sinuses and mastoid air cells are well-aerated. IMPRESSION: Age-related atrophic and chronic small vessel ischemic change. No acute intracranial process at this time. No enhancing lesions are seen.
== END | disposition home or self-care (01) ==
LOC: RADMRIMAIN 11:21
PROVIDERS: ATTEND Internal Medicine Hematology & Oncology
DX: C79.31 Secondary malignant neoplasm of brain (principal); C34.91 Malignant neoplasm of unspecified part of right bronchus or lung; I67.82 Cerebral ischemia; G31.9 Degenerative disease of nervous system, unspecified; J43.9 Emphysema, unspecified; I10 Essential (primary) hypertension; Z71.3 Dietary counseling and surveillance
CPT/HCPCS: 70553; J1642; A9585

== ENCOUNTER → 2023-06-08 | Outpatient (CLI) | payer MEDICARE, OTHER ==
--- NOTE | 2023-06-09 13:44 | MM ---
Reason for Exam: Screening (asymptomatic). Last mammogram was performed 8 year(s) and 6 month(s) ago. Patient History: Menarche at age 13. First Full-Term at age 18. Left ovary removed at age 41. Right ovary removed at age 41. Hysterectomy at age 35. Postmenopausal. Patient has history of breast feeding. Endometrial cancer. Previous chest radiation therapy at age 60. Previous chemotherapy at age 60. Estrogen for 4 years, 6 months. Core Biopsy on the Left side. 08/16/2003, Benign Stereotactic Core Biopsy on the left side. Maternal aunt had breast cancer. Maternal cousin had breast cancer, age 45. Maternal cousin had breast cancer, age 50. Risk Values: Brina 5 year model risk: 1.7%. NCI Lifetime model risk: 7.5%. Prior Study Comparison: 10/08/2004 Bilateral Diagnostic Mammogram, [facility]. 03/31/2006 Bilateral Screening Mammogram, [facility]. 11/21/2014 Bilateral Screening Mammogram, [facility]. Tissue Density: There are scattered fibroglandular densities. Findings: Analyzed By CAD. There is no suspicious group of microcalcifications or new suspicious mass in either breast. Overall Assessment: Benign, BI-RAD 2 Management: Screening Mammogram of both breasts in 1 year. . Patient should continue monthly self-breast exams. A clinical breast exam by your physician is recommended on an annual basis. This exam should not preclude additional follow-up of suspicious palpable abnormalities. Note on Brina scores and lifetime risk: 1. A Brina score greater than 3% is considered moderate risk. If this is the case, consider specialist referral to assess eligibility for a risk reducing agent. 2. If overall lifetime risk for the development of breast cancer is 20% or higher, the patient may qualify for future screening with alternating mammogram and breast MRI. Electronically signed and approved by: Que Payan M.D. Radiologis
== END | disposition home or self-care (01) ==
LOC: RADMAMWWP 15:59
PROVIDERS: ATTEND Internal Medicine Hematology & Oncology
DX: Z12.31 Encounter for screening mammogram for malignant neoplasm of breast (principal); C34.91 Malignant neoplasm of unspecified part of right bronchus or lung; I10 Essential (primary) hypertension; J43.9 Emphysema, unspecified; I67.89 Other cerebrovascular disease; Z80.3 Family history of malignant neoplasm of breast; Z71.3 Dietary counseling and surveillance; Z78.0 Asymptomatic menopausal state
CPT/HCPCS: 77063; 77067

== ENCOUNTER → 2024-02-10 | Outpatient (CLI) | payer MEDICARE, OTHER ==
--- NOTE | 2024-02-10 14:10 | MR ---
EXAMINATION TYPE: MR brain wo/w con DATE OF EXAM: 02/10/2024 1:39 PM COMPARISON: 06/08/2023 HISTORY: Lung cancer Rt lung and lymph nodes , Bilat hearing loss, numbness and weakness CONTRAST: Patient received 7.5 mL intravenous Gadavist gadolinium contrast. Multiplanar and multispin-echo imaging of the brain was performed . Pre and post contrast enhanced i mages are obtained. The ventricles, basal cisterns and sulci overlying the cerebral convexities are mildly enlarged. There is evidence of mild periventricular white matter ischemic demyelination. Remote deep white matter insults are also noted. No acute edema is seen on diffusion weighted imaging. There is no evidence for midline shift or mass effect. Acute intracranial hemorrhage or extra-axial collection is not evident. No enhancing lesions are seen. The paranasal sinuses and mastoid air cells are well-aerated. IMPRESSION: Age-related atrophic and chronic small vessel ischemic change. No acute intracranial process at this time. No enhancing lesions are seen.
== END | disposition home or self-care (01) ==
LOC: RADMRIMAIN 11:07
PROVIDERS: ATTEND Internal Medicine Hematology & Oncology
DX: I67.82 Cerebral ischemia (principal); G31.1 Senile degeneration of brain, not elsewhere classified; C34.91 Malignant neoplasm of unspecified part of right bronchus or lung; H91.93 Unspecified hearing loss, bilateral; R53.1 Weakness
CPT/HCPCS: 70553; A9585

== ENCOUNTER 2024-02-25 08:53 | Outpatient (CLI) | payer MEDICARE, OTHER ==
[2024-02-25 14:10] LABS: African American GFR (CKD) >90 (>60 ml/min/1.73 sqM); Blood Urea Nitrogen 12 mg/dL (7-17); Non-African American GFR(CKD) >90 (>60 ml/min/1.73 sqM)
--- NOTE | 2024-02-25 15:14 | CT ---
EXAMINATION TYPE: CT ChestAbdPelvis w con DATE OF EXAM: 02/25/2024 COMPARISON: 02/09/2023 HISTORY: f/u lung ca CT DLP: 1329 mGycm Automated exposure control for dose reduction was used. CONTRAST: CT scan of the chest, abdomen and pelvis is performed with Oral Contrast and with IV Contrast, patien t injected with 100 mL of Isovue 300. FINDINGS: CT chest: In the right lung apex there is a focal area of interstitial density without nodular or masslike dens ity. The findings might reflect changes related to treatment of prior lung cancer. There is no new or suspicious lung mass or nodule. There is a Mediport catheter in the right. There is no abnormal airspace/consolidative density or abnormal interstitial density. There is no pleural effusion, pleural thickening or pneumothorax. The great vessels and chest are normal there is no mediastinal, hilar or axillary adenopathy. There i s anterior lower cervical fusion but no focal osseous lesions are identified. CT abdomen and pelvis: There is surgical absence of the gallbladder. There is no biliary ductal dilatation. There is no focal mass or organomegaly involving the liver, pancreas, spleen or adrenal glands.. There is no solid renal mass or hydronephrosis. There are multiple stable small renal cysts. There is no retroperitoneal adenopathy or hemorrhage in the caliber of the abdominal aorta is normal. The bowel loops are normal in caliber and there is no dilatation or obstruction. No inflammatory dumont ges identified in the bowel wall and mesentery. There is no free intracranial air or fluid. There is no pelvic mass or adenopathy. There is no free fluid within the pelvis. There is surgical ab sence of uterus. No focal osseous lesions are seen. Soft tissue the abdomen and pelvis are normal. IMPRESSION: 1. Focal area of interstitial density in the right lung apex likely indicating posttreatment intersti tial scarring or fibrosis. 2. No definite recurrent or metastatic disease within the chest, abdomen or pelvis.
== END 2024-02-25 14:48 | disposition home or self-care (01) ==
LOC: RADPROMAIN 08:53
PROVIDERS: ATTEND Internal Medicine Hematology & Oncology
DX: J98.4 Other disorders of lung (principal); C34.91 Malignant neoplasm of unspecified part of right bronchus or lung; I67.89 Other cerebrovascular disease; J43.9 Emphysema, unspecified; I10 Essential (primary) hypertension; Z90.49 Acquired absence of other specified parts of digestive tract
CPT/HCPCS: 82565; 84520; 71260; 74177; 36415; J1642 ×2; Q9967

== ENCOUNTER → 2024-04-28 | Outpatient (CLI) | payer MEDICARE, OTHER ==
--- NOTE | 2024-04-29 10:34 | XR ---
EXAMINATION TYPE: XR abdomen 1V DATE OF EXAM: 04/28/2024 COMPARISON: 07/21/2022 INDICATION: Bilateral kidney pain and history of kidney stones TECHNIQUE: Single view abdomen FINDINGS: Air-fluid levels are within the hepatic flexure. Nonspecific small bowel gas is present distal small bowel. Air is present within the transverse colon within the pelvis. Psoas margins are normal. No organomegaly is present. There is a 1.1 cm calcification inferior pole left kidney. A punctate adjacent calcification may be p resent. IMPRESSION: 1. Left renal stone. 2. Nonspecific bowel gas pattern.
== END | disposition home or self-care (01) ==
LOC: RADXRMAIN 11:30
PROVIDERS: ATTEND Family Medicine
DX: N20.0 Calculus of kidney (principal)
CPT/HCPCS: 74018

== ENCOUNTER 2024-04-30 12:58 | Emergency (ER) | payer MEDICARE, OTHER ==
[2024-04-30] MEDS: SODIUM CHLORIDE 0.9% 1,000 ML IV STA ×2 (13:24→13:25)
[2024-04-30] MEDS: KETOROLAC 15 MG/ML 1 ML VIAL IVP STA (13:29)
[2024-04-30] MEDS: ONDANSETRON 4 MG/2 ML VIAL IVP STA (13:30)
[2024-04-30] MEDS: HYDROmorphone 1 MG/ML 1 ML SYRINGE IVP STA (13:31)
[2024-04-30] MEDS: PANTOPRAZOLE 40 MG/10 ML VIAL IVP STA (13:34)
--- NOTE | 2024-04-30 13:36 | ED ---
Abdominal Pain HPI - General Chief Complaint: Urogenital Stated Complaint: Kidney Stones Time Seen by Provider: 04/30/24 13:12 Source: patient, RN notes reviewed, old records reviewed Mode of arrival: ambulatory Limitations: no limitations - History of Present Illness Initial Comments: This is a 64-year-old female to the ER for evaluation of abdominal pain with history of kidney stones feels similar to prior kidney stone complaints. Pain is severe with nausea no vomiting no fevers no issues with bowels MD Complaint: abdominal pain -: days(s) Location: L flank, R flank, bilateral flank Radiation: suprapubic Migration to: L flank, R flank, bilateral flank Severity: moderate Severity scale (1-10): 6 Quality: sharp Consistency: constant Improves With: nothing Worsens With: nothing Treatments Prior to Arrival: other (0) - Related Data Home Medications Medication Instructions Recorded Confirmed Atorvastatin [Lipitor] 20 mg PO HS 07/29/14 05/05/24 DULoxetine HCL [Cymbalta] 60 mg PO BID 07/29/14 05/05/24 Furosemide [Lasix] 40 mg PO DAILY 07/29/14 05/05/24 Docusate [Colace] 100 mg PO HS PRN 02/26/17 05/05/24 HYDROcodone/APAP 10-325MG [[place] 1 tab PO QID 02/26/17 05/05/24 10-325] Ondansetron [Zofran] 4 mg PO Q8HR PRN 04/01/18 05/05/24 Atropine Ophth Soln 1% 5Ml [Isopto 1 drops RIGHT EYE BID 11/01/18 05/05/24 Atropine 1% 5Ml] Loratadine [Claritin] 10 mg PO DIRECTED PRN 11/01/18 05/05/24 Aspirin [Adult Low Dose Aspirin EC] 81 mg PO DAILY 12/20/19 05/05/24 LORazepam [Ativan] 1 mg PO TID PRN 12/20/19 05/05/24 Albuterol Sulfate [Ventolin HFA] 2 puff INHALATION TID 02/27/20 05/05/24 Losartan Potassium 50 mg PO QAM 06/25/20 05/05/24 Omeprazole [PriLOSEC] 20 mg PO AC-BID 06/25/20 05/05/24 Prednisone Acelate Ophthalmic 1 drop RIGHT EYE BID 06/25/20 05/05/24 amLODIPine BESYLATE 5 mg PO HS 06/25/20 05/05/24 Ibuprofen [Motrin] 400 mg PO Q8HR PRN 07/17/20 05/05/24 Albuterol Nebulized [Ventolin 2.5 mg INHALATION TID 08/30/20 05/05/24 Nebulized] Previous Rx's Medication Instructions Recorded Meclizine [Antivert] 25 mg PO TID PRN #60 tab 02/28/20 Allergies Allergy/AdvReac Type Severity Reaction Status Date / Time cyclobenzaprine HCl Allergy Swelling Verified 05/05/24 10:31 [From Flexeril] Iodinated Contrast Media Allergy Anaphylaxis Verified 05/05/24 10:31 [Iodinated Contrast Media - IV Dye] lithium [[place]] Allergy Swelling Verified 05/05/24 10:31 Penicillins Allergy Rash/Hives Verified 05/05/24 10:31 adhesive tape AdvReac Rash/Hives Verified 05/05/24 10:31 bee pollen AdvReac Swelling Verified 05/05/24 10:31 morphine AdvReac GETS ANGRY Verified 05/05/24 10:31 Review of Systems ROS Statement: Those systems with pertinent positive or pertinent negative responses have been documented in the HPI. ROS Other: All systems not noted in ROS Statement are negative. Past Medical History Past Medical History: Asthma, Cancer, Chest Pain / Angina, COPD, CVA/TIA, Fibromyalgia, GERD/Reflux, Hyperlipidemia, Hypertension, Osteoarthritis (OA), Pneumonia, Skin Disorder, Thyroid Disorder Additional Past Medical History / Comment(s): KIDNEY STONES, MULT TIA'S, migraines, glaucoma right eye/BLIND, chronic BACK, NECK, LEG pain. PSORIASTIC arthritis, HX cervical Ca, hypoglycemia, hx leaky heart valve, thyroid nodules, hx ulcer, IBS, bloatiing. diarrhea/constipation/ gas, nausea and vomiting, hx pancreatitis, hx gout, frequent UTI's, takes daikly low dose aspirin for "thick blood" NEW DX OF LUNG CANCER, sob and dry cough History of Any Multi-Drug Resistant Organisms: MRSA Date of last positivie culture/infection: 2011 MDRO Source:: Lungs Past Surgical History: Appendectomy, Back Surgery, Cholecystectomy, Heart Catheterization, Hysterectomy, Joint Replacement Additional Past Surgical History / Comment(s): cryotherapy, splenectomy, tracheotomy, juan alberto hip replacement, cervical fustion(3-4-5-6) /titanium jareth , LITHOTRIPSY, PAIN CLINIC PROCEDURES, laser sugery rt eye for glaucoma, left cataract surgery, COLONOSCOPY/EGD, bronchoscopy 08/22/20 Past Anesthesia/Blood Transfusion Reactions: Previous Problems w/ Anesthesia, Motion Sickness, Postoperative Nausea & Vomiting (PONV) Additional Past Anesthesia/Blood Transfusion Reaction / Comment(s): after gallbladder surgery had NG tube inserted "belly remained asleep after anesthesia". diff IV starts Past Psychological History: Anxiety, Bipolar, Depression, Schizophrenia Past Alcohol Use History: Occasional - Past Family History Daughter(s) Family Medical History: Cancer Additional Family Medical History / Comment(s): Cervical cancer Son(s) Family Medical History: Asthma, COPD Additional Family Medical History / Comment(s): Bipolar disorder General Exam Limitations: no limitations General appearance: alert, in no apparent distress, anxious Head exam: Present: atraumatic, normocephalic, normal inspection Eye exam: Present: normal appearance, PERRL, EOMI. Absent: scleral icterus, conjunctival injection, periorbital swelling ENT exam: Present: normal exam, mucous membranes moist Neck exam: Present: normal inspection. Absent: tenderness, meningismus, lymphadenopathy Respiratory exam: Present: normal lung sounds bilaterally. Absent: respiratory distress, wheezes, rales, rhonchi, stridor Cardiovascular Exam: Present: normal rhythm, tachycardia, normal heart sounds. Absent: systolic murmur, diastolic murmur, rubs, gallop, clicks GI/Abdominal exam: Present: soft, normal bowel sounds. Absent: distended, tenderness, guarding, rebound, rigid Extremities exam: Present: normal inspection, full ROM, normal capillary refill. Absent: tenderness, pedal edema, joint swelling, calf tenderness Back exam: Present: normal inspection Neurological exam: Present: alert, oriented X3, CN II-XII intact Psychiatric exam: Present: normal affect, normal mood Skin exam: Present: warm, dry, intact, normal color. Absent: rash Course Vital Signs 04/30/24 04/30/24 13:04 16:00 Temperature 98 F 98.8 F Pulse Rate 102 H 80 Respiratory 20 16 Rate Blood Pressure 131/77 144/83 O2 Sat by Pulse 98 98 Oximetry - Reevaluation(s) Reevaluation #1: 04/30/24 13:36 Medical records reviewed Reevaluation #2: Patient symptoms are improved here in the ER Reevaluation #3: Patient informed of results and questions answered Reevaluation #4: 04/30/24 13:36 Was pt. sent in by a medical professional or institution ([facility]I Farah, OVEN EQUIPMENT REPAIRER, urgent care, hospital, or [facility]...) When possible be specific @ -no Did you speak to anyone other than the patient for history (EMS, parent, family, police, friend...)? What history was obtained from this source @ -no Did you review nursing and triage notes (agree or disagree)? Why? @ -agree Are old charts reviewed (outside hosp., previous admission, EMS record, old EKG, old radiological studies, urgent care reports/EKG's, [facility] records)? Report findings @ -yes Differential Diagnosis (chest pain, altered mental status, abdominal pain women, abdominal pain men, vaginal bleeding, weakness, fever, dyspnea, syncope, headache, dizziness, GI bleed, back pain, seizure, CVA, palpatations, mental health, musculoskeletal)? @ -prior EKG interpreted by me (3pts min.). @ -yes X-rays interpreted by me (1pt min.). @ -no CT interpreted by me (1pt min.). @ -yes is positive for bilateral hydronephrosis U/S interpreted by me (1pt. min.). @ -no What testing was considered but not performed or refused? (CT, X-rays, U/S, labs)? Why? @ -none What meds were considered but not given or refused? Why? @ -none Did you discuss the management of the patient with other professionals (professionals i.e. EL[facility] Farah, OVEN EQUIPMENT REPAIRER, lab, RT, psych nurse, social service liaison, alligator hunter, teacher, correction officer penitentiary, disease case manager)? Give summary @ -no Was smoking cessation discussed for >3mins.? @ -no Was critical care preformed (if so, how long)? @ -no Were there social determinants of health that impacted care today? How? (Homelessness, low income, unemployed, alcoholism, drug addiction, transportation, low edu. Level, literacy, decrease access to med. care, custodial, rehab)? @ -none Was there de-escalation of care discussed even if they declined (Discuss DNR or withdrawal of care, Hospice)? DNR status @ -no What co-morbidities impacted this encounter? (DM, HTN, Smoking, COPD, CAD, Cancer, CVA, ARF, Chemo, Hep., AIDS, mental health diagnosis, sleep apnea, morbid obesity)? @ -none Was patient admitted / discharged? Hospital course, mention meds given and route, prescriptions, significant lab abnormalities, going to OR and other pertinent info. @ - 63 female with bilateral hydronephrosis and no acute cause found patient's pain is controlled feels well can be discharged home Discharge abdominal pain flank pain Undiagnosed new problem with uncertain prognosis? @ -no Drug Therapy requiring intensive monitoring for toxicity (Heparin, Nitro, Insulin, Cardizem)? @ -no Were any procedures done? @ -no Diagnosis/symptom? @ - Acute, or Chronic, or Acute on Chronic? @ -Acute Uncomplicated (without systemic symptoms) or Complicated (systemic symptoms)? @ -Complicated Side effects of treatment? @ -no Exacerbation, Progression, or Severe Exacerbation? @ -exacerbation Poses a threat to life or bodily function? How? (Chest pain, [place], [place], pneumonia, PE, COPD, DKA, ARF, appy, cholecystitis, CVA, Diverticulitis, Homicidal, Suicidal, threat to staff... and all critical care pts) @ -no Reevaluation #5: Differential Abdominal Pain Women: Appendicitis, Cholecystitis, diverticulosis, ischemic bowel, pancreatitis, hepatitis, UTI, gastroenteritis, AAA, incarcerated hernia, bowel obstruction, constipation, inflammatory bowel, hepatitis, peptic ulcer disease, splenic infarction, perforated viscus, vulvitis, ovarian torsion, PID, kidney stone, placenta abruption, this is not meant to be an all-inclusive list Medical Decision Making - Medical Decision Making 63 female with bilateral hydronephrosis and no acute cause found patient's pain is controlled feels well can be discharged home - Lab Data Result diagrams: 04/30/24 13:23 04/30/24 13:23 Lab Results 04/30/24 04/30/24 04/30/24 Range/Units 13:23 13:23 13:23 WBC 11.8 H (3.8-10.6) k/uL RBC 5.11 (3.80-5.40) m/uL Hgb 14.0 (11.4-16.0) gm/dL Hct 45.3 (34.0-46.0) % MCV 88.6 (80.0-100.0) fL MCH 27.4 (25.0-35.0) pg MCHC 31.0 (31.0-37.0) g/dL RDW 15.7 H (11.5-15.5) % Plt Count 603 H (150-450) k/uL MPV 7.3 Neutrophils % 59 % Lymphocytes % 25 % Monocytes % 11 % Eosinophils % 2 % Basophils % 1 % Neutrophils # 6.9 (1.3-7.7) k/uL Lymphocytes # 3.0 (1.0-4.8) k/uL Monocytes # 1.4 H (0-1.0) k/uL Eosinophils # 0.2 (0-0.7) k/uL Basophils # 0.1 (0-0.2) k/uL Hypochromasia Slight Sodium 140 (137-145) mmol/L Potassium 4.1 (3.5-5.1) mmol/L Chloride 110 H (98-107) mmol/L Carbon Dioxide 20 L (22-30) mmol/L Anion Gap 10 mmol/L BUN 9 (7-17) mg/dL Creatinine 0.63 (0.52-1.04) mg/dL Est GFR (CKD-EPI)AfAm >90 (>60 ml/min/1.73 sqM) Est GFR (CKD-EPI)NonAf >90 (>60 ml/min/1.73 sqM) Glucose 100 H (74-99) mg/dL Calcium 10.0 (8.4-10.2) mg/dL Phosphorus 3.8 (2.5-4.5) mg/dL Magnesium 1.8 (1.6-2.3) mg/dL Total Bilirubin 0.4 (0.2-1.3) mg/dL AST 25 (14-36) U/L ALT 19 (4-34) U/L Alkaline Phosphatase 92 (38-126) U/L Total Protein 7.4 (6.3-8.2) g/dL Albumin 4.7 (3.5-5.0) g/dL Amylase 53 (30-110) U/L Lipase 120 (23-300) U/L Urine Color Colorless Urine Appearance Clear (Clear) Urine pH 5.0 (5.0-8.0) Ur Specific [place] 1.004 (1.001-1.035) Urine Protein Negative (Negative) Urine Glucose (UA) Negative (Negative) Urine Ketones Negative (Negative) Urine Blood Negative (Negative) Urine Nitrite Negative (Negative) Urine Bilirubin Negative (Negative) Urine Urobilinogen <2.0 (<2.0) mg/dL Ur Leukocyte Esterase Negative (Negative) - Radiology Data Radiology results: report reviewed (CT abdomen pelvis showed show bilateral hydronephrosis), image reviewed Disposition Clinical Impression: Bilateral hydronephrosis Disposition: HOME SELF-CARE Condition: Good Instructions (If sedation given, give patient instructions): Hydronephrosis (ED) Is patient prescribed a controlled substance at d/c from ED?: No Referrals: Torsten Melissa DO [Primary Care Provider] - 1-2 days Time of Disposition: 15:40
[2024-04-30] MEDS: SODIUM CHLORIDE 0.9% 500 ML 500 ML IV STA (13:40)
[2024-04-30 13:49] LABS: Appearance,Urine Clear (Clear); Bilirubin,Urine Negative (Negative); Blood,Urine Negative (Negative); Color,Urine Colorless; Glucose,Urine (UA) Negative (Negative); Ketones,Urine Negative (Negative); Leukocyte Esterase,Urine Negative (Negative); Nitrite,Urine Negative (Negative); Protein,Urine Negative (Negative); Specific Gravity,Urine 1.004 (1.001-1.035); Urobilinogen,Urine <2.0 mg/dL (<2.0)
[2024-04-30 13:50] LABS: Basophils # (A) 0.1 k/uL (0-0.2); Basophils % (A) 1 %; Eosinophils # (A) 0.2 k/uL (0-0.7); Eosinophils % (A) 2 %; HCT 45.3 % (34.0-46.0); Hypochromasia Slight; Lymphocytes % (A) 25 %; MCH 27.4 pg (25.0-35.0); MCV 88.6 fL (80.0-100.0); Mean Platelet Volume 7.3; Monocytes # (A) 1.4 k/uL (0-1.0); Monocytes % (A) 11 %; Neutrophils # (A) 6.9 k/uL (1.3-7.7); Neutrophils % (A) 59 %; Platelet Count 603 k/uL (150-450); RBC 5.11 m/uL (3.80-5.40); RDW 15.7 % (11.5-15.5); WBC 11.8 k/uL (3.8-10.6)
[2024-04-30 13:55] LABS: ALT 19 U/L (4-34); AST 25 U/L (14-36); African American GFR (CKD) >90 (>60 ml/min/1.73 sqM); Albumin 4.7 g/dL (3.5-5.0); Alkaline Phosphatase 92 U/L (38-126); Amylase 53 U/L (30-110); Anion Gap 10 mmol/L; Blood Urea Nitrogen 9 mg/dL (7-17); Carbon Dioxide 20 mmol/L (22-30); Chloride 110 mmol/L (98-107); Glucose 100 mg/dL (74-99); Lipase 120 U/L (23-300); Magnesium 1.8 mg/dL (1.6-2.3); Non-African American GFR(CKD) >90 (>60 ml/min/1.73 sqM); Phosphorus 3.8 mg/dL (2.5-4.5); Potassium 4.1 mmol/L (3.5-5.1); Sodium 140 mmol/L (137-145); Total Bilirubin 0.4 mg/dL (0.2-1.3); Total Protein 7.4 g/dL (6.3-8.2)
--- NOTE | 2024-04-30 14:59 | CT ---
EXAMINATION TYPE: CT abdomen pelvis wo con CT DLP: 622.6 mGycm, Automated exposure control for dose reduction was used. DATE OF EXAM: 04/30/2024 2:29 PM COMPARISON: 02/25/2024, PET/CT 04/06/2023. CLINICAL INDICATION:Female, 63 years old with history of abdominal pain; BILATERAL FLANK PAIN TECHNIQUE: Axial CT abdomen pelvis wo con;Sagittal and coronal reformats were created on a separate workstation. Contrast used: mL of , (none if empty) Oral contrast used: without Oral Contrast (none if empty) FINDINGS: LOWER CHEST: Unremarkable ABDOMEN LIVER: Unremarkable GALLBLADDER AND BILE DUCTS: The gallbladder surgically absent. PANCREAS: Unremarkable. SPLEEN: Unremarkable. ADRENAL GLANDS: Unremarkable. KIDNEYS AND URETERS: Dilation of the bilateral renal collecting systems without evidence for obstruct ing calculus in the visualized ureters. The distal ureters are not visualized due to streak artifact. PELVIS Streak artifact limits evaluation the pelvis. BLADDER: Unremarkable REPRODUCTIVE: Unremarkable. ABDOMEN & PELVIS STOMACH AND BOWEL: No evidence of bowel obstruction. Scattered colonic diverticula.r PERITONEUM/RETROPERITONEUM: No evidence of pneumoperitoneum or free fluid. VASCULATURE: Infrarenal abdominal aorta dilation up to 2.4 cm similar to prior. MUSCULOSKELETAL: No acute osseous abnormalities. Moderate disc degeneration changes are present throu ghout the thoracolumbar spine. Grade 2 anterolisthesis of L5 on S1 with bilateral spondylolysis and m oderate severe bilateral neural foraminal stenosis. LYMPH NODES: No gross evidence for lymphadenopathy. SOFT TISSUE/ABDOMINAL WALL: Unremarkable IMPRESSION: 1. Mild bilateral hydronephrosis with poor visualization of the distal ureters due to streak artifac t. The bladder is distended and this may be secondary to large amount of volume in the bladder. Consi amalia Cortez catheterization and reassess patient's symptoms. Findings could be secondary to spinal jeremy l stenosis at L5-S1. 2. Grade 2 anterolisthesis of L5 on S1 with bilateral spondylolysis and moderate severe bilateral ne ural foraminal stenosis. 3. Left nonobstructing calculus. 4. Colonic diverticulosis. 5. Infrarenal abdominal aortic aneurysm measuring up to 2.4 cm. Similar to 02/25/2024.
[2024-04-30 16:14] VITALS: BP 144/83; PULSE 80; RESP 16; TEMP 98.8
== END 2024-04-30 16:14 | disposition home or self-care (01) ==
LOC: EC 12:58
DX: N13.2 Hydronephrosis with renal and ureteral calculous obstruction (principal); Z88.0 Allergy status to penicillin; Z88.5 Allergy status to narcotic agent; Z91.030 Bee allergy status; Z91.041 Radiographic dye allergy status; Z88.8 Allergy status to other drugs, medicaments and biological substances; Z90.49 Acquired absence of other specified parts of digestive tract; Z86.73 Personal history of transient ischemic attack (TIA), and cerebral infarction without residual deficits
CPT/HCPCS: 99284; 96374; 96375 ×3; 96361 ×3; 36415; 80053; 82150; 83690; 83735; 84100; 85025; 81003; 74176; J2405; J1170; J1885; J2470

== ENCOUNTER → 2024-05-09 | Day surgery (SDC) | payer MEDICARE, OTHER ==
[~2024-05-09] MED LIST changes: -DEXAMETHASONE SOD PHOSPHATE 4 MG/ML 1 ML VIAL IV ONE; +GLYCOPYRROLATE 0.2 MG/ML 2 ML VIAL ONE; -HEPARIN SODIUM,PORCINE 5,000 UNIT/ML 1 ML VIAL SQ ONE; -HYDROmorphone 0.5 MG/0.5 ML SYRINGE IVP PRN; +KETAMINE HCL IN 0.9 % NACL 50 MG/5 ML SYRINGE ONE; -LACTATED RINGERS 1,000 ML IV SCH; +LIDOCAINE 1% INJ 10MG/ML (20 ML MDV) ONE; +MIDAZOLAM 2 MG/2 ML VIAL ONE; +NEOSTIGMINE 1 MG/ML 10 ML VIAL ONE; -ONDANSETRON 4 MG/2 ML VIAL IVP ONE; +PHENYLEPHRINE-0.9% NACL SYG 1,000 MCG/10 ML SYRINGE ONE; +PROPOFOL 10 MG/ML 20 ML VIAL IV ONE; -Pre Op ABX Message 1 EACH MISC MISCELLANE ONE; +ROCURONIUM 10 MG/ML (5 ML VIAL) IV ONE; +SUCCINYLCHOLINE CHLORIDE 200 MG/10 ML VIAL IV ONE; +fentaNYL (PF) 50 MCG/ML 2 ML AMP ONE
--- NOTE | 2024-05-09 09:33 | P.HPIHPCON ---
History of Present Illness H&P Date: 05/09/24 Chief Complaint: Bilateral hydronephrosis, left-sided renal stone This is a 63-year-old female with history of recurrent kidney stones, is having bilateral flank pain. Underwent a CT abdomen and pelvis that showed mild bilateral hydronephrosis, and evidence of a 8 mm left-sided lower pole renal stone. Of note the distal ureter could not be evaluated due to streak artifact from hip replacements. Discussed with her given the hydronephrosis and her symptoms I do recommend proceeding with bilateral retrograde pyelogram to evaluate the ureter. I discussed if there is evidence of stones then we will proceed with holmium laser lithotripsy and stone removal. Discussed I will attempt to remove her left-sided renal stone at the same setting, but given the lower pole location is potential I may not be able to access the stone. Discussed with her the risk of surgery which include but not limited to bleeding, infection, injury to the ureter. Consent for Procedure: I have explained the operation/procedure to the patient, including the risks, benefits, side effects, alternative therapies (including not receiving the proposed treatment or service), the likelihood of the patient achieving his/her goals, and potential recuperation problems for the procedure/sedation/analgesia, as well as any blood products, if indicated. I also explained to the patient the risks, benefits and side effects of the alternatives, as well as the risks related to not receiving the proposed procedure, care, treatment, or services. Past Medical History Past Medical History: Asthma, Cancer, Chest Pain / Angina, COPD, CVA/TIA, Fibromyalgia, GERD/Reflux, Hyperlipidemia, Hypertension, Osteoarthritis (OA), Pneumonia, Skin Disorder, Thyroid Disorder Additional Past Medical History / Comment(s): KIDNEY STONES, MULT TIA'S, migraines, glaucoma right eye/BLIND, chronic BACK, NECK, LEG shoulder,pain. PSORIASTIC arthritis, HX cervical Ca, hypoglycemia, hx leaky heart valve, thyroid nodules, hx ulcer, IBS, bloatiing. diarrhea/constipation/ gas, nausea and vomiting, hx pancreatitis, hx gout, frequent UTI's, takes daikly low dose aspirin for "thick blood" DX OF LUNG CANCER, sob and dry cough doing chemo and radiation 4313-1283 History of Any Multi-Drug Resistant Organisms: MRSA Date of last positivie culture/infection: 2011 MDRO Source:: Lungs Past Surgical History: Appendectomy, Back Surgery, Cholecystectomy, Heart Catheterization, Hysterectomy, Joint Replacement Additional Past Surgical History / Comment(s): cryotherapy, splenectomy, tracheotomy, juan alberto hip replacement, cervical fustion(3-4-5-6) /titanium jareth , LITHOTRIPSY, PAIN CLINIC PROCEDURES, laser sugery rt eye for glaucoma, left cataract surgery, COLONOSCOPY/EGD, bronchoscopy 08/22/20 Past Anesthesia/Blood Transfusion Reactions: Previous Problems w/ Anesthesia, Motion Sickness, Postoperative Nausea & Vomiting (PONV) Additional Past Anesthesia/Blood Transfusion Reaction / Comment(s): after gallbladder surgery had NG tube inserted "belly remained asleep after anesthesia". diff IV starts Smoking Status: Current every day smoker - Past Family History Daughter(s) Family Medical History: Cancer Additional Family Medical History / Comment(s): Cervical cancer Son(s) Family Medical History: Asthma, COPD Additional Family Medical History / Comment(s): Bipolar disorder Medications and Allergies Home Medications Medication Instructions Recorded Confirmed Type Atorvastatin [Lipitor] 20 mg PO HS 07/29/14 05/05/24 History DULoxetine HCL [Cymbalta] 60 mg PO BID 07/29/14 05/05/24 History Furosemide [Lasix] 40 mg PO DAILY 07/29/14 05/05/24 History Docusate [Colace] 100 mg PO HS PRN 02/26/17 05/05/24 History HYDROcodone/APAP 10-325MG [[place] 1 tab PO QID 02/26/17 05/05/24 History 10-325] Ondansetron [Zofran] 4 mg PO Q8HR PRN 04/01/18 05/05/24 History Atropine Ophth Soln 1% 5Ml [Isopto 1 drops RIGHT EYE BID 11/01/18 05/05/24 History Atropine 1% 5Ml] Loratadine [Claritin] 10 mg PO DIRECTED PRN 11/01/18 05/05/24 History Aspirin [Adult Low Dose Aspirin EC] 81 mg PO DAILY 12/20/19 05/05/24 History LORazepam [Ativan] 1 mg PO TID PRN 12/20/19 05/05/24 History Albuterol Sulfate [Ventolin HFA] 2 puff INHALATION TID 02/27/20 05/05/24 History Meclizine [Antivert] 25 mg PO TID PRN #60 tab 02/28/20 05/05/24 Rx Losartan Potassium 50 mg PO QAM 06/25/20 05/05/24 History Omeprazole [PriLOSEC] 20 mg PO AC-BID 06/25/20 05/05/24 History Prednisone Acelate Ophthalmic 1 drop RIGHT EYE BID 06/25/20 05/05/24 History amLODIPine BESYLATE 5 mg PO HS 06/25/20 05/05/24 History Ibuprofen [Motrin] 400 mg PO Q8HR PRN 07/17/20 05/05/24 History Albuterol Nebulized [Ventolin 2.5 mg INHALATION TID 08/30/20 05/05/24 History Nebulized] Allergies Allergy/AdvReac Type Severity Reaction Status Date / Time cyclobenzaprine HCl Allergy Swelling Verified 05/05/24 10:31 [From Flexeril] Iodinated Contrast Media Allergy Anaphylaxis Verified 05/05/24 10:31 [Iodinated Contrast Media - IV Dye] lithium [[place]] Allergy Swelling Verified 05/05/24 10:31 Penicillins Allergy Rash/Hives Verified 05/05/24 10:31 adhesive tape AdvReac Rash/Hives Verified 05/05/24 10:31 bee pollen AdvReac Swelling Verified 05/05/24 10:31 morphine AdvReac GETS ANGRY Verified 05/05/24 10:31 Surgical - Exam - General no distress, moderate pain - Eyes normal ocular movement, no pale - Respiratory normal expansion, normal respiratory effort - Abdomen Abdomen: soft, non tender - Psychiatric oriented to time, oriented to person, oriented to place Assessment and Plan Assessment: OR for cystoscopy, bilateral retrograde pyelogram bilateral ureteroscopy, possible laser lithotripsy, stone basketing and stent insertion
--- NOTE | 2024-05-09 13:41 | XR ---
EXAMINATION TYPE: XR KUB DATE OF EXAM: 05/09/2024 HISTORY: Pain Comparison: None.Single KUB is submitted for interpretation. Findings: Right renal calculi: None Visualized. Right ureteral calculi: None Visualized. Left renal calculi: 1.2 cm calculus lower pole left kidney with additional smaller adjacent calculi seen. Left ureteral calculi: None Visualized. Pelvic calcifications: None Visualized. Bowel gas pattern is unremarkable. No free air. No mass effects. IMPRESSION: 1. As above
[2024-05-09] MEDS: IV FLUID CONTINUATION 1,000 ML IV ONE ×2 (14:06→18:15)
[2024-05-09 14:15] LABS: Glucose,Whole Blood 94 mg/dL (70-110)
[2024-05-09] MEDS: LACTATED RINGERS 1,000 ML IV SCH (14:16)
[2024-05-09] MEDS: ONDANSETRON 4 MG/2 ML VIAL IVP ONE (14:16)
[2024-05-09] MEDS: DEXAMETHASONE SOD PHOSPHATE 4 MG/ML 1 ML VIAL IVP STA (14:18)
[2024-05-09] MEDS: CIPROFLOXACIN/DEXTROSE PMX 400 MG in DEXTROSE/WATER 1 200ML.BAG IVPB PRN (16:14)
[2024-05-09] MEDS: IOPAMIDOL-370 100ML BTL MISCELLANE ONE (16:50)
[2024-05-09 17:49] VITALS: TEMP 97.1
--- NOTE | 2024-05-09 17:57 | FL ---
Fluoroscopy History: KATERINE URETERAL STONE LT RENAL CALCULUS. 96 SECS FL. 1.02 DAP.
[2024-05-09] MEDS: fentaNYL (PF) 50 MCG/ML 2 ML AMP IV PRN (17:59)
[2024-05-09] MEDS: KETOROLAC 15 MG/ML 1 ML VIAL IVP STA (18:21)
[2024-05-09 18:33] VITALS: RESP 16
[2024-05-09 18:53] VITALS: BP 137/71; PULSE 98
--- NOTE | 2024-05-10 11:19 | P.OP ---
Date of Procedure: 05/10/24 Preoperative Diagnosis: Bilateral hydronephrosis, left renal stone Postoperative Diagnosis: Same Procedure(s) Performed: Cystoscopy, bilateral retrograde pyelogram, left ureteroscopy, holmium laser lithotripsy, stone basketing and stent insertion Implants: 6 Bhutanese by 24 cm stent in the left ureter Anesthesia: SUNITA Surgeon: Ash Balbuena Estimated Blood Loss (ml): 5 Pathology: other (left renal stone) Condition: stable Disposition: PACU Indications for Procedure: This is a 63-year-old female with history of recurrent kidney stones, is having bilateral flank pain. Underwent a CT abdomen and pelvis that showed mild bilateral hydronephrosis, and evidence of a 8 mm left-sided lower pole renal stone. Of note the distal ureter could not be evaluated due to streak artifact from hip replacements. Discussed with her given the hydronephrosis and her symptoms I do recommend proceeding with bilateral retrograde pyelogram to evaluate the ureter. I discussed if there is evidence of stones then we will proceed with holmium laser lithotripsy and stone removal. Discussed I will attempt to remove her left-sided renal stone at the same setting, but given the lower pole location is potential I may not be able to access the stone. Discussed with her the risk of surgery which include but not limited to bleeding, infection, injury to the ureter. Operative Findings: No hydronephrosis bilaterally, large left-sided lower pole stone Description of Procedure: Patient brought the operating room, general anesthesia was induced. He was prepped and draped in sterile fashion placed in dorsolithotomy position. Cystoscopy with a 21 Bhutanese sheath was inserted per urethra, cystoscopy was performed showed no abnormality within the bladder. Attention was then carried to the right ureteral orifice which was intubated with an open-ended catheter retrograde pyelogram was performed on that side which showed no evidence of any filling defect or hydronephrosis, delayed images were obtained which showed e xcellent drainage of contrast. Attention was then carried to the left side which was also intubated with an open-ended catheter, retrograde pyelogram was performed on that side which showed no filling defect along the course of the ureter or hydronephrosis, there was a filling defect seen at the lower pole at the level of the known kidney stone. At this time a sensor wire was advanced through the catheter and the catheter was removed with the wire in place. Next under fluoroscopy 1113 Bhutanese access sheath was passed over the wire and into the proximal ureter. The flexible ureteroscope was inserted through the access sheath, renoscopy was performed showed a large stone in the lower pole. Using the holmium laser the stone was fragmented, any sizable stone fragments were removed using the stone basket. Repeat renoscopy showed no sizable stone fragments or injury to the kidney, on fluoroscopy there was no radiopaque density seen. At this time pullback ureteroscopy was performed showed no injury to the ureter or any ureteral stones, as ureteroscope was withdrawn a sensor wire was advanced through. Next a ureteral stent was passed over the wire, the proximal curl was visualized on fluoroscopy and the distal curl visualized using the cystoscope. The bladder was emptied at the end of the case. Patient tolerated procedure well was taken to recovery in stable condition
== END ==
LOC: OR 13:21
PROVIDERS: ATTEND Urology
DX: N20.0 Calculus of kidney (principal); J44.9 Chronic obstructive pulmonary disease, unspecified; K21.9 Gastro-esophageal reflux disease without esophagitis; E78.5 Hyperlipidemia, unspecified; I10 Essential (primary) hypertension; E03.9 Hypothyroidism, unspecified; Z86.14 Personal history of Methicillin resistant Staphylococcus aureus infection; F17.200 Nicotine dependence, unspecified, uncomplicated; Z88.0 Allergy status to penicillin; Z88.5 Allergy status to narcotic agent; Z88.8 Allergy status to other drugs, medicaments and biological substances; Z91.030 Bee allergy status; Z91.041 Radiographic dye allergy status; Z91.09 Other allergy status, other than to drugs and biological substances; Z79.82 Long term (current) use of aspirin; Z79.899 Other long term (current) drug therapy
CPT/HCPCS: 82365; 74018; 52356; C2625; C1758; C1769; J2250; J0330; J1100; J2710; J2405; J2001; J3010; J0744; J1885; J2704; Q9967; J2371; J1596

== ENCOUNTER → 2024-08-02 | Outpatient (CLI) | payer MEDICARE, OTHER ==
--- NOTE | 2024-08-02 17:52 | XR ---
EXAMINATION TYPE: XR Hip Complete LT, XR femur LT DATE OF EXAM: 08/02/2024 4:50 PM CLINICAL INDICATION: Female, 64 years old with history of HIP PAIN; PHH COMPARISON: None. TECHNIQUE: XR Hip Complete LT, XR femur LT; hip was examined in the frontal and lateral projections a nd a AP pelvis. Femur was evaluated in frontal and lateral views. FINDINGS: Left hip arthroplasty appears intact. No evidence for fracture. Atherosclerosis of the meño rial vasculature. Mild degeneration changes with joint space tearing ossified formation of the left k nee. No evidence for acute process, joint dislocation or significant soft tissue swelling. IMPRESSION: 1. No acute process. 2. Left hip arthroplasty is intact. 3. Mild left knee osteoarthrosis. [facility], , 08/02/2024 5:50 PM
== END ==
LOC: RADXRMAIN 16:08
PROVIDERS: ATTEND Family Medicine
CPT/HCPCS: 73502

== ENCOUNTER 2024-08-13 12:32 | Emergency (ER) | payer MEDICARE, OTHER ==
[2024-08-13 12:36] VITALS: TEMP 98.2
--- NOTE | 2024-08-13 13:05 | ED ---
General Adult HPI - General Chief complaint: Extremity Injury, Upper Stated complaint: R Arm Pain Time Seen by Provider: 08/13/24 13:00 Source: patient Mode of arrival: ambulatory Limitations: no limitations - History of Present Illness Initial comments: This is a pleasant 64-year-old female presents the ER today for evaluation of redness and pain in the right upper extremity. No fevers or chills. Patient is not on anticoagulation. - Related Data Home Medications Medication Instructions Recorded Confirmed Atorvastatin [Lipitor] 20 mg PO HS 07/29/14 05/09/24 DULoxetine HCL [Cymbalta] 60 mg PO BID 07/29/14 05/09/24 Furosemide [Lasix] 40 mg PO DAILY 07/29/14 05/09/24 Docusate [Colace] 100 mg PO HS PRN 02/26/17 05/09/24 HYDROcodone/APAP 10-325MG [[place] 1 tab PO QID 02/26/17 05/09/24 10-325] Ondansetron [Zofran] 4 mg PO Q8HR PRN 04/01/18 05/09/24 Atropine Ophth Soln 1% 5Ml [Isopto 1 drops RIGHT EYE BID 11/01/18 05/09/24 Atropine 1% 5Ml] Loratadine [Claritin] 10 mg PO DIRECTED PRN 11/01/18 05/09/24 Aspirin [Adult Low Dose Aspirin EC] 81 mg PO DAILY 12/20/19 05/09/24 LORazepam [Ativan] 1 mg PO TID PRN 12/20/19 05/09/24 Albuterol Sulfate [Ventolin HFA] 2 puff INHALATION TID 02/27/20 05/09/24 Losartan Potassium 50 mg PO QAM 06/25/20 05/09/24 Omeprazole [PriLOSEC] 20 mg PO AC-BID 06/25/20 05/09/24 Prednisone Acelate Ophthalmic 1 drop RIGHT EYE BID 06/25/20 05/09/24 amLODIPine BESYLATE 5 mg PO HS 06/25/20 05/09/24 Ibuprofen [Motrin] 400 mg PO Q8HR PRN 07/17/20 05/09/24 Albuterol Nebulized [Ventolin 2.5 mg INHALATION TID 08/30/20 05/09/24 Nebulized] Previous Rx's Medication Instructions Recorded Meclizine [Antivert] 25 mg PO TID PRN #60 tab 02/28/20 Ciprofloxacin HCl [Cipro] 250 mg PO Q12HR 1 Days #6 tab 05/09/24 Ketorolac [Toradol] 10 mg PO Q6HR PRN #15 tab 05/09/24 Allergies Allergy/AdvReac Type Severity Reaction Status Date / Time cyclobenzaprine HCl Allergy Swelling Verified 08/13/24 12:36 [From Flexeril] Iodinated Contrast Media Allergy Anaphylaxis Verified 08/13/24 12:36 [Iodinated Contrast Media - IV Dye] lithium [El Veintiseis] Allergy Swelling Verified 08/13/24 12:36 Penicillins Allergy Rash/Hives Verified 08/13/24 12:36 adhesive tape AdvReac Rash/Hives Verified 08/13/24 12:36 bee pollen AdvReac Swelling Verified 08/13/24 12:36 morphine AdvReac GETS ANGRY Verified 08/13/24 12:36 Review of Systems ROS Statement: Those systems with pertinent positive or pertinent negative responses have been documented in the HPI. ROS Other: All systems not noted in ROS Statement are negative. Past Medical History Past Medical History: Asthma, Cancer, Chest Pain / Angina, COPD, CVA/TIA, Fibromyalgia, GERD/Reflux, Hyperlipidemia, Hypertension, Osteoarthritis (OA), Pneumonia, Skin Disorder, Thyroid Disorder Additional Past Medical History / Comment(s): KIDNEY STONES, MULT TIA'S, migraines, glaucoma right eye/BLIND, chronic BACK, NECK, LEG shoulder,pain. PSORIASTIC arthritis, HX cervical Ca, hypoglycemia, hx leaky heart valve, thyroid nodules, hx ulcer, IBS, bloatiing. diarrhea/constipation/ gas, nausea and vomiting, hx pancreatitis, hx gout, frequent UTI's, takes daikly low dose aspirin for "thick blood" DX OF LUNG CANCER, sob and dry cough doing chemo and radiation [id number] History of Any Multi-Drug Resistant Organisms: MRSA Date of last positivie culture/infection: 2011 MDRO Source:: Lungs Past Surgical History: Appendectomy, Back Surgery, Cholecystectomy, Heart Catheterization, Hysterectomy, Joint Replacement Additional Past Surgical History / Comment(s): cryotherapy, splenectomy, tracheotomy, juan alberto hip replacement, cervical fustion(3-4-5-6) /titanium jareth , LITHOTRIPSY, PAIN CLINIC PROCEDURES, laser sugery rt eye for glaucoma, left cataract surgery, COLONOSCOPY/EGD, bronchoscopy 08/22/20 Past Anesthesia/Blood Transfusion Reactions: Previous Problems w/ Anesthesia, Motion Sickness, Postoperative Nausea & Vomiting (PONV) Additional Past Anesthesia/Blood Transfusion Reaction / Comment(s): after gallbladder surgery had NG tube inserted "belly remained asleep after anesthesia". diff IV starts Past Psychological History: Anxiety, Bipolar, Depression, Schizophrenia Smoking Status: Current every day smoker Past Alcohol Use History: None Reported Past Drug Use History: None Reported - Past Family History Daughter(s) Family Medical History: Cancer Additional Family Medical History / Comment(s): Cervical cancer Son(s) Family Medical History: Asthma, COPD Additional Family Medical History / Comment(s): Bipolar disorder General Exam - General Exam Comments Initial Comments: Physical Exam GENERAL: Patient is well-developed and well-nourished. Patient is nontoxic and well-hydrated and is in no distress. HENT: Normocephalic, Atraumatic. EYES: PERRL, EOMI PULMONARY: Unlabored respirations. CARDIOVASCULAR: RRR Warm and well perfused extremities ABDOMEN: Non-distended SKIN: Right upper extremity with mild erythema, no abscess : Deferred NEUROLOGIC: Alert and oriented Normal speech Normal gait MUSCULOSKELETAL: Moving all extremities with no apparent injury PSYCHIATRIC: No SI/HI Limitations: no limitations Course Vital Signs 08/13/24 08/13/24 12:34 16:38 Temperature 98.2 F Pulse Rate 101 H 92 Respiratory 20 16 Rate Blood Pressure 157/100 163/85 O2 Sat by Pulse 98 98 Oximetry Medical Decision Making - Medical Decision Making Was pt. sent in by a medical professional or institution (, PA, YEAST MAKER, urgent care, hospital, or retirement...) When possible be specific @ -No Did you speak to anyone other than the patient for history (EMS, parent, family, police, friend...)? What history was obtained from this source @ -No Did you review nursing and triage notes (agree or disagree)? Why? @ -I reviewed and agree with nursing and triage notes Were old charts reviewed (outside hosp., previous admission, EMS record, old EKG, old radiological studies, urgent care reports/EKG's, retirement records)? Report findings @ -No old charts were reviewed Differential Diagnosis (chest pain, altered mental status, abdominal pain women, abdominal pain men, vaginal bleeding, weakness, fever, dyspnea, syncope, headache, dizziness, GI bleed, back pain, seizure, CVA, palpatations, mental health)? @ -Differential includes cellulitis, abscess DVT EKG interpreted by me (3pts min.). @ -As above X-rays interpreted by me (1pt min.). @ -None done CT interpreted by me (1pt min.). @ -None done U/S interpreted by me (1pt. min.). @ -No obvious DVT What testing was considered but not performed or refused? (CT, X-rays, U/S, lab s)? Why? @ -None What meds were considered but not given or refused? Why? @ -None Did you discuss the management of the patient with other professionals (professionals i.e. , PA, YEAST MAKER, lab, RT, psych nurse, social media designer, ice cream truck driver, teacher, labor relations officer, insurance case manager)? Give summary @ -No Was smoking cessation discussed for >3mins.? @ -No Was critical care preformed (if so, how long)? @ -No Were there social determinants of health that impacted care today? How? (Homelessness, low income, unemployed, alcoholism, drug addiction, transportation, low edu. Level, literacy, decrease access to med. care, assisted, rehab)? @ -No Was there de-escalation of care discussed even if they declined (Discuss DNR or withdrawal of care, Hospice)? DNR status @ -No What co-morbidities impacted this encounter? (DM, HTN, Smoking, COPD, CAD, Cancer, CVA, ARF, Chemo, Hep., AIDS, mental health diagnosis, sleep apnea, morbid obesity)? @ -None Was patient admitted / discharged? Hospital course, mention meds given and route, prescriptions, significant lab abnormalities, going to OR and other pertinent info. @ -Discharged home Undiagnosed new problem with uncertain prognosis? @ -No Drug Therapy requiring intensive monitoring for toxicity (Heparin, Nitro, Insulin, Cardizem)? @ -No Were any procedures done? @ -No Diagnosis/symptom? @ -Cellulitis Acute, or Chronic, or Acute on Chronic? @ -Default Uncomplicated (without systemic symptoms) or Complicated (systemic symptoms)? @ -Default Side effects of treatment? @ -No Exacerbation, Progression, or Severe Exacerbation? @ -No Poses a threat to life or bodily function? How? (Chest pain, [place], [place], pneumonia, PE, COPD, DKA, ARF, appy, cholecystitis, CVA, Diverticulitis, Homicidal, Suicidal, threat to staff... and all critical care pts) @ -No - Lab Data Result diagrams: 08/13/24 14:13 08/13/24 14:13 Lab Results 08/13/24 08/13/24 Range/Units 14:13 14:13 WBC 11.9 H (3.8-10.6) k/uL RBC 4.86 (3.80-5.40) m/uL Hgb 13.1 (11.4-16.0) gm/dL Hct 41.7 (34.0-46.0) % MCV 85.9 (80.0-100.0) fL MCH 26.9 (25.0-35.0) pg MCHC 31.3 (31.0-37.0) g/dL RDW 16.5 H (11.5-15.5) % Plt Count 526 H (150-450) k/uL MPV 6.7 Neutrophils % 56 % Lymphocytes % 27 % Monocytes % 13 % Eosinophils % 2 % Basophils % 0 % Neutrophils # 6.7 (1.3-7.7) k/uL Lymphocytes # 3.2 (1.0-4.8) k/uL Monocytes # 1.5 H (0-1.0) k/uL Eosinophils # 0.2 (0-0.7) k/uL Basophils # 0.0 (0-0.2) k/uL Hypochromasia Slight Anisocytosis Slight Sodium 138 (137-145) mmol/L Potassium 3.9 (3.5-5.1) mmol/L Chloride 111 H (98-107) mmol/L Carbon Dioxide 23 (22-30) mmol/L Anion Gap 4 mmol/L BUN 9 (7-17) mg/dL Creatinine 0.51 L (0.52-1.04) mg/dL Est GFR (CKD-EPI)AfAm >90 (>60 ml/min/1.73 sqM) Est GFR (CKD-EPI)NonAf >90 (>60 ml/min/1.73 sqM) Glucose 95 (74-99) mg/dL Calcium 9.2 (8.4-10.2) mg/dL Total Bilirubin 0.6 (0.2-1.3) mg/dL AST 26 (14-36) U/L ALT 19 (4-34) U/L Alkaline Phosphatase 90 (38-126) U/L C-Reactive Protein <0.5 (<1.0) mg/dL Total Protein 6.5 (6.3-8.2) g/dL Albumin 4.1 (3.5-5.0) g/dL Disposition Clinical Impression: Injury of musculoskeletal system Disposition: HOME SELF-CARE Condition: Stable Additional Instructions: That you may have injured the tendon, sometimes antibiotics such as Levaquin which she recently took for the tarry tach infection you are suffering from can cause inflammation and damage to the tendons. Is patient prescribed a controlled substance at d/c from ED?: No Referrals: Torsten Melissa DO [Primary Care Provider] - 1-2 days
[2024-08-13] MEDS: KETOROLAC 15 MG/ML 1 ML VIAL IM STA (14:19)
[2024-08-13 14:21] LABS: Anisocytosis Slight; Basophils % (A) 0 %; Eosinophils # (A) 0.2 k/uL (0-0.7); Eosinophils % (A) 2 %; HCT 41.7 % (34.0-46.0); HGB 13.1 gm/dL (11.4-16.0); Hypochromasia Slight; Lymphocytes # (A) 3.2 k/uL (1.0-4.8); Lymphocytes % (A) 27 %; MCH 26.9 pg (25.0-35.0); MCHC 31.3 g/dL (31.0-37.0); MCV 85.9 fL (80.0-100.0); Mean Platelet Volume 6.7; Monocytes # (A) 1.5 k/uL (0-1.0); Monocytes % (A) 13 %; Neutrophils # (A) 6.7 k/uL (1.3-7.7); Neutrophils % (A) 56 %; Platelet Count 526 k/uL (150-450); RBC 4.86 m/uL (3.80-5.40); RDW 16.5 % (11.5-15.5); WBC 11.9 k/uL (3.8-10.6)
[2024-08-13 14:36] LABS: ALT 19 U/L (4-34); African American GFR (CKD) >90 (>60 ml/min/1.73 sqM); Albumin 4.1 g/dL (3.5-5.0); Anion Gap 4 mmol/L; Blood Urea Nitrogen 9 mg/dL (7-17); C Reactive Protein <0.5 mg/dL (<1.0); Calcium 9.2 mg/dL (8.4-10.2); Carbon Dioxide 23 mmol/L (22-30); Chloride 111 mmol/L (98-107); Glucose 95 mg/dL (74-99); Non-African American GFR(CKD) >90 (>60 ml/min/1.73 sqM); Sodium 138 mmol/L (137-145); Total Bilirubin 0.6 mg/dL (0.2-1.3); Total Protein 6.5 g/dL (6.3-8.2)
[2024-08-13 15:01] LABS: AST 26 U/L (14-36); Potassium 3.9 mmol/L (3.5-5.1)
[2024-08-13 15:02] LABS: Alkaline Phosphatase 90 U/L (38-126)
--- NOTE | 2024-08-13 15:35 | US ---
EXAMINATION TYPE: US venous doppler duplex UE RT DATE OF EXAM: 08/13/2024 COMPARISON: NONE CLINICAL INDICATION: Female, 64 years old with history of edema; Patient states she pulled a muscle i n her right arm. Right arm is now bruised TECHNIQUE: Grayscale, color Doppler and spectral Doppler imaging of the upper extremity. SIDE PERFORMED: Right FINDINGS: Right Arm: Negative for DVT Grayscale, color doppler, spectral doppler imaging performed of the deep veins of the upper extremiti es. IMPRESSION: No evidence for deep vein thrombosis. [facility], Workstation: Hidden [id number], 08/13/2024 3:32 PM
[2024-08-13 16:40] VITALS: BP 163/85; PULSE 92; RESP 16
== END 2024-08-13 16:40 | disposition home or self-care (01) ==
LOC: EC 12:32
DX: S49.91XA Unspecified injury of right shoulder and upper arm, initial encounter (principal); L03.113 Cellulitis of right upper limb; F17.200 Nicotine dependence, unspecified, uncomplicated; Z88.0 Allergy status to penicillin; Z88.5 Allergy status to narcotic agent; Z91.030 Bee allergy status; Z91.041 Radiographic dye allergy status; Z86.73 Personal history of transient ischemic attack (TIA), and cerebral infarction without residual deficits; X58.XXXA Exposure to other specified factors, initial encounter
CPT/HCPCS: 36415; 80053; 85025; 86140; 93971; 99284; 96372; J1885

== ENCOUNTER → 2024-08-31 | Outpatient (CLI) | payer MEDICARE, OTHER ==
--- NOTE | 2024-08-31 17:00 | CT ---
EXAMINATION TYPE: CT ChestAbdPelvis wo con CT DLP: 609.5 mGycm, Automated exposure control for dose reduction was used. DATE OF EXAM: 08/31/2024 12:59 PM COMPARISON: CT abdomen and pelvis 04/30/2024, CT chest abdomen pelvis 02/25/2024, 02/09/2023, 10/05/2022 , PET/CT 04/16/2023 CLINICAL INDICATION:Female, 64 years old with history of C34.91 lung ca; PHH, f/u lung ca, c/o abdomi nal pain Technique: Multiple axial images of the chest, abdomen, and pelvis were obtained without the administ ration of intravenous or oral contrast which limits evaluation. Two-dimensional coronal and sagittal reconstructions were obtained. Findings: CHEST: LUNGS/ PLEURA: No pleural effusion or pneumothorax. Mild centrilobular emphysematous changes. Similar post treatment changes within the right upper lung with scarring demonstrated. No new suspicious pu lmonary nodule or mass. AIRWAY: Patent and unremarkable.. HEART: Size within normal limits.Trace pericardial effusion. Mild coronary arterial calcifications. MEDIASTINUM: No gross evidence of adenopathy. Mild hydrostatic calcification of the aorta and its bra nches. VASCULATURE: No aortic aneurysm. Right chest wall subclavian approach Mediport catheter with distal tip terminating in the mid SVC. MUSCULOSKELETAL: No acute osseous abnormalities. Degenerative changes of the right humeral head. Part ial visualization of anterior cervical fusion hardware. No aggressive osseous lesion. Multilevel dege nerative disc disease. SOFT TISSUES/LYMPH NODES: Unremarkable. LOWER NECK: No significant findings. ABDOMEN: ABDOMEN LIVER: No focal lesion within the limitations of a noncontrast exam. GALLBLADDER AND BILE DUCTS: The gallbladder is surgically absent. No biliary duct dilatation. PANCREAS: Unremarkable noncontrast appearance. SPLEEN: Unremarkable noncontrast appearance. ADRENAL GLANDS: Unremarkable noncontrast appearance. KIDNEYS AND URETERS: No evidence of hydronephrosis and no right renal calculi. Nonobstructive left re nal calculi with largest measuring up to 4 mm. PELVIS BLADDER: Poorly visualized due to streak artifact from hip prosthesis. REPRODUCTIVE: Poorly visualized due to streak artifact from hip prosthesis. ABDOMEN & PELVIS STOMACH AND BOWEL: Stomach and duodenum are unremarkable. No focal bowel wall thickening or surroundi ng inflammatory changes. Scattered colonic diverticulosis without evidence for acute diverticulitis. No evidence of bowel obstruction. PERITONEUM: No evidence of pneumoperitoneum or free fluid. VASCULATURE: Mild atherosclerotic calcifications are present throughout the abdominal aorta and its b ranches. No abdominal aortic aneurysm. MUSCULOSKELETAL: No acute osseous abnormalities. Postsurgical changes from bilateral total hip arthro plasty. No aggressive osseous lesion. Grade 2 anterolisthesis of L5 on S1 with bilateral pars defects . Multilevel degenerative disc disease most pronounced at L3-L4 and L5-S1. LYMPH NODES: No gross evidence for lymphadenopathy. SOFT TISSUE/ABDOMINAL WALL: Few scattered calcified granulomas within the soft tissues. IMPRESSION: 1. Stable posttreatment changes of the right upper lung without evidence recurrence or metastatic di sease. 2. Nonobstructive left renal calculi. 3. Colonic diverticulosis without evidence for acute diverticulitis. 4. Redemonstration of grade 2 anterolisthesis of L5 and S1 bilateral pars defects. [facility], , 08/31/2024 4:58 PM
== END | disposition home or self-care (01) ==
LOC: RADCTMAIN 12:28
PROVIDERS: ATTEND Internal Medicine Hematology & Oncology
DX: C34.91 Malignant neoplasm of unspecified part of right bronchus or lung (principal); N20.0 Calculus of kidney; K57.30 Diverticulosis of large intestine without perforation or abscess without bleeding; M43.17 Spondylolisthesis, lumbosacral region; I10 Essential (primary) hypertension; I67.89 Other cerebrovascular disease; J43.9 Emphysema, unspecified; I70.0 Atherosclerosis of aorta; I31.39 Other pericardial effusion (noninflammatory)
CPT/HCPCS: 71250; 74018; 74176

== ENCOUNTER → 2024-09-22 | Outpatient (CLI) | payer MEDICARE, OTHER ==
--- NOTE | 2024-09-23 20:08 | MR ---
EXAMINATION TYPE: MR brain wo/w con DATE OF EXAM: 09/22/2024 1:24 PM COMPARISON: 02/10/2024 CLINICAL INDICATION: Female, 64 years old with history of C34.91, Small cell lung cancer. IV Contrast: 7 cc Gadobutrol (None if empty) TECHNIQUE: Multiplanar, multisequence images of the brain and brainstem were acquired before and aft er administration of 7 mL IV Gadobutrol. Diffusion weighted imaging is performed. FINDINGS: No evidence for acute infarction, hemorrhage, mass, mass effect, midline shift, herniation, effacemen t of basal cisterns, or extra-axial fluid collection. The ventricles and sulci are age-appropriate. Major intracranial flow voids are intact. Dominant left vertebral artery. T2/FLAIR weighted sequences show moderate scattered bright signal foci in the subcortical and deep wh ite matter regions of both cerebral hemispheres, unchanged. Midline structures demonstrate normal morphology. The craniocervical junction is normal. Post contrast images demonstrate no evidence of pathologic enhancement. Dural venous sinuses are pat ent. The visualized sinuses are clear. There is redemonstrated signal abnormality with V-shaped linear sig nal within the right globe. IMPRESSION: 1. No acute intracranial abnormality seen. No enhancing lesions to suggest brain metastases. 2. Stable scattered moderate burden of chronic small vessel symmetric disease 3. Redemonstrated signal abnormality right globe. Query any known retinal detachment. Ophthalmology e valuation recommended. [facility], Workstation: [id number], 09/23/2024 8:06 PM
== END | disposition home or self-care (01) ==
LOC: RADMRIMAIN 11:19
PROVIDERS: ATTEND Internal Medicine Hematology & Oncology
DX: C34.91 Malignant neoplasm of unspecified part of right bronchus or lung (principal); H33.21 Serous retinal detachment, right eye
CPT/HCPCS: 70553; J1642; A9585

== ENCOUNTER 2025-05-09 12:53 | Emergency (ER) | payer MEDICARE, OTHER ==
[2025-05-09 12:58] VITALS: TEMP 98
--- NOTE | 2025-05-09 14:32 | ED ---
Back Pain HPI - General Chief Complaint: Back Pain/Injury Stated Complaint: Back/Left Side Pain Time Seen by Provider: 05/09/25 13:24 Source: patient, RN notes reviewed Mode of arrival: ambulatory Limitations: no limitations - History of Present Illness Initial Comments: This is a 64-year-old female who presents to the emergency department for back pain. States that over the last 3 days she has had pain in the left lower back that started to radiate down her leg. Denies any new injuries. Denies any loss of bowel/bladder control or saddle anesthesia. She initially thought this was related to her hip bursitis. She has tried taking her typical pain medication which consists of ibuprofen and Wells, however this has not been helping her pain. States that this is making it difficult for her to walk and get around. MD Complaint: back pain - Related Data Home Medications Medication Instructions Recorded Confirmed RX: Atorvastatin [Lipitor] 20 mg PO HS 07/29/14 05/09/24 RX: DULoxetine HCL [Cymbalta] 60 mg PO BID 07/29/14 05/09/24 RX: Furosemide [Lasix] 40 mg PO DAILY 07/29/14 05/09/24 RX: Docusate [Colace] 100 mg PO HS PRN 02/26/17 05/09/24 RX: HYDROcodone/APAP 10-325MG 1 tab PO QID 02/26/17 05/09/24 [Wells 10-325] RX: Ondansetron [Zofran] 4 mg PO Q8HR PRN 04/01/18 05/09/24 RX: Atropine Ophth Soln 1% 5Ml 1 drops RIGHT EYE BID 11/01/18 05/09/24 [Isopto Atropine 1% 5Ml] RX: Loratadine [Claritin] 10 mg PO DIRECTED PRN 11/01/18 05/09/24 RX: Aspirin [Adult Low Dose 81 mg PO DAILY 12/20/19 05/09/24 Aspirin EC] RX: LORazepam [Ativan] 1 mg PO TID PRN 12/20/19 05/09/24 RX: Albuterol Sulfate [Ventolin 2 puff INHALATION TID 02/27/20 05/09/24 HFA] Omeprazole [PriLOSEC] 20 mg PO AC-BID 06/25/20 05/09/24 Prednisone Acelate Ophthalmic 1 drop RIGHT EYE BID 06/25/20 05/09/24 RX: Losartan Potassium 50 mg PO QAM 06/25/20 05/09/24 RX: amLODIPine BESYLATE 5 mg PO HS 06/25/20 05/09/24 Ibuprofen [Motrin] 400 mg PO Q8HR PRN 07/17/20 05/09/24 Albuterol Nebulized [Ventolin 2.5 mg INHALATION TID 08/30/20 05/09/24 Nebulized] Previous Rx's Medication Instructions Recorded RX: Meclizine [Antivert] 25 mg PO TID PRN #60 tab 02/28/20 Ciprofloxacin HCl [Cipro] 250 mg PO Q12HR 1 Days #6 tab 05/09/24 Ketorolac [Toradol] 10 mg PO Q6HR PRN #15 tab 05/09/24 Ketorolac [Toradol] 10 mg PO Q6HR PRN #15 tab 05/09/25 Lidocaine 5% Patch [Lidoderm] 1 patch TOPICAL DAILY PRN #30 patch 05/09/25 RX: predniSONE 50 mg PO DAILY 5 Days #5 tab 05/09/25 methocarbamoL [Robaxin-750] 1,500 mg PO TID PRN #30 tab 05/09/25 Allergies Allergy/AdvReac Type Severity Reaction Status Date / Time cyclobenzaprine HCl Allergy Swelling Verified 05/09/25 12:58 [From Flexeril] Iodinated Contrast Media Allergy Anaphylaxis Verified 05/09/25 12:58 [Iodinated Contrast Media - IV Dye] lithium [[place]] Allergy Swelling Verified 05/09/25 12:58 Penicillins Allergy Rash/Hives Verified 05/09/25 12:58 adhesive tape AdvReac Rash/Hives Verified 05/09/25 12:58 bee pollen AdvReac Swelling Verified 05/09/25 12:58 morphine AdvReac GETS ANGRY Verified 05/09/25 12:58 Review of Systems ROS Statement: Those systems with pertinent positive or pertinent negative responses have been documented in the HPI. ROS Other: All systems not noted in ROS Statement are negative. Past Medical History Past Medical History: Asthma, Cancer, Chest Pain / Angina, COPD, CVA/TIA, Fibromyalgia, GERD/Reflux, Hyperlipidemia, Hypertension, Osteoarthritis (OA), Pneumonia, Skin Disorder, Thyroid Disorder Additional Past Medical History / Comment(s): KIDNEY STONES, MULT TIA'S, migraines, glaucoma right eye/BLIND, chronic BACK, NECK, LEG shoulder,pain. PSORIASTIC arthritis, HX cervical Ca, hypoglycemia, hx leaky heart valve, thyroid nodules, hx ulcer, IBS, bloatiing. diarrhea/constipation/ gas, nausea and vomiting, hx pancreatitis, hx gout, frequent UTI's, takes daikly low dose aspirin for "thick blood" DX OF LUNG CANCER, sob and dry cough doing chemo and radiation [id number] History of Any Multi-Drug Resistant Organisms: MRSA Date of last positivie culture/infection: 2011 MDRO Source:: Lungs Past Surgical History: Appendectomy, Back Surgery, Cholecystectomy, Heart Catheterization, Hysterectomy, Joint Replacement Additional Past Surgical History / Comment(s): cryotherapy, splenectomy, tracheotomy, juan alberto hip replacement, cervical fustion(3-4-5-6) /titanium jareth , LITHOTRIPSY, PAIN CLINIC PROCEDURES, laser sugery rt eye for glaucoma, left cataract surgery, COLONOSCOPY/EGD, bronchoscopy 08/22/20 Past Anesthesia/Blood Transfusion Reactions: Previous Problems w/ Anesthesia, Motion Sickness, Postoperative Nausea & Vomiting (PONV) Additional Past Anesthesia/Blood Transfusion Reaction / Comment(s): after gallbladder surgery had NG tube inserted "belly remained asleep after anesthesia". diff IV starts Past Psychological History: Anxiety, Bipolar, Depression, Schizophrenia Smoking Status: Current every day smoker Past Alcohol Use History: None Reported Past Drug Use History: None Reported - Past Family History Daughter(s) Family Medical History: Cancer Additional Family Medical History / Comment(s): Cervical cancer Son(s) Family Medical History: Asthma, COPD Additional Family Medical History / Comment(s): Bipolar disorder General Exam Limitations: no limitations General appearance: alert, in no apparent distress Head exam: Present: atraumatic, normocephalic, normal inspection Respiratory exam: Present: normal lung sounds bilaterally. Absent: respiratory distress, wheezes, rales, rhonchi, stridor Cardiovascular Exam: Present: regular rate, normal rhythm Back exam: Present: other (Tenderness to palpation over the left lower back. Range of motion of the left lower extremity is limited by pain. 2+ DP and PT pulses) Neurological exam: Present: alert, oriented X3, CN II-XII intact Psychiatric exam: Present: normal affect, normal mood Skin exam: Present: warm, dry, intact, normal color. Absent: rash Course Vital Signs 05/09/25 05/09/25 05/09/25 12:55 13:24 15:00 Temperature 98.0 F Pulse Rate 99 95 90 Respiratory 15 20 16 Rate Blood Pressure 121/78 133/61 159/94 O2 Sat by Pulse 97 97 96 Oximetry 05/09/25 05/09/25 15:56 17:27 Temperature Pulse Rate 98 95 Respiratory 18 16 Rate Blood Pressure 117/70 142/76 O2 Sat by Pulse 95 95 Oximetry Medical Decision Making - Medical Decision Making This is a 64-year-old female who presents to the emergency department for back pain. Was pt. sent in by a medical professional or institution? @ -No Did you speak to anyone other than the patient for history? @ -No Did you review nursing and triage notes? @ -Yes, and I agree, it is accurate with regards to the patient's symptoms. Were old charts reviewed? @ -No Differential Diagnosis? @ -Differential Back Pain: Strain, zoster, cauda equina syndrome, epidural abscess, vertebral osteomyelitis, discitis, fracture, subluxation, disc herniation, DJD, spinal stenosis, dissection, AAA, pancreatitis, peptic ulcer disease, pyelonephritis, kidney stone, this is not meant to be an all-inclusive list. EKG interpreted by me (3pts min.)? @ -Not obtained X-rays interpreted by me (1pt min.)? @ -Not obtained CT interpreted by me (1pt min.)? @ -CT scan of the lumbar spine obtained. My interpretation identifies no acute fractures. U/S interpreted by me (1pt. min.)? @ -Not obtained What testing was considered but not performed? (CT, X-rays, U/S, labs)? Why? @ -None What meds were considered but not given? Why? @ -None Did you discuss the management of the patient with other professionals? @ -No Did you reconcile home meds? @ -No Was smoking cessation discussed for >3mins.? @ -No Was critical care preformed (if so, how long)? @ -No Were there social determinants of health that impacted care today? How? (Homelessness, low income, unemployed, alcoholism, drug addiction, transportation, low edu. Level, literacy, decrease access to med. care, assisted, rehab)? @ -No Was there de-escalation of care discussed even if they declined? (Discuss DNR or withdrawal of care, Hospice)? @ -No What co-morbidities impacted this encounter? (DM, HTN, Smoking, COPD, CAD, Cancer, CVA, Hep., AIDS, mental health diagnosis, sleep apnea, morbid obesity)? @ -Osteoarthritis, fibromyalgia Was patient admitted / discharged? @ -Discharged. CT scan of the lumbar spine obtained revealing multiple degenerative changes including severe bilateral neural foraminal stenosis and disc bulging. Findings reviewed with the patient. Symptoms like related to a lumbar radiculopathy/sciatica. Pain was managed in the emergency department. Prescription for prednisone, Toradol, Robaxin, and lidocaine patches provided with dosing instructions reviewed. She does follow with pain management and will follow-up with them as scheduled as well as with her primary care provider. Patient discharged home in stable condition. Case discussed with ED attending. Dr. Lopez. Return precautions reviewed in depth, the patient is instructed to return to the emergency department with any new, worsening, or concerning symptoms. Patient verbalized understanding. Undiagnosed new problem with uncertain prognosis? @ -None Drug Therapy requiring intensive monitoring for toxicity (Heparin, Nitro, Insulin, Cardizem)? @ -None Were any procedures done? @ -None Diagnosis/symptom? @ -Left lumbar radiculopathy, sciatica Acute, or Chronic, or Acute on Chronic? @ -Acute Uncomplicated (without systemic symptoms) or Complicated (systemic symptoms)? @ -Uncomplicated Side effects of treatment? @ -None Exacerbation, Progression, or Severe Exacerbation] @ -Not applicable Poses a threat to life or bodily function? @ -No - Radiology Data Radiology results: report reviewed, image reviewed Disposition Clinical Impression: Strain of lumbar region, Left lumbar radiculopathy Disposition: HOME SELF-CARE Instructions (If sedation given, give patient instructions): Sciatica (ED), Acute Low Back Pain (ED), Lumbar Radiculopathy (ED) Additional Instructions: Return to the emergency department with any new, worsening, or concerning symptoms. Take the prednisone daily for 5 days. Take the Toradol with Tylenol as needed for pain relief. If you choose to take the Toradol, do not take any other anti-inflammatories such as ibuprofen, take one or the other. You can take the Robaxin as 1 to 2 tablets up to 3 times daily. You can also apply the lidocaine patches daily. Follow-up with your primary care provider and pain management. Prescriptions: Lidocaine 5% Patch [Lidoderm] 1 patch TOPICAL DAILY PRN #30 patch PRN Reason: Pain RX: predniSONE 50 mg PO DAILY 5 Days #5 tab methocarbamoL [Robaxin-750] 1,500 mg PO TID PRN #30 tab PRN Reason: Pain Ketorolac [Toradol] 10 mg PO Q6HR PRN #15 tab PRN Reason: Pain Is patient prescribed a controlled substance at d/c from ED?: No Referrals: Nba Deng MD [Primary Care Provider] - 1-2 days Time of Disposition: 16:48
[2025-05-09] MEDS: HYDROmorphone 1 MG/ML 1 ML SYRINGE IVP STA ×2 (14:42→15:50)
[2025-05-09] MEDS: LIDOCAINE 4% PATCH TOPICAL ONE (14:42)
[2025-05-09] MEDS: ORPHENADRINE 30 MG/ML 2 ML VIAL IVP STA (14:43)
[2025-05-09] MEDS: KETOROLAC 15 MG/ML 1 ML VIAL IVP STA ×2 (14:45→15:49)
[2025-05-09] MEDS: DEXAMETHASONE SOD PHOSPHATE 10 MG/ML 1 ML VIAL IVP STA (14:46)
--- NOTE | 2025-05-09 15:19 | CT ---
EXAMINATION TYPE: CT lumbar spine wo con CT DLP: 925.4 mGycm, Automated exposure control for dose reduction was used. DATE OF EXAM: 05/09/2025 3:09 PM COMPARISON: Multiple CT chest abdomen and pelvis with most recent 03/19/2025, lumbosacral spine. CLINICAL INDICATION:Female, 64 years old with history of Left lower back pain; PHH, , pain TECHNIQUE: Multiple axial images were obtained from the midportion of T11 through the sacroiliac becka nts. Soft tissue and bone windows in coronal and sagittal planes were obtained and reviewed. Contrast used: none. Oral contrast used: none. FINDINGS: Alignment: There are 5 lumbar type vertebral bodies. Mild levocurvature of the lumbar spine with apex at L4. Grade 2 anterolisthesis of L5 on S1 with bilateral pars defects. Bone: No evidence of fracture is identified. Bilateral hip arthroplasty changes demonstrated on the orthopaedic physician assistant radiograph. Multilevel disc space narrowing with endplate sclerosis and anterior osteophytosis. This is at L3-L4 and L5-S1. Discs: T12-L1: No spinal canal or neural foraminal stenosis is identified. L1-L2: No spinal canal or neural foraminal stenosis is identified. L2-L3: Broad-based disc bulge resulting in mild to moderate spinal canal stenosis. Mild left neural f oraminal stenosis. The right neural foramen is patent. L3-L4: Broad-based disc bulge with ligamentum flavum buckling and bilateral facet arthropathy. Mild s nell canal stenosis. Moderate right neuroforaminal stenosis. The left neural foramen is patent. L4-L5: Broad-based disc bulge with ligamentum flavum buckling and bilateral facet arthropathy. Result s in mild spinal canal stenosis. Mild right neural foraminal stenosis. Moderate left neural foraminal stenosis. L5-S1: Grade 2 anterolisthesis with uncovering of the disc. No significant spinal canal stenosis. Robson ateral facet arthropathy with pars defects. Severe bilateral neural foraminal stenosis. Other: Subsegmental atelectasis within the bilateral visualized lower lungs. Couple nonobstructing le ft renal calculi measuring up to 4 mm. Atherosclerotic calcification of the aorta and its branches. S igmoid diverticulosis without evidence for acute diverticulitis. IMPRESSION: 1. No evidence for acute spinal fracture. 2. Grade 2 anterolisthesis of L5 on S1 with bilateral pars defects. Results in severe bilateral neura l foraminal stenosis. 3. Multilevel degenerative disc disease and facet arthropathy as described above. Mild to moderate sp inal canal stenosis at L2-L3 secondary to disc bulge. Mild spinal canal stenosis at L3-L4 and L4-L5 d ue to disc bulge with ligamentum flavum buckling and bilateral facet arthropathy. 4. Nonobstructing left renal calculi. [facility], , 05/09/2025 3:16 PM
[2025-05-09 17:28] VITALS: BP 142/76; PULSE 95; RESP 16
== END 2025-05-09 17:28 | disposition home or self-care (01) ==
LOC: EC 12:53
DX: S39.012A Strain of muscle, fascia and tendon of lower back, initial encounter (principal); M51.16 Intervertebral disc disorders with radiculopathy, lumbar region; F17.200 Nicotine dependence, unspecified, uncomplicated; Z88.0 Allergy status to penicillin; Z88.5 Allergy status to narcotic agent; Z91.030 Bee allergy status; Z91.041 Radiographic dye allergy status; Z91.048 Other nonmedicinal substance allergy status; Z88.8 Allergy status to other drugs, medicaments and biological substances; X58.XXXA Exposure to other specified factors, initial encounter
CPT/HCPCS: 72131; 99284; 96374; 96375; 96376 ×2; J1100; J2360; J3360; J1171; J1885